=== PATIENT | female | born 1970 | race Caucasian/White ===

== ENCOUNTER 2024-06-03 12:46 | Inpatient (IN) | payer OTHER ==
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
[2024-06-03 13:16] LABS: Basophils % (A) 0 %; Eosinophils # (A) 0.2 k/uL (0-0.7); Eosinophils % (A) 3 %; HCT 44.4 % (34.0-46.0); HGB 14.2 gm/dL (11.4-16.0); Lymphocytes # (A) 0.9 k/uL (1.0-4.8); Lymphocytes % (A) 10 %; MCH 28.4 pg (25.0-35.0); MCHC 31.9 g/dL (31.0-37.0); Mean Platelet Volume 8.9; Monocytes # (A) 0.3 k/uL (0-1.0); Monocytes % (A) 4 %; Neutrophils # (A) 7.4 k/uL (1.3-7.7); Neutrophils % (A) 83 %; Platelet Count 261 k/uL (150-450); RBC 4.99 m/uL (3.80-5.40)
[2024-06-03 13:26] LABS: Partial Thromboplastin Time 25.7 sec (22.0-30.0)
[2024-06-03 13:27] LABS: ALT 23 U/L (4-34); AST 33 U/L (14-36); African American GFR (CKD) >90 (>60 ml/min/1.73 sqM); Albumin 4.3 g/dL (3.5-5.0); Alkaline Phosphatase 80 U/L (38-126); Anion Gap 5 mmol/L; Blood Urea Nitrogen 12 mg/dL (7-17); Calcium 9.5 mg/dL (8.4-10.2); Carbon Dioxide 36 mmol/L (22-30); Chloride 97 mmol/L (98-107); Glucose 123 mg/dL (74-99); Magnesium 2.1 mg/dL (1.6-2.3); Non-African American GFR(CKD) 86 (>60 ml/min/1.73 sqM); Potassium 4.4 mmol/L (3.5-5.1); Sodium 138 mmol/L (137-145); Total Bilirubin 0.9 mg/dL (0.2-1.3); Total Protein 7.3 g/dL (6.3-8.2)
--- NOTE | 2024-06-03 14:15 | XR ---
EXAMINATION TYPE: XR chest 2V DATE OF EXAM: 06/03/2024 2:10 PM COMPARISON: None available. CLINICAL INDICATION: Female, 54 years old with history of Weakness; [facility] TECHNIQUE: XR chest 2V Frontal and lateral views of the chest. FINDINGS: Cardia megaly mild pulmonary vascular congestion. No sizable pleural effusion. No acute focal consolidation. No pneumothorax or No acute osseous abnormality. IMPRESSION: Cardiomegaly and mild pulmonary vascular congestion changes. [facility], , 06/03/2024 2:13 PM
--- NOTE | 2024-06-03 14:18 | CT ---
EXAMINATION TYPE: CT brain wo con DATE OF EXAM: 06/03/2024 2:05 PM COMPARISON: None available. CLINICAL INDICATION: Female, 54 years old with history of weakness, WEAKNESS AND SLURRED SPEECH TECHNIQUE: Brain: Axial CT images of the brain were obtained with coronal and sagittal reformats created and rev iewed. Contrast used: None. Oral contrast used: None. CT DLP: 1180.4 mGycm, Automated exposure control for dose reduction was used. FINDINGS: Brain: No acute intracranial hemorrhage, midline shift or significant mass effect. Cavum septum pellucidum. Ventricles and sulci otherwise mildly prominent compatible generalized cerebral volume loss. Basal ci sterns appear patent. No sizable extra-axial fluid collection. Visualized paranasal sinuses and masto id air cells appear patent. No depressed calvarial fracture. No large scalp hematoma. IMPRESSION: No acute intracranial abnormality. [facility], , 06/03/2024 2:16 PM
[2024-06-03 14:50] LABS: Appearance,Urine Clear (Clear); Bilirubin,Urine Negative (Negative); Blood,Urine Negative (Negative); Color,Urine Colorless; Glucose,Urine (UA) Negative (Negative); Ketones,Urine Negative (Negative); Leukocyte Esterase,Urine Negative (Negative); Nitrite,Urine Negative (Negative); Protein,Urine Negative (Negative); Urobilinogen,Urine <2.0 mg/dL (<2.0)
[2024-06-03] MEDS: SODIUM CHLORIDE 0.9% 1,000 ML IV SCH (15:03)
[2024-06-03] MEDS: ASPIRIN 325 MG TAB PO STA (15:03)
--- NOTE | 2024-06-03 21:09 | P.HPIM ---
History of Present Illness This is a visit 54 years old female with past medical history of hypertension She brought because of generalized weakness and she was found on the floor with slurred speech. Patient could not get up and noticed that she is old and peed on herself more than once. On presentation patient looks awake and understands but she mumbles only and she cannot talk. Patient is morbidly obese which limits her ability to move around. Patient is poor historian because of her aphasia however she can shake her head as yes or no Patient denies any pain When asking about shortness of breath she denies, no vomiting or diarrhea, she denies urinary complaint, she denies headache dizziness to me Patient also denies weakness or tingling Her labs looks normal like CBC, BMP and LFT and INR. Urinalysis negative proBNP is 250 Chest x-ray cardiomegaly with mild pulmonary vascular congestion CT of the brain showing no acute intracranial process EKG showing sinus rhythm at [address]-T changes Review of Systems Patient could not talk clearly but she can move her head as yes or no to the following questions Review of systems CONSTITUTIONAL: No fever, no malaise, no fatigue. HEENT: No recent visual problems or hearing problems. Denied any sore throat. CARDIOVASCULAR: No orthopnea, PND, no palpitations, no syncope. PULMONARY: No shortness of breath, no cough, no hemoptysis. GASTROINTESTINAL: No diarrhea, no nausea, no vomiting, no abdominal pain. Normoactive bowel sounds. NEUROLOGICAL: No headaches, no weakness, no numbness. HEMATOLOGICAL: Denies any bleeding or petechiae. GENITOURINARY: Denies any burning micturition, frequency, or urgency. MUSCULOSKELETAL/RHEUMATOLOGICAL: Denies any joint pain, swelling, or any muscle pain. ENDOCRINE: Denies any polyuria or polydipsia. Past Medical History Past Medical History: Heart Failure, Hypertension Past Surgical History: No Surgical Hx Reported Past Psychological History: No Psychological Hx Reported Smoking Status: Never smoker Past Alcohol Use History: None Reported Past Drug Use History: None Reported Medications and Allergies Home Medications Medication Instructions Recorded Confirmed Type Atorvastatin [Lipitor] 20 mg PO HS 06/03/24 06/03/24 History Dapagliflozin Propanediol [Farxiga] 5 mg PO DAILY 06/03/24 06/03/24 History Ergocalciferol (Vitamin D2) 1,250 mcg PO Q7D 06/03/24 06/03/24 History [Drisdol (50,000 Iu)] Etodolac [Lodine] 400 mg PO BID 06/03/24 06/03/24 History Furosemide [Lasix] 40 mg PO DAILY 06/03/24 06/03/24 History Losartan Potassium [Cozaar] 100 mg PO DAILY 06/03/24 06/03/24 History Metoprolol Succinate (ER) [Toprol 100 mg PO DAILY 06/03/24 06/03/24 History Xl] Spironolactone [Aldactone] 25 mg PO DAILY 06/03/24 06/03/24 History carvediloL [Coreg] 25 mg PO BID 06/03/24 06/03/24 History Allergies Allergy/AdvReac Type Severity Reaction Status Date / Time Sulfa (Sulfonamide Allergy Rash/Hives Verified 06/03/24 15:22 Antibiotics) Physical Exam Vitals: Vital Signs Temp Pulse Resp BP Pulse Ox 06/03/24 19:51 92 18 153/77 96 06/03/24 18:54 98.5 F 06/03/24 18:21 95 20 160/78 96 06/03/24 16:00 98 26 H 124/90 96 06/03/24 15:02 103 H 26 H 152/77 99 06/03/24 13:37 97 06/03/24 12:55 98.5 F 93 34 H 156/96 93 L Intake and Output 06/03/24 06/03/24 06/03/24 06:59 14:59 22:59 Other: Weight 164 kg -GENERAL: The patient is alert and oriented x3, not in any acute distress. Well developed, well nourished. Morbidly obese HEENT: Pupils are round and equally reacting to light. EOMI. No scleral icterus. No conjunctival pallor. Normocephalic, atraumatic. No pharyngeal erythema. No thyromegaly. CARDIOVASCULAR: S1 and S2 present. No murmurs, rubs, or gallops. PULMONARY: Chest is clear to auscultation, no wheezing , no crackles. ABDOMEN: Soft, nontender, nondistended, normoactive bowel sounds. No palpable organomegaly. MUSCULOSKELETAL: No joint swelling or deformity. EXTREMITIES: No cyanosis, clubbing, or pedal edema. NEUROLOGICAL: G patient could not talk she mumbles. No facial deviation. No weakness of upper or lower extremity which looks symmetrical. Examination is limited by her body habitus -SKIN: N she has erythematous rash all over her body including the face, trunk and extremities with psoriasis like discoloration of the knees. no petechiae. Results CBC & Chem 7: 06/03/24 13:08 06/03/24 13:08 Labs: Abnormal Lab Results - Last 24 Hours (Table) 06/03/24 06/03/24 Range/Units 13:08 13:08 Lymphocytes # 0.9 L (1.0-4.8) k/uL Chloride 97 L (98-107) mmol/L Carbon Dioxide 36 H (22-30) mmol/L Glucose 123 H (74-99) mg/dL Assessment and Plan Assessment: Aphasia with slurred speech, rule out acute stroke Psoriasis with widespread rash Permissive hypertension Morbid obesity Plan: Continue with aspirin 325 mg Hold blood pressure medication till patient able to take orally Keep n.p.o. check swallow evaluation Neurology consult Check echocardiogram and carotid duplex Labs and medication were reviewed.. Continue same treatment. Continue with symptomatic treatment. Resume home medication. Monitor labs and vitals. DVT and GI prophylaxis. Further recommendations as per clinical course of the patient DVT prophylaxis: Subcutaneous heparin GI Prophylaxis: Pepcid PT/OT: Pending Prognosis is guarded
[2024-06-03] MEDS: ENOXAPARIN 40 MG/0.4 ML SYRINGE SQ SCH (21:56)
[2024-06-03] MEDS: FAMOTIDINE 20 MG/2 ML VIAL IV SCH (21:56)
[2024-06-04] MEDS: cloNIDine 0.2 MG/24HR PATCH TRANSDERM SCH (03:22)
[2024-06-04 07:14] LABS: African American GFR (CKD) >90 (>60 ml/min/1.73 sqM); Anion Gap 3 mmol/L; Blood Urea Nitrogen 11 mg/dL (7-17); Calcium 8.9 mg/dL (8.4-10.2); Carbon Dioxide 36 mmol/L (22-30); Chloride 98 mmol/L (98-107); Glucose 108 mg/dL (74-99); Non-African American GFR(CKD) 90 (>60 ml/min/1.73 sqM); Sodium 137 mmol/L (137-145)
[2024-06-04 07:24] LABS: Basophils % (A) 0 %; Eosinophils # (A) 0.3 k/uL (0-0.7); Eosinophils % (A) 4 %; HCT 41.1 % (34.0-46.0); HGB 12.9 gm/dL (11.4-16.0); Hypochromasia Slight; Lymphocytes # (A) 1.3 k/uL (1.0-4.8); Lymphocytes % (A) 15 %; MCH 28.3 pg (25.0-35.0); MCHC 31.3 g/dL (31.0-37.0); MCV 90.6 fL (80.0-100.0); Mean Platelet Volume 8.9; Monocytes # (A) 0.3 k/uL (0-1.0); Monocytes % (A) 4 %; Neutrophils # (A) 6.1 k/uL (1.3-7.7); Neutrophils % (A) 74 %; Platelet Count 219 k/uL (150-450); RBC 4.54 m/uL (3.80-5.40); WBC 8.2 k/uL (3.8-10.6)
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
[2024-06-04] MEDS: FUROSEMIDE 10 MG/ML 4 ML VIAL IV SCH (08:39)
[2024-06-04] MEDS: ASPIRIN 325 MG TAB PO SCH (08:40)
[2024-06-04] MEDS: BETAMETHASONE DIPROPIONATE 0.05% CREAM 15 GM TUBE TOPICAL SCH (08:42)
--- NOTE | 2024-06-04 08:58 | P.PN ---
Subjective This is a visit 54 years old female with past medical history of hypertension She brought because of generalized weakness and she was found on the floor with slurred speech. Patient could not get up and noticed that she is old and peed on herself more than once. On presentation patient looks awake and understands but she mumbles only and she cannot talk. Patient is morbidly obese which limits her ability to move around. Patient is poor historian because of her aphasia however she can shake her head as yes or no Patient denies any pain When asking about shortness of breath she denies, no vomiting or diarrhea, she denies urinary complaint, she denies headache dizziness to me Patient also denies weakness or tingling Her labs looks normal like CBC, BMP and LFT and INR. Urinalysis negative proBNP is 250 Chest x-ray cardiomegaly with mild pulmonary vascular congestion CT of the brain showing no acute intracranial process EKG showing sinus rhythm at [address]-T changes 06/04 Patient still difficulty articulating her words, I discussed the case with the neurologist, there is low suspicion for stroke, however we are going to repeat CAT scan of the brain. MRI cannot for the patient as she is morbidly obese. Patient morbidly obese and have difficulty moving. Currently she is on 3 L oxygen via nasal cannula. Her legs like 1+ leg edema. Breath sounds are distant given her body habitus She has extensive rash noted to extremities and trunk related to her psoriasis. Swallow evaluation is ordered. Active Medications Generic Name Dose Route Start Last Admin Trade Name Freq PRN Reason Stop Dose Admin Albuterol/Ipratropium 3 ml 06/04/24 08:51 Ipratropium-Albuterol 3 Ml Neb INHALATION RT-QID PRN Shortness Of Breath Or Wheezing Aspirin 325 mg 06/04/24 09:00 06/04/24 08:40 Aspirin 325 Mg Tab PO 325 mg DAILY ABHAY Administration Betamethasone Dipropionate 1 applic 06/04/24 09:00 06/04/24 08:42 Betamethasone Dipropionate 0.05% Cream 15 Gm Tube TOPICAL 1 applic BID ABHAY Administration Protocol Enoxaparin Sodium 40 mg 06/03/24 21:00 06/04/24 08:39 Enoxaparin 40 Mg/0.4 Ml Syringe SQ 40 mg DAILY ABHAY Administration Famotidine 20 mg 06/03/24 21:00 06/04/24 08:39 Famotidine 20 Mg/2 Ml Vial IV 20 mg Q12HR ABHAY Administration Furosemide 40 mg 06/04/24 09:00 06/04/24 08:39 Furosemide 10 Mg/Ml 4 Ml Vial IV 40 mg Q12HR ABHAY Administration Hydralazine HCl 10 mg 06/03/24 21:03 Hydralazine Hcl 20 Mg/Ml 1 Ml Vial IVP Q4HR PRN Blood Pressure - High Sodium Chloride 1,000 mls @ 20 mls/hr 06/03/24 15:00 06/03/24 15:03 Saline 0.9% IV 20 mls/hr .Q24H ABHAY Administration Objective - Vital Signs Vital signs: Vital Signs Temp 98.5 F 06/03/24 18:54 Pulse 85 06/04/24 06:00 Resp 20 06/04/24 06:00 BP 168/83 06/04/24 06:00 Pulse Ox 98 06/04/24 06:00 FiO2 Intake & Output 06/03/24 06/04/24 06/04/24 18:59 06:59 18:59 Output Total 900 Balance -900 Weight 164 kg Output: Urine 900 Uretheral ([place]) 900 - Exam -GENERAL: The patient is alert and oriented x3, not in any acute distress. Well developed, well nourished. Morbidly obese HEENT: Pupils are round and equally reacting to light. EOMI. No scleral icterus. No conjunctival pallor. Normocephalic, atraumatic. No pharyngeal erythema. No thyromegaly. CARDIOVASCULAR: S1 and S2 present. No murmurs, rubs, or gallops. PULMONARY: Chest is clear to auscultation, no wheezing , no crackles. ABDOMEN: Soft, nontender, nondistended, normoactive bowel sounds. No palpable organomegaly. MUSCULOSKELETAL: No joint swelling or deformity. EXTREMITIES: No cyanosis, clubbing, or pedal edema. NEUROLOGICAL: G patient could not talk she mumbles. No facial deviation. No weakness of upper or lower extremity which looks symmetrical. Examination is limited by her body habitus -SKIN: N she has erythematous rash all over her body including the face, trunk and extremities with psoriasis like discoloration of the knees. no petechiae. - Labs CBC & Chem 7: 06/04/24 06:32 06/04/24 06:32 Labs: Abnormal Lab Results - Last 24 Hours (Table) 06/03/24 06/03/24 06/04/24 Range/Units 13:08 13:08 06:32 Lymphocytes # 0.9 L (1.0-4.8) k/uL Chloride 97 L (98-107) mmol/L Carbon Dioxide 36 H 36 H (22-30) mmol/L Glucose 123 H 108 H (74-99) mg/dL Assessment and Plan Assessment: Aphasia with slurred speech, rule out acute stroke Psoriasis with widespread rash Permissive hypertension Morbid obesity Acute hypoxic failure could be related to her obesity hypoventilation Mild CHF with pulmonary vascular congestion and mild leg edema, she is on oral Lasix at home Plan: Continue with aspirin 325 mg Hold blood pressure medication till patient able to take orally Keep n.p.o. check swallow evaluation Neurology consult Check echocardiogram and carotid duplex Will order betamethasone cream Pulmonary team consult Labs and medication were reviewed.. Continue same treatment. Continue with symptomatic treatment. Resume home medication. Monitor labs and vitals. DVT and GI prophylaxis. Further recommendations as per clinical course of the patient DVT prophylaxis: Subcutaneous heparin GI Prophylaxis: Pepcid PT/OT: Pending Prognosis is guarded
[2024-06-04 10:46] LABS: Chol/HDL Ratio 2.84 Ratio; LDL Cholesterol,Calculated 66.4 mg/dL (0.0-131.0)
[2024-06-04 11:41] LABS: ABG Base Excess 10.7 mmol/L; ABG HCO3 37 mmol/L (21-25); ABG Oxygen Saturation 93.7 % (94-97); ABG PCO2 57 mmHg (35-45); ABG PH 7.42 (7.35-7.45); ABG PO2 68 mmHg (83-108); ABG TCO2 39 mmol/L (19-24); Allen Test Performed? Yes
[2024-06-04] MEDS: IPRATROPIUM-ALBUTEROL 3 ML NEB INHALATION STA (13:18)
[2024-06-04] MEDS: IPRATROPIUM-ALBUTEROL 3 ML NEB INHALATION PRN (13:22)
--- NOTE | 2024-06-04 15:30 | CA ---
Transthoracic Echo Report Name: Jessica Moon Age: 54 Gender: F : 1970 Exam Date: 06/04/2024 08:10 Exam Location: [facility] Ht (in): 61 Wt (lb): 361 Ordering Physician: Juan Carlos Arias DO Attending/Referring Phys: Supervisor Electronic [employer]ils Rebecca Greene RDCS Procedure CPT: Indications: Thrombus Cardiac Hx: Technical Quality: Very technically difficult study Contrast 1: Definity Total Dose (mL): 1 Contrast 2: Total Dose (mL): MEASUREMENTS (Male / Female) Normal Values 2D ECHO LV Diastolic Diameter PLAX 5.2 cm 4.2 - 5.9 / 3.9 - 5.3 cm LV Systolic Diameter PLAX 3.7 cm IVS Diastolic Thickness 0.9 cm 0.6 - 1.0 / 0.6 - 0.9 cm LVPW Diastolic Thickness 1.2 cm 0.6 - 1.0 / 0.6 - 0.9 cm LV Relative Wall Thickness 0.4 LVOT Diameter 2.3 cm Ascending Aorta Diameter 3.0 cm DOPPLER AV Peak Velocity 140.5 cm/s AV Peak Gradient 7.9 mmHg AV Mean Velocity 102.6 cm/s AV Mean Gradient 4.6 mmHg AV Velocity Time Integral 27.1 cm LVOT Peak Velocity 109.7 cm/s LVOT Peak Gradient 4.8 mmHg LVOT Velocity Time Integral 23.3 cm LVOT Stroke Volume 94.0 cm??? LVOT Stroke Volume Index 38.7 ml/m??? LVOT Cardiac Index 3045.0 cm???/min???m??? AV Area Cont Eq vti 3.5 cm??? AV Area Cont Eq pk 3.2 cm??? MV Area PHT 4.0 cm??? Mitral E Point Velocity 94.4 cm/s Mitral A Point Velocity 84.2 cm/s Mitral E to A Ratio 1.1 MV Deceleration Time 191.8 ms FINDINGS Left Ventricle Left ventricular ejection fraction is estimated at 55 to 60 %. Left ventricular cavity size normal. Normal left ventricular systolic function with no obvious regional wall motion abnormalities. Right Ventricle Right ventricle not well visualized. Right Atrium Right atrium not well visualized. Left Atrium Left atrium not well visualized. Mitral Valve Structurally normal mitral valve. No mitral stenosis, regurgitation or prolapse. Aortic Valve Aortic valve not well visualized. No aortic valve stenosis or regurgitation. Tricuspid Valve Tricuspid valve not well visualized. Pulmonic Valve Pulmonic valve not well visualized. Pericardium No pericardial effusion. Aorta Normal size aortic root and proximal ascending aorta. CONCLUSIONS Technically difficult study. Definity ECHO contrast used for improved visualization of the endocardial borders (inadequate visualization of two or more contiguous segments). Normal left ventricular size and systolic function Very limited Doppler study Previewed by: Dr. Keisha Obando MD (Electronically Signed) Final Date: 04 June 2024 15:29
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
--- NOTE | 2024-06-04 17:26 | CT ---
EXAMINATION TYPE: CT brain wo con DATE OF EXAM: 06/04/2024 4:49 PM COMPARISON: 05/26/2024. CLINICAL INDICATION: Female, 54 years old with history of f/u CVA, repeat, cva TECHNIQUE: Brain: Axial CT images of the brain were obtained with coronal and sagittal reformats created and rev iewed. Contrast used: None. Oral contrast used: None. CT DLP: 1183.4 mGycm, Automated exposure control for dose reduction was used. FINDINGS: Brain: Extra-axial spaces: No abnormal extra-axial fluid collections. Ventricular system: Dilatation in proportion to cerebral atrophy. Cavum septum pellucidum. Cerebral parenchyma: Cerebral atrophy. No acute intraparenchymal hemorrhage or mass effect. The french -white junction is well differentiated. Scattered hypoattenuating areas are seen within the white mat ter. Cerebellum: Unremarkable. Mass effect: No evidence of midline shift. Intracranial vasculature: Atherosclerotic calcifications of the intracranial vessels. Soft tissues: Normal. Calvarium/osseous structures: No depressed skull fracture. Paranasal sinuses and mastoid air cells: Mild scattered paranasal sinus disease. Visualized orbits: Orbital contents are intact. IMPRESSION: 1. No acute intracranial process. 2. Similar scattered Nonspecific white matter changes, likely secondary to chronic small vessel ische priti disease. [facility], , 06/04/2024 5:24 PM
[2024-06-04] MEDS ORDERED: MORPHINE SULFATE 2 MG/ML SYRINGE IVP PRN (17:34)
[2024-06-04] MEDS: NYSTATIN 100,000 UNIT/GM POWD 15 GM TOPICAL SCH (19:47)
[2024-06-04] MEDS: hydrALAZINE HCL 20 MG/ML 1 ML VIAL IVP PRN (19:47)
[2024-06-05 03:25] LABS: Glucose,Whole Blood 93 mg/dL (70-110)
[2024-06-05 04:25] LABS: ABG Base Excess 12.2 mmol/L; ABG Oxygen Saturation 96.8 % (94-97); ABG PH 7.35 (7.35-7.45); ABG PO2 92 mmHg (83-108); ABG TCO2 44 mmol/L (19-24); Allen Test Performed? Yes
[2024-06-05 04:33] LABS: ABG HCO3 41 mmol/L (21-25); ABG PCO2 74 mmHg (35-45)
--- NOTE | 2024-06-05 07:02 | XR ---
EXAMINATION TYPE: XR chest 1V DATE OF EXAM: 06/05/2024 COMPARISON: 06/05/2024 CLINICAL INDICATION: Female, 54 years old with history of sob; TECHNIQUE: Single frontal view of the chest is obtained. FINDINGS: There is persistent moderate cardiomegaly. There is interval worsening in the pulmonary vascular mani estion, interstitial edema and possibly alveolar edema. There is no pleural effusion or pneumothorax. The osseous structures are intact IMPRESSION: Findings most consistent with worsening CHF. Diffuse pneumonia not excluded [facility], , 06/05/2024 7:00 AM
--- NOTE | 2024-06-05 07:18 | XR ---
EXAMINATION TYPE: XR chest 1V portable DATE OF EXAM: 06/05/2024 COMPARISON: 06/05/2024 CLINICAL INDICATION: Female, 54 years old with history of shortness of breath; TECHNIQUE: Single frontal view of the chest is obtained. FINDINGS: There is persistent mild cardiomegaly. There is decreased pulmonary vascular congestion and interstit ial edema. There is no pneumothorax or pleural effusion. The osseous structures are intact. IMPRESSION: Decreasing acute cardiopulmonary disease as described above. The findings are consistent with decreas ing CHF. [facility], , 06/05/2024 7:16 AM
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
--- NOTE | 2024-06-05 11:01 | US ---
EXAMINATION TYPE: US carotid duplex BILAT DATE OF EXAM: 06/05/2024 Exam done portable COMPARISON: NONE CLINICAL INDICATION: Female, 54 years old with history of Stenosis; TECHNIQUE: Grayscale, color Doppler and spectral Doppler evaluation of the bilateral carotid systems and vertebral arteries. Indirect Doppler criteria was utilized. FINDINGS: EXAM MEASUREMENTS: RIGHT: Peak Systolic Velocity (PSV) cm/sec ----- Right CCA: 92.7 ----- Right ICA: 86.2 ----- Right ECA: 150.2 ICA/CCA ratio: 0.9 RIGHT: End Diastole cm/sec ----- Right CCA: 18.9 ----- Right ICA: 24.1 ----- Right ECA: 16.1 LEFT: Peak Systolic Velocity (PSV) cm/sec ----- Left CCA: 107.5 ----- Left ICA: 103.5 ----- Left ECA: 135.8 ICA/CCA ratio: 1.0 LEFT: End Diastole cm/sec ----- Left CCA: 18.9 ----- Left ICA: 16.9 ----- Left ECA: 16.6 VERTEBRALS (direction of flow): Right Vertebral: Antegrade Left Vertebral: Antegrade Rhythm: Normal Difficult and limited study due to patient body habitus and heavy breathing IMPRESSION: Right: No hemodynamically significant stenosis. Left: No hemodynamically significant stenosis. Criteria for Assigning % of Stenosis / Diameter reduction (Estimation based on the indirect measurements of the internal carotid artery velocities (ICA PSV). 1. Normal (no stenosis)=ICA PSV < 125 cm/s: ratio < 2.0: ICA EDV<40 cm/s. 2. Less than 50% stenosis=ICA PSV < 125 cm/s: ratio < 2.0: ICA EDV<40 cm/s. 3. 50 to 69% stenosis=ICA PSV of 125 to 230 cm/s: ration 2.0 ? 4.0: ICA EDV 40-100 cm/s. 4. Greater than 70% stenosis to near occlusion= ICA PSV > 230 cm/s: ratio > 4.0: ICA EDV > 100 cm/s. 5. Near occlusion= ICA PSV velocities may be low or undetectable: variable ratio and ICA EDV. 6. Total occlusion=unable to detect flow. [facility], , 06/05/2024 10:59 AM
--- NOTE | 2024-06-05 11:03 | CT ---
EXAMINATION TYPE: CT brain wo con DATE OF EXAM: 06/05/2024 COMPARISON: 06/04/2024 CLINICAL INDICATION: Female, 54 years old with history of speech deficit, generalized weakness.; PHH, speech deficit, generalized weakness. CT DLP: 1186.4 mGycm Automated exposure control for dose reduction was used. Findings: The ventricles, basal cisterns and sulci over convexities are mildly enlarged consistent with mild ge neralized atrophy, appropriate for the patient's age. There are mild scattered focal areas decreased density in the periventricular white matter consistent with chronic ischemic white matter demyelination. There is no mass effect or shift of midline structures. There is no acute intra or extra-axial hemorrhage. The posterior fossa including the brainstem, fourth ventricle and cerebellopontine angles appear ruben sly normal. The intraorbital contents appear normal symmetric Visualized paranasal sinuses and mastoid air cells are well aerated. Calvarium is intact. IMPRESSION: 1. Stable mild generalized atrophy. 2. Stable mild chronic ischemic white matter change. 3. No acute bleed or mass effect. [facility], , 06/05/2024 11:01 AM
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
[2024-06-05] MEDS: HYDROcodone/APAP 5-325MG 1 EACH TAB PO PRN (16:22)
--- NOTE | 2024-06-05 19:37 | P.PN ---
Subjective This is a visit 54 years old female with past medical history of hypertension She brought because of generalized weakness and she was found on the floor with slurred speech. Patient could not get up and noticed that she is old and peed on herself more than once. On presentation patient looks awake and understands but she mumbles only and she cannot talk. Patient is morbidly obese which limits her ability to move around. Patient is poor historian because of her aphasia however she can shake her head as yes or no Patient denies any pain When asking about shortness of breath she denies, no vomiting or diarrhea, she denies urinary complaint, she denies headache dizziness to me Patient also denies weakness or tingling Her labs looks normal like CBC, BMP and LFT and INR. Urinalysis negative proBNP is 250 Chest x-ray cardiomegaly with mild pulmonary vascular congestion CT of the brain showing no acute intracranial process EKG showing sinus rhythm at [address]-T changes 06/04 Patient still difficulty articulating her words, I discussed the case with the neurologist, there is low suspicion for stroke, however we are going to repeat CAT scan of the brain. MRI cannot for the patient as she is morbidly obese. Patient morbidly obese and have difficulty moving. Currently she is on 3 L oxygen via nasal cannula. Her legs like 1+ leg edema. Breath sounds are distant given her body habitus She has extensive rash noted to extremities and trunk related to her psoriasis. Swallow evaluation is ordered. 06/05 Patient was on BiPAP for respiratory difficulty. It was placed overnight, in the morning she continued to use the BiPAP. pH is normal, unlikely CO2 retention to close acidosis. Pulmonary team recommending BiPAP overnight Stroke is unlikely. Neurologist does not think this is a stroke. As patient does not have focal neurological deficit. Neurologist thinks her speech difficulty is due to show shortness of breath. ABG shows pCO2 but no acidosis which is unlikely to cause this degree of shortness of breath. However she has [address] of the brain after duplex negative. Neurologist will see the patient intermittently. Therefore we are going to lowered the dose from aspirin 325 mg down to 81 mg for prophylactic purposes. Will start trazodone. Tomorrow morning we will try to discontinue the BiPAP. Also will ask for PT/OT evaluation Active Medications Generic Name Dose Route Start Last Admin Trade Name Freq PRN Reason Stop Dose Admin Hydrocodone Bitart/Acetaminophen 1 each 06/05/24 15:47 06/05/24 16:22 Hydrocodone/Apap 5-325mg 1 Each Tab PO 1 each Q6HR PRN Administration Pain Albuterol/Ipratropium 3 ml 06/04/24 08:51 06/04/24 13:22 Ipratropium-Albuterol 3 Ml Neb INHALATION 3 ml RT-QID PRN Administration Shortness Of Breath Or Wheezing Aspirin 81 mg 06/06/24 09:00 Aspirin 81 Mg PO DAILY ABHAY Betamethasone Dipropionate 1 applic 06/04/24 09:00 06/05/24 08:12 Betamethasone Dipropionate 0.05% Cream 15 Gm Tube TOPICAL 1 applic BID ABHAY Administration Protocol Enoxaparin Sodium 40 mg 06/03/24 21:00 06/05/24 08:12 Enoxaparin 40 Mg/0.4 Ml Syringe SQ 40 mg DAILY ABHAY Administration Famotidine 20 mg 06/03/24 21:00 06/05/24 08:12 Famotidine 20 Mg/2 Ml Vial IV 20 mg Q12HR ABHAY Administration Furosemide 40 mg 06/04/24 09:00 06/05/24 08:12 Furosemide 10 Mg/Ml 4 Ml Vial IV 40 mg Q12HR ABHAY Administration Hydralazine HCl 10 mg 06/03/24 21:03 06/04/24 19:47 Hydralazine Hcl 20 Mg/Ml 1 Ml Vial IVP 10 mg Q4HR PRN Administration Blood Pressure - High Sodium Chloride 1,000 mls @ 20 mls/hr 06/03/24 15:00 06/05/24 18:17 Saline 0.9% IV Not Given .Q24H ABHAY Morphine Sulfate 2 mg 06/04/24 17:34 Morphine Sulfate 2 Mg/Ml Syringe IVP Q4HR PRN Pain/Discomfort Nystatin 1 applic 06/04/24 22:00 06/05/24 16:25 Nystatin 100,000 Unit/Gm Powd 15 Gm TOPICAL 1 applic TID ABHAY Administration Protocol Trazodone HCl 100 mg 06/05/24 21:00 Trazodone Hcl 100 Mg Tab PO HS ABHAY daron. Objective - Vital Signs Vital signs: Vital Signs Temp 99.6 F 06/05/24 12:00 Pulse 89 06/05/24 12:00 Resp 17 06/05/24 12:00 BP 152/88 06/05/24 12:00 Pulse Ox 92 L 06/05/24 12:00 FiO2 30 06/05/24 12:20 Intake & Output 06/04/24 06/05/24 06/05/24 18:59 06:59 18:59 Intake Total 10 Output Total 4800 2750 1500 Balance -4800 -2750 -1490 Weight 164 kg 157 kg Intake: IV 10 Invasive Line 1 10 Output: Urine 4800 2750 1500 Other: Voiding Method Indwelling Catheter Indwelling Catheter Indwelling Catheter # Bowel Movements 1 - Exam -GENERAL: The patient is alert and oriented x3, not in any acute distress. Well developed, well nourished. Morbidly obese HEENT: Pupils are round and equally reacting to light. EOMI. No scleral icterus. No conjunctival pallor. Normocephalic, atraumatic. No pharyngeal erythema. No thyromegaly. CARDIOVASCULAR: S1 and S2 present. No murmurs, rubs, or gallops. PULMONARY: Chest is clear to auscultation, no wheezing , no crackles. ABDOMEN: Soft, nontender, nondistended, normoactive bowel sounds. No palpable organomegaly. MUSCULOSKELETAL: No joint swelling or deformity. EXTREMITIES: No cyanosis, clubbing, or pedal edema. NEUROLOGICAL: G patient could not talk she mumbles. No facial deviation. No weakness of upper or lower extremity which looks symmetrical. Examination is limited by her body habitus -SKIN: N she has erythematous rash all over her body including the face, trunk and extremities with psoriasis like discoloration of the knees. no petechiae. - Labs CBC & Chem 7: 06/04/24 06:32 06/04/24 06:32 Labs: Abnormal Lab Results - Last 24 Hours (Table) 06/05/24 Range/Units 04:18 ABG pCO2 74 H* (35-45) mmHg ABG HCO3 41 H* (21-25) mmol/L ABG Total CO2 44 H (19-24) mmol/L Assessment and Plan Assessment: Aphasia with slurred speech, rule out acute stroke ruled out. Could be conversion disorder Psoriasis with widespread rash Obstructive sleep apnea with elevated CO2 but not retention or acidosis hypertension, currently better controlled Morbid obesity Acute hypoxic failure could be related to her obesity hypoventilation Mild CHF with pulmonary vascular congestion and mild leg edema, she is on oral Lasix at home Plan: Continue with aspirin, lower dose to 81 mg blood pressure is better controlled now no stroke per neurologist No need for BiPAP unless for night per gardening manager Neurology consult Reviewed the echocardiogram showed preserved ejection fraction and carotid duplex is negative Will order betamethasone cream Pulmonary team consult Patient may benefit from psychiatry evaluation which could be done as an outpatient Labs and medication were reviewed.. Continue same treatment. Continue with symptomatic treatment. Resume home medication. Monitor labs and vitals. DVT and GI prophylaxis. Further recommendations as per clinical course of the pat ient DVT prophylaxis: Subcutaneous heparin GI Prophylaxis: Pepcid PT/OT: Pending Prognosis is guarded
[2024-06-05] MEDS: traZODone HCL 100 MG TAB PO SCH (20:41)
[2024-06-06] MEDS: ASPIRIN 81 MG PO SCH (08:32)
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
--- NOTE | 2024-06-07 10:22 | FL ---
EXAMINATION TYPE: FL barium swallow w video DATE OF EXAM: 06/07/2024 CLINICAL HISTORY: 54-year-old female stroke, abnormal swallow at the bedside, Dysphagia. Assess for a spiration. TECHNIQUE: Deglutition study is performed utilizing thin liquid barium, honey and nectar thick liqui d barium, barium thick pureed consistency. Total dose area product (DAP) in uGy*m?, mGy*cm? (or cornel lar): 0.24. The C-arm was utilized at the patient's bedside. 11 images submitted. Total fluoroscopy time 1 minute 1 second. COMPARISON: None. FINDINGS: Exam limitations due to use of C-arm at the bedside. Somewhat limited visualization. There are episodes of premature spillage into the piriform sinuses. There symptoms of cough and negative re sponse after swallow of thin liquids which is suspicious though the area is difficult to clearly visu julio. Some mild vallecular residuals. IMPRESSION: Limited exam using the C-arm at the bedside. High shoulders. There are symptoms of cough and negative response after swallow of thin liquid suspicious for some aspiration though we are unab le to clearly visualize the aspiration due to the exam limitations. Please refer to speech therapist notes for further details if necessary. [facility], , 06/07/2024 10:20 AM
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
[2024-06-07 16:45] LABS: Glucose,Whole Blood 140 mg/dL (70-110)
[2024-06-07] MEDS: levETIRAcetam IV 500 MG/5 ML VIAL IVP SCH (17:14)
--- NOTE | 2024-06-07 19:39 | P.PN ---
Progress Note - Text Progress Note Date: 06/07/24 This is a visit 54 years old female with past medical history of hypertension She brought because of generalized weakness and she was found on the floor with slurred speech. Patient could not get up and noticed that she is old and peed on herself more than once. On presentation patient looks awake and understands but she mumbles only and she cannot talk. Patient is morbidly obese which limits her ability to move around. Patient is poor historian because of her aphasia however she can shake her head as yes or no Patient denies any pain When asking about shortness of breath she denies, no vomiting or diarrhea, she denies urinary complaint, she denies headache dizziness to me Patient also denies weakness or tingling Her labs looks normal like CBC, BMP and LFT and INR. Urinalysis negative proBNP is 250 Chest x-ray cardiomegaly with mild pulmonary vascular congestion CT of the brain showing no acute intracranial process EKG showing sinus rhythm at [address]-T changes 06/04 Patient still difficulty articulating her words, I discussed the case with the neurologist, there is low suspicion for stroke, however we are going to repeat CAT scan of the brain. MRI cannot for the patient as she is morbidly obese. Patient morbidly obese and have difficulty moving. Currently she is on 3 L oxygen via nasal cannula. Her legs like 1+ leg edema. Breath sounds are distant given her body habitus She has extensive rash noted to extremities and trunk related to her psoriasis. Swallow evaluation is ordered. 06/05 Patient was on BiPAP for respiratory difficulty. It was placed overnight, in the morning she continued to use the BiPAP. pH is normal, unlikely CO2 retent ion to close acidosis. Pulmonary team recommending BiPAP overnight Stroke is unlikely. Neurologist does not think this is a stroke. As patient does not have focal neurological deficit. Neurologist thinks her speech difficulty is due to show shortness of breath. ABG shows pCO2 but no acidosis which is unlikely to cause this degree of shortness of breath. However she has [address] of the brain after duplex negative. Neurologist will see the patient intermittently. Therefore we are going to lowered the dose from aspirin 325 mg down to 81 mg for prophylactic purposes. Will start trazodone. Tomorrow morning we will try to discontinue the BiPAP. Also will ask for PT/OT evaluation June 07, 2024: I resumed care of the patient today. Laying in bed. Awake. Only mumbles answers. Face is flushed. Scattered psoriatic rash. Patient did undergo videofluoroscopic swallow test.: Not a very good quality. Followed by speech therapist. Was NPO. I ordered the EEG. Neurology has ordered an MRI of the brain. Initial CT scan has been unremarkable. At this point as per pulmonary does not feel that is contributing to her presentation. Also consulted psychiatry for psychogenic/conversion disorder. Patient getting IV Lasix. Negative fluid balance. Dr. 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 Even jokes. Patient sister was recently in the hospital for about 20 days and actually the patient herself had been helping her sister. Even she would take her sister came t to her appointments, with driving. She was slowly get around the house. Because she has weakness in the legs she has to sit down quite often. Patient offered I will not take her Lasix in the systolic to keep reminding her. Specially in the last 2 months. Few months ago patient was admitted to [facility] was put on a Lasix drip for congestive heart failure. 2 days prior to getting admitted patient's became less active. Finding it difficult to get up. No fevers reported. Patient does snore quite a bit. Patient also got chronic low back pain and takes medications for the same. Patient is a full code and sister would like patient to be transferred to [facility] where they have a larger MRI and was seen there before. I did inform sister came that patient's have been ordered an MRI here and EEG was ordered today. Patient does have a cat at home. I spoke earlier to the nurse. Total time spent today about 1 hour with over 35 minutes of discussion Active Medications Hydrocodone Bitart/Acetaminophen (Hydrocodone/Apap 5-325mg 1 Each Tab) 1 each PO Q6HR PRN PRN Reason: Moderate Pain (Scale 4 to 6) Last Admin: 06/06/24 16:48 Dose: 1 each Albuterol/Ipratropium (Ipratropium-Albuterol 3 Ml Neb) 3 ml INHALATION RT-QID PRN PRN Reason: Shortness Of Breath Or Wheezing Last Admin: 06/04/24 13:22 Dose: 3 ml Aspirin (Aspirin 81 Mg) 81 mg PO DAILY [facility] Last Admin: 06/07/24 11:41 Dose: 81 mg Betamethasone Dipropionate (Betamethasone Dipropionate 0.05% Cream 15 Gm Tube) 1 applic TOPICAL BID [facility]; Protocol Last Admin: 06/07/24 09:07 Dose: 1 applic Enoxaparin Sodium (Enoxaparin 40 Mg/0.4 Ml Syringe) 40 mg SQ DAILY ABHAY Last Admin: 06/07/24 09:08 Dose: 40 mg Famotidine (Famotidine 20 Mg/2 Ml Vial) 20 mg IV Q12HR ABHAY Last Admin: 06/07/24 09:08 Dose: 20 mg Furosemide (Furosemide 10 Mg/Ml 4 Ml Vial) 40 mg IV Q12HR ABHAY Last Admin: 06/07/24 09:08 Dose: 40 mg Hydralazine HCl (Hydralazine Hcl 20 Mg/Ml 1 Ml Vial) 10 mg IVP Q4HR PRN PRN Reason: Blood Pressure - High Last Admin: 06/04/24 19:47 Dose: 10 mg Sodium Chloride (Saline 0.9%) 1,000 mls @ 20 mls/hr IV .Q24H [facility] Last Admin: 06/07/24 15:33 Dose: Not Given Levetiracetam (Levetiracetam Iv 500 Mg/5 Ml Vial) 500 mg IVP Q12H ABHAY Last Admin: 06/07/24 17:14 Dose: 500 mg Nystatin (Nystatin 100,000 Unit/Gm Powd 15 Gm) 1 applic TOPICAL TID ABHAY; Protocol Last Admin: 06/07/24 15:33 Dose: 1 applic Trazodone HCl (Trazodone Hcl 100 Mg Tab) 100 mg PO HS [facility] Last Admin: 06/06/24 20:41 Dose: 100 mg INVESTIGATIONS, reviewed in the clinical context: Modified barium swallow: Limited exam. Somewhat limited visualization. Symptoms of cough and negative response after swallow of thin liquids. Suspicion was some aspiration. Carotid Doppler: No significant stenosis CT brain without contrast: Unremarkable Chest x-ray film: Some venous prominence 2D echocardiogram: EF 55 to 60% Assessment and plan: -Patient 2 days prior to presentation became increasingly weak. Not able to get around the house. Speech became slow. Sister did report some weakness on the right side. Patient is only mumbling words. Presentation is not compatible with CO2 retention. Differential includes seizure activity, stroke EEG ordered today. MRI ordered. Being followed by neurology Will also consult ID for any atypical infection -Psoriasis with widespread rash -Obstructive sleep apnea with elevated CO2 but not retention or acidosis BiPAP was used here -Essential hypertension, uncontrolled Home medication will be resumed -Morbid obesity, with a BMI of 59.6 -Acute hypoxic respiratory failure could be related to her obesity hypoventilation and CHF Oxygen supplementation -Acute on chronic congestive heart failure exacerbation. Patient was admitted to [facility] sometime ago and had required IV Lasix drip. Currently on IV Lasix twice daily. Has been in negative fluid balance -Chronic lumbar arthritis for which patient takes Lodine at home Resume Lodine -Full code. -Patient's sister came Red as decision-maker EEG, MRI ordered today. Check labs in the morning. Consult ID and psychiatry.
[2024-06-07] MEDS: LACTATED RINGERS 1,000 ML IV SCH (20:23)
[2024-06-07] MEDS: ETODOLAC 400 MG TAB PO SCH (20:23)
[2024-06-07] MEDS: ATORVASTATIN 20 MG TAB PO SCH (20:24)
[2024-06-07] MEDS: METOPROLOL TARTRATE 50 MG TAB PO SCH (20:24)
[2024-06-07] MEDS: carvediloL 12.5 MG TAB PO SCH (20:24)
--- NOTE | 2024-06-07 21:19 | EEG ---
ELECTROENCEPHALOGRAM REPORT CLINICAL HISTORY: This is a 54-year-old woman with altered mental status. The video EEG is obtained to evaluate for seizure epileptiform activity. RELEVANT MEDICATION: Trazodone. EEG TYPE: A routine 21-channel EEG with video using the 10/20 electrode placement system. DESCRIPTION: Wakefulness is obtained. During awake state, the background consists of low-to- moderate voltage of 8.5 to 9.5 hertz activity and at times intermixed with delta activity. There was no physiological stage 2 sleep architecture. There is no focal slowing. Interictal and ictal is none. ACTIVATION PROCEDURE: Photic stimulation did not evoke a posterior driving response. There is no abnormality during the photic stimulation. Hyperventilation is not performed. CLINICAL INTERPRETATION: This is an abnormal routine EEG. The background slowing is suggestive of mild encephalopathy. There is no focal slowing, epileptiform discharge, or seizure on the EEG. Clinical correlation is recommended. SHEYLA / FERNANDON: [id number] /
[2024-06-08 07:57] LABS: Basophils # (A) 0.1 k/uL (0-0.2); Basophils % (A) 1 %; Eosinophils % (A) 0 %; HCT 51.7 % (34.0-46.0); Lymphocytes # (A) 0.8 k/uL (1.0-4.8); Lymphocytes % (A) 9 %; MCH 28.1 pg (25.0-35.0); MCHC 31.1 g/dL (31.0-37.0); MCV 90.3 fL (80.0-100.0); Mean Platelet Volume 9.8; Monocytes # (A) 0.6 k/uL (0-1.0); Monocytes % (A) 7 %; Neutrophils # (A) 7.7 k/uL (1.3-7.7); Neutrophils % (A) 82 %; Platelet Count 298 k/uL (150-450); RBC 5.73 m/uL (3.80-5.40); RDW 14.9 % (11.5-15.5); WBC 9.4 k/uL (3.8-10.6)
[2024-06-08 08:01] LABS: ALT 21 U/L (4-34); AST 36 U/L (14-36); African American GFR (CKD) 57 (>60 ml/min/1.73 sqM); Albumin 4.6 g/dL (3.5-5.0); Alkaline Phosphatase 80 U/L (38-126); Blood Urea Nitrogen 47 mg/dL (7-17); Calcium 9.8 mg/dL (8.4-10.2); Chloride 94 mmol/L (98-107); Glucose 145 mg/dL (74-99); Non-African American GFR(CKD) 49 (>60 ml/min/1.73 sqM); Potassium 4.1 mmol/L (3.5-5.1); Sodium 146 mmol/L (137-145); Total Bilirubin 0.8 mg/dL (0.2-1.3); Total Protein 8.2 g/dL (6.3-8.2)
[2024-06-08 08:02] LABS: HGB 16.1 gm/dL (11.4-16.0)
[2024-06-08 08:07] LABS: Anion Gap 17 mmol/L
[2024-06-08 08:15] LABS: Carbon Dioxide 35 mmol/L (22-30)
--- NOTE | 2024-06-08 10:51 | XR ---
EXAMINATION TYPE: XR chest 1V portable DATE OF EXAM: 06/08/2024 10:46 AM COMPARISON: Chest radiographs from 06/05/2024 TECHNIQUE: XR chest 1V portable Portable AP radiograph of the chest. CLINICAL INDICATION:Female, 54 years old with history of WORSENING SHORTNESS OF BREATH; FINDINGS: Lungs/Pleura: There is no evidence of pleural effusion, focal consolidation, or pneumothorax. Elevat ion the right hemidiaphragm. Pulmonary vascularity: Unremarkable. Heart/mediastinum: Cardiomediastinal silhouette is enlarged and stable. Musculoskeletal: No acute osseous pathology. IMPRESSION: 1. No acute cardiopulmonary disease/process. 2. Cardiomegaly. [facility], , 06/08/2024 10:48 AM
[2024-06-08] MEDS: PIPERACILLIN-TAZOBACTAM 3.375 GM in SODIUM CHLORIDE 0.9% 100 ML IVPB SCH (12:47)
--- NOTE | 2024-06-08 13:08 | P.CONS ---
History of Present Illness - Reason for Consult Consult date: 06/08/24 Atypical infection Requesting physician: Eduar Mallory - Chief Complaint Weakness and fever X few days - History of Present Illness Patient is a 54-year female with a past medical history significant for heart failure hypertension psoriasis dementia patient has been brought into the hospital 5 days ago for evaluation of speech problem as the patient was noted to be more anxious symptom has been going on for about 2 days before the patient has been brought in the hospital at the patient has been evaluated by admitting neurology and pulmonary services patient was afebrile on initial presentation the hospital however has been running a low-grade fever of 99.2 as of 06/04/2024 she did have a temperature of 100.2 on 06/06/2024 and the temperature last night of 99.8 F that has prompted this consultation as of this morning the patient did spike a fever of 101 F patient was noticed to be more lethargic and hypoxemia with O2 sats in the 90s and the patient has been put on a BiPAP currently on 30% FiO2 patient is hemodynamically stable for the blood pressure slightly on the high side with a systolic of 167 patient is lethargic and cannot provide any history nursing staff did not mention any vomiting or diarrhea but the respiratory tract patient was more alert yesterday than today so most information has been extracted from review of the chart and talking to nursing staff patient did have a normal white count during this admission did have a white count of 9.4 today BUN/creatinine slightly elevated with a creatinine 1.25 liver enzymes are normal and the patient did have a chest x-ray that was reported negative for acute cardiopulmonary disease process did have a urine admission that was negative Review of Systems Positive points has been mentioned in HPI complete review could not be obtained because of his underlying mental status Past Medical History Past Medical History: Heart Failure, Dementia, Hypertension Additional Past Medical History / Comment(s): psoriasis History of Any Multi-Drug Resistant Organisms: None Reported Past Surgical History: No Surgical Hx Reported Past Psychological History: No Psychological Hx Reported Smoking Status: Never smoker Past Alcohol Use History: None Reported Past Drug Use History: None Reported Medications and Allergies Home Medications Medication Instructions Recorded Confirmed Type Atorvastatin [Lipitor] 20 mg PO HS 06/03/24 06/03/24 History Dapagliflozin Propanediol [Farxiga] 5 mg PO DAILY 06/03/24 06/03/24 History Ergocalciferol (Vitamin D2) 1,250 mcg PO Q7D 06/03/24 06/03/24 History [Drisdol (50,000 Iu)] Etodolac [Lodine] 400 mg PO BID 06/03/24 06/03/24 History Furosemide [Lasix] 40 mg PO DAILY 06/03/24 06/03/24 History Losartan Potassium [Cozaar] 100 mg PO DAILY 06/03/24 06/03/24 History Metoprolol Succinate (ER) [Toprol 100 mg PO DAILY 06/03/24 06/03/24 History Xl] Spironolactone [Aldactone] 25 mg PO DAILY 06/03/24 06/03/24 History carvediloL [Coreg] 25 mg PO BID 06/03/24 06/03/24 History Allergies Allergy/AdvReac Type Severity Reaction Status Date / Time Sulfa (Sulfonamide Allergy Rash/Hives Verified 06/03/24 15:22 Antibiotics) Physical Exam Vitals: Vital Signs Temp Pulse Pulse Resp BP Pulse Ox FiO2 06/08/24 09:39 99 29 H 95 30 06/08/24 09:24 30 06/08/24 08:20 101.8 F H 101 H 28 H 143/75 93 L 06/08/24 03:16 30 06/08/24 03:05 100 F H 102 H 27 H 155/85 93 L 30 06/07/24 23:49 30 06/07/24 23:00 99.9 F H 95 25 H 148/84 95 30 06/07/24 20:52 30 06/07/24 19:25 99.8 F H 118 H 26 H 160/80 94 L 06/07/24 15:25 99.0 F 110 H 30 H 189/99 90 L 06/07/24 11:36 98.6 F 118 H 24 158/80 Intake and Output 06/07/24 06/08/24 06/08/24 22:59 06:59 14:59 Intake Total 30 10 10 Output Total 1600 400 Balance -1570 -390 10 Intake: IV 30 10 10 Invasive Line 1 10 Invasive Line 2 20 10 10 Oral 0 Output: Urine 1600 400 Other: Voiding Method Indwelling Catheter Indwelling Catheter Weight 145.5 kg GENERAL DESCRIPTION: Middle-aged Female lying in bed, mild distress. Mild t achypnea but no accessory muscle of respiration use. HEENT: Shows Pallor , no scleral icterus. Patient with the BiPAP Limited examination of the oral cavity NECK: Trachea central, no thyromegaly. LUNGS: Unlabored breathing. Decreased intensity breath sounds no wheeze HEART: S1, S2, regular rate and rhythm. No loud murmur ABDOMEN: Soft, no tenderness , EXTREMITIES: No edema of feet. SKIN: Multiple psoriatic patches noticed but no evidence of any erythema or drainage NEUROLOGICAL: The patient is lethargic orientation could not be determined Results CBC & Chem 7: 06/08/24 05:52 06/08/24 05:52 Labs: Abnormal Lab Results - Last 24 Hours (Table) 06/07/24 06/08/24 06/08/24 Range/Units 16:44 05:52 05:52 RBC 5.73 H (3.80-5.40) m/uL Hgb 16.1 H D (11.4-16.0) gm/dL Hct 51.7 H (34.0-46.0) % Lymphocytes # 0.8 L (1.0-4.8) k/uL Sodium 146 H (137-145) mmol/L Chloride 94 L (98-107) mmol/L Carbon Dioxide 35 H (22-30) mmol/L BUN 47 H (7-17) mg/dL Creatinine 1.25 H (0.52-1.04) mg/dL Glucose 145 H (74-99) mg/dL POC Glucose (mg/dL) 140 H (70-110) mg/dL Assessment and Plan (1) Fever Current Visit: Yes Status: Acute Code(s): R50.9 - FEVER, UNSPECIFIED SNOMED Code(s): 888273414 Plan: 1patient with a fever in this patient currently in the hospital for 5 days before admission this initial evaluation with initial presentation for follow-up with the speech and responsiveness and has been worked up for CVA with the last CT of the brain has been negative MRI could not be done because the patient could not stay still etiology of the fever could be multifactorial questionable central versus pulmonary question of aspiration 2-blood culture have been requested we also currently waiting for the UA culture chest x-ray did not show any acute infiltrate 3-we will check nasopharyngeal swab for influenza COVID and RSV 4-we will consult pain management for LP sending the fluid for glucose protein cell count differential and culture as well as HSV DNA by PCR 5-we will empirically add Zosyn while waiting for the workup to be completed Overall prognosis guarded We will follow on clinical condition and cultures to further adjust medication if needed Thank you for this consultation we will follow the patient along with you Dictation was produced using [employer] dictation software. please excuse any grammatical, word or spelling errors. Time with Patient: Greater than 30
--- NOTE | 2024-06-08 13:54 | P.PN ---
Progress Note - Text Progress Note Date: 06/08/24 Lumbar puncture was requested by infectious disease department, but patient received Lovenox today at 09:20 in the morning, procedure cannot be done today
--- NOTE | 2024-06-08 14:00 | P.CN ---
Psychiatric Consult - . Consult date: 06/08/24 Consult:: 06/08/24 13:42 This patient is a 54-year-old female, , morbidly obese. Workers' Compensation Hearings Officer was consulted to see patient today for "possible conversion disorder". Patient was brought into the hospital on 06/03 for apparently speech problems weakness generalized anxiety was a poor historian unable to get out of bed. Urinalysis was negative. Neurology has been consulted and following along. Workers' Compensation Hearings Officer reviewed patient's chart, spoke with nurse before attempting to see patient. Patient was fairly sedated, was on BiPAP, unable to respond to any questions instructional writer asked. He appears to be fairly ill. Unable to perform psychiatric evaluation. Please continue medical workup and treatment for underlying medical problems. If patient has persistent and/or worsening psychiatric issues after these medical problems are addressed then please reach out to psychiatry for further recommendations only if needed. If patient is improving after medical care/treatment that rules out conversion disorder and psychiatric intervention is not needed at this time Thank you 06/08/24 13:55
--- NOTE | 2024-06-08 14:41 | P.PN ---
Subjective Progress Note Date: 06/08/24 I am following the patient and it seems the patient is more drowsy. Patient has fevers no leukocytosis. Infection disease is consulted and they consulted pain specialist for lumbar puncture. Since 1127 on patient's presentation patient was afebrile and patient started developing low-grade fever on 06/06/2024. Objective - Vital Signs Vital signs: Vital Signs Temp 101.0 F H 06/08/24 11:06 Pulse 97 06/08/24 11:06 Resp 30 H 06/08/24 11:06 BP 167/77 06/08/24 11:06 Pulse Ox 95 06/08/24 11:06 FiO2 30 06/08/24 11:35 Intake & Output 06/07/24 06/08/24 06/08/24 18:59 06:59 18:59 Intake Total 120 20 20 Output Total 1600 400 100 Balance -1480 -380 -80 Weight 143 kg 145.5 kg Intake: IV 60 20 20 Invasive Line 1 30 Invasive Line 2 30 20 20 Oral 60 Output: Urine 1600 400 100 Other: Voiding Method Indwelling Catheter Indwelling Catheter Indwelling Catheter # Bowel Movements 1 - Exam General: Lying in bed and does not appear in acute distress. HENT: Supple neck. Neuro: Very limited. Is very Drowsy but intermittently opens eyes. Is not following commands or verbalizing. - Labs CBC & Chem 7: 06/08/24 05:52 06/08/24 05:52 Labs: Abnormal Lab Results - Last 24 Hours (Table) 06/07/24 06/08/24 06/08/24 Range/Units 16:44 05:52 05:52 RBC 5.73 H (3.80-5.40) m/uL Hgb 16.1 H D (11.4-16.0) gm/dL Hct 51.7 H (34.0-46.0) % Lymphocytes # 0.8 L (1.0-4.8) k/uL Sodium 146 H (137-145) mmol/L Chloride 94 L (98-107) mmol/L Carbon Dioxide 35 H (22-30) mmol/L BUN 47 H (7-17) mg/dL Creatinine 1.25 H (0.52-1.04) mg/dL Glucose 145 H (74-99) mg/dL POC Glucose (mg/dL) 140 H (70-110) mg/dL Assessment and Plan Assessment: Ms. Moon is a 54-year-old female who is morbidly obese. She has a history of congestive heart failure and may have been left in her bed for period of time. She was found to have urine and fecal incontinence. She has limited speech capability at this time; however, this may be due to her respiratory condition as she is straining to breathe and breathing very rapidly. She is able to mouth words and name as well as comprehend both simple and complex commands. Her acute speech condition unknown exact etiology. Had two CT head which are negative for stroke. Unsure more respiratory. Cannot rule out stroke that is small not seen on CT. Today the patient is more confused and has fever unknown exact source of the fever. PATIENT has component of metabolic encephalopathy. Patient presented on 06/03/2024 and had no fever until 06/06/2024. No leukocytosis. Chronic hypoxic respiratory failure on oxygen Chronic compensated hyper Respiratory failure Hypertension Psoriasis Chronic diastolic heart failure. Edema Diabetes mellitus Morbid obesity Plan: Infection disease team is consulted and they consulted pain specialist for lumbar puncture Patient yesterday had an EEG which showed mild encephalopathy but no focal slowing or seizure. I felt there is a questionable sharp activity is very rare and I started the patient on Keppra 500 mg twice daily empirically. Patient is on aspirin 81 mg daily Cannot obtain MRI since the patient is unstable. Repeating CT of the head once the patient is more stable. Psychiatry team is consulted Pulmonary team is consulted PT OT and FRONT OFFICE SUPERVISOR are consulted Will defer the rest of the medical med to primary and other specialist Plan discussed with the patient's nurse. Time with Patient: Less than 30
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
--- NOTE | 2024-06-08 15:26 | P.PN ---
Progress Note - Text Progress Note Date: 06/08/24 This is a visit 54 years old female with past medical history of hypertension She brought because of generalized weakness and she was found on the floor with slurred speech. Patient could not get up and noticed that she is old and peed on herself more than once. On presentation patient looks awake and understands but she mumbles only and she cannot talk. Patient is morbidly obese which limits her ability to move around. Patient is poor historian because of her aphasia however she can shake her head as yes or no Patient denies any pain When asking about shortness of breath she denies, no vomiting or diarrhea, she denies urinary complaint, she denies headache dizziness to me Patient also denies weakness or tingling Her labs looks normal like CBC, BMP and LFT and INR. Urinalysis negative proBNP is 250 Chest x-ray cardiomegaly with mild pulmonary vascular congestion CT of the brain showing no acute intracranial process EKG showing sinus rhythm at [address]-T changes 06/04 Patient still difficulty articulating her words, I discussed the case with the neurologist, there is low suspicion for stroke, however we are going to repeat CAT scan of the brain. MRI cannot for the patient as she is morbidly obese. Patient morbidly obese and have difficulty moving. Currently she is on 3 L oxygen via nasal cannula. Her legs like 1+ leg edema. Breath sounds are distant given her body habitus She has extensive rash noted to extremities and trunk related to her psoriasis. Swallow evaluation is ordered. 06/05 Patient was on BiPAP for respiratory difficulty. It was placed overnight, in the morning she continued to use the BiPAP. pH is normal, unlikely CO2 retent ion to close acidosis. Pulmonary team recommending BiPAP overnight Stroke is unlikely. Neurologist does not think this is a stroke. As patient does not have focal neurological deficit. Neurologist thinks her speech difficulty is due to show shortness of breath. ABG shows pCO2 but no acidosis which is unlikely to cause this degree of shortness of breath. However she has [address] of the brain after duplex negative. Neurologist will see the patient intermittently. Therefore we are going to lowered the dose from aspirin 325 mg down to 81 mg for prophylactic purposes. Will start trazodone. Tomorrow morning we will try to discontinue the BiPAP. Also will ask for PT/OT evaluation June 07, 2024: I resumed care of the patient today. Laying in bed. Awake. Only mumbles answers. Face is flushed. Scattered psoriatic rash. Patient did undergo videofluoroscopic swallow test.: Not a very good quality. Followed by speech therapist. Was NPO. I ordered the EEG. Neurology has ordered an MRI of the brain. Initial CT scan has been unremarkable. At this point as per pulmonary does not feel that is contributing to her presentation. Also consulted psychiatry for psychogenic/conversion disorder. Patient getting IV Lasix. Negative fluid balance. Dr. 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 Even jokes. Patient sister was recently in the hospital for about 20 days and actually the patient herself had been helping her sister. Even she would take her sister came t to her appointments, with driving. She was slowly get around the house. Because she has weakness in the legs she has to sit down quite often. Patient offered I will not take her Lasix in the systolic to keep reminding her. Specially in the last 2 months. Few months ago patient was admitted to [facility] was put on a Lasix drip for congestive heart failure. 2 days prior to getting admitted patient's became less active. Finding it difficult to get up. No fevers reported. Patient does snore quite a bit. Patient also got chronic low back pain and takes medications for the same. Patient is a full code and sister would like patient to be transferred to [facility] where they have a larger MRI and was seen there before. I did inform sister came that patient's have been ordered an MRI here and EEG was ordered today. Patient does have a cat at home. I spoke earlier to the nurse. Total time spent today about 1 hour with over 35 minutes of discussion June 08, 2024: Patient remains lethargic. Was started on IV fluid yesterday evening. I spoke to radiology department today. A weight limit for our MRI is 400 pounds. But because of patient's respiratory status on the BiPAP she cannot have an MRI currently. I did speak to ID. Lumbar puncture has been ordered. Empirically has been put on IV Zosyn. EEG did not show any seizure activity. I did speak to patient's sister this morning. Did inform her about the further workup. As patient is becoming a bit alkalotic. Will DC IV Lasix. Continue with LR 75 cc an hour. Active Medications Hydrocodone Bitart/Acetaminophen (Hydrocodone/Apap 5-325mg 1 Each Tab) 1 each PO Q6HR PRN PRN Reason: Moderate Pain (Scale 4 to 6) Last Admin: 06/06/24 16:48 Dose: 1 each Albuterol/Ipratropium (Ipratropium-Albuterol 3 Ml Neb) 3 ml INHALATION RT-QID PRN PRN Reason: Shortness Of Breath Or Wheezing Last Admin: 06/04/24 13:22 Dose: 3 ml Aspirin (Aspirin 81 Mg) 81 mg PO DAILY ABHAY Last Admin: 06/07/24 11:41 Dose: 81 mg Atorvastatin Calcium (Atorvastatin 20 Mg Tab) 20 mg PO HS [facility] Last Admin: 06/07/24 20:24 Dose: 20 mg Betamethasone Dipropionate (Betamethasone Dipropionate 0.05% Cream 15 Gm Tube) 1 applic TOPICAL BID ABHAY; Protocol Last Admin: 06/08/24 12:47 Dose: 1 applic Carvedilol (Carvedilol 12.5 Mg Tab) 25 mg PO AC-BID [facility] Last Admin: 06/08/24 06:42 Dose: 25 mg Dapagliflozin (Dapagliflozin Propanediol 5 Mg Tablet) 5 mg PO DAILY ABHAY Etodolac (Etodolac 400 Mg Tab) 400 mg PO BID [facility] Last Admin: 06/07/24 20:23 Dose: 400 mg Famotidine (Famotidine 20 Mg/2 Ml Vial) 20 mg IV DAILY ABHAY Furosemide (Furosemide 10 Mg/Ml 4 Ml Vial) 40 mg IV Q12HR ABHAY Last Admin: 06/08/24 09:20 Dose: 40 mg Hydralazine HCl (Hydralazine Hcl 20 Mg/Ml 1 Ml Vial) 10 mg IVP Q4HR PRN PRN Reason: Blood Pressure - High Last Admin: 06/04/24 19:47 Dose: 10 mg Lactated Ringer's (Lactated Ringers) 1,000 mls @ 75 mls/hr IV .[id number] ABHAY Last Admin: 06/08/24 09:20 Dose: 75 mls/hr Piperacillin Sod/Tazobactam (Sod 3.375 gm/ Sodium Chloride) 100 mls @ 25 mls/hr IVPB Q8H [facility]; Protocol Last Admin: 06/08/24 12:47 Dose: 25 mls/hr Levetiracetam (Levetiracetam Iv 500 Mg/5 Ml Vial) 500 mg IVP Q12H [facility] Last Admin: 06/08/24 06:41 Dose: 500 mg Losartan Potassium (Losartan 50 Mg Tab) 100 mg PO DAILY [facility] Metoprolol Tartrate (Metoprolol Tartrate 50 Mg Tab) 50 mg PO BID [facility] Last Admin: 06/07/24 20:24 Dose: 50 mg Nystatin (Nystatin 100,000 Unit/Gm Powd 15 Gm) 1 applic TOPICAL TID [facility]; Protocol Last Admin: 06/07/24 20:25 Dose: 1 applic Spironolactone (Spironolactone 25 Mg Tab) 25 mg PO DAILY [facility] Trazodone HCl (Trazodone Hcl 100 Mg Tab) 100 mg PO HS [facility] Last Admin: 06/07/24 20:24 Dose: 100 mg On examination: VITAL SIGNS: [101, 97, 30, 167 x 77, 95% on BiPAP] GENERAL APPEARANCE: Average build. Lying in bed, lethargic HEENT: Normal external appearance of nose and ear. Oral cavity normal EYES: Pupils equal. Conjunctiva normal. NECK: JVD not raised. Mass not palpable. RESPIRATORY: Respiratory effort increased l. Decreased breath sound CARDIOVASCULAR: First and second sounds normal. No edema. ABDOMEN: Soft. Liver and spleen not palpable. No tenderness. No mass palpable. PSYCHIATRY: Lethargic Dermatological: Scattered psoriatic rash. INVESTIGATIONS, reviewed in the clinical context: Procalcitonin 0.08. Lactic acid 1.8. EKG: Metabolic abnormality. No seizure activity June 08: White count 9.4 hemoglobin 16.1 platelets 298 sodium 146 potassium 4.1 BUN 47 creatinine 1.25 bicarb 35 Modified barium swallow: Limited exam. Somewhat limited visualization. Symptoms of cough and negative response after swallow of thin liquids. Suspicion was some aspiration. Carotid Doppler: No significant stenosis CT brain without contrast: Unremarkable Chest x-ray film: Some venous prominence 2D echocardiogram: EF 55 to 60% Assessment and plan: -Patient 2 days prior to presentation became increasingly weak. Not able to get around the house. Speech became slow. Sister did report some weakness on the right side. Patient is only mumbling words.: Not improving Presentation is not compatible with CO2 retention. Differential includes seizure activity, stroke, metabolic encephalopathy from infection. Rule out [employer] causes EEG-no seizure activity. MRI currently cannot be done because of patient being on BiPAP Being followed by neurology ID on the case: Empirically started on Zosyn. LP ordered. -Psoriasis with widespread rash -Obstructive sleep apnea with elevated CO2 but not retention or acidosis BiPAP was used here -Essential hypertension, uncontrolled Home medication will be resumed -Sepsis, source unclear: New diagnosis Placed on IV Zosyn. Lumbar puncture ordered -Morbid obesity, with a BMI of 59.6 -Acute hypoxic respiratory failure could be related to her obesity hypoventilation and CHF Oxygen supplementation -Acute on chronic congestive heart failure exacerbation. Patient was admitted to [facility] sometime ago and had required IV Lasix drip. Received IV Lasix. Now DC the same. -Chronic lumbar arthritis for which patient takes Lodine at home Resume Lodine -Full code. -Patient's sister Carolynn Moon as decision-maker MRI brain cannot be done because of pulmonary status. LP ordered. Started on IV Zosyn. DC IV Lasix.
[2024-06-08 16:02] LABS: Appearance,Urine Clear (Clear); Bacteria,Urine Rare /hpf; Bilirubin,Urine 2+ (Negative); Blood,Urine Moderate (Negative); Color,Urine Yellow; Glucose,Urine (UA) Negative (Negative); Hyaline Casts,Urine 5 /lpf (0-2); Ketones,Urine Trace (Negative); Leukocyte Esterase,Urine Negative (Negative); Mucus,Urine Occasional /hpf; Nitrite,Urine Negative (Negative); Protein,Urine 1+ (Negative); RBC,Urine 25 /hpf (0-5); Specific Gravity,Urine 1.027 (1.001-1.035); Squamous Epithelial Cell,Urine 1 /hpf (0-4); WBC,Urine 5 /hpf (0-5)
[2024-06-08] MEDS: DAPAGLIFLOZIN PROPANEDIOL 5 MG TABLET PO SCH (17:22)
[2024-06-08] MEDS: LOSARTAN 50 MG TAB PO SCH (17:22)
[2024-06-08] MEDS: SPIRONOLACTONE 25 MG TAB PO SCH (17:22)
[2024-06-08] MEDS: ACETAMINOPHEN IV (For NPO) 1,000 MG in EMPTY BAG 1 BAG IVPB PRN (18:22)
[2024-06-09] MEDS: cloNIDine 0.1 MG/24HR PATCH TRANSDERM SCH (00:09)
[2024-06-09 04:49] LABS: ABG Base Excess 15.4 mmol/L; ABG Oxygen Saturation 94.1 % (94-97); ABG PCO2 62 mmHg (35-45); ABG PH 7.45 (7.35-7.45); ABG PO2 67 mmHg (83-108); ABG TCO2 45 mmol/L (19-24); Allen Test Performed? Yes
[2024-06-09 04:55] LABS: ABG HCO3 43 mmol/L (21-25)
--- NOTE | 2024-06-09 05:12 | XR ---
EXAMINATION TYPE: XR chest 1V portable DATE OF EXAM: 06/09/2024 CLINICAL HISTORY: Difficulty breathing progress study. TECHNIQUE: Single AP portable semiupright view of the chest is obtained. COMPARISON: Chest x-ray from one day earlier and older studies. FINDINGS: Persistent patchy bibasilar opacities favoring atelectasis. Stable mild cardiomegaly. Yaneli ent more rotated to the right on current study. Upper lungs remain clear. Osseous structures are inta ct. IMPRESSION: Mild cardiomegaly with patchy bibasilar opacities favoring atelectasis. [facility], , 06/09/2024 5:10 AM
[2024-06-09] MEDS: FAMOTIDINE 20 MG/2 ML VIAL IV SCH (09:36)
[2024-06-09 11:22] LABS: Glucose,Whole Blood 139 mg/dL (70-110)
[2024-06-09] MEDS ORDERED: VANCOMYCIN IV PER PHARMACY 1 EACH MISC MISCELLANE PRN (11:57)
[2024-06-09 12:10] LABS: Basophils % (A) 0 %; Eosinophils # (A) 0.2 k/uL (0-0.7); Eosinophils % (A) 1 %; HCT 49.9 % (34.0-46.0); HGB 15.7 gm/dL (11.4-16.0); Hypochromasia Slight; Lymphocytes # (A) 0.8 k/uL (1.0-4.8); Lymphocytes % (A) 5 %; MCH 28.5 pg (25.0-35.0); MCHC 31.4 g/dL (31.0-37.0); MCV 90.9 fL (80.0-100.0); Mean Platelet Volume 9.7; Monocytes # (A) 0.9 k/uL (0-1.0); Monocytes % (A) 5 %; Neutrophils # (A) 14.8 k/uL (1.3-7.7); Neutrophils % (A) 88 %; Platelet Count 229 k/uL (150-450); RBC 5.49 m/uL (3.80-5.40); WBC 16.9 k/uL (3.8-10.6)
[2024-06-09 12:35] LABS: African American GFR (CKD) 41 (>60 ml/min/1.73 sqM); Blood Urea Nitrogen 60 mg/dL (7-17); Calcium 9.3 mg/dL (8.4-10.2); Chloride 102 mmol/L (98-107); Glucose 155 mg/dL (74-99); Non-African American GFR(CKD) 36 (>60 ml/min/1.73 sqM); Potassium 3.5 mmol/L (3.5-5.1); Sodium 151 mmol/L (137-145)
[2024-06-09 12:42] LABS: Anion Gap 11 mmol/L
[2024-06-09 12:43] LABS: Carbon Dioxide 38 mmol/L (22-30)
--- NOTE | 2024-06-09 13:35 | US ---
EXAMINATION TYPE: US venous doppler duplex LE BI DATE OF EXAM: 06/09/2024 12:48 PM COMPARISON: NONE CLINICAL INDICATION: Female, 54 years old with history of rule out DVT; ICU patient on breathing mach ine, extensive edema, 350lbs TECHNIQUE: The lower extremity deep venous system is examined utilizing real time linear array sonog franco with graded compression, color doppler sonography, and spectral doppler. SIDE PERFORMED: Bilateral FINDINGS: VESSELS IMAGED: Common Femoral Vein Deep Femoral Vein Greater Saphenous Vein * Femoral Vein Popliteal Vein Small Saphenous Vein * Proximal Calf Veins (* superficial vessels) *Severely limited exam* Bilateral femoral veins distally appear patent, as well as bilateral popliteal veins, unable to visua lize vessels with color off, so no compression images done. Lack of compression limits exam. More subtle findings may not be visualized on this exam. IMPRESSION: Limited examination. No obvious deep venous thrombosis present. [facility], Workstation: [id number], 06/09/2024 1:32 PM
[2024-06-09] MEDS: VANCOMYCIN 2,000 MG in SODIUM CHLORIDE 0.9% 500 ML 500 ML IVPB ONE (14:17)
[2024-06-09] MEDS ORDERED: CEFEPIME 2 GM in SODIUM CHLORIDE 0.9% 100 ML IVPB SCH (16:00)
--- NOTE | 2024-06-09 16:46 | P.PN ---
Subjective Progress Note Date: 06/09/24 I am following-up with patient and it seems her respiratory status and is on BiPAP. She was transferred to ICU. It seems she did not have Lumbar Puncture yesterday she was on Lovenox and it is held now. Objective - Vital Signs Vital signs: Vital Signs Temp 101.5 F H 06/09/24 12:00 Pulse 88 06/09/24 15:45 Resp 30 H 06/09/24 15:45 BP 124/68 06/09/24 15:45 Pulse Ox 94 L 06/09/24 15:45 FiO2 60 06/09/24 16:17 Intake & Output 06/08/24 06/09/24 06/09/24 18:59 06:59 18:59 Intake Total 20 425 Output Total 1700 800 Balance -1680 -375 Intake: IV 20 425 ACETAMINOPHEN IV (For NPO 100 ) 1,000 mg In Empty Bag 1 bag @ 400 mls/hr IVPB Q6HR PRN Rx#:[id number] Invasive Line 2 20 Lactated Ringers 1,000 ml 225 @ 75 mls/hr IV .[id number] [facility] Rx#:[id number] Piperacillin-Tazobactam 3 100 .375 gm In Sodium Chloride 0.9% 100 ml @ 25 mls/hr IVPB Q8H [facility] Rx#: [id number] Output: Urine 1700 800 Other: Voiding Method Indwelling Catheter Indwelling Catheter Indwelling Catheter # Bowel Movements 0 - Exam General: Lying in bed and does not appear in acute distress. HENT: Supple neck. Lung: Is on BiPAP Neuro: Very limited. Is very Drowsy but intermittently opens eyes. Is oriented to self (by reading her lips). She followed few simple commands (showing thumbs up on both hands), wiggling toes. She correctly named her sister's name with option and noded with her head appropriately. - Labs CBC & Chem 7: 06/09/24 11:55 06/09/24 11:55 Labs: Abnormal Lab Results - Last 24 Hours (Table) 06/09/24 06/09/24 06/09/24 Range/Units 04:46 11:20 11:55 WBC 16.9 H (3.8-10.6) k/uL RBC 5.49 H (3.80-5.40) m/uL Hct 49.9 H (34.0-46.0) % Neutrophils # 14.8 H (1.3-7.7) k/uL Lymphocytes # 0.8 L (1.0-4.8) k/uL ABG pCO2 62 H (35-45) mmHg ABG pO2 67 L (83-108) mmHg ABG HCO3 43 H* (21-25) mmol/L ABG Total CO2 45 H (19-24) mmol/L Hemoglobin 16.4 H (11.4-16.0) gm/dL Sodium (137-145) mmol/L Carbon Dioxide (22-30) mmol/L BUN (7-17) mg/dL Creatinine (0.52-1.04) mg/dL Glucose (74-99) mg/dL POC Glucose (mg/dL) 139 H (70-110) mg/dL 06/09/24 Range/Units 11:55 WBC (3.8-10.6) k/uL RBC (3.80-5.40) m/uL Hct (34.0-46.0) % Neutrophils # (1.3-7.7) k/uL Lymphocytes # (1.0-4.8) k/uL ABG pCO2 (35-45) mmHg ABG pO2 (83-108) mmHg ABG HCO3 (21-25) mmol/L ABG Total CO2 (19-24) mmol/L Hemoglobin (11.4-16.0) gm/dL Sodium 151 H (137-145) mmol/L Carbon Dioxide 38 H (22-30) mmol/L BUN 60 H (7-17) mg/dL Creatinine 1.61 H (0.52-1.04) mg/dL Glucose 155 H (74-99) mg/dL POC Glucose (mg/dL) (70-110) mg/dL Microbiology - Last 24 Hours (Table) 06/07/24 21:10 Blood Culture - Preliminary Blood Assessment and Plan Assessment: Ms. Moon is a 54-year-old female who is morbidly obese. She has a history of congestive heart failure and may have been left in her bed for period of time. She was found to have urine and fecal incontinence. She has limited speech capability at this time; however, this may be due to her respiratory condition as she is straining to breathe and breathing very rapidly. She is able to mouth words and name as well as comprehend both simple and complex commands. Her acute speech condition unknown exact etiology. Had two CT head which are negative for stroke. Unsure more respiratory. Cannot rule out stroke that is small not seen on CT. Today the patient is more confused and has fever unknown exact source of the fever. PATIENT has component of metabolic encephalopathy. Patient presented on 06/03/2024 and had no fever until 06/06/2024. No leukocytosis until today. Chronic hypoxic respiratory failure on oxygen Chronic compensated hyper Respiratory failure Hypertension Psoriasis Chronic diastolic heart failure. Edema Diabetes mellitus Morbid obesity Plan: Infection disease team is consulted and they consulted pain specialist for lum bar puncture but was not performed since was on Lovenox yesterday which is held. I consulted anesthesiologist for Lumbar Puncture today. Patient is on Cefepime 2gm every 12 hours and Vancomycin. Will defer modification of medication to I.D. team. I stopped Keppra since patient does not have seizure or clear discharges and she is having sepsis causing her confusion. Patient is on aspirin 81 mg daily Cannot obtain MRI since the patient is unstable. Recommend repeat CT head once patient is more stable. This was notified to ICU nurse. Psychiatry team is consulted Pulmonary team is consulted PT OT and MEDICAL GENETICS DIRECTOR are consulted Will defer the rest of the medical med to primary and other specialist Plan discussed with the patient's family members (sister and cousin) and ICU nurse. Time with Patient: Less than 30
[2024-06-09 17:52] LABS: Glucose,Whole Blood 131 mg/dL (70-110)
[2024-06-09] MEDS: CEFEPIME 2 GM in SODIUM CHLORIDE 0.9% 100 ML IVPB SCH (18:07)
--- NOTE | 2024-06-09 19:12 | P.PN ---
Progress Note - Text Progress Note Date: 06/09/24 This is a visit 54 years old female with past medical history of hypertension She brought because of generalized weakness and she was found on the floor with slurred speech. Patient could not get up and noticed that she is old and peed on herself more than once. On presentation patient looks awake and understands but she mumbles only and she cannot talk. Patient is morbidly obese which limits her ability to move around. Patient is poor historian because of her aphasia however she can shake her head as yes or no Patient denies any pain When asking about shortness of breath she denies, no vomiting or diarrhea, she denies urinary complaint, she denies headache dizziness to me Patient also denies weakness or tingling Her labs looks normal like CBC, BMP and LFT and INR. Urinalysis negative proBNP is 250 Chest x-ray cardiomegaly with mild pulmonary vascular congestion CT of the brain showing no acute intracranial process EKG showing sinus rhythm at [address]-T changes 06/04 Patient still difficulty articulating her words, I discussed the case with the neurologist, there is low suspicion for stroke, however we are going to repeat CAT scan of the brain. MRI cannot for the patient as she is morbidly obese. Patient morbidly obese and have difficulty moving. Currently she is on 3 L oxygen via nasal cannula. Her legs like 1+ leg edema. Breath sounds are distant given her body habitus She has extensive rash noted to extremities and trunk related to her psoriasis. Swallow evaluation is ordered. 06/05 Patient was on BiPAP for respiratory difficulty. It was placed overnight, in the morning she continued to use the BiPAP. pH is normal, unlikely CO2 retent ion to close acidosis. Pulmonary team recommending BiPAP overnight Stroke is unlikely. Neurologist does not think this is a stroke. As patient does not have focal neurological deficit. Neurologist thinks her speech difficulty is due to show shortness of breath. ABG shows pCO2 but no acidosis which is unlikely to cause this degree of shortness of breath. However she has [address] of the brain after duplex negative. Neurologist will see the patient intermittently. Therefore we are going to lowered the dose from aspirin 325 mg down to 81 mg for prophylactic purposes. Will start trazodone. Tomorrow morning we will try to discontinue the BiPAP. Also will ask for PT/OT evaluation June 07, 2024: I resumed care of the patient today. Laying in bed. Awake. Only mumbles answers. Face is flushed. Scattered psoriatic rash. Patient did undergo videofluoroscopic swallow test.: Not a very good quality. Followed by speech therapist. Was NPO. I ordered the EEG. Neurology has ordered an MRI of the brain. Initial CT scan has been unremarkable. At this point as per pulmonary does not feel that is contributing to her presentation. Also consulted psychiatry for psychogenic/conversion disorder. Patient getting IV Lasix. Negative fluid balance. Dr. 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 Even jokes. Patient sister was recently in the hospital for about 20 days and actually the patient herself had been helping her sister. Even she would take her sister came t to her appointments, with driving. She was slowly get around the house. Because she has weakness in the legs she has to sit down quite often. Patient offered I will not take her Lasix in the systolic to keep reminding her. Specially in the last 2 months. Few months ago patient was admitted to [facility] was put on a Lasix drip for congestive heart failure. 2 days prior to getting admitted patient's became less active. Finding it difficult to get up. No fevers reported. Patient does snore quite a bit. Patient also got chronic low back pain and takes medications for the same. Patient is a full code and sister would like patient to be transferred to [facility] where they have a larger MRI and was seen there before. I did inform sister came that patient's have been ordered an MRI here and EEG was ordered today. Patient does have a cat at home. I spoke earlier to the nurse. Total time spent today about 1 hour with over 35 minutes of discussion June 08, 2024: Patient remains lethargic. Was started on IV fluid yesterday evening. I spoke to radiology department today. A weight limit for our MRI is 400 pounds. But because of patient's respiratory status on the BiPAP she cannot have an MRI currently. I did speak to ID. Lumbar puncture has been ordered. Empirically has been put on IV Zosyn. EEG did not show any seizure activity. I did speak to patient's sister this morning. Did inform her about the further workup. As patient is becoming a bit alkalotic. Will DC IV Lasix. Continue with LR 75 cc an hour. June 09, 2024: Because of altered mentation patient was moved to the ICU. Worsening of renal function creatinine to 1.6. Will DC Lodine. DC Cozaar. Catapres patch was added for blood pressure. Antibiotics switched to IV cefepime. Patient remains lethargic. Discussed with neurology Dr. SENIOR. Given no seizure activity on the EEG will DC Keppra. Increase IV fluids to 125 cc an hour given hypernatremia. Lasix was discontinued yesterday. On BiPAP. Later this afternoon patient was intubated Active Medications Hydrocodone Bitart/Acetaminophen (Hydrocodone/Apap 5-325mg 1 Each Tab) 1 each PO Q6HR PRN PRN Reason: Moderate Pain (Scale 4 to 6) Last Admin: 06/06/24 16:48 Dose: 1 each Albuterol/Ipratropium (Ipratropium-Albuterol 3 Ml Neb) 3 ml INHALATION RT-QID PRN PRN Reason: Shortness Of Breath Or Wheezing Last Admin: 06/04/24 13:22 Dose: 3 ml Aspirin (Aspirin 81 Mg) 81 mg PO DAILY [facility] Last Admin: 06/09/24 11:44 Dose: Not Given Atorvastatin Calcium (Atorvastatin 20 Mg Tab) 20 mg PO HS [facility] Last Admin: 06/08/24 20:15 Dose: Not Given Betamethasone Dipropionate (Betamethasone Dipropionate 0.05% Cream 15 Gm Tube) 1 applic TOPICAL BID [facility]; Protocol Last Admin: 06/09/24 11:44 Dose: Not Given Carvedilol (Carvedilol 12.5 Mg Tab) 25 mg PO AC-BID [facility] Last Admin: 06/09/24 17:18 Dose: Not Given Clonidine HCl (Clonidine 0.1 Mg/24hr Patch) 1 patch TRANSDERM Q7D [facility] Last Admin: 06/09/24 00:09 Dose: 1 patch Dapagliflozin (Dapagliflozin Propanediol 5 Mg Tablet) 5 mg PO DAILY [facility] Last Admin: 06/09/24 11:44 Dose: Not Given Famotidine (Famotidine 20 Mg/2 Ml Vial) 20 mg IV DAILY [facility] Last Admin: 06/09/24 09:36 Dose: 20 mg Hydralazine HCl (Hydralazine Hcl 20 Mg/Ml 1 Ml Vial) 10 mg IVP Q4HR PRN PRN Reason: Blood Pressure - High Last Admin: 06/04/24 19:47 Dose: 10 mg Cefepime HCl 2 gm/ Sodium (Chloride) 100 mls @ 25 mls/hr IVPB Q12H [facility]; Protocol Last Admin: 06/09/24 18:07 Dose: 25 mls/hr Lactated Ringer's (Lactated Ringers) 1,000 mls @ 125 mls/hr IV .Q8H [facility] Losartan Potassium (Losartan 50 Mg Tab) 100 mg PO DAILY [facility] Last Admin: 06/09/24 11:44 Dose: Not Given Metoprolol Tartrate (Metoprolol Tartrate 50 Mg Tab) 50 mg PO BID [facility] Last Admin: 06/09/24 11:44 Dose: Not Given Nystatin (Nystatin 100,000 Unit/Gm Powd 15 Gm) 1 applic TOPICAL TID [facility]; Protocol Last Admin: 06/09/24 18:10 Dose: Not Given Trazodone HCl (Trazodone Hcl 100 Mg Tab) 100 mg PO HS [facility] Last Admin: 06/08/24 20:15 Dose: Not Given On examination: VITAL SIGNS: 101.5, 93, 31, 128 x 72, 94% intubated GENERAL APPEARANCE: BMI 60.6, lethargic. Rosacea HEENT: Normal external appearance of nose and ear. Oral cavity normal EYES: Pupils equal. Conjunctiva normal. NECK: JVD not raised. Mass not palpable. RESPIRATORY: Respiratory effort increased l. Decreased breath sound CARDIOVASCULAR: First and second sounds normal. No edema. ABDOMEN: Soft. Liver and spleen not palpable. No tenderness. No mass palpable. PSYCHIATRY: Lethargic Dermatological: Scattered psoriatic rash. INVESTIGATIONS, reviewed in the clinical context: Doppler ultrasound lower extremity: Limited exam. Appears to be negative June 09: White count 16.9 hemoglobin 15.7 platelets 229 sodium 151 potassium 3.5 BUN 60 creatinine 1.61 Procalcitonin 0.08. Lactic acid 1.8. EKG: Metabolic abnormality. No seizure activity June 08: White count 9.4 hemoglobin 16.1 platelets 298 sodium 146 potassium 4.1 BUN 47 creatinine 1.25 bicarb 35 Modified barium swallow: Limited exam. Somewhat limited visualization. Symptoms of cough and negative response after swallow of thin liquids. Suspicion was some aspiration. Carotid Doppler: No significant stenosis CT brain without contrast: Unremarkable Chest x-ray film: Some venous prominence 2D echocardiogram: EF 55 to 60% Assessment and plan: -Patient 2 days prior to presentation became increasingly weak. Not able to get around the house. Speech became slow. Sister did report some weakness on the right side. Patient is only mumbling words.: Not improving Presentation is not compatible with CO2 retention. Differential includes stroke, metabolic encephalopathy from infection. Rule out [employer] causes EEG-no seizure activity. MRI currently cannot be done because of respiratory status Keppra was discontinued because of no seizure activity. ID following. IV cefepime. -Hypernatremia from diuresis Lasix was held yesterday. Increase IV fluids to 125 cc an hour -Acute kidney injury likely ATN from sepsis and some fluid deficit IV fluids. Follow renal function Stop clonidine. Stop Cozaar. I's and O's -Psoriasis with widespread rash -Obstructive sleep apnea with elevated CO2 but not retention or acidosis BiPAP was used here -Essential hypertension, uncontrolled Catapres patch -Sepsis, source unclear: Not improving IV cefepime lumbar puncture ordered -Morbid obesity, with a BMI of 59.6 -Acute hypoxic respiratory failure could be related to her obesity hypoventilation and CHF: Worsening Intubated June 09 -Acute on chronic congestive heart failure exacerbation. Patient was admitted to [facility] sometime ago and had required IV Lasix drip. Received IV Lasix. Now DC the same. -Chronic lumbar arthritis for which patient takes Lodine at home Lodine held because of renal function -Full code. -Patient's sister Carolynn Moon as decision-maker Stop Lodine. Stop Cozaar. Patient was intubated later this afternoon. Keppra discontinued. Increase IV fluids to 125 cc an hour. TPN lipids start tomorrow follow labs closely. I did try to reach the sister again today on the phone went into voicemail.
[2024-06-09] MEDS: LACTATED RINGERS 1,000 ML IV SCH (19:55)
--- NOTE | 2024-06-09 20:22 | P.PCN ---
Description of Procedure: Preprocedure diagnosis. Mental status change. Postprocedure diagnosis. As above. Procedure done. Lumbar puncture and collection of cerebrospinal fluid. Anesthesia. Local infiltration with anesthetics. Continuous pulse ox, EKG, blood pressure and verbal communication was maintained with the patient. Blood loss. None. Indication. Discussed the procedure, alternatives, complications which may include infection, nerve damage, paralysis, aggravation of the symptoms especially bleeding in the spine and posterior dural puncture headache with the patient. The patient understands and questions were answered. Procedure note. After getting concentration in the patient's room in sitting position. Back prepped with chlorhexidine and draped in sterile fashion. After injecting 3 mL of 1% lidocaine subcutaneously, a 22-gauge spinal needle was introduced at L3-4 interspace. Attempt x 1. Positive CSF, negative blood, n egative paresthesia. CSF color was clear. CSF pressure was not measured. CSF was collected in 4 supplied sterile containers in sequence. Spinal needle was taken out and bandage was applied. Disposition. Patient tolerated the procedure well. No complication. Advised patient to lay flat one-hour postprocedure. The rest of the day today try to lay flat as much as possible. Next 3 days drink lots of fluid especially caffeinated beverages, and avoid constipation cough and doing strenuous physical work. Discharged home in stable condition.
[2024-06-09 21:08] LABS: Glucose,CSF 103 mg/dL (40-70); Total Protein,CSF 55 mg/dL (12-60)
[2024-06-09 22:32] LABS: Appearance,CSF Clear; CSF Tube Number 4; CSF Tube Volume 5.5
[2024-06-09 22:33] LABS: Nucleated Cells, CSF 1 u/L (0-5); Red Blood Cell,CSF 13 u/L (0-10)
[2024-06-09 22:38] LABS: Red Blood Cell, CSF Crenated 0 %; Red Blood Cell, CSF Fresh 100 %
[2024-06-09] MEDS: FUROSEMIDE 10 MG/ML 4 ML VIAL IV STA (23:54)
[2024-06-10 00:03] LABS: Glucose,Whole Blood 141 mg/dL (70-110)
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
[2024-06-10 03:17] LABS: Basophils % (A) 0 %; Eosinophils # (A) 0.1 k/uL (0-0.7); Eosinophils % (A) 1 %; HCT 51.1 % (34.0-46.0); HGB 15.9 gm/dL (11.4-16.0); Hypochromasia Marked; Lymphocytes # (A) 0.7 k/uL (1.0-4.8); Lymphocytes % (A) 4 %; MCH 29.1 pg (25.0-35.0); MCHC 31.1 g/dL (31.0-37.0); MCV 93.6 fL (80.0-100.0); Monocytes # (A) 0.8 k/uL (0-1.0); Monocytes % (A) 5 %; Neutrophils % (A) 89 %; Platelet Count 191 k/uL (150-450); RBC 5.47 m/uL (3.80-5.40); RDW 14.9 % (11.5-15.5); WBC 15.7 k/uL (3.8-10.6)
[2024-06-10] MEDS: DEXTROSE 5% IN WATER 1,000 ML IV SCH (03:22)
[2024-06-10 03:27] LABS: ALT 23 U/L (4-34); AST 58 U/L (14-36); African American GFR (CKD) 42 (>60 ml/min/1.73 sqM); Alkaline Phosphatase 82 U/L (38-126); Blood Urea Nitrogen 63 mg/dL (7-17); Calcium 9.3 mg/dL (8.4-10.2); Chloride 106 mmol/L (98-107); Glucose 156 mg/dL (74-99); Non-African American GFR(CKD) 36 (>60 ml/min/1.73 sqM); Potassium 3.3 mmol/L (3.5-5.1); Sodium 153 mmol/L (137-145); Total Bilirubin 0.8 mg/dL (0.2-1.3); Total Protein 7.3 g/dL (6.3-8.2)
[2024-06-10 03:34] LABS: Anion Gap 11 mmol/L; Carbon Dioxide 36 mmol/L (22-30)
[2024-06-10] MEDS ORDERED: Potassium Replacement Protocol 1 EACH MISC MISCELLANE PRN (04:08)
[2024-06-10] MEDS: POTASSIUM CHLORIDE 10 MEQ in WATER FOR INJECTION 1 100ML.BAG IVPB SCH (04:46)
[2024-06-10 06:20] LABS: Glucose,Whole Blood 139 mg/dL (70-110)
--- NOTE | 2024-06-10 08:50 | XR ---
EXAMINATION TYPE: XR chest 1V portable DATE OF EXAM: 06/10/2024 5:59 AM COMPARISON: 06/09/2024 CLINICAL INDICATION: Female, 54 years old with history of bipap dependent respiratory failure, , FINDINGS: Patient is rotated towards the right. Heart moderately enlarged. Diffuse interstitial density persist s. Right greater than left bibasilar opacities persist. IMPRESSION: Similar rotated exam with cardiomegaly, interstitial densities, and prominent right greater than left bibasilar opacities. Consider sequela of CHF. Underlying pneumonia should be excluded on a clinical basis. [facility], , 06/10/2024 8:47 AM
[2024-06-10] MEDS ORDERED: VANCOMYCIN 2,000 MG in SODIUM CHLORIDE 0.9% 500 ML 500 ML IVPB SCH (09:00)
--- NOTE | 2024-06-10 09:22 | P.PN ---
Subjective Progress Note Date: 06/09/24 Principal diagnosis: Reason for follow-up is fever Patient is a 54-year female with a past medical history significant for heart failure hypertension psoriasis dementia patient has been brought into the hospital for evaluation of speech problem and initially investigated for a stroke subsequently has developed a fever worsening respiratory status prompted this consultation. On today's evaluation that is 06/09/2024 patient has been transferred to the ICU because of her worsening respiratory status and has been requiring BiPAP the patient also persistently running a fever with a temperature of 101.5 F at noon, patient is slightly more awake and it is wanted to her name she is hemodynamically stable no vomiting or diarrhea has been reported. Patient white count is up to 16.9 creatinine is 1.61 blood cultures currently pending Objective - Vital Signs Vital signs: Vital Signs Temp 101.5 F H 06/09/24 12:00 Pulse 86 06/09/24 13:00 Resp 31 H 06/09/24 13:00 BP 137/71 06/09/24 13:00 Pulse Ox 94 L 06/09/24 13:00 FiO2 60 06/09/24 12:00 Intake & Output 06/08/24 06/09/24 06/09/24 18:59 06:59 18:59 Intake Total 20 275 Output Total 1700 600 Balance -1680 -325 Intake: IV 20 275 ACETAMINOPHEN IV (For NPO 100 ) 1,000 mg In Empty Bag 1 bag @ 400 mls/hr IVPB Q6HR PRN Rx#:[id number] Invasive Line 2 20 Lactated Ringers 1,000 ml 75 @ 75 mls/hr IV .[id number] [facility] Rx#:[id number] Piperacillin-Tazobactam 3 100 .375 gm In Sodium Chloride 0.9% 100 ml @ 25 mls/hr IVPB Q8H [facility] Rx#: [id number] Output: Urine 1700 600 Other: Voiding Method Indwelling Catheter Indwelling Catheter Indwelling Catheter # Bowel Movements 0 - Exam GENERAL DESCRIPTION: Middle-age female lying in bed in no distress RESPIRATORY SYSTEM: Unlabored breathing , decreased intensity breath sounds at bases HEART: S1 S2 regular rate and rhythm , ABDOMEN: Soft , no tenderness EXTREMITIES: Swelling to the leg no significant redness - Labs CBC & Chem 7: 06/10/24 02:45 06/10/24 02:45 Labs: Abnormal Lab Results - Last 24 Hours (Table) 06/08/24 06/09/24 06/09/24 Range/Units 15:35 04:46 11:20 WBC (3.8-10.6) k/uL RBC (3.80-5.40) m/uL Hct (34.0-46.0) % Neutrophils # (1.3-7.7) k/uL Lymphocytes # (1.0-4.8) k/uL ABG pCO2 62 H (35-45) mmHg ABG pO2 67 L (83-108) mmHg ABG HCO3 43 H* (21-25) mmol/L ABG Total CO2 45 H (19-24) mmol/L Hemoglobin 16.4 H (11.4-16.0) gm/dL Sodium (137-145) mmol/L Carbon Dioxide (22-30) mmol/L BUN (7-17) mg/dL Creatinine (0.52-1.04) mg/dL Glucose (74-99) mg/dL POC Glucose (mg/dL) 139 H (70-110) mg/dL Urine Protein 1+ H (Negative) Urine Ketones Trace H (Negative) Urine Blood Moderate H (Negative) Urine Bilirubin 2+ H (Negative) Urine RBC 25 H (0-5) /hpf Urine Bacteria Rare H (None) /hpf Hyaline Casts 5 H (0-2) /lpf Urine Mucus Occasional H (None) /hpf 06/09/24 06/09/24 Range/Units 11:55 11:55 WBC 16.9 H (3.8-10.6) k/uL RBC 5.49 H (3.80-5.40) m/uL Hct 49.9 H (34.0-46.0) % Neutrophils # 14.8 H (1.3-7.7) k/uL Lymphocytes # 0.8 L (1.0-4.8) k/uL ABG pCO2 (35-45) mmHg ABG pO2 (83-108) mmHg ABG HCO3 (21-25) mmol/L ABG Total CO2 (19-24) mmol/L Hemoglobin (11.4-16.0) gm/dL Sodium 151 H (137-145) mmol/L Carbon Dioxide 38 H (22-30) mmol/L BUN 60 H (7-17) mg/dL Creatinine 1.61 H (0.52-1.04) mg/dL Glucose 155 H (74-99) mg/dL POC Glucose (mg/dL) (70-110) mg/dL Urine Protein (Negative) Urine Ketones (Negative) Urine Blood (Negative) Urine Bilirubin (Negative) Urine RBC (0-5) /hpf Urine Bacteria (None) /hpf Hyaline Casts (0-2) /lpf Urine Mucus (None) /hpf Microbiology - Last 24 Hours (Table) 06/07/24 21:10 Blood Culture - Preliminary Blood Assessment and Plan (1) Fever Current Visit: Yes Status: Acute Code(s): R50.9 - FEVER, UNSPECIFIED SNOMED Code(s): 988943160 Plan: 1patient with a fever in this patient currently in the hospital for 5 days before admission this initial evaluation with initial presentation for follow-up with the speech and responsiveness and has been worked up for CVA with the last CT of the brain has been negative MRI could not be done because the patient c ould not stay still etiology of the fever could be multifactorial questionable central versus pulmonary question of aspiration initial workup has been negative with negative nasopharyngeal swab for COVID RSV and influenza UA is not significantly positive currently waiting for LP to be completed 2-vancomycin has been added by admitting team with high risk of nephrotoxicity with Zosyn which will be discontinued cefepime will be added while waiting for the workup to be completed culture to finalize Multiple family member at the bedside questions answered Dictation was produced using [employer] dictation software. please excuse any grammatical, word or spelling errors. Time with Patient: Less than 30
[2024-06-10] MEDS: ACETAMINOPHEN IV (For NPO) 1,000 MG in EMPTY BAG 1 BAG IVPB PRN (11:41)
[2024-06-10 11:54] LABS: Glucose,Whole Blood 144 mg/dL (70-110)
[2024-06-10] MEDS: ENOXAPARIN 40 MG/0.4 ML SYRINGE SQ SCH (12:23)
--- NOTE | 2024-06-10 13:02 | XR ---
EXAMINATION TYPE: XR chest 1V portable DATE OF EXAM: 06/10/2024 12:52 PM COMPARISON: Chest radiographs from 06/10/2024 TECHNIQUE: XR chest 1V portable Portable AP radiograph of the chest. CLINICAL INDICATION:Female, 54 years old with history of ng tube placement; FINDINGS: Patient is rotated which limits evaluation. Lungs/Pleura: No pleural effusion or pneumothorax. Bibasilar patchy opacities in the right greater th an the left redemonstrated. Pulmonary vascularity: Unremarkable. Heart/mediastinum: Cardiomediastinal silhouette is enlarged and stable. Musculoskeletal: No acute osseous pathology. Other findings: None Lines/Tubes: Nasogastric tube with its distal tip and side-port projecting under the diaphragm. IMPRESSION: 1. Nasogastric tube with its distal tip and side-port projecting under the diaphragm. 2. Cardiomegaly with bibasilar opacities right greater than the left redemonstrated. Correlate for C HF with underlying pneumonia not excluded. [facility], , 06/10/2024 1:00 PM
--- NOTE | 2024-06-10 14:12 | P.PN ---
Subjective Progress Note Date: 06/10/24 Principal diagnosis: Reason for follow-up is fever Patient is a 54-year female with a past medical history significant for heart failure hypertension psoriasis dementia patient has been brought into the hospital for evaluation of speech problem and initially investigated for a stroke subsequently has developed a fever worsening respiratory status prompted this consultation. On today's evaluation that is 06/10/2024,the patient did have a low-grade fever of 99.8 F at noon patient overall fever pattern has improved though patient is hemodynamic stable not requiring any pressor support the patient remains to be BiPAP dependent currently on 50% FiO2. Patient respond to her name but does not provide reliable history. The patient white count is slightly down to 15.7, creatinine 1.60 stool for C. difficile negative blood cultures currently pending she did have a LP which was essentially normal with normal WBC glucose of 103 protein of 55 Objective - Vital Signs Vital signs: Vital Signs Temp 99.8 F H 06/10/24 12:00 Pulse 98 06/10/24 13:00 Resp 28 H 06/10/24 13:00 BP 132/76 06/10/24 13:00 Pulse Ox 96 06/10/24 13:00 FiO2 50 06/10/24 13:00 Intake & Output 06/09/24 06/10/24 06/10/24 18:59 06:59 18:59 Intake Total 1325 925 600 Output Total 1200 787 440 Balance 125 138 160 Weight 144.8 kg 144.8 kg Intake: IV 1325 675 ACETAMINOPHEN IV (For NPO 100 ) 1,000 mg In Empty Bag 1 bag @ 400 mls/hr IVPB Q6HR [facility]N Rx#:[id number] Cefepime 2 gm In Sodium 100 Chloride 0.9% 100 ml @ 25 mls/hr IVPB Q12H [facility] Rx# :[id number] Lactated Ringers 1,000 ml 525 675 @ 75 mls/hr IV .[id number] [facility] Rx#:[id number] Piperacillin-Tazobactam 3 100 .375 gm In Sodium Chloride 0.9% 100 ml @ 25 mls/hr IVPB Q8H [facility] Rx#: [id number] Vancomycin 2,000 mg In 500 Sodium Chloride 0.9% 500 ml 500 ml @ 167 mls/hr IVPB ONCE ONE Rx#: [id number] Intake, IV Titration 250 600 Amount ACETAMINOPHEN IV (For NPO 100 ) 1,000 mg In Empty Bag 1 bag @ 400 mls/hr IVPB Q6HR [facility] Rx#:[id number] Dextrose 5% in Water 1, 150 300 000 ml @ 50 mls/hr IV . Q20H [facility] Rx#:[id number] Potassium Chloride 10 meq 100 200 In Water For Injection 1 100ml.bag @ 100 mls/hr IVPB Q1HR [facility] Rx#: [id number] Output: Urine 1200 787 440 Other: Voiding Method Indwelling Catheter Indwelling Catheter Indwelling Catheter # Bowel Movements 2 0 - Exam GENERAL DESCRIPTION: Middle-age female lying in bed in no distress RESPIRATORY SYSTEM: Unlabored breathing , decreased intensity breath sounds at bases HEART: S1 S2 regular rate and rhythm , ABDOMEN: Soft , no tenderness EXTREMITIES: Swelling to the leg no significant redness - Labs CBC & Chem 7: 06/10/24 02:45 06/10/24 02:45 Labs: Abnormal Lab Results - Last 24 Hours (Table) 06/09/24 06/09/24 06/10/24 Range/Units 17:51 20:11 00:02 WBC (3.8-10.6) k/uL RBC (3.80-5.40) m/uL Hct (34.0-46.0) % Neutrophils # (1.3-7.7) k/uL Lymphocytes # (1.0-4.8) k/uL Sodium (137-145) mmol/L Potassium (3.5-5.1) mmol/L Carbon Dioxide (22-30) mmol/L BUN (7-17) mg/dL Creatinine (0.52-1.04) mg/dL Glucose (74-99) mg/dL POC Glucose (mg/dL) 131 H 141 H (70-110) mg/dL AST (14-36) U/L CSF RBC 13 H (0-10) u/L CSF Glucose 103 H (40-70) mg/dL 06/10/24 06/10/24 06/10/24 Range/Units 02:45 02:45 06:18 WBC 15.7 H (3.8-10.6) k/uL RBC 5.47 H (3.80-5.40) m/uL Hct 51.1 H (34.0-46.0) % Neutrophils # 14.0 H (1.3-7.7) k/uL Lymphocytes # 0.7 L (1.0-4.8) k/uL Sodium 153 H (137-145) mmol/L Potassium 3.3 L (3.5-5.1) mmol/L Carbon Dioxide 36 H (22-30) mmol/L BUN 63 H (7-17) mg/dL Creatinine 1.60 H (0.52-1.04) mg/dL Glucose 156 H (74-99) mg/dL POC Glucose (mg/dL) 139 H (70-110) mg/dL AST 58 H (14-36) U/L CSF RBC (0-10) u/L CSF Glucose (40-70) mg/dL 06/10/24 Range/Units 11:52 WBC (3.8-10.6) k/uL RBC (3.80-5.40) m/uL Hct (34.0-46.0) % Neutrophils # (1.3-7.7) k/uL Lymphocytes # (1.0-4.8) k/uL Sodium (137-145) mmol/L Potassium (3.5-5.1) mmol/L Carbon Dioxide (22-30) mmol/L BUN (7-17) mg/dL Creatinine (0.52-1.04) mg/dL Glucose (74-99) mg/dL POC Glucose (mg/dL) 144 H (70-110) mg/dL AST (14-36) U/L CSF RBC (0-10) u/L CSF Glucose (40-70) mg/dL Microbiology - Last 24 Hours (Table) 06/09/24 20:11 CSF Gram Stain - Preliminary Cerebral Spinal Fluid 06/07/24 21:10 Blood Culture - Preliminary Blood Assessment and Plan (1) Fever Current Visit: Yes Status: Acute Code(s): R50.9 - FEVER, UNSPECIFIED SNOMED Code(s): 708718801 Plan: 1patient with a fever in this patient currently in the hospital for 5 days before admission this initial evaluation with initial presentation for follow-up with the speech and responsiveness and has been worked up for CVA with the last CT of the brain has been negative MRI could not be done because the patient could not stay still etiology of the fever could be multifactorial questionable central versus pulmonary question of aspiration initial workup has been negative with negative nasopharyngeal swab for COVID RSV and influenza UA is not signif icantly positive patient did have LP that was normal 2-patient did have some improvement in the fever pattern with cultures pending continue with the cefepime and vancomycin and monitor clinical course closely Dictation was produced using [employer] dictation software. please excuse any grammatical, word or spelling errors. Time with Patient: Less than 30
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
--- NOTE | 2024-06-10 16:33 | P.PN ---
Progress Note - Text Progress Note Date: 06/10/24 This is a visit 54 years old female with past medical history of hypertension She brought because of generalized weakness and she was found on the floor with slurred speech. Patient could not get up and noticed that she is old and peed on herself more than once. On presentation patient looks awake and understands but she mumbles only and she cannot talk. Patient is morbidly obese which limits her ability to move around. Patient is poor historian because of her aphasia however she can shake her head as yes or no Patient denies any pain When asking about shortness of breath she denies, no vomiting or diarrhea, she denies urinary complaint, she denies headache dizziness to me Patient also denies weakness or tingling Her labs looks normal like CBC, BMP and LFT and INR. Urinalysis negative proBNP is 250 Chest x-ray cardiomegaly with mild pulmonary vascular congestion CT of the brain showing no acute intracranial process EKG showing sinus rhythm at [address]-T changes 06/04 Patient still difficulty articulating her words, I discussed the case with the neurologist, there is low suspicion for stroke, however we are going to repeat CAT scan of the brain. MRI cannot for the patient as she is morbidly obese. Patient morbidly obese and have difficulty moving. Currently she is on 3 L oxygen via nasal cannula. Her legs like 1+ leg edema. Breath sounds are distant given her body habitus She has extensive rash noted to extremities and trunk related to her psoriasis. Swallow evaluation is ordered. 06/05 Patient was on BiPAP for respiratory difficulty. It was placed overnight, in the morning she continued to use the BiPAP. pH is normal, unlikely CO2 retent ion to close acidosis. Pulmonary team recommending BiPAP overnight Stroke is unlikely. Neurologist does not think this is a stroke. As patient does not have focal neurological deficit. Neurologist thinks her speech difficulty is due to show shortness of breath. ABG shows pCO2 but no acidosis which is unlikely to cause this degree of shortness of breath. However she has [address] of the brain after duplex negative. Neurologist will see the patient intermittently. Therefore we are going to lowered the dose from aspirin 325 mg down to 81 mg for prophylactic purposes. Will start trazodone. Tomorrow morning we will try to discontinue the BiPAP. Also will ask for PT/OT evaluation June 07, 2024: I resumed care of the patient today. Laying in bed. Awake. Only mumbles answers. Face is flushed. Scattered psoriatic rash. Patient did undergo videofluoroscopic swallow test.: Not a very good quality. Followed by speech therapist. Was NPO. I ordered the EEG. Neurology has ordered an MRI of the brain. Initial CT scan has been unremarkable. At this point as per pulmonary does not feel that is contributing to her presentation. Also consulted psychiatry for psychogenic/conversion disorder. Patient getting IV Lasix. Negative fluid balance. Dr. 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 Even jokes. Patient sister was recently in the hospital for about 20 days and actually the patient herself had been helping her sister. Even she would take her sister came t to her appointments, with driving. She was slowly get around the house. Because she has weakness in the legs she has to sit down quite often. Patient offered I will not take her Lasix in the systolic to keep reminding her. Specially in the last 2 months. Few months ago patient was admitted to [facility] was put on a Lasix drip for congestive heart failure. 2 days prior to getting admitted patient's became less active. Finding it difficult to get up. No fevers reported. Patient does snore quite a bit. Patient also got chronic low back pain and takes medications for the same. Patient is a full code and sister would like patient to be transferred to [facility] where they have a larger MRI and was seen there before. I did inform sister came that patient's have been ordered an MRI here and EEG was ordered today. Patient does have a cat at home. I spoke earlier to the nurse. Total time spent today about 1 hour with over 35 minutes of discussion June 08, 2024: Patient remains lethargic. Was started on IV fluid yesterday evening. I spoke to radiology department today. A weight limit for our MRI is 400 pounds. But because of patient's respiratory status on the BiPAP she cannot have an MRI currently. I did speak to ID. Lumbar puncture has been ordered. Empirically has been put on IV Zosyn. EEG did not show any seizure activity. I did speak to patient's sister this morning. Did inform her about the further workup. As patient is becoming a bit alkalotic. Will DC IV Lasix. Continue with LR 75 cc an hour. June 09, 2024: Because of altered mentation patient was moved to the ICU. Worsening of renal function creatinine to 1.6. Will DC Lodine. DC Cozaar. Catapres patch was added for blood pressure. Antibiotics switched to IV cefepime. Patient remains lethargic. Discussed with neurology Dr. SENIOR. Given no seizure activity on the EEG will DC Keppra. Increase IV fluids to 125 cc an hour given hypernatremia. Lasix was discontinued yesterday. On BiPAP. Later this afternoon patient was intubated June 10: ICU. Patient remains on BiPAP. Creatinine remains at 1.6. D5W at 125 cc an hour. Remains empirically on cefepime. CSF has been negative. Question has been about viral encephalitis. Which will take his own course. Discussed with ID. I spoke to patient's family Dr. Manuel Cardona given update. I also called patient's Sister Carolynn on the phone given update. Patient also has delirium/encephalopathy from a clinical presentation of sepsis. CORRECTION: Patient was not intubated. On BiPAP yesterday. Active Medications Hydrocodone Bitart/Acetaminophen (Hydrocodone/Apap 5-325mg 1 Each Tab) 1 each PO Q6HR PRN PRN Reason: Moderate Pain (Scale 4 to 6) Last Admin: 06/06/24 16:48 Dose: 1 each Albuterol/Ipratropium (Ipratropium-Albuterol 3 Ml Neb) 3 ml INHALATION RT-QID PRN PRN Reason: Shortness Of Breath Or Wheezing Last Admin: 06/04/24 13:22 Dose: 3 ml Aspirin (Aspirin 81 Mg) 81 mg PO DAILY [facility] Last Admin: 06/10/24 15:38 Dose: 81 mg Atorvastatin Calcium (Atorvastatin 20 Mg Tab) 20 mg PO HS [facility] Last Admin: 06/09/24 23:50 Dose: Not Given Betamethasone Dipropionate (Betamethasone Dipropionate 0.05% Cream 15 Gm Tube) 1 applic TOPICAL BID [facility]; Protocol Last Admin: 06/10/24 14:00 Dose: 1 applic Carvedilol (Carvedilol 12.5 Mg Tab) 25 mg PO AC-BID [facility] Last Admin: 06/10/24 13:20 Dose: Not Given Clonidine HCl (Clonidine 0.1 Mg/24hr Patch) 1 patch TRANSDERM Q7D [facility] Last Admin: 06/09/24 00:09 Dose: 1 patch Dapagliflozin (Dapagliflozin Propanediol 5 Mg Tablet) 5 mg PO DAILY [facility] Last Admin: 06/10/24 15:38 Dose: 5 mg Enoxaparin Sodium (Enoxaparin 40 Mg/0.4 Ml Syringe) 40 mg SQ DAILY [facility] Last Admin: 06/10/24 12:23 Dose: 40 mg Famotidine (Famotidine 20 Mg/2 Ml Vial) 20 mg IV DAILY [facility] Last Admin: 06/10/24 08:48 Dose: 20 mg Hydralazine HCl (Hydralazine Hcl 20 Mg/Ml 1 Ml Vial) 10 mg IVP Q4HR PRN PRN Reason: Blood Pressure - High Last Admin: 06/04/24 19:47 Dose: 10 mg Cefepime HCl 2 gm/ Sodium (Chloride) 100 mls @ 25 mls/hr IVPB Q12H [facility]; Protocol Last Admin: 06/10/24 07:00 Dose: 25 mls/hr Dextrose/Water (Dextrose 5%-Water Iv Soln) 1,000 mls @ 125 mls/hr IV .Q8H [facility] Last Admin: 06/10/24 03:22 Dose: 50 mls/hr Acetaminophen 1,000 mg/ IV (Solution) 100 mls @ 400 mls/hr IVPB Q6HR PRN PRN Reason: Fever>101 Stop: 06/11/24 06:01 Last Admin: 06/10/24 11:41 Dose: 400 mls/hr Metoprolol Tartrate (Metoprolol Tartrate 50 Mg Tab) 50 mg PO BID [facility] Last Admin: 06/10/24 13:20 Dose: Not Given Miscellaneous Information (Potassium Replacement Protocol 1 Each Misc) 1 each MISCELLANE DAILY PRN; Protocol PRN Reason: Per Protocol Nystatin (Nystatin 100,000 Unit/Gm Powd 15 Gm) 1 applic TOPICAL TID [facility]; Protocol Last Admin: 06/10/24 15:43 Dose: 1 applic Trazodone HCl (Trazodone Hcl 100 Mg Tab) 100 mg PO HS [facility] Last Admin: 06/09/24 23:50 Dose: Not Given On examination: VITAL SIGNS: 100.9, 101, 30, 134 x 70, 96% on BiPAP at 50% GENERAL APPEARANCE: BMI 60.6, lethargic-a bit more awake today. Rosacea HEENT: Normal external appearance of nose and ear. Oral cavity normal EYES: Pupils equal. Conjunctiva normal. NECK: JVD not raised. Mass not palpable. RESPIRATORY: Respiratory effort increased l. Decreased breath sound CARDIOVASCULAR: First and second sounds normal. No edema. ABDOMEN: Soft. Liver and spleen not palpable. No tenderness. No mass palpable. PSYCHIATRY: Does slowly mumble answers. Dermatological: Scattered psoriatic rash. INVESTIGATIONS, reviewed in the clinical context: June 10: White count 15.7 hemoglobin 15.9 platelets 191 increased neutrophils. Decreased lymphocytes. Sodium 153 potassium 3.3 BUN 63 creatinine 1.6 CSF: RBC 13 nucleated cells 1 glucose 103 total protein 55 Doppler ultrasound lower extremity: Limited exam. Appears to be negative June 09: White count 16.9 hemoglobin 15.7 platelets 229 sodium 151 potassium 3.5 BUN 60 creatinine 1.61 Procalcitonin 0.08. Lactic acid 1.8. EKG: Metabolic abnormality. No seizure activity June 08: White count 9.4 hemoglobin 16.1 platelets 298 sodium 146 potassium 4.1 BUN 47 creatinine 1.25 bicarb 35 Modified barium swallow: Limited exam. Somewhat limited visualization. Symptoms of cough and negative response after swallow of thin liquids. Suspici on was some aspiration. Carotid Doppler: No significant stenosis CT brain without contrast: Unremarkable Chest x-ray film: Some venous prominence 2D echocardiogram: EF 55 to 60% Assessment and plan: -Patient 2 days prior to presentation became increasingly weak. Not able to get around the house. Speech became slow. Sister did report some weakness on the right side. Patient is only mumbling words.: Not improving Presentation is not compatible with CO2 retention. Differential: , metabolic encephalopathy/delirium from infection. Possibility of viral encephalitis. Stroke unlikely given that patient been having fevers. Though brainstem stroke to be a consideration. EEG-no seizure activity. MRI currently cannot be done because of respiratory status ID following. IV cefepime. -Acute metabolic encephalopathy/delirium from sepsis -Hypernatremia from diuresis: Slow to respond Lasix discontinued D5W IV fluids to 125 cc an hour -Acute kidney injury likely ATN from sepsis and some fluid deficit: Slow to respond IV fluids. Follow renal function Stop lodine.. Stop Cozaar. I's and O's -Psoriasis with widespread rash -Obstructive sleep apnea with elevated CO2 but not retention or acidosis BiPAP was used here -Essential hypertension, uncontrolled Catapres patch -Sepsis, source unclear: Not improving IV cefepime. CSF unremarkable -Morbid obesity, with a BMI of 59.6 -Acute hypoxic respiratory failure could be related to her obesity hypoventilation and CHF: Worsening Intubated June 09 -Acute on chronic congestive heart failure exacerbation. Patient was admitted to [facility] sometime ago and had required IV Lasix drip. Received IV Lasix. Now DC the same. -Chronic lumbar arthritis for which patient takes Lodine at home Lodine held because of renal function -Full code. -Patient's sister Carolynn Moon POA Discussed with ID. Also discussed with neurology. Viral encephalitis differential still present. IV fluids. ICU. Will probably need MRI brain down the road when pulmonary status more stable. Spoke to patient's sister On the phone. Was also the POA. Also spoke to patient's family Dr. Manuel Cardona u pdated
--- NOTE | 2024-06-10 17:21 | P.PN ---
Subjective Progress Note Date: 06/10/24 I am following up with the patient and according to the nursing staff she is about the same. I spoke with the primary attending and he feels she is better. Patient continues to be on BiPAP. Objective - Vital Signs Vital signs: Vital Signs Temp 99.8 F H 06/10/24 12:00 Pulse 93 06/10/24 16:00 Resp 24 06/10/24 16:00 BP 148/84 06/10/24 16:00 Pulse Ox 98 06/10/24 16:00 FiO2 50 06/10/24 16:00 Intake & Output 06/09/24 06/10/24 06/10/24 18:59 06:59 18:59 Intake Total 1325 925 720 Output Total 1200 787 530 Balance 125 138 190 Weight 144.8 kg 144.8 kg Intake: IV 1325 675 ACETAMINOPHEN IV (For NPO 100 ) 1,000 mg In Empty Bag 1 bag @ 400 mls/hr IVPB Q6HR PRN Rx#:[id number] Cefepime 2 gm In Sodium 100 Chloride 0.9% 100 ml @ 25 mls/hr IVPB Q12H [facility] Rx# :[id number] Lactated Ringers 1,000 ml 525 675 @ 75 mls/hr IV .[id number] [facility] Rx#:[id number] Piperacillin-Tazobactam 3 100 .375 gm In Sodium Chloride 0.9% 100 ml @ 25 mls/hr IVPB Q8H [facility] Rx#: [id number] Vancomycin 2,000 mg In 500 Sodium Chloride 0.9% 500 ml 500 ml @ 167 mls/hr IVPB ONCE ONE Rx#: [id number] Intake, IV Titration 250 700 Amount ACETAMINOPHEN IV (For NPO 100 ) 1,000 mg In Empty Bag 1 bag @ 400 mls/hr IVPB Q6HR PRN Rx#:[id number] Dextrose 5% in Water 1, 150 400 000 ml @ 125 mls/hr IV . Q8H [facility] Rx#:[id number] Potassium Chloride 10 meq 100 200 In Water For Injection 1 100ml.bag @ 100 mls/hr IVPB Q1HR [facility] Rx#: [id number] Tube Feeding 20 Output: Urine 1200 787 530 Other: Voiding Method Indwelling Catheter Indwelling Catheter Indwelling Catheter # Bowel Movements 2 0 - Exam General: Lying in bed and does not appear in acute distress. HENT: Supple neck. Lung: Is on BiPAP Neuro: Limited. Patient is drowsy but is awake able to voice. She is nodding appropriately to questions and she is oriented x 3. She is following simple commands appropriately. She is somewhat slow but is doing better today compared to the last 2 days. Pupils are round equal reactive to light. The pupils are round 3 to 4 mm bilaterally. She is tracking. She is lifting bilateral upper extremity above gravity. She is wiggling her toes. - Labs CBC & Chem 7: 06/10/24 02:45 06/10/24 02:45 Labs: Abnormal Lab Results - Last 24 Hours (Table) 06/09/24 06/09/24 06/10/24 Range/Units 17:51 20:11 00:02 WBC (3.8-10.6) k/uL RBC (3.80-5.40) m/uL Hct (34.0-46.0) % Neutrophils # (1.3-7.7) k/uL Lymphocytes # (1.0-4.8) k/uL Sodium (137-145) mmol/L Potassium (3.5-5.1) mmol/L Carbon Dioxide (22-30) mmol/L BUN (7-17) mg/dL Creatinine (0.52-1.04) mg/dL Glucose (74-99) mg/dL POC Glucose (mg/dL) 131 H 141 H (70-110) mg/dL AST (14-36) U/L CSF RBC 13 H (0-10) u/L CSF Glucose 103 H (40-70) mg/dL 06/10/24 06/10/24 06/10/24 Range/Units 02:45 02:45 06:18 WBC 15.7 H (3.8-10.6) k/uL RBC 5.47 H (3.80-5.40) m/uL Hct 51.1 H (34.0-46.0) % Neutrophils # 14.0 H (1.3-7.7) k/uL Lymphocytes # 0.7 L (1.0-4.8) k/uL Sodium 153 H (137-145) mmol/L Potassium 3.3 L (3.5-5.1) mmol/L Carbon Dioxide 36 H (22-30) mmol/L BUN 63 H (7-17) mg/dL Creatinine 1.60 H (0.52-1.04) mg/dL Glucose 156 H (74-99) mg/dL POC Glucose (mg/dL) 139 H (70-110) mg/dL AST 58 H (14-36) U/L CSF RBC (0-10) u/L CSF Glucose (40-70) mg/dL 06/10/24 Range/Units 11:52 WBC (3.8-10.6) k/uL RBC (3.80-5.40) m/uL Hct (34.0-46.0) % Neutrophils # (1.3-7.7) k/uL Lymphocytes # (1.0-4.8) k/uL Sodium (137-145) mmol/L Potassium (3.5-5.1) mmol/L Carbon Dioxide (22-30) mmol/L BUN (7-17) mg/dL Creatinine (0.52-1.04) mg/dL Glucose (74-99) mg/dL POC Glucose (mg/dL) 144 H (70-110) mg/dL AST (14-36) U/L CSF RBC (0-10) u/L CSF Glucose (40-70) mg/dL Microbiology - Last 24 Hours (Table) 06/09/24 20:11 CSF Gram Stain - Preliminary Cerebral Spinal Fluid 06/07/24 21:10 Blood Culture - Preliminary Blood Assessment and Plan Assessment: Ms. Moon is a 54-year-old female who is morbidly obese. She has a history of congestive heart failure and may have been left in her bed for period of time. She was found to have urine and fecal incontinence. She has limited speech capability at this time; however, this may be due to her respiratory condition as she is straining to breathe and breathing very rapidly. She is able to mouth words and name as well as comprehend both simple and complex commands. Her acute speech condition unknown exact etiology. Had two CT head which are negative for stroke. Unsure if more respiratory. Cannot rule out stroke that is small not seen on CT. Altered mental status with fever and leukocytosis: Unknown source of infection. Has component of metabolic encephalopathy. Patient presented on 06/03/2024 and had no fever until 06/06/2024. No leukocytosis until yesterday. CSF study is negative for meningoencephalitis. CSF nucleated cells are 1. Chronic hypoxic respiratory failure on oxygen Chronic compensated hyper Respiratory failure Hypertension Psoriasis Chronic diastolic heart failure. Edema Diabetes mellitus Morbid obesity Plan: Pending CSF viral panel. Patient is on Cefepime 2gm every 12 hours and Vancomycin. Will defer modification of medication to I.D. team. I stopped Keppra on 06/09/2024 since patient does not have seizure or clear discharges and she is having sepsis causing her confusion. Today her mentation is better. Patient is on aspirin 81 mg daily Cannot obtain MRI since the patient is unstable. Recommend to pursue MRI once is stable. Psychiatry team is consulted Pulmonary team is consulted PT OT and CONTACT LENS BLOCKER are consulted Will defer the rest of the medical med to primary and other specialist Plan discussed with the patient's ICU nurse. Time with Patient: Less than 30
[2024-06-10 17:43] LABS: Glucose,Whole Blood 155 mg/dL (70-110)
[2024-06-10] MEDS: POTASSIUM BICARBONATE/CIT AC 20 MEQ TABLET.EFF NG-TUBE SCH (18:31)
[2024-06-10] MEDS ORDERED: ACETAMINOPHEN IV (For NPO) 1,000 MG in EMPTY BAG 1 BAG IVPB PRN (19:38)
[2024-06-11 00:11] LABS: Glucose,Whole Blood 156 mg/dL (70-110)
[2024-06-11 03:26] LABS: Basophils % (A) 0 %; Eosinophils # (A) 0.4 k/uL (0-0.7); Eosinophils % (A) 2 %; HCT 47.7 % (34.0-46.0); HGB 14.5 gm/dL (11.4-16.0); Hypochromasia Marked; Lymphocytes # (A) 0.8 k/uL (1.0-4.8); Lymphocytes % (A) 5 %; MCH 28.6 pg (25.0-35.0); MCHC 30.4 g/dL (31.0-37.0); MCV 94.4 fL (80.0-100.0); Mean Platelet Volume 10.7; Monocytes # (A) 0.7 k/uL (0-1.0); Monocytes % (A) 4 %; Neutrophils # (A) 13.5 k/uL (1.3-7.7); Neutrophils % (A) 87 %; Platelet Count 214 k/uL (150-450); RBC 5.05 m/uL (3.80-5.40); RDW 14.9 % (11.5-15.5); WBC 15.6 k/uL (3.8-10.6)
[2024-06-11 03:35] LABS: ALT 21 U/L (4-34); AST 38 U/L (14-36); African American GFR (CKD) 64 (>60 ml/min/1.73 sqM); Albumin 3.5 g/dL (3.5-5.0); Alkaline Phosphatase 91 U/L (38-126); Blood Urea Nitrogen 54 mg/dL (7-17); Calcium 9.2 mg/dL (8.4-10.2); Chloride 105 mmol/L (98-107); Glucose 180 mg/dL (74-99); Non-African American GFR(CKD) 56 (>60 ml/min/1.73 sqM); Potassium 3.5 mmol/L (3.5-5.1); Sodium 150 mmol/L (137-145); Total Bilirubin 0.6 mg/dL (0.2-1.3); Total Protein 6.4 g/dL (6.3-8.2)
[2024-06-11 03:42] LABS: Anion Gap 3 mmol/L
[2024-06-11 04:14] LABS: Carbon Dioxide 42 mmol/L (22-30)
[2024-06-11] MEDS: POTASSIUM BICARBONATE/CIT AC 20 MEQ TABLET.EFF NG-TUBE SCH (06:22)
--- NOTE | 2024-06-11 08:13 | XR ---
EXAMINATION TYPE: XR chest 1V portable DATE OF EXAM: 06/11/2024 5:43 AM COMPARISON: 06/10/2024 CLINICAL INDICATION: Female, 54 years old with shortness of breath, history of NG tube placement veri fication, , FINDINGS: NG tube courses below the diaphragm. The distal aspect is beyond the field of view and not assessed. There is moderate cardiomegaly and diffuse interstitial changes. Prominent right basilar opacity has slightly worsened. IMPRESSION: 1. NG tube courses below the diaphragm but the tip is outside the field of view. 2. Moderate cardiomegaly with ongoing pulmonary vascular congestion. 3. Right lower lung airspace disease has slightly worsened. [facility], , 06/11/2024 8:11 AM
[2024-06-11] MEDS: PIPERACILLIN-TAZOBACTAM 3.375 GM in SODIUM CHLORIDE 0.9% 100 ML IVPB SCH (11:39)
--- NOTE | 2024-06-11 12:58 | P.PN ---
Subjective Progress Note Date: 06/11/24 I am following-up with patient and per nurse she continues to be on BiPAP. She is responding to ICU team appropriately. Objective - Vital Signs Vital signs: Vital Signs Temp 98.3 F 06/11/24 12:30 Pulse 83 06/11/24 12:30 Resp 27 H 06/11/24 12:30 BP 120/78 06/11/24 12:30 Pulse Ox 99 06/11/24 12:30 FiO2 40 06/11/24 11:00 Intake & Output 06/10/24 06/11/24 06/11/24 18:59 06:59 18:59 Intake Total 1255 1900 825 Output Total 720 710 275 Balance 535 1190 550 Weight 144.8 kg 150.1 kg 150.1 kg Intake: IV 100 100 Cefepime 2 gm In Sodium 100 100 Chloride 0.9% 100 ml @ 25 mls/hr IVPB Q12H [facility] Rx# :[id number] Intake, IV Titration 1075 1500 625 Amount ACETAMINOPHEN IV (For NPO 100 ) 1,000 mg In Empty Bag 1 bag @ 400 mls/hr IVPB Q6HR PRN Rx#:[id number] Dextrose 5% in Water 1, 775 1500 625 000 ml @ 125 mls/hr IV . Q8H [facility] Rx#:[id number] Potassium Chloride 10 meq 200 In Water For Injection 1 100ml.bag @ 100 mls/hr IVPB Q1HR [facility] Rx#: [id number] Tube Feeding 50 210 100 Other 30 90 100 Output: Urine 720 710 275 Other: Voiding Method Indwelling Catheter Indwelling Catheter # Bowel Movements 0 1 - Exam General: Lying in bed and does not appear in acute distress. HENT: Supple neck. Lung: Is on BiPAP Neuro: Limited. Patient is drowsy but is awake able to voice. She is following simple commands appropriately. Pupils are round equal reactive to light. The pupils are round 3 to 4 mm bilaterally. She is tracking. She is lifting bilateral upper extremity above gravity. She is wiggling her toes. - Labs CBC & Chem 7: 06/11/24 02:53 06/11/24 02:53 Labs: Abnormal Lab Results - Last 24 Hours (Table) 06/10/24 06/11/24 06/11/24 Range/Units 17:41 00:09 02:53 WBC 15.6 H (3.8-10.6) k/uL Hct 47.7 H (34.0-46.0) % MCHC 30.4 L (31.0-37.0) g/dL Neutrophils # 13.5 H (1.3-7.7) k/uL Lymphocytes # 0.8 L (1.0-4.8) k/uL Sodium (137-145) mmol/L Carbon Dioxide (22-30) mmol/L BUN (7-17) mg/dL Creatinine (0.52-1.04) mg/dL Glucose (74-99) mg/dL POC Glucose (mg/dL) 155 H 156 H (70-110) mg/dL AST (14-36) U/L 06/11/24 Range/Units 02:53 WBC (3.8-10.6) k/uL Hct (34.0-46.0) % MCHC (31.0-37.0) g/dL Neutrophils # (1.3-7.7) k/uL Lymphocytes # (1.0-4.8) k/uL Sodium 150 H (137-145) mmol/L Carbon Dioxide 42 H* (22-30) mmol/L BUN 54 H (7-17) mg/dL Creatinine 1.12 H (0.52-1.04) mg/dL Glucose 180 H (74-99) mg/dL POC Glucose (mg/dL) (70-110) mg/dL AST 38 H (14-36) U/L Microbiology - Last 24 Hours (Table) 06/09/24 20:11 CSF Gram Stain - Preliminary Cerebral Spinal Fluid CSF Culture - Preliminary 06/07/24 21:10 Blood Culture - Preliminary Blood Assessment and Plan Assessment: Ms. Moon is a 54-year-old female who is morbidly obese. She has a history of congestive heart failure and may have been left in her bed for period of time. She was found to have urine and fecal incontinence. She has limited speech capability at this time; however, this may be due to her respiratory condition as she is straining to breathe and breathing very rapidly. She is able to mouth words and name as well as comprehend both simple and complex commands. Acute speech condition unknown exact etiology. Had two CT head which are negative for stroke. Unsure if more respiratory. Cannot rule out stroke that is small not seen on CT. CSF study is negative for bacterial meningoencephalitis . Altered mental status with fever and leukocytosis: Unknown source of infection. Has component of metabolic encephalopathy. Patient presented on 06/03/2024 and had no fever until 06/06/2024. No leukocytosis until yesterday. CSF study is negative for meningoencephalitis. CSF nucleated cells are 1. Also component of pneumonia Chronic hypoxic respiratory failure on oxygen Chronic compensated hyper Respiratory failure Hypertension Psoriasis Chronic diastolic heart failure. Edema Diabetes mellitus Morbid obesity Plan: Pending CSF viral panel. Will pursue with MRI Brain since per ICU attending he felt she can cooperate for it and respiratory condition is better today. If cannot pursue with MRI Brain then will pursue with CT head. Patient is on Cefepime 2gm every 12 hours and Vancomycin. Will defer modification of medication to I.D. team. I stopped Keppra on 06/09/2024 since patient does not have seizure or clear discharges and she is having sepsis causing her confusion. Today her mentation is better. Patient is on aspirin 81 mg daily Psychiatry team is consulted Pulmonary team is consulted PT OT and [employer] GLAZIER are consulted Will defer the rest of the medical med to primary and other specialist Plan discussed with the patient's ICU attending. Time with Patient: Less than 30
--- NOTE | 2024-06-11 14:47 | P.PN ---
Subjective Progress Note Date: 06/11/24 Principal diagnosis: Reason for follow-up is fever Patient is a 54-year female with a past medical history significant for heart failure hypertension psoriasis dementia patient has been brought into the hospital for evaluation of speech problem and initially investigated for a stroke subsequently has developed a fever worsening respiratory status prompted this consultation. On today's evaluation that is 06/11/2024, the patient continues to be afebrile, the patient is on 10 L high flow nasal cannula oxygen slightly more awake no vomiting diarrhea any change reported by nursing staff. Patient white count is 15.6, creatinine is 1.12 chest x-ray this morning with s light worsening of the right lower lung airspace disease Objective - Vital Signs Vital signs: Vital Signs Temp 98.3 F 06/11/24 12:30 Pulse 80 06/11/24 13:30 Resp 27 H 06/11/24 13:30 BP 134/76 06/11/24 13:30 Pulse Ox 98 06/11/24 13:30 FiO2 40 06/11/24 11:00 Intake & Output 06/10/24 06/11/24 06/11/24 18:59 06:59 18:59 Intake Total 1255 1900 1315 Output Total 720 710 410 Balance 535 1190 905 Weight 144.8 kg 150.1 kg 150.1 kg Intake: IV 100 100 Cefepime 2 gm In Sodium 100 100 Chloride 0.9% 100 ml @ 25 mls/hr IVPB Q12H [facility] Rx# :[id number] Intake, IV Titration 1075 1500 875 Amount ACETAMINOPHEN IV (For NPO 100 ) 1,000 mg In Empty Bag 1 bag @ 400 mls/hr IVPB Q6HR PRN Rx#:[id number] Dextrose 5% in Water 1, 775 1500 875 000 ml @ 125 mls/hr IV . Q8H [facility] Rx#:[id number] Potassium Chloride 10 meq 200 In Water For Injection 1 100ml.bag @ 100 mls/hr IVPB Q1HR [facility] Rx#: [id number] Tube Feeding 50 210 140 Other 30 90 300 Output: Urine 720 710 410 Other: Voiding Method Indwelling Catheter Indwelling Catheter # Bowel Movements 0 1 - Exam GENERAL DESCRIPTION: Middle-age female lying in bed in no distress RESPIRATORY SYSTEM: Unlabored breathing , decreased intensity breath sounds at b ases HEART: S1 S2 regular rate and rhythm , ABDOMEN: Soft , no tenderness EXTREMITIES: Swelling to the leg no significant redness - Labs CBC & Chem 7: 06/11/24 02:53 06/11/24 02:53 Labs: Abnormal Lab Results - Last 24 Hours (Table) 06/10/24 06/11/24 06/11/24 Range/Units 17:41 00:09 02:53 WBC 15.6 H (3.8-10.6) k/uL Hct 47.7 H (34.0-46.0) % MCHC 30.4 L (31.0-37.0) g/dL Neutrophils # 13.5 H (1.3-7.7) k/uL Lymphocytes # 0.8 L (1.0-4.8) k/uL Sodium (137-145) mmol/L Carbon Dioxide (22-30) mmol/L BUN (7-17) mg/dL Creatinine (0.52-1.04) mg/dL Glucose (74-99) mg/dL POC Glucose (mg/dL) 155 H 156 H (70-110) mg/dL AST (14-36) U/L 06/11/24 Range/Units 02:53 WBC (3.8-10.6) k/uL Hct (34.0-46.0) % MCHC (31.0-37.0) g/dL Neutrophils # (1.3-7.7) k/uL Lymphocytes # (1.0-4.8) k/uL Sodium 150 H (137-145) mmol/L Carbon Dioxide 42 H* (22-30) mmol/L BUN 54 H (7-17) mg/dL Creatinine 1.12 H (0.52-1.04) mg/dL Glucose 180 H (74-99) mg/dL POC Glucose (mg/dL) (70-110) mg/dL AST 38 H (14-36) U/L Microbiology - Last 24 Hours (Table) 06/09/24 20:11 CSF Gram Stain - Preliminary Cerebral Spinal Fluid CSF Culture - Preliminary 06/07/24 21:10 Blood Culture - Preliminary Blood Assessment and Plan (1) Fever Current Visit: Yes Status: Acute Code(s): R50.9 - FEVER, UNSPECIFIED SNOMED Code(s): 783865658 Plan: 1patient with a fever in this patient currently in the hospital for 5 days before admission this initial evaluation with initial presentation for follow-up with the speech and responsiveness and has been worked up for CVA with the last CT of the brain has been negative MRI could not be done because the patient could not stay still etiology of the fever could be multifactorial questionable central versus pulmonary question of aspiration initial workup has been negative with negative nasopharyngeal swab for COVID RSV and influenza UA is not significantly positive patient did have LP that was normal 2-patient did have some improvement in the fever pattern however noted to have worsening right lower lobe pneumonia likely aspiration etiology antibiotic will be switched to Zosyn try to be in a sputum and monitor clinical course closely Dictation was produced using [employer] dictation software. please excuse any grammatical, word or spelling errors. Time with Patient: Less than 30
[2024-06-11] MEDS: HYDROmorphone 0.5 MG/0.5 ML SYRINGE IVP ONE (15:44)
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
--- NOTE | 2024-06-11 17:15 | P.PN ---
Progress Note - Text Progress Note Date: 06/11/24 This is a visit 54 years old female with past medical history of hypertension She brought because of generalized weakness and she was found on the floor with slurred speech. Patient could not get up and noticed that she is old and peed on herself more than once. On presentation patient looks awake and understands but she mumbles only and she cannot talk. Patient is morbidly obese which limits her ability to move around. Patient is poor historian because of her aphasia however she can shake her head as yes or no Patient denies any pain When asking about shortness of breath she denies, no vomiting or diarrhea, she denies urinary complaint, she denies headache dizziness to me Patient also denies weakness or tingling Her labs looks normal like CBC, BMP and LFT and INR. Urinalysis negative proBNP is 250 Chest x-ray cardiomegaly with mild pulmonary vascular congestion CT of the brain showing no acute intracranial process EKG showing sinus rhythm at [address]-T changes 06/04 Patient still difficulty articulating her words, I discussed the case with the neurologist, there is low suspicion for stroke, however we are going to repeat CAT scan of the brain. MRI cannot for the patient as she is morbidly obese. Patient morbidly obese and have difficulty moving. Currently she is on 3 L oxygen via nasal cannula. Her legs like 1+ leg edema. Breath sounds are distant given her body habitus She has extensive rash noted to extremities and trunk related to her psoriasis. Swallow evaluation is ordered. 06/05 Patient was on BiPAP for respiratory difficulty. It was placed overnight, in the morning she continued to use the BiPAP. pH is normal, unlikely CO2 retent ion to close acidosis. Pulmonary team recommending BiPAP overnight Stroke is unlikely. Neurologist does not think this is a stroke. As patient does not have focal neurological deficit. Neurologist thinks her speech difficulty is due to show shortness of breath. ABG shows pCO2 but no acidosis which is unlikely to cause this degree of shortness of breath. However she has [address] of the brain after duplex negative. Neurologist will see the patient intermittently. Therefore we are going to lowered the dose from aspirin 325 mg down to 81 mg for prophylactic purposes. Will start trazodone. Tomorrow morning we will try to discontinue the BiPAP. Also will ask for PT/OT evaluation June 07, 2024: I resumed care of the patient today. Laying in bed. Awake. Only mumbles answers. Face is flushed. Scattered psoriatic rash. Patient did undergo videofluoroscopic swallow test.: Not a very good quality. Followed by speech therapist. Was NPO. I ordered the EEG. Neurology has ordered an MRI of the brain. Initial CT scan has been unremarkable. At this point as per pulmonary does not feel that is contributing to her presentation. Also consulted psychiatry for psychogenic/conversion disorder. Patient getting IV Lasix. Negative fluid balance. Dr. 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 Even jokes. Patient sister was recently in the hospital for about 20 days and actually the patient herself had been helping her sister. Even she would take her sister came t to her appointments, with driving. She was slowly get around the house. Because she has weakness in the legs she has to sit down quite often. Patient offered I will not take her Lasix in the systolic to keep reminding her. Specially in the last 2 months. Few months ago patient was admitted to [facility] was put on a Lasix drip for congestive heart failure. 2 days prior to getting admitted patient's became less active. Finding it difficult to get up. No fevers reported. Patient does snore quite a bit. Patient also got chronic low back pain and takes medications for the same. Patient is a full code and sister would like patient to be transferred to [facility] where they have a larger MRI and was seen there before. I did inform sister came that patient's have been ordered an MRI here and EEG was ordered today. Patient does have a cat at home. I spoke earlier to the nurse. Total time spent today about 1 hour with over 35 minutes of discussion June 08, 2024: Patient remains lethargic. Was started on IV fluid yesterday evening. I spoke to radiology department today. A weight limit for our MRI is 400 pounds. But because of patient's respiratory status on the BiPAP she cannot have an MRI currently. I did speak to ID. Lumbar puncture has been ordered. Empirically has been put on IV Zosyn. EEG did not show any seizure activity. I did speak to patient's sister this morning. Did inform her about the further workup. As patient is becoming a bit alkalotic. Will DC IV Lasix. Continue with LR 75 cc an hour. June 09, 2024: Because of altered mentation patient was moved to the ICU. Worsening of renal function creatinine to 1.6. Will DC Lodine. DC Cozaar. Catapres patch was added for blood pressure. Antibiotics switched to IV cefepime. Patient remains lethargic. Discussed with neurology Dr. SENIOR. Given no seizure activity on the EEG will DC Keppra. Increase IV fluids to 125 cc an hour given hypernatremia. Lasix was discontinued yesterday. On BiPAP. Later this afternoon patient was intubated June 10: ICU. Patient remains on BiPAP. Creatinine remains at 1.6. D5W at 125 cc an hour. Remains empirically on cefepime. CSF has been negative. Question has been about viral encephalitis. Which will take his own course. Discussed with ID. I spoke to patient's family Dr. Manuel Cardona given update. I also called patient's Sister Carolynn on the phone given update. Patient also has delirium/encephalopathy from a clinical presentation of sepsis. CORRECTION: Patient was not intubated. On BiPAP yesterday. June 11: ICU. Patient seen this morning the ICU. Was on BiPAP. Interval send service will try high flow oxygen. Depending on oxygen status may consider MRI this afternoon. Slightly more responsive. No gross lethargic. Getting vital HP tube feeding through the NG tube. Ordered by forest management teacher and dietitian. Also getting water through the NG tube. Also getting D5W. Chest x- ray showing right basilar infiltrate. Possible aspiration. Per ID antibiotic changed to IV Zosyn. Patient CSF was negative. Active Medications Hydrocodone Bitart/Acetaminophen (Hydrocodone/Apap 5-325mg 1 Each Tab) 1 each PO Q6HR PRN PRN Reason: Moderate Pain (Scale 4 to 6) Last Admin: 06/06/24 16:48 Dose: 1 each Albuterol/Ipratropium (Ipratropium-Albuterol 3 Ml Neb) 3 ml INHALATION RT-QID PRN PRN Reason: Shortness Of Breath Or Wheezing Last Admin: 06/04/24 13:22 Dose: 3 ml Aspirin (Aspirin 81 Mg) 81 mg PO DAILY [facility] Last Admin: 06/11/24 08:50 Dose: 81 mg Atorvastatin Calcium (Atorvastatin 20 Mg Tab) 20 mg PO HS [facility] Last Admin: 06/10/24 20:01 Dose: 20 mg Betamethasone Dipropionate (Betamethasone Dipropionate 0.05% Cream 15 Gm Tube) 1 applic TOPICAL BID [facility]; Protocol Last Admin: 06/11/24 09:23 Dose: 1 applic Carvedilol (Carvedilol 12.5 Mg Tab) 25 mg PO AC-BID [facility] Last Admin: 06/11/24 06:30 Dose: 25 mg Clonidine HCl (Clonidine 0.1 Mg/24hr Patch) 1 patch TRANSDERM Q7D [facility] Last Admin: 06/09/24 00:09 Dose: 1 patch Dapagliflozin (Dapagliflozin Propanediol 5 Mg Tablet) 5 mg PO DAILY [facility] Last Admin: 06/11/24 08:50 Dose: 5 mg Enoxaparin Sodium (Enoxaparin 40 Mg/0.4 Ml Syringe) 40 mg SQ DAILY [facility] Last Admin: 06/11/24 08:51 Dose: 40 mg Famotidine (Famotidine 20 Mg/2 Ml Vial) 20 mg IV DAILY [facility] Last Admin: 06/11/24 08:50 Dose: 20 mg Hydralazine HCl (Hydralazine Hcl 20 Mg/Ml 1 Ml Vial) 10 mg IVP Q4HR PRN PRN Reason: Blood Pressure - High Last Admin: 06/04/24 19:47 Dose: 10 mg Dextrose/Water (Dextrose 5%-Water Iv Soln) 1,000 mls @ 125 mls/hr IV .Q8H [facility] Last Admin: 06/11/24 09:23 Dose: 125 mls/hr Acetaminophen 1,000 mg/ IV (Solution) 100 mls @ 400 mls/hr IVPB Q6HR PRN PRN Reason: Fever>101 Stop: 06/11/24 18:01 Piperacillin Sod/Tazobactam (Sod 3.375 gm/ Sodium Chloride) 100 mls @ 25 mls/hr IVPB Q8H [facility]; Protocol Last Admin: 06/11/24 11:39 Dose: 25 mls/hr Metoprolol Tartrate (Metoprolol Tartrate 50 Mg Tab) 50 mg PO BID [facility] Last Admin: 06/11/24 08:50 Dose: 50 mg Miscellaneous Information (Potassium Replacement Protocol 1 Each Misc) 1 each MISCELLANE DAILY PRN; Protocol PRN Reason: Per Protocol Nystatin (Nystatin 100,000 Unit/Gm Powd 15 Gm) 1 applic TOPICAL TID [facility]; Protocol Last Admin: 06/11/24 16:47 Dose: 1 applic Trazodone HCl (Trazodone Hcl 100 Mg Tab) 100 mg PO HS [facility] Last Admin: 06/10/24 20:01 Dose: 100 mg On examination: VITAL SIGNS: 100.9, 101, 30, 134 x 70, 96% on BiPAP at 50% GENERAL APPEARANCE: BMI 60.6, lethargic-a bit more awake today. Rosacea HEENT: Normal external appearance of nose and ear. Oral cavity normal EYES: Pupils equal. Conjunctiva normal. NECK: JVD not raised. Mass not palpable. RESPIRATORY: Respiratory effort increased l. Decreased breath sound CARDIOVASCULAR: First and second sounds normal. No edema. ABDOMEN: Soft. Liver and spleen not palpable. No tenderness. No mass palpable. PSYCHIATRY: Does slowly mumble answers. Dermatological: Scattered psoriatic rash. INVESTIGATIONS, reviewed in the clinical context: June 11: White count 15.6 hemoglobin 14.5 platelets 214 sodium 150 potassium 3.5 bicarb 42 BUN 54 creatinine 1.12 June 10: White count 15.7 hemoglobin 15.9 platelets 191 increased neutrophils. Decreased lymphocytes. Sodium 153 potassium 3.3 BUN 63 creatinine 1.6 CSF: RBC 13 nucleated cells 1 glucose 103 total protein 55 Doppler ultrasound lower extremity: Limited exam. Appears to be negative June 09: White count 16.9 hemoglobin 15.7 platelets 229 sodium 151 potassium 3.5 BUN 60 creatinine 1.61 Procalcitonin 0.08. Lactic acid 1.8. EKG: Metabolic abnormality. No seizure activity June 08: White count 9.4 hemoglobin 16.1 platelets 298 sodium 146 potassium 4.1 BUN 47 creatinine 1.25 bicarb 35 Modified barium swallow: Limited exam. Somewhat limited visualization. Symptoms of cough and negative response after swallow of thin liquids. Suspicion was some aspiration. Carotid Doppler: No significant stenosis CT brain without contrast: Unremarkable Chest x-ray film: Some venous prominence 2D echocardiogram: EF 55 to 60% Assessment and plan: -Patient 2 days prior to presentation became increasingly weak. Not able to get around the house. Speech became slow. Sister did report some weakness on the r ight side. Patient is only mumbling words.: Not improving Presentation is not compatible with CO2 retention. Differential: , metabolic encephalopathy/delirium from infection. Possibility of viral encephalitis. Stroke unlikely given that patient been having fevers. Though brainstem stroke to be a consideration. EEG-no seizure activity. MRI currently cannot be done because of respiratory status ID following. IV Zosyn -Right basal aspiration pneumonia Antibiotic changed to IV Zosyn from cefepime -Acute metabolic encephalopathy/delirium from sepsis: Not improving -NG tube feeding Vital HP. Free water. Dietitian following -Hypernatremia from diuresis: Slow to respond Lasix discontinued D5W IV fluids to 125 cc an hour -Acute kidney injury likely ATN from sepsis and some fluid deficit: Some improvement IV fluids. Follow renal function Lodine and Cozaar discontinued I's and O's -Psoriasis with widespread rash -Obstructive sleep apnea with elevated CO2 but not retention or acidosis BiPAP was used here -Essential hypertension, uncontrolled Catapres patch -Sepsis, source unclear: Not improving IV cefepime. CSF unremarkable -Morbid obesity, with a BMI of 59.6 -Acute hypoxic respiratory failure could be related to her obesity hypoventilation and CHF: Worsening Intubated June 09 -Acute on chronic congestive heart failure exacerbation. Patient was admitted to [facility] sometime ago and had required IV Lasix drip. Received IV Lasix. Now DC the same. -Chronic lumbar arthritis for which patient takes Lodine at home Lodine held because of renal function -Full code. -Patient's sister Carolynn FORD Vital HP feeding started to the NG tube. Free water. Antibiotic changed to IV Zosyn. Continue IV fluids. Culture workup has been negative except for right basal infiltrates from aspiration pneumonia.
--- NOTE | 2024-06-11 18:01 | CT ---
EXAMINATION TYPE: CT brain wo con DATE OF EXAM: 06/11/2024 5:49 PM COMPARISON: 06/05/2024 CLINICAL INDICATION: Female, 54 years old with history of neuro deficit, ams TECHNIQUE: Brain: Axial CT images of the brain were obtained with coronal and sagittal reformats created and rev iewed. Contrast used: None. Oral contrast used: None. CT DLP: 1197.8 mGycm, Automated exposure control for dose reduction was used. FINDINGS: Brain: Extra-axial spaces: No abnormal extra-axial fluid collections. Ventricular system: Within normal limits, cavum septum callosum. Cerebral parenchyma: No acute intraparenchymal hemorrhage or mass effect. The french-white junction is well differentiated. Scattered hypoattenuating areas are seen within the white matter. Cerebellum: Unremarkable. Mass effect: No evidence of midline shift. Intracranial vasculature: Atherosclerotic calcifications of the intracranial vessels. Soft tissues: Normal. Calvarium/osseous structures: No depressed skull fracture. Paranasal sinuses and mastoid air cells: Mild scattered paranasal sinus disease. Visualized orbits: Orbital contents are intact. Nasogastric tube partially visualized. IMPRESSION: No acute intracranial process. [facility], , 06/11/2024 5:58 PM
[2024-06-11 18:21] LABS: Glucose,Whole Blood 150 mg/dL (70-110)
[2024-06-12 00:45] LABS: Glucose,Whole Blood 152 mg/dL (70-110)
[2024-06-12 03:35] LABS: Basophils % (A) 0 %; Eosinophils # (A) 0.6 k/uL (0-0.7); Eosinophils % (A) 5 %; HCT 44.2 % (34.0-46.0); HGB 13.6 gm/dL (11.4-16.0); Hypochromasia Moderate; Lymphocytes # (A) 0.9 k/uL (1.0-4.8); Lymphocytes % (A) 8 %; MCH 28.5 pg (25.0-35.0); MCHC 30.9 g/dL (31.0-37.0); MCV 92.2 fL (80.0-100.0); Monocytes # (A) 0.6 k/uL (0-1.0); Monocytes % (A) 5 %; Neutrophils # (A) 9.8 k/uL (1.3-7.7); Neutrophils % (A) 82 %; Platelet Count 201 k/uL (150-450); RBC 4.79 m/uL (3.80-5.40); RDW 14.9 % (11.5-15.5); WBC 12.1 k/uL (3.8-10.6)
[2024-06-12 03:46] LABS: African American GFR (CKD) 83 (>60 ml/min/1.73 sqM); Blood Urea Nitrogen 40 mg/dL (7-17); Calcium 8.9 mg/dL (8.4-10.2); Chloride 101 mmol/L (98-107); Glucose 175 mg/dL (74-99); Non-African American GFR(CKD) 72 (>60 ml/min/1.73 sqM); Potassium 3.7 mmol/L (3.5-5.1); Sodium 144 mmol/L (137-145)
[2024-06-12 03:53] LABS: Anion Gap 9 mmol/L
[2024-06-12 05:29] LABS: Carbon Dioxide 34 mmol/L (22-30)
[2024-06-12] MEDS: POTASSIUM BICARBONATE/CIT AC 20 MEQ TABLET.EFF NG-TUBE SCH (06:39)
--- NOTE | 2024-06-12 07:01 | XR ---
EXAMINATION TYPE: XR chest 1V DATE OF EXAM: 06/12/2024 COMPARISON: 06/11/2024 CLINICAL INDICATION: Female, 54 years old with history of pneumonia; TECHNIQUE: Single frontal view of the chest is obtained. FINDINGS: There is an NG tube within the stomach. There is moderate cardiomegaly and mild pulmonary vascular congestion which appears to have decreased in the interval. There is no left lung airspace disease. Partially consolidated infiltrate in the ri ght lung base is decreased in the interval and there is better aeration in the right lung base. There is no pneumothorax or large pleural effusion. IMPRESSION: Mild acute cardiopulmonary disease and mild interval improvement as described above. There is stable cardiomegaly and improving mild pulmonary vessel congestion.. [facility], , 06/12/2024 6:59 AM
[2024-06-12 07:40] LABS: Glucose,Whole Blood 196 mg/dL (70-110)
[2024-06-12] MEDS ORDERED: POTASSIUM BICARBONATE/CIT AC 20 MEQ TABLET.EFF NG-TUBE SCH (08:00)
[2024-06-12] MEDS ORDERED: DEXTROSE 50% SYRINGE 50 ML IVP PRN ×2 (13:22)
--- NOTE | 2024-06-12 14:03 | P.PN ---
Subjective Progress Note Date: 06/12/24 I am following-up with patient and per the nurse, she was notified by MRI team that patient cannot fit into MRI today. She is on high flow oxygen and is following commands but continues to be drowsy. Objective - Vital Signs Vital signs: Vital Signs Temp 99.6 F 06/12/24 08:00 Pulse 77 06/12/24 12:00 Resp 26 H 06/12/24 12:00 BP 134/75 06/12/24 12:00 Pulse Ox 98 06/12/24 12:00 FiO2 30 06/12/24 08:00 Intake & Output 06/11/24 06/12/24 06/12/24 18:59 06:59 18:59 Intake Total 2240 1740 925 Output Total 735 735 220 Balance 1505 1005 705 Weight 150.1 kg 148.053 kg Intake: Intake, IV Titration 1500 1500 625 Amount Dextrose 5% in Water 1, 1500 1500 625 000 ml @ 125 mls/hr IV . Q8H [facility] Rx#:[id number] Tube Feeding 240 240 100 Other 500 200 Output: Urine 735 735 220 Other: Voiding Method Indwelling Catheter Indwelling Catheter Indwelling Catheter # Bowel Movements 1 1 - Exam General: Lying in bed and does not appear in acute distress. HENT: Supple neck. Lung: Is on high flow oxygen. Neuro: Limited. Patient is moderately drowsy and is awake able to voice minimally. She is following simple commands showing a thumbs up sticking her tongue out wiggling her toes appropriately. - Labs CBC & Chem 7: 06/12/24 03:02 06/12/24 03:02 Labs: Abnormal Lab Results - Last 24 Hours (Table) 06/11/24 06/12/24 06/12/24 Range/Units 18:19 00:43 03:02 WBC (3.8-10.6) k/uL MCHC (31.0-37.0) g/dL Neutrophils # (1.3-7.7) k/uL Lymphocytes # (1.0-4.8) k/uL Carbon Dioxide 34 H (22-30) mmol/L BUN 40 H (7-17) mg/dL Glucose 175 H (74-99) mg/dL POC Glucose (mg/dL) 150 H 152 H (70-110) mg/dL 06/12/24 06/12/24 Range/Units 03:02 07:39 WBC 12.1 H (3.8-10.6) k/uL MCHC 30.9 L (31.0-37.0) g/dL Neutrophils # 9.8 H (1.3-7.7) k/uL Lymphocytes # 0.9 L (1.0-4.8) k/uL Carbon Dioxide (22-30) mmol/L BUN (7-17) mg/dL Glucose (74-99) mg/dL POC Glucose (mg/dL) 196 H (70-110) mg/dL Microbiology - Last 24 Hours (Table) 06/09/24 20:11 CSF Gram Stain - Preliminary Cerebral Spinal Fluid CSF Culture - Preliminary Assessment and Plan Assessment: Ms. Moon is a 54-year-old female who is morbidly obese. She has a history of congestive heart failure and may have been left in her bed for period of time. She was found to have urine and fecal incontinence. She has limited speech capability at this time; however, this may be due to her respira tory condition as she is straining to breathe and breathing very rapidly. She is able to mouth words and name as well as comprehend both simple and complex commands. Acute speech condition unknown exact etiology. Had three CT head which are negative for stroke. Unsure if more respiratory. Cannot rule out stroke that is small not seen on CT. CSF study is negative for bacterial meningoencephal itis. Altered mental status with fever and leukocytosis: Unknown source of infection. Has component of metabolic encephalopathy. Patient presented on 06/03/2024 and had no fever until 06/06/2024. No leukocytosis until yesterday. CSF study is negative for meningoencephalitis. CSF nucleated cells are 1. Also component of pneumonia Chronic hypoxic respiratory failure on oxygen Chronic compensated hyper Respiratory failure Hypertension Psoriasis Chronic diastolic heart failure. Edema Diabetes mellitus Morbid obesity Plan: CSF viral panel: so far negative. Cannot have MRI since per tech cannot fit. Repeat CT head yesterday is negative for acute process Patient is on Cefepime 2gm every 12 hours and Vancomycin. Will defer modification of medication to I.D. team. Patient is on aspirin 81 mg daily Psychiatry team is consulted Pulmonary team is consulted PT OT and UTILIZATION COORDINATOR are consulted Will defer the rest of the medical med to primary and other specialist The sister wants her transferred to a tertiary center for an MRI Brain. Plan discussed with the patient's ICU nurse. Time with Patient: Less than 30
--- NOTE | 2024-06-12 14:40 | P.PN ---
Subjective Progress Note Date: 06/12/24 Principal diagnosis: Reason for follow-up is fever Patient is a 54-year female with a past medical history significant for heart failure hypertension psoriasis dementia patient has been brought into the hospital for evaluation of speech problem and initially investigated for a stroke subsequently has developed a fever worsening respiratory status prompted this consultation. On today's evaluation that is 06/12/2024, patient did have improvement in her fever pattern currently running a low-grade fever of 99.6 F the patient breathing comfortably and is down to 8 L high flow nasal cannula oxygen patient is slightly more awake and responding to questioning no vomiting or diarrhea has been reported. Patient white count is down to 12.1, creatinine 0.91 blood cultures so far negative Objective - Vital Signs Vital signs: Vital Signs Temp 99.6 F 06/12/24 08:00 Pulse 75 06/12/24 10:00 Resp 27 H 06/12/24 10:00 BP 123/71 06/12/24 10:00 Pulse Ox 99 06/12/24 10:00 FiO2 30 06/12/24 08:00 Intake & Output 06/11/24 06/12/24 06/12/24 18:59 06:59 18:59 Intake Total 2240 1740 925 Output Total 735 735 220 Balance 1505 1005 705 Weight 150.1 kg 148.053 kg Intake: Intake, IV Titration 1500 1500 625 Amount Dextrose 5% in Water 1, 1500 1500 625 000 ml @ 125 mls/hr IV . Q8H [facility] Rx#:[id number] Tube Feeding 240 240 100 Other 500 200 Output: Urine 735 735 220 Other: Voiding Method Indwelling Catheter Indwelling Catheter # Bowel Movements 1 1 - Exam GENERAL DESCRIPTION: Middle-age female lying in bed in no distress RESPIRATORY SYSTEM: Unlabored breathing , decreased intensity breath sounds at bases HEART: S1 S2 regular rate and rhythm , ABDOMEN: Soft , no tenderness EXTREMITIES: Swelling to the leg no significant redness - Labs CBC & Chem 7: 06/12/24 03:02 06/12/24 03:02 Labs: Abnormal Lab Results - Last 24 Hours (Table) 06/11/24 06/12/24 06/12/24 Range/Units 18:19 00:43 03:02 WBC (3.8-10.6) k/uL MCHC (31.0-37.0) g/dL Neutrophils # (1.3-7.7) k/uL Lymphocytes # (1.0-4.8) k/uL Carbon Dioxide 34 H (22-30) mmol/L BUN 40 H (7-17) mg/dL Glucose 175 H (74-99) mg/dL POC Glucose (mg/dL) 150 H 152 H (70-110) mg/dL 06/12/24 06/12/24 Range/Units 03:02 07:39 WBC 12.1 H (3.8-10.6) k/uL MCHC 30.9 L (31.0-37.0) g/dL Neutrophils # 9.8 H (1.3-7.7) k/uL Lymphocytes # 0.9 L (1.0-4.8) k/uL Carbon Dioxide (22-30) mmol/L BUN (7-17) mg/dL Glucose (74-99) mg/dL POC Glucose (mg/dL) 196 H (70-110) mg/dL Microbiology - Last 24 Hours (Table) 06/09/24 20:11 CSF Gram Stain - Preliminary Cerebral Spinal Fluid CSF Culture - Preliminary Assessment and Plan (1) Fever Current Visit: Yes Status: Acute Code(s): R50.9 - FEVER, UNSPECIFIED SNOMED Code(s): 349895109 (2) Aspiration pneumonia Current Visit: Yes Status: Acute Code(s): J69.0 - PNEUMONITIS DUE TO INHALATION OF FOOD AND VOMIT SNOMED Code(s): 071499174 (3) Allergy to sulfa drugs Current Visit: Yes Status: Acute Code(s): Z88.2 - ALLERGY STATUS TO SULFONAMIDES SNOMED Code(s): 93642460 (4) Leukocytosis Current Visit: Yes Status: Acute Code(s): D72.829 - ELEVATED WHITE BLOOD CELL COUNT, UNSPECIFIED SNOMED Code(s): 744679876 Plan: 1patient with a fever in this patient currently in the hospital for 5 days before admission this initial evaluation with initial presentation for follow-up with the speech and responsiveness and has been worked up for CVA with the last CT of the brain has been negative MRI could not be done because the patient could not stay still etiology of the fever could be multifactorial questionable central versus pulmonary question of aspiration initial workup has been negative with negative nasopharyngeal swab for COVID RSV and influenza UA is not significantly positive patient did have LP that was normal 2-patient noted to have worsening right lower lobe pneumonia likely aspiration etiology 3-patient feels better and is improved white count is trending down I will treat the patient with Zosyn nursing staff has been advised to try to obtain sputum for cultures Dictation was produced using [employer] dictation software. please excuse any grammatical, word or spelling errors. Time with Patient: Less than 30
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
--- NOTE | 2024-06-12 16:13 | P.PN ---
Progress Note - Text Progress Note Date: 06/12/24 This is a visit 54 years old female with past medical history of hypertension She brought because of generalized weakness and she was found on the floor with slurred speech. Patient could not get up and noticed that she is old and peed on herself more than once. On presentation patient looks awake and understands but she mumbles only and she cannot talk. Patient is morbidly obese which limits her ability to move around. Patient is poor historian because of her aphasia however she can shake her head as yes or no Patient denies any pain When asking about shortness of breath she denies, no vomiting or diarrhea, she denies urinary complaint, she denies headache dizziness to me Patient also denies weakness or tingling Her labs looks normal like CBC, BMP and LFT and INR. Urinalysis negative proBNP is 250 Chest x-ray cardiomegaly with mild pulmonary vascular congestion CT of the brain showing no acute intracranial process EKG showing sinus rhythm at [address]-T changes 06/04 Patient still difficulty articulating her words, I discussed the case with the neurologist, there is low suspicion for stroke, however we are going to repeat CAT scan of the brain. MRI cannot for the patient as she is morbidly obese. Patient morbidly obese and have difficulty moving. Currently she is on 3 L oxygen via nasal cannula. Her legs like 1+ leg edema. Breath sounds are distant given her body habitus She has extensive rash noted to extremities and trunk related to her psoriasis. Swallow evaluation is ordered. 06/05 Patient was on BiPAP for respiratory difficulty. It was placed overnight, in the morning she continued to use the BiPAP. pH is normal, unlikely CO2 retent ion to close acidosis. Pulmonary team recommending BiPAP overnight Stroke is unlikely. Neurologist does not think this is a stroke. As patient does not have focal neurological deficit. Neurologist thinks her speech difficulty is due to show shortness of breath. ABG shows pCO2 but no acidosis which is unlikely to cause this degree of shortness of breath. However she has [address] of the brain after duplex negative. Neurologist will see the patient intermittently. Therefore we are going to lowered the dose from aspirin 325 mg down to 81 mg for prophylactic purposes. Will start trazodone. Tomorrow morning we will try to discontinue the BiPAP. Also will ask for PT/OT evaluation June 07, 2024: I resumed care of the patient today. Laying in bed. Awake. Only mumbles answers. Face is flushed. Scattered psoriatic rash. Patient did undergo videofluoroscopic swallow test.: Not a very good quality. Followed by speech therapist. Was NPO. I ordered the EEG. Neurology has ordered an MRI of the brain. Initial CT scan has been unremarkable. At this point as per pulmonary does not feel that is contributing to her presentation. Also consulted psychiatry for psychogenic/conversion disorder. Patient getting IV Lasix. Negative fluid balance. Dr. 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 Even jokes. Patient sister was recently in the hospital for about 20 days and actually the patient herself had been helping her sister. Even she would take her sister came t to her appointments, with driving. She was slowly get around the house. Because she has weakness in the legs she has to sit down quite often. Patient offered I will not take her Lasix in the systolic to keep reminding her. Specially in the last 2 months. Few months ago patient was admitted to [facility] was put on a Lasix drip for congestive heart failure. 2 days prior to getting admitted patient's became less active. Finding it difficult to get up. No fevers reported. Patient does snore quite a bit. Patient also got chronic low back pain and takes medications for the same. Patient is a full code and sister would like patient to be transferred to [facility] where they have a larger MRI and was seen there before. I did inform sister came that patient's have been ordered an MRI here and EEG was ordered today. Patient does have a cat at home. I spoke earlier to the nurse. Total time spent today about 1 hour with over 35 minutes of discussion June 08, 2024: Patient remains lethargic. Was started on IV fluid yesterday evening. I spoke to radiology department today. A weight limit for our MRI is 400 pounds. But because of patient's respiratory status on the BiPAP she cannot have an MRI currently. I did speak to ID. Lumbar puncture has been ordered. Empirically has been put on IV Zosyn. EEG did not show any seizure activity. I did speak to patient's sister this morning. Did inform her about the further workup. As patient is becoming a bit alkalotic. Will DC IV Lasix. Continue with LR 75 cc an hour. June 09, 2024: Because of altered mentation patient was moved to the ICU. Worsening of renal function creatinine to 1.6. Will DC Lodine. DC Cozaar. Catapres patch was added for blood pressure. Antibiotics switched to IV cefepime. Patient remains lethargic. Discussed with neurology Dr. SENIOR. Given no seizure activity on the EEG will DC Keppra. Increase IV fluids to 125 cc an hour given hypernatremia. Lasix was discontinued yesterday. On BiPAP. Later this afternoon patient was intubated June 10: ICU. Patient remains on BiPAP. Creatinine remains at 1.6. D5W at 125 cc an hour. Remains empirically on cefepime. CSF has been negative. Question has been about viral encephalitis. Which will take his own course. Discussed with ID. I spoke to patient's family Dr. Manuel Cardona given update. I also called patient's Sister Carolynn on the phone given update. Patient also has delirium/encephalopathy from a clinical presentation of sepsis. CORRECTION: Patient was not intubated. On BiPAP yesterday. June 11: ICU. Patient seen this morning the ICU. Was on BiPAP. Interval send service will try high flow oxygen. Depending on oxygen status may consider MRI this afternoon. Slightly more responsive. No gross lethargic. Getting vital HP tube feeding through the NG tube. Ordered by products mechanical design engineer and dietitian. Also getting water through the NG tube. Also getting D5W. Chest x- ray showing right basilar infiltrate. Possible aspiration. Per ID antibiotic changed to IV Zosyn. Patient CSF was negative. June 12: ICU. Was on nasal cannula for about 4 hours yesterday. 1 of patient's sisters at bedside. NG tube remains in place. Following commands. Hypophonic. Patient unable to fit into our MRI. Per neurology patient to be transferred to [facility] where the family wants her to go where she has had previous treatment. psychotherapist social worker informed Active Medications Hydrocodone Bitart/Acetaminophen (Hydrocodone/Apap 5-325mg 1 Each Tab) 1 each PO Q6HR PRN PRN Reason: Moderate Pain (Scale 4 to 6) Last Admin: 12/01/24 16:48 Dose: 1 each Albuterol/Ipratropium (Ipratropium-Albuterol 3 Ml Neb) 3 ml INHALATION RT-QID PRN PRN Reason: Shortness Of Breath Or Wheezing Last Admin: 06/04/24 13:22 Dose: 3 ml Aspirin (Aspirin 81 Mg) 81 mg PO DAILY [facility] Last Admin: 06/12/24 08:02 Dose: 81 mg Atorvastatin Calcium (Atorvastatin 20 Mg Tab) 20 mg PO HS [facility] Last Admin: 06/11/24 20:17 Dose: 20 mg Betamethasone Dipropionate (Betamethasone Dipropionate 0.05% Cream 15 Gm Tube) 1 applic TOPICAL BID [facility]; Protocol Last Admin: 06/12/24 08:04 Dose: 1 applic Carvedilol (Carvedilol 12.5 Mg Tab) 25 mg PO AC-BID [facility] Last Admin: 06/12/24 06:39 Dose: 25 mg Clonidine HCl (Clonidine 0.1 Mg/24hr Patch) 1 patch TRANSDERM Q7D [facility] Last Admin: 06/09/24 00:09 Dose: 1 patch Dapagliflozin (Dapagliflozin Propanediol 5 Mg Tablet) 5 mg PO DAILY [facility] Last Admin: 06/12/24 08:03 Dose: 5 mg Dextrose/Water (Dextrose 50% Syringe 50 Ml) 25 ml IVP PER PROTOCOL PRN; Protocol PRN Reason: Hypoglycemia Dextrose/Water (Dextrose 50% Syringe 50 Ml) 50 ml IVP PER PROTOCOL PRN; Protocol PRN Reason: Hypoglycemia Enoxaparin Sodium (Enoxaparin 40 Mg/0.4 Ml Syringe) 40 mg SQ DAILY [facility] Last Admin: 06/12/24 08:04 Dose: 40 mg Famotidine (Famotidine 20 Mg/2 Ml Vial) 20 mg IV DAILY [facility] Last Admin: 06/12/24 08:02 Dose: 20 mg Hydralazine HCl (Hydralazine Hcl 20 Mg/Ml 1 Ml Vial) 10 mg IVP Q4HR PRN PRN Reason: Blood Pressure - High Last Admin: 06/04/24 19:47 Dose: 10 mg Dextrose/Water (Dextrose 5%-Water Iv Soln) 1,000 mls @ 125 mls/hr IV .Q8H [facility] Last Admin: 06/12/24 11:06 Dose: 125 mls/hr Piperacillin Sod/Tazobactam (Sod 3.375 gm/ Sodium Chloride) 100 mls @ 25 mls/hr IVPB Q8H [facility]; Protocol Last Admin: 06/12/24 11:03 Dose: 25 mls/hr Insulin Aspart (Insulin Aspart (Novolog) 100 Unit/Ml Vial) 0 unit SQ Q6HR [facility]; Protocol Metoprolol Tartrate (Metoprolol Tartrate 50 Mg Tab) 50 mg PO BID [facility] Last Admin: 06/12/24 08:02 Dose: 50 mg Miscellaneous Information (Potassium Replacement Protocol 1 Each Misc) 1 each MISCELLANE DAILY PRN; Protocol PRN Reason: Per Protocol Nystatin (Nystatin 100,000 Unit/Gm Powd 15 Gm) 1 applic TOPICAL TID [facility]; Protocol Last Admin: 06/12/24 08:04 Dose: 1 applic Trazodone HCl (Trazodone Hcl 100 Mg Tab) 100 mg PO HS [facility] Last Admin: 06/11/24 20:17 Dose: 100 mg On examination: VITAL SIGNS: 99.6, 75, 26, 123 x 68, 99% on 8 L GENERAL APPEARANCE: BMI 60.6, lethargic-a bit more awake today. Rosacea HEENT: Normal external appearance of nose and ear. Oral cavity normal. EYES: Pupils equal. Conjunctiva normal. NECK: JVD not raised. Mass not palpable. RESPIRATORY: Respiratory effort increased l. Decreased breath sound CARDIOVASCULAR: First and second sounds normal. No edema. ABDOMEN: Soft. Liver and spleen not palpable. No tenderness. No mass palpable. PSYCHIATRY: Hypophonic speaks very slowly. Some movement in the limbs Dermatological: Scattered psoriatic rash. INVESTIGATIONS, reviewed in the clinical context: June 12: White count 12.1 hemoglobin 13.6 platelets 201 sodium 144 potassium 3.7 creatinine 0.91 June 11: White count 15.6 hemoglobin 14.5 platelets 214 sodium 150 potassium 3.5 bicarb 42 BUN 54 creatinine 1.12 June 10: White count 15.7 hemoglobin 15.9 platelets 191 increased neutrophils. Decreased lymphocytes. Sodium 153 potassium 3.3 BUN 63 creatinine 1.6 CSF: RBC 13 nucleated cells 1 glucose 103 total protein 55 Doppler ultrasound lower extremity: Limited exam. Appears to be negative June 09: White count 16.9 hemoglobin 15.7 platelets 229 sodium 151 potassium 3.5 BUN 60 creatinine 1.61 Procalcitonin 0.08. Lactic acid 1.8. EKG: Metabolic abnormality. No seizure activity June 08: White count 9.4 hemoglobin 16.1 platelets 298 sodium 146 potassium 4.1 BUN 47 creatinine 1.25 bicarb 35 Modified barium swallow: Limited exam. Somewhat limited visualization. Symptoms of cough and negative response after swallow of thin liquids. Suspicion was some aspiration. Carotid Doppler: No significant stenosis CT brain without contrast: Unremarkable Chest x-ray film: Some venous prominence 2D echocardiogram: EF 55 to 60% Assessment and plan: -Patient 2 days prior to presentation became increasingly weak. Not able to get around the house. Speech became slow. Sister did report some weakness on the right side. Patient is only mumbling words.: Not improving Presentation is not compatible with CO2 retention. Differential: , metabolic encephalopathy/delirium from infection. Possibility of viral encephalitis. Stroke unlikely given that patient been having fevers. Though brainstem stroke to be a consideration. EEG-no seizure activity. MRI currently cannot be done because of respiratory status ID following. IV Zosyn -Right basal aspiration pneumonia Antibiotic changed to IV Zosyn from cefepime -Acute metabolic encephalopathy/delirium from sepsis: Not improving -NG tube feeding Vital HP. Free water. Dietitian following -Hypernatremia from diuresis: Slow to respond Lasix discontinued D5W IV fluids to 125 cc an hour -Acute kidney injury likely ATN from sepsis and some fluid deficit: Some improvement IV fluids. Follow renal function Lodine and Cozaar discontinued I's and O's -Psoriasis with widespread rash -Obstructive sleep apnea with elevated CO2 but not retention or acidosis BiPAP was used here -Essential hypertension, uncontrolled Catapres patch -Sepsis, source unclear: Not improving IV cefepime. CSF unremarkable -Morbid obesity, with a BMI of 59.6 -Acute hypoxic respiratory failure could be related to her obesity hypoventilation and CHF: Worsening Intubated June 09 -Acute on chronic congestive heart failure exacerbation. Patient was admitted to [facility] sometime ago and had required IV Lasix drip. Received IV Lasix. Now DC the same. -Chronic lumbar arthritis for which patient takes Lodine at home Lodine held because of renal function -Full code. -Patient's sister Carolynn FORD Continue current treatment plan. Currently on nasal cannula high flow 8 L. Social work is involved and try to get the patient transferred to [facility] as we do not have an MRI. Also the high level of care has been unable to get a diagnosis of the patient. Care was discussed with patient's one of the sisters at the bedside.
[2024-06-12 18:08] LABS: Glucose,Whole Blood 157 mg/dL (70-110)
[2024-06-12] MEDS: INSULIN ASPART (NovoLOG) 100 UNIT/ML VIAL SQ SCH (18:40)
[2024-06-12] MEDS: THIAMINE 100 MG TAB PO SCH (21:17)
[2024-06-12 23:38] LABS: Glucose,Whole Blood 152 mg/dL (70-110)
[2024-06-13 00:36] LABS: Glucose,Whole Blood 152 mg/dL (70-110)
[2024-06-13 05:24] LABS: Glucose,Whole Blood 184 mg/dL (70-110)
[2024-06-13 05:41] LABS: Basophils % (A) 0 %; Eosinophils # (A) 0.5 k/uL (0-0.7); Eosinophils % (A) 5 %; HCT 42.4 % (34.0-46.0); HGB 13.2 gm/dL (11.4-16.0); Hypochromasia Marked; Lymphocytes # (A) 0.9 k/uL (1.0-4.8); Lymphocytes % (A) 9 %; MCH 28.6 pg (25.0-35.0); MCHC 31.2 g/dL (31.0-37.0); MCV 91.9 fL (80.0-100.0); Monocytes # (A) 0.5 k/uL (0-1.0); Monocytes % (A) 5 %; Neutrophils # (A) 7.7 k/uL (1.3-7.7); Neutrophils % (A) 79 %; Platelet Count 195 k/uL (150-450); RBC 4.62 m/uL (3.80-5.40); RDW 14.6 % (11.5-15.5); WBC 9.7 k/uL (3.8-10.6)
[2024-06-13 05:50] LABS: African American GFR (CKD) >90 (>60 ml/min/1.73 sqM); Anion Gap 0 mmol/L; Blood Urea Nitrogen 25 mg/dL (7-17); Calcium 8.9 mg/dL (8.4-10.2); Carbon Dioxide 40 mmol/L (22-30); Chloride 99 mmol/L (98-107); Glucose 191 mg/dL (74-99); Non-African American GFR(CKD) 86 (>60 ml/min/1.73 sqM); Potassium 3.6 mmol/L (3.5-5.1); Sodium 139 mmol/L (137-145)
[2024-06-13] MEDS: POTASSIUM BICARBONATE/CIT AC 20 MEQ TABLET.EFF NG-TUBE SCH (06:57)
--- NOTE | 2024-06-13 07:10 | XR ---
EXAMINATION TYPE: XR chest 1V DATE OF EXAM: 06/13/2024 COMPARISON: 06/12/2024 CLINICAL INDICATION: Female, 54 years old with history of repeat; TECHNIQUE: Single frontal view of the chest is obtained. FINDINGS: There is an NG tube within the stomach. There is no change in the pulmonary vascular congestion and moderate cardiomegaly. There is no pleural effusion or pneumothorax. The osseous structures are intact. IMPRESSION: 1. NG tube within the stomach. 2. No change in the acute cardiopulmonary process which most likely represents CHF. [facility], , 06/13/2024 7:08 AM
[2024-06-13 12:51] LABS: Glucose,Whole Blood 171 mg/dL (70-110)
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
[2024-06-13 17:36] LABS: Glucose,Whole Blood 133 mg/dL (70-110)
--- NOTE | 2024-06-13 17:58 | P.PN ---
Progress Note - Text Progress Note Date: 06/13/24 This is a visit 54 years old female with past medical history of hypertension She brought because of generalized weakness and she was found on the floor with slurred speech. Patient could not get up and noticed that she is old and peed on herself more than once. On presentation patient looks awake and understands but she mumbles only and she cannot talk. Patient is morbidly obese which limits her ability to move around. Patient is poor historian because of her aphasia however she can shake her head as yes or no Patient denies any pain When asking about shortness of breath she denies, no vomiting or diarrhea, she denies urinary complaint, she denies headache dizziness to me Patient also denies weakness or tingling Her labs looks normal like CBC, BMP and LFT and INR. Urinalysis negative proBNP is 250 Chest x-ray cardiomegaly with mild pulmonary vascular congestion CT of the brain showing no acute intracranial process EKG showing sinus rhythm at [address]-T changes 06/04 Patient still difficulty articulating her words, I discussed the case with the neurologist, there is low suspicion for stroke, however we are going to repeat CAT scan of the brain. MRI cannot for the patient as she is morbidly obese. Patient morbidly obese and have difficulty moving. Currently she is on 3 L oxygen via nasal cannula. Her legs like 1+ leg edema. Breath sounds are distant given her body habitus She has extensive rash noted to extremities and trunk related to her psoriasis. Swallow evaluation is ordered. 06/05 Patient was on BiPAP for respiratory difficulty. It was placed overnight, in the morning she continued to use the BiPAP. pH is normal, unlikely CO2 retent ion to close acidosis. Pulmonary team recommending BiPAP overnight Stroke is unlikely. Neurologist does not think this is a stroke. As patient does not have focal neurological deficit. Neurologist thinks her speech difficulty is due to show shortness of breath. ABG shows pCO2 but no acidosis which is unlikely to cause this degree of shortness of breath. However she has [address] of the brain after duplex negative. Neurologist will see the patient intermittently. Therefore we are going to lowered the dose from aspirin 325 mg down to 81 mg for prophylactic purposes. Will start trazodone. Tomorrow morning we will try to discontinue the BiPAP. Also will ask for PT/OT evaluation June 07, 2024: I resumed care of the patient today. Laying in bed. Awake. Only mumbles answers. Face is flushed. Scattered psoriatic rash. Patient did undergo videofluoroscopic swallow test.: Not a very good quality. Followed by speech therapist. Was NPO. I ordered the EEG. Neurology has ordered an MRI of the brain. Initial CT scan has been unremarkable. At this point as per pulmonary does not feel that is contributing to her presentation. Also consulted psychiatry for psychogenic/conversion disorder. Patient getting IV Lasix. Negative fluid balance. Dr. 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 Even jokes. Patient sister was recently in the hospital for about 20 days and actually the patient herself had been helping her sister. Even she would take her sister came t to her appointments, with driving. She was slowly get around the house. Because she has weakness in the legs she has to sit down quite often. Patient offered I will not take her Lasix in the systolic to keep reminding her. Specially in the last 2 months. Few months ago patient was admitted to [facility] was put on a Lasix drip for congestive heart failure. 2 days prior to getting admitted patient's became less active. Finding it difficult to get up. No fevers reported. Patient does snore quite a bit. Patient also got chronic low back pain and takes medications for the same. Patient is a full code and sister would like patient to be transferred to [facility] where they have a larger MRI and was seen there before. I did inform sister came that patient's have been ordered an MRI here and EEG was ordered today. Patient does have a cat at home. I spoke earlier to the nurse. Total time spent today about 1 hour with over 35 minutes of discussion June 08, 2024: Patient remains lethargic. Was started on IV fluid yesterday evening. I spoke to radiology department today. A weight limit for our MRI is 400 pounds. But because of patient's respiratory status on the BiPAP she cannot have an MRI currently. I did speak to ID. Lumbar puncture has been ordered. Empirically has been put on IV Zosyn. EEG did not show any seizure activity. I did speak to patient's sister this morning. Did inform her about the further workup. As patient is becoming a bit alkalotic. Will DC IV Lasix. Continue with LR 75 cc an hour. June 09, 2024: Because of altered mentation patient was moved to the ICU. Worsening of renal function creatinine to 1.6. Will DC Lodine. DC Cozaar. Catapres patch was added for blood pressure. Antibiotics switched to IV cefepime. Patient remains lethargic. Discussed with neurology Dr. SENIOR. Given no seizure activity on the EEG will DC Keppra. Increase IV fluids to 125 cc an hour given hypernatremia. Lasix was discontinued yesterday. On BiPAP. Later this afternoon patient was intubated June 10: ICU. Patient remains on BiPAP. Creatinine remains at 1.6. D5W at 125 cc an hour. Remains empirically on cefepime. CSF has been negative. Question has been about viral encephalitis. Which will take his own course. Discussed with ID. I spoke to patient's family Dr. Manuel Cardona given update. I also called patient's Sister Carolynn on the phone given update. Patient also has delirium/encephalopathy from a clinical presentation of sepsis. CORRECTION: Patient was not intubated. On BiPAP yesterday. June 11: ICU. Patient seen this morning the ICU. Was on BiPAP. Interval send service will try high flow oxygen. Depending on oxygen status may consider MRI this afternoon. Slightly more responsive. No gross lethargic. Getting vital HP tube feeding through the NG tube. Ordered by bundle shaker and dietitian. Also getting water through the NG tube. Also getting D5W. Chest x- ray showing right basilar infiltrate. Possible aspiration. Per ID antibiotic changed to IV Zosyn. Patient CSF was negative. June 12: ICU. Was on nasal cannula for about 4 hours yesterday. 1 of patient's sisters at bedside. NG tube remains in place. Following commands. Hypophonic. Patient unable to fit into our MRI. Per neurology patient to be transferred to [facility] where the family wants her to go where she has had previous treatment. ship worker informed June 13: ICU. Poor oral hygiene. Spoke to nurse Andrea. Use ICU kit to clean out the mouth. Communicating slowly. Nurse Andrea informed that couple of hospitals could not confirm with patient if it is no the MRI. Awaiting to hear the same. Need for patient's transfer to be both MRI can fit the patient for higher level of care as we do not have a clear-cut diagnosis. No fever. IV Zosyn to continue. Patient on 6 L nasal cannula. Try to taper down oxygen. Decrease D5W to 50 cc an hour. Increase vital high-protein to 30 cc an hour. Via G-tube Active Medications Hydrocodone Bitart/Acetaminophen (Hydrocodone/Apap 5-325mg 1 Each Tab) 1 each PO Q6HR PRN PRN Reason: Moderate Pain (Scale 4 to 6) Last Admin: 06/06/24 16:48 Dose: 1 each Albuterol/Ipratropium (Ipratropium-Albuterol 3 Ml Neb) 3 ml INHALATION RT-QID PRN PRN Reason: Shortness Of Breath Or Wheezing Last Admin: 06/04/24 13:22 Dose: 3 ml Aspirin (Aspirin 81 Mg) 81 mg PO DAILY [facility] Last Admin: 06/13/24 08:05 Dose: 81 mg Atorvastatin Calcium (Atorvastatin 20 Mg Tab) 20 mg PO HS [facility] Last Admin: 06/12/24 21:17 Dose: 20 mg Betamethasone Dipropionate (Betamethasone Dipropionate 0.05% Cream 15 Gm Tube) 1 applic TOPICAL BID [facility]; Protocol Last Admin: 06/13/24 09:39 Dose: 1 applic Carvedilol (Carvedilol 12.5 Mg Tab) 25 mg PO AC-BID [facility] Last Admin: 06/13/24 16:35 Dose: 25 mg Clonidine HCl (Clonidine 0.1 Mg/24hr Patch) 1 patch TRANSDERM Q7D [facility] Last Admin: 06/09/24 00:09 Dose: 1 patch Dapagliflozin (Dapagliflozin Propanediol 5 Mg Tablet) 5 mg PO DAILY [facility] Last Admin: 06/13/24 08:03 Dose: 5 mg Dextrose/Water (Dextrose 50% Syringe 50 Ml) 25 ml IVP PER PROTOCOL PRN; Protocol PRN Reason: Hypoglycemia Dextrose/Water (Dextrose 50% Syringe 50 Ml) 50 ml IVP PER PROTOCOL PRN; Protocol PRN Reason: Hypoglycemia Enoxaparin Sodium (Enoxaparin 40 Mg/0.4 Ml Syringe) 40 mg SQ DAILY [facility] Last Admin: 06/13/24 08:04 Dose: 40 mg Famotidine (Famotidine 20 Mg/2 Ml Vial) 20 mg IV DAILY [facility] Last Admin: 06/13/24 08:05 Dose: 20 mg Hydralazine HCl (Hydralazine Hcl 20 Mg/Ml 1 Ml Vial) 10 mg IVP Q4HR PRN PRN Reason: Blood Pressure - High Last Admin: 06/04/24 19:47 Dose: 10 mg Dextrose/Water (Dextrose 5%-Water Iv Soln) 1,000 mls @ 50 mls/hr IV .Q20H [facility] Last Admin: 06/13/24 10:46 Dose: 125 mls/hr Piperacillin Sod/Tazobactam (Sod 3.375 gm/ Sodium Chloride) 100 mls @ 25 mls/hr IVPB Q8H [facility]; Protocol Last Admin: 06/13/24 10:47 Dose: 25 mls/hr Insulin Aspart (Insulin Aspart (Novolog) 100 Unit/Ml Vial) 0 unit SQ Q6HR [facility]; Protocol Last Admin: 06/13/24 12:41 Dose: 2 unit Metoprolol Tartrate (Metoprolol Tartrate 50 Mg Tab) 50 mg PO BID [facility] Last Admin: 06/13/24 08:04 Dose: 50 mg Miscellaneous Information (Potassium Replacement Protocol 1 Each Misc) 1 each MISCELLANE DAILY PRN; Protocol PRN Reason: Per Protocol Nystatin (Nystatin 100,000 Unit/Gm Powd 15 Gm) 1 applic TOPICAL TID [facility]; Protocol Last Admin: 06/13/24 16:35 Dose: 1 applic Thiamine HCl (Thiamine 100 Mg/Ml 2 Ml Vial) 100 mg IVP BID [facility] Trazodone HCl (Trazodone Hcl 100 Mg Tab) 100 mg PO HS [facility] Last Admin: 06/12/24 21:17 Dose: 100 mg On examination: VITAL SIGNS: 98.2, 80, 26, 148 x 82, 96% on 5 L GENERAL APPEARANCE: BMI 60.6, more awake, tended answer questions. Rosacea HEENT: Normal external appearance of nose and ear. Oral cavity dried with very thick secretions EYES: Pupils equal. Conjunctiva normal. NECK: JVD not raised. Mass not palpable. RESPIRATORY: Respiratory effort increased l. Decreased breath sound CARDIOVASCULAR: First and second sounds normal. No edema. ABDOMEN: Soft. Liver and spleen not palpable. No tenderness. No mass palpable. PSYCHIATRY: Hypophonic speaks very slowly. Some movement in the limbs Dermatological: Scattered psoriatic rash. INVESTIGATIONS, reviewed in the clinical context: June 13: White count 9.7 hemoglobin 13.2 potassium 3.6 creatinine 0.79. Sodium 139 June 12: White count 12.1 hemoglobin 13.6 platelets 201 sodium 144 potassium 3.7 creatinine 0.91 June 11: White count 15.6 hemoglobin 14.5 platelets 214 sodium 150 potassium 3.5 bicarb 42 BUN 54 creatinine 1.12 June 10: White count 15.7 hemoglobin 15.9 platelets 191 increased neutrophils. Decreased lymphocytes. Sodium 153 potassium 3.3 BUN 63 creatinine 1.6 CSF: RBC 13 nucleated cells 1 glucose 103 total protein 55 Doppler ultrasound lower extremity: Limited exam. Appears to be negative June 09: White count 16.9 hemoglobin 15.7 platelets 229 sodium 151 potassium 3.5 BUN 60 creatinine 1.61 Procalcitonin 0.08. Lactic acid 1.8. EKG: Metabolic abnormality. No seizure activity June 08: White count 9.4 hemoglobin 16.1 platelets 298 sodium 146 potassium 4.1 BUN 47 creatinine 1.25 bicarb 35 Modified barium swallow: Limited exam. Somewhat limited visualization. Symptoms of cough and negative response after swallow of thin liquids. Suspicion was some aspiration. Carotid Doppler: No significant stenosis CT brain without contrast: Unremarkable Chest x-ray film: Some venous prominence 2D echocardiogram: EF 55 to 60% Assessment and plan: -Patient 2 days prior to presentation became increasingly weak. Not able to get around the house. Speech became slow. Sister did report some weakness on the right side. Patient is only mumbling words.: Slow improvement Presentation is not compatible with CO2 retention. Differential: , metabolic encephalopathy/delirium from infection. Possibility of viral encephalitis. Stroke unlikely given that patient been having fevers. Though brainstem stroke to be a consideration. EEG-no seizure activity. MRI currently cannot be done because of respiratory status and patient's body habitus ID following. IV Zosyn -Right basal aspiration pneumonia Antibiotic changed to IV Zosyn from cefepime -Acute metabolic encephalopathy/delirium from sepsis: Not improving -NG tube feeding Vital HP. Free water. Dietitian following -Hypernatremia from diuresis: Resolved Lasix discontinued D5W IV fluids cut back to 50 cc an hour -Acute kidney injury likely ATN from sepsis and some fluid deficit: Resolved IV fluids. Follow renal function Lodine and Cozaar discontinued I's and O's -Feeding: High vital tube feed increased to 30 cc an hour -Psoriasis with widespread rash -Obstructive sleep apnea with elevated CO2 but not retention or acidosis BiPAP was used here -Essential hypertension, uncontrolled Catapres patch -Sepsis, source unclear: IV cefepime. CSF unremarkable -Morbid obesity, with a BMI of 59.6 -Acute hypoxic respiratory failure could be related to her obesity hypoventilation and CHF: Improvement Has been on BiPAP not intubated -Acute on chronic congestive heart failure exacerbation. Patient was admitted to [facility] sometime ago and had required IV Lasix drip. Received IV Lasix. Now DC the same. -Chronic lumbar arthritis for which patient takes Lodine at home Lodine held because of renal function -Full code. -Patient's sister Carolynn FORD Have not found a facility that has confirmed the size of MRI that can accommodate the patient. ship worker to try for the same tomorrow. Patient oxygen requirement is coming down. Oral hygiene to be carried out. Consult PT OT.
[2024-06-13] MEDS: THIAMINE 100 MG/ML 2 ML VIAL IVP SCH (21:15)
[2024-06-13 23:53] LABS: Glucose,Whole Blood 144 mg/dL (70-110)
[2024-06-14] MEDS: ACETAMINOPHEN TAB 325 MG TAB PO PRN (00:15)
[2024-06-14] MEDS: PIPERACILLIN-TAZOBACTAM 3.375 GM in SODIUM CHLORIDE 0.9% 100 ML IVPB SCH (05:15)
[2024-06-14 05:38] LABS: Glucose,Whole Blood 168 mg/dL (70-110)
[2024-06-14 06:23] LABS: HCT 41.5 % (34.0-46.0); HGB 12.9 gm/dL (11.4-16.0); Hypochromasia Moderate; MCH 28.5 pg (25.0-35.0); MCHC 31.2 g/dL (31.0-37.0); MCV 91.5 fL (80.0-100.0); Mean Platelet Volume 11.7; Platelet Count 196 k/uL (150-450); RBC 4.53 m/uL (3.80-5.40); RDW 14.6 % (11.5-15.5); WBC 9.8 k/uL (3.8-10.6)
[2024-06-14 06:41] LABS: African American GFR (CKD) >90 (>60 ml/min/1.73 sqM); Blood Urea Nitrogen 19 mg/dL (7-17); Calcium 8.9 mg/dL (8.4-10.2); Chloride 99 mmol/L (98-107); Glucose 168 mg/dL (74-99); Non-African American GFR(CKD) 81 (>60 ml/min/1.73 sqM); Potassium 3.8 mmol/L (3.5-5.1); Sodium 140 mmol/L (137-145)
[2024-06-14 06:48] LABS: Anion Gap 6 mmol/L
[2024-06-14 06:51] LABS: Carbon Dioxide 35 mmol/L (22-30)
--- NOTE | 2024-06-14 08:22 | XR ---
EXAMINATION TYPE: XR chest 1V portable DATE OF EXAM: 06/14/2024 8:10 AM COMPARISON: 06/13/2024 CLINICAL INDICATION: Female, 54 years old with history of increased o2 demands, TECHNIQUE: XR chest 1V portable view(s) obtained. FINDINGS: The heart size is upper limits of normal. The pulmonary vasculature is normal. The lungs are clear. Nasogastric tube transverses the thorax with the tip in the abdomen. IMPRESSION: 1. Borderline cardiomegaly. 2. Nasogastric tube tip in abdomen [facility], , 06/14/2024 8:20 AM
--- NOTE | 2024-06-14 08:33 | P.PN ---
Subjective Progress Note Date: 06/13/24 Principal diagnosis: Reason for follow-up is fever Patient is a 54-year female with a past medical history significant for heart failure hypertension psoriasis dementia patient has been brought into the hospital for evaluation of speech problem and initially investigated for a stroke subsequently has developed a fever worsening respiratory status prompted this consultation. On today's evaluation that is 06/13/2024, Patient is afebrile patient is currently on high flow-nasal cannula oxygen seem to breathing comfortably patient is slightly more awake and to answer yes and no to the simple question by shaking her head no vomiting or diarrhea has been reported by the nursing staff. Patient white count normalized to 9.7, creatinine 0.79 MRSA nasal swab negative blood culture negative sputum not collected Objective - Vital Signs Vital signs: Vital Signs Temp 98.8 F 06/13/24 08:00 Pulse 70 06/13/24 09:00 Resp 25 H 06/13/24 09:00 BP 135/72 06/13/24 09:00 Pulse Ox 97 06/13/24 09:00 FiO2 6 06/13/24 09:00 Intake & Output 06/12/24 06/13/24 06/13/24 18:59 06:59 18:59 Intake Total 2140 1840 390 Output Total 645 760 120 Balance 1495 1080 270 Weight 147.4 kg Intake: Intake, IV Titration 1500 1600 250 Amount Dextrose 5% in Water 1, 1500 1500 250 000 ml @ 125 mls/hr IV . Q8H ABHAY Rx#:[id number] Piperacillin-Tazobactam 3 100 .375 gm In Sodium Chloride 0.9% 100 ml @ 25 mls/hr IVPB Q8H [facility] Rx#: [id number] Tube Feeding 240 240 40 Other 400 100 Output: Urine 645 760 120 Other: Voiding Method Indwelling Catheter Indwelling Catheter # Bowel Movements 1 1 - Exam GENERAL DESCRIPTION: Middle-age female lying in bed in no distress RESPIRATORY SYSTEM: Unlabored breathing , decreased intensity breath sounds at bases HEART: S1 S2 regular rate and rhythm , ABDOMEN: Soft , no tenderness EXTREMITIES: Swelling to the leg no significant redness - Labs CBC & Chem 7: 06/14/24 06:01 06/14/24 06:01 Labs: Abnormal Lab Results - Last 24 Hours (Table) 06/12/24 06/12/24 06/13/24 Range/Units 18:05 23:38 00:35 Lymphocytes # (1.0-4.8) k/uL Carbon Dioxide (22-30) mmol/L BUN (7-17) mg/dL Glucose (74-99) mg/dL POC Glucose (mg/dL) 157 H 152 H 152 H (70-110) mg/dL Hemoglobin A1c (<=6.0) % 06/13/24 06/13/24 06/13/24 Range/Units 05:23 05:23 05:23 Lymphocytes # 0.9 L (1.0-4.8) k/uL Carbon Dioxide 40 H (22-30) mmol/L BUN 25 H (7-17) mg/dL Glucose 191 H (74-99) mg/dL POC Glucose (mg/dL) (70-110) mg/dL Hemoglobin A1c 7.0 H (<=6.0) % 06/13/24 Range/Units 05:23 Lymphocytes # (1.0-4.8) k/uL Carbon Dioxide (22-30) mmol/L BUN (7-17) mg/dL Glucose (74-99) mg/dL POC Glucose (mg/dL) 184 H (70-110) mg/dL Hemoglobin A1c (<=6.0) % Microbiology - Last 24 Hours (Table) 06/09/24 20:11 CSF Gram Stain - Preliminary Cerebral Spinal Fluid CSF Culture - Preliminary 06/07/24 21:10 Blood Culture - Final Blood Assessment and Plan (1) Fever Current Visit: Yes Status: Acute Code(s): R50.9 - FEVER, UNSPECIFIED SNOMED Code(s): 906343117 (2) Aspiration pneumonia Current Visit: Yes Status: Acute Code(s): J69.0 - PNEUMONITIS DUE TO INHALATION OF FOOD AND VOMIT SNOMED Code(s): 988887276 (3) Allergy to sulfa drugs Current Visit: Yes Status: Acute Code(s): Z88.2 - ALLERGY STATUS TO SULFONAMIDES SNOMED Code(s): 84965324 (4) Leukocytosis Current Visit: Yes Status: Acute Code(s): D72.829 - ELEVATED WHITE BLOOD CELL COUNT, UNSPECIFIED SNOMED Code(s): 362026038 Plan: 1patient with a fever in this patient currently in the hospital for 5 days before admission this initial evaluation with initial presentation for follow-up with the speech and responsiveness and has been worked up for CVA with the last CT of the brain has been negative MRI could not be done because the patient could not stay still etiology of the fever could be multifactorial questionable central versus pulmonary question of aspiration initial workup has been negative with negative nasopharyngeal swab for COVID RSV and influenza UA is not significantly positive patient did have LP that was normal 2-patient noted to have worsening right lower lobe pneumonia likely aspiration etiology 3-patient did have resolution of her fever and white count has normalized 4patient will be treated with Zosyn and aspiration precautions Dictation was produced using [employer] dictation software. please excuse any grammatical, word or spelling errors. Time with Patient: Less than 30
[2024-06-14 12:04] LABS: Glucose,Whole Blood 188 mg/dL (70-110)
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
[2024-06-14 18:02] LABS: Glucose,Whole Blood 139 mg/dL (70-110)
--- NOTE | 2024-06-14 19:38 | P.PN ---
Progress Note - Text Progress Note Date: 06/14/24 This is a visit 54 years old female with past medical history of hypertension She brought because of generalized weakness and she was found on the floor with slurred speech. Patient could not get up and noticed that she is old and peed on herself more than once. On presentation patient looks awake and understands but she mumbles only and she cannot talk. Patient is morbidly obese which limits her ability to move around. Patient is poor historian because of her aphasia however she can shake her head as yes or no Patient denies any pain When asking about shortness of breath she denies, no vomiting or diarrhea, she denies urinary complaint, she denies headache dizziness to me Patient also denies weakness or tingling Her labs looks normal like CBC, BMP and LFT and INR. Urinalysis negative proBNP is 250 Chest x-ray cardiomegaly with mild pulmonary vascular congestion CT of the brain showing no acute intracranial process EKG showing sinus rhythm at [address]-T changes 06/04 Patient still difficulty articulating her words, I discussed the case with the neurologist, there is low suspicion for stroke, however we are going to repeat CAT scan of the brain. MRI cannot for the patient as she is morbidly obese. Patient morbidly obese and have difficulty moving. Currently she is on 3 L oxygen via nasal cannula. Her legs like 1+ leg edema. Breath sounds are distant given her body habitus She has extensive rash noted to extremities and trunk related to her psoriasis. Swallow evaluation is ordered. 06/05 Patient was on BiPAP for respiratory difficulty. It was placed overnight, in the morning she continued to use the BiPAP. pH is normal, unlikely CO2 retent ion to close acidosis. Pulmonary team recommending BiPAP overnight Stroke is unlikely. Neurologist does not think this is a stroke. As patient does not have focal neurological deficit. Neurologist thinks her speech difficulty is due to show shortness of breath. ABG shows pCO2 but no acidosis which is unlikely to cause this degree of shortness of breath. However she has [address] of the brain after duplex negative. Neurologist will see the patient intermittently. Therefore we are going to lowered the dose from aspirin 325 mg down to 81 mg for prophylactic purposes. Will start trazodone. Tomorrow morning we will try to discontinue the BiPAP. Also will ask for PT/OT evaluation June 07, 2024: I resumed care of the patient today. Laying in bed. Awake. Only mumbles answers. Face is flushed. Scattered psoriatic rash. Patient did undergo videofluoroscopic swallow test.: Not a very good quality. Followed by speech therapist. Was NPO. I ordered the EEG. Neurology has ordered an MRI of the brain. Initial CT scan has been unremarkable. At this point as per pulmonary does not feel that is contributing to her presentation. Also consulted psychiatry for psychogenic/conversion disorder. Patient getting IV Lasix. Negative fluid balance. Dr. 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 Even jokes. Patient sister was recently in the hospital for about 20 days and actually the patient herself had been helping her sister. Even she would take her sister came t to her appointments, with driving. She was slowly get around the house. Because she has weakness in the legs she has to sit down quite often. Patient offered I will not take her Lasix in the systolic to keep reminding her. Specially in the last 2 months. Few months ago patient was admitted to [facility] was put on a Lasix drip for congestive heart failure. 2 days prior to getting admitted patient's became less active. Finding it difficult to get up. No fevers reported. Patient does snore quite a bit. Patient also got chronic low back pain and takes medications for the same. Patient is a full code and sister would like patient to be transferred to [facility] where they have a larger MRI and was seen there before. I did inform sister came that patient's have been ordered an MRI here and EEG was ordered today. Patient does have a cat at home. I spoke earlier to the nurse. Total time spent today about 1 hour with over 35 minutes of discussion June 08, 2024: Patient remains lethargic. Was started on IV fluid yesterday evening. I spoke to radiology department today. A weight limit for our MRI is 400 pounds. But because of patient's respiratory status on the BiPAP she cannot have an MRI currently. I did speak to ID. Lumbar puncture has been ordered. Empirically has been put on IV Zosyn. EEG did not show any seizure activity. I did speak to patient's sister this morning. Did inform her about the further workup. As patient is becoming a bit alkalotic. Will DC IV Lasix. Continue with LR 75 cc an hour. June 09, 2024: Because of altered mentation patient was moved to the ICU. Worsening of renal function creatinine to 1.6. Will DC Lodine. DC Cozaar. Catapres patch was added for blood pressure. Antibiotics switched to IV cefepime. Patient remains lethargic. Discussed with neurology Dr. SENIOR. Given no seizure activity on the EEG will DC Keppra. Increase IV fluids to 125 cc an hour given hypernatremia. Lasix was discontinued yesterday. On BiPAP. Later this afternoon patient was intubated June 10: ICU. Patient remains on BiPAP. Creatinine remains at 1.6. D5W at 125 cc an hour. Remains empirically on cefepime. CSF has been negative. Question has been about viral encephalitis. Which will take his own course. Discussed with ID. I spoke to patient's family Dr. Manuel Cardona given update. I also called patient's Sister Carolynn on the phone given update. Patient also has delirium/encephalopathy from a clinical presentation of sepsis. CORRECTION: Patient was not intubated. On BiPAP yesterday. June 11: ICU. Patient seen this morning the ICU. Was on BiPAP. Interval send service will try high flow oxygen. Depending on oxygen status may consider MRI this afternoon. Slightly more responsive. No gross lethargic. Getting vital HP tube feeding through the NG tube. Ordered by long filler cigar roller machine and dietitian. Also getting water through the NG tube. Also getting D5W. Chest x- ray showing right basilar infiltrate. Possible aspiration. Per ID antibiotic changed to IV Zosyn. Patient CSF was negative. June 12: ICU. Was on nasal cannula for about 4 hours yesterday. 1 of patient's sisters at bedside. NG tube remains in place. Following commands. Hypophonic. Patient unable to fit into our MRI. Per neurology patient to be transferred to [facility] where the family wants her to go where she has had previous treatment. powder worker informed June 13: ICU. Poor oral hygiene. Spoke to nurse Andrea. Use ICU kit to clean out the mouth. Communicating slowly. Nurse Andrea informed that couple of hospitals could not confirm with patient if it is no the MRI. Awaiting to hear the same. Need for patient's transfer to be both MRI can fit the patient for higher level of care as we do not have a clear-cut diagnosis. No fever. IV Zosyn to continue. Patient on 6 L nasal cannula. Try to taper down oxygen. Decrease D5W to 50 cc an hour. Increase vital high-protein to 30 cc an hour. Via G-tube June 14: ICU. More awake. Oxygen requirement down to about 4 L. Saw the patient this afternoon. Still hypophonic. Spoke to nurse Hogan for further oral hygiene. Spoke to [facility] neurointensivist Dr. Haley. They did not feel the patient would have any benefit getting transferred there. In the meantime patient is being stepdown as later the oxygen requirement keep down to 3 L. Patient remains on IV Zosyn. Active Medications Acetaminophen (Acetaminophen Tab 325 Mg Tab) 650 mg PO Q6HR PRN PRN Reason: Fever and/ or Pain Last Admin: 06/14/24 00:15 Dose: 650 mg Hydrocodone Bitart/Acetaminophen (Hydrocodone/Apap 5-325mg 1 Each Tab) 1 each PO Q6HR PRN PRN Reason: Moderate Pain (Scale 4 to 6) Last Admin: 06/14/24 14:00 Dose: 1 each Albuterol/Ipratropium (Ipratropium-Albuterol 3 Ml Neb) 3 ml INHALATION RT-QID PRN PRN Reason: Shortness Of Breath Or Wheezing Last Admin: 06/04/24 13:22 Dose: 3 ml Aspirin (Aspirin 81 Mg) 81 mg PO DAILY [facility] Last Admin: 06/14/24 08:40 Dose: 81 mg Atorvastatin Calcium (Atorvastatin 20 Mg Tab) 20 mg PO HS [facility] Last Admin: 06/13/24 21:15 Dose: 20 mg Betamethasone Dipropionate (Betamethasone Dipropionate 0.05% Cream 15 Gm Tube) 1 applic TOPICAL BID [facility]; Protocol Last Admin: 06/14/24 08:41 Dose: 1 applic Carvedilol (Carvedilol 12.5 Mg Tab) 25 mg PO AC-BID [facility] Last Admin: 06/14/24 19:21 Dose: 25 mg Clonidine HCl (Clonidine 0.1 Mg/24hr Patch) 1 patch TRANSDERM Q7D [facility] Last Admin: 06/09/24 00:09 Dose: 1 patch Dapagliflozin (Dapagliflozin Propanediol 5 Mg Tablet) 5 mg PO DAILY [facility] Last Admin: 06/14/24 08:40 Dose: 5 mg Dextrose/Water (Dextrose 50% Syringe 50 Ml) 25 ml IVP PER PROTOCOL PRN; Protoc ol PRN Reason: Hypoglycemia Dextrose/Water (Dextrose 50% Syringe 50 Ml) 50 ml IVP PER PROTOCOL PRN; Protocol PRN Reason: Hypoglycemia Enoxaparin Sodium (Enoxaparin 40 Mg/0.4 Ml Syringe) 40 mg SQ DAILY [facility] Last Admin: 06/14/24 08:40 Dose: 40 mg Famotidine (Famotidine 20 Mg/2 Ml Vial) 20 mg IV DAILY [facility] Last Admin: 06/14/24 08:40 Dose: 20 mg Hydralazine HCl (Hydralazine Hcl 20 Mg/Ml 1 Ml Vial) 10 mg IVP Q4HR PRN PRN Reason: Blood Pressure - High Last Admin: 06/04/24 19:47 Dose: 10 mg Dextrose/Water (Dextrose 5%-Water Iv Soln) 1,000 mls @ 50 mls/hr IV .Q20H [facility] Last Admin: 06/14/24 05:09 Dose: 50 mls/hr Piperacillin Sod/Tazobactam (Sod 3.375 gm/ Sodium Chloride) 100 mls @ 25 mls/hr IVPB Q8H [facility]; Protocol Last Admin: 06/14/24 14:01 Dose: 25 mls/hr Insulin Aspart (Insulin Aspart (Novolog) 100 Unit/Ml Vial) 0 unit SQ Q6HR [facility]; Protocol Last Admin: 06/14/24 18:10 Dose: Not Given Metoprolol Tartrate (Metoprolol Tartrate 50 Mg Tab) 50 mg PO BID [facility] Last Admin: 06/14/24 08:40 Dose: 50 mg Miscellaneous Information (Potassium Replacement Protocol 1 Each Misc) 1 each MISCELLANE DAILY PRN; Protocol PRN Reason: Per Protocol Nystatin (Nystatin 100,000 Unit/Gm Powd 15 Gm) 1 applic TOPICAL TID [facility]; Protocol Last Admin: 06/14/24 16:27 Dose: 1 applic Thiamine HCl (Thiamine 100 Mg/Ml 2 Ml Vial) 100 mg IVP BID [facility] Last Admin: 06/14/24 08:41 Dose: 100 mg Trazodone HCl (Trazodone Hcl 100 Mg Tab) 100 mg PO HS [facility] Last Admin: 06/13/24 21:15 Dose: 100 mg On examination: VITAL SIGNS: 98.2, 89, 18, 142 x 79, 97% on 3 L GENERAL APPEARANCE: BMI 60.6, more awake, hypophonic rosacea HEENT: Normal external appearance of nose and ear. Oral cavity dried with very thick secretions EYES: Pupils equal. Conjunctiva normal. NECK: JVD not raised. Mass not palpable. RESPIRATORY: Respiratory effort increased l. Decreased breath sound CARDIOVASCULAR: First and second sounds normal. No edema. ABDOMEN: Soft. Liver and spleen not palpable. No tenderness. No mass palpable. PSYCHIATRY: Hypophonic speaks very slowly. Some improvement in limb movements. Dermatological: Scattered psoriatic rash. INVESTIGATIONS, reviewed in the clinical context: June 14: White count 8.8 hemoglobin 12.8 potassium 3.8 creatinine 0.83 June 13: White count 9.7 hemoglobin 13.2 potassium 3.6 creatinine 0.79. Sodium 139 June 12: White count 12.1 hemoglobin 13.6 platelets 201 sodium 144 potassium 3.7 creatinine 0.91 June 11: White count 15.6 hemoglobin 14.5 platelets 214 sodium 150 potassium 3.5 bicarb 42 BUN 54 creatinine 1.12 June 10: White count 15.7 hemoglobin 15.9 platelets 191 increased neutrophils. Decreased lymphocytes. Sodium 153 potassium 3.3 BUN 63 creatinine 1.6 CSF: RBC 13 nucleated cells 1 glucose 103 total protein 55 Doppler ultrasound lower extremity: Limited exam. Appears to be negative June 09: White count 16.9 hemoglobin 15.7 platelets 229 sodium 151 potassium 3.5 BUN 60 creatinine 1.61 Procalcitonin 0.08. Lactic acid 1.8. EKG: Metabolic abnormality. No seizure activity June 08: White count 9.4 hemoglobin 16.1 platelets 298 sodium 146 potassium 4.1 BUN 47 creatinine 1.25 bicarb 35 Modified barium swallow: Limited exam. Somewhat limited visualization. Symptoms of cough and negative response after swallow of thin liquids. Suspicion was some aspiration. Carotid Doppler: No significant stenosis CT brain without contrast: Unremarkable Chest x-ray film: Some venous prominence 2D echocardiogram: EF 55 to 60% Assessment and plan: -Patient 2 days prior to presentation became increasingly weak. Not able to get around the house. Speech became slow. Sister did report some weakness on the right side. Patient is only mumbling words.: Slow improvement Presentation is not compatible with CO2 retention. Differential: , metabolic encephalopathy/delirium from infection. Possibility of viral encephalitis. Stroke unlikely given that patient been having fevers. Though brainstem stroke to be a consideration. EEG-no seizure activity. MRI currently cannot be done because of respiratory status and patient's body habitus ID following. IV Zosyn -Right basal aspiration pneumonia Antibiotic changed to IV Zosyn from cefepime -Acute metabolic encephalopathy/delirium from sepsis: Not improving -NG tube feeding Vital HP. Free water. Dietitian following -Hypernatremia from diuresis: Resolved Lasix discontinued D5W IV fluids cut back to 50 cc an hour -Acute kidney injury likely ATN from sepsis and some fluid deficit: Resolved IV fluids. Follow renal function Lodine and Cozaar discontinued I's and O's -Feeding: High vital tube feed increased to 30 cc an hour -Psoriasis with widespread rash -Obstructive sleep apnea with elevated CO2 but not retention or acidosis BiPAP was used here -Essential hypertension, uncontrolled Catapres patch -Sepsis, source unclear: IV cefepime. CSF unremarkable -Morbid obesity, with a BMI of 59.6 -Acute hypoxic respiratory failure could be related to her obesity hypoventilation and CHF: Improvement Had been on BiPAP. Now down to 3 L. -Acute on chronic congestive heart failure exacerbation. Patient was admitted to [facility] sometime ago and had required IV Lasix drip. Received IV Lasix. Will put the patient back on Lasix 40 twice daily starting today -Chronic lumbar arthritis for which patient takes Lodine at home Lodine held because of renal function -Full code. -Patient's sister Carolynn Moon LOGAN Neurointensivist at [facility] declined the transfer stating patient not benefit any further. Even if stroke showed up on the MRI it will not change any treatment plan. I did call patient's sister came at home and give her an update.
[2024-06-14 23:55] LABS: Glucose,Whole Blood 123 mg/dL (70-110)
--- NOTE | 2024-06-15 01:10 | CONS ---
CONSULTATION REASON FOR CONSULTATION: Hypophonia-indirect laryngoscope. HISTORY: This is a 54-year-old white female who was admitted on 06/03 with acute aphasia. She has had various states of respiratory difficulty and mental status issues. She has also had fevers with fever of unknown origin. She has had a CT of the head, which apparently was unremarkable as well as neurologic examination otherwise, but MRI has been recommended. She will not fit in the MRI here locally and apparently they are looking at a transfer in order to be able to obtain MRI at other outside institution. She does follow commands, but has not been able to verbalize very well at all, other than some minimal slurred speech intermittently. She has had no stridor. Respiratory status has improved on only nasal cannula oxygen presently. PAST MEDICAL HISTORY: Heart failure, hypertension, obesity. PAST SURGICAL HISTORY: None reported. SOCIAL HISTORY: Smoking history is negative. Past alcohol history is negative. Drug abuse history is negative. MEDICATIONS: At home were: 1. Lipitor. 2. Farxiga. 3. Lodine. 4. Lasix. 5. Cozaar. 6. Toprol. 7. Aldactone. 8. Coreg. Current medications will not be reviewed as they are in the chart already. ALLERGIES: To sulfa. REVIEW OF SYSTEMS: Positive pertinents are as above, otherwise negative, although the patient cannot verbalize, but only shake her head yes or no to the questions of review of systems. PHYSICAL EXAMINATION: VITAL SIGNS: As reported in the chart already. GENERAL: This is a well-developed, although obese white female in her hospital bed, in no acute distress. She does appear to understand questioning and does verbalize minimally with some mumbling and slurring, but no significant intelligible speech. There is no stridor. She does have a good cough. HEENT: Head, normocephalic and atraumatic. Ears bilaterally, canals are clear. Tympanic membranes, unremarkable and mobile. The nose shows nasogastric tube in the right nostril and nasal cannula oxygen in place. Oral cavity shows some mild to moderate dryness of the tongue, but no lesions or masses are noted intraorally. Hypopharynx and larynx exam with flexible laryngoscopy which was - PROCEDURE NOTE: Flexible laryngoscopy was performed with a flexible laryngoscope through the left nasal cavity with systematic evaluation of the left nasal cavity, nasopharynx, oropharynx, hypopharynx, and larynx with limited visualization due to the NG tube, although it did appear that there was grossly normal vocal cord mobility, including a good cough and including when she tried to vocalize. No focal lesions were seen, but again due to some secretions as well as the NG tube in place, visualization was somewhat limited. Neck is obese, but no masses were palpated. ASSESSMENT: Expressive aphasia/dysphonia. PLAN: Certainly her workup has been focused on a neurologic etiology for her inability to speak well and I agree that the focus should continue in this direction including with MRI and further neurologic evaluation. This does not appear to be a focussed vocal cord issue. If there are further questions or concerns, please free to contact me. MMODL / IJN: [id number] /
[2024-06-15 06:14] LABS: Glucose,Whole Blood 155 mg/dL (70-110)
[2024-06-15 08:14] LABS: African American GFR (CKD) >90 (>60 ml/min/1.73 sqM); Anion Gap 4 mmol/L; Blood Urea Nitrogen 18 mg/dL (7-17); Calcium 9.3 mg/dL (8.4-10.2); Carbon Dioxide 38 mmol/L (22-30); Chloride 97 mmol/L (98-107); Glucose 167 mg/dL (74-99); Non-African American GFR(CKD) >90 (>60 ml/min/1.73 sqM); Potassium 3.6 mmol/L (3.5-5.1); Sodium 139 mmol/L (137-145)
--- NOTE | 2024-06-15 08:58 | P.PN ---
Subjective Progress Note Date: 06/14/24 Principal diagnosis: Reason for follow-up is fever Patient is a 54-year female with a past medical history significant for heart failure hypertension psoriasis dementia patient has been brought into the hospital for evaluation of speech problem and initially investigated for a stroke subsequently has developed a fever worsening respiratory status prompted this consultation. On today's evaluation that is 06/14/2024, patient has been afebrile, patient is breathing comfortably however still requiring high flow nasal cannula oxygen patient is slightly more awake and responds some question of an elevated good historian no vomiting or diarrhea has been reported. Patient white count is 9.8 creatinine 0.83 chest x-ray from this morning borderline cardiomegaly Objective - Vital Signs Vital signs: Vital Signs Temp 98.7 F 06/14/24 08:00 Pulse 81 06/14/24 11:20 Resp 44 H 06/14/24 11:20 BP 137/75 06/14/24 11:20 Pulse Ox 94 L 06/14/24 11:20 FiO2 70 06/14/24 08:00 Intake & Output 06/13/24 06/14/24 06/14/24 18:59 06:59 18:59 Intake Total 1895 1150 350 Output Total 1290 568 175 Balance 605 582 175 Weight 157.6 kg Intake: IV 100 200 Dextrose 5% in Water 1, 200 000 ml @ 50 mls/hr IV . Q20H [facility] Rx#:[id number] Piperacillin-Tazobactam 3 100 .375 gm In Sodium Chloride 0.9% 100 ml @ 25 mls/hr IVPB Q8H [facility] Rx#: [id number] Intake, IV Titration 1275 600 Amount Dextrose 5% in Water 1, 1175 600 000 ml @ 50 mls/hr IV . Q20H [facility] Rx#:[id number] Piperacillin-Tazobactam 3 100 .375 gm In Sodium Chloride 0.9% 100 ml @ 25 mls/hr IVPB Q8H [facility] Rx#: [id number] Tube Feeding 320 360 120 Other 300 90 30 Output: Urine 1290 568 175 Other: Voiding Method Indwelling Catheter Indwelling Catheter Indwelling Catheter # Bowel Movements 2 - Exam GENERAL DESCRIPTION: Middle-age female lying in bed in no distress RESPIRATORY SYSTEM: Unlabored breathing , decreased intensity breath sounds at bases HEART: S1 S2 regular rate and rhythm , ABDOMEN: Soft , no tenderness EXTREMITIES: Swelling to the leg no significant redness - Labs CBC & Chem 7: 06/14/24 06:01 06/15/24 06:50 Labs: Abnormal Lab Results - Last 24 Hours (Table) 06/13/24 06/13/24 06/13/24 Range/Units 12:49 17:33 23:51 Carbon Dioxide (22-30) mmol/L BUN (7-17) mg/dL Glucose (74-99) mg/dL POC Glucose (mg/dL) 171 H 133 H 144 H (70-110) mg/dL Homocysteine (4.00-14.00) UMOL/L 06/14/24 06/14/24 06/14/24 Range/Units 05:37 06:01 06:01 Carbon Dioxide 35 H (22-30) mmol/L BUN 19 H (7-17) mg/dL Glucose 168 H (74-99) mg/dL POC Glucose (mg/dL) 168 H (70-110) mg/dL Homocysteine 17.80 H (4.00-14.00) UMOL/L 06/14/24 Range/Units 12:03 Carbon Dioxide (22-30) mmol/L BUN (7-17) mg/dL Glucose (74-99) mg/dL POC Glucose (mg/dL) 188 H (70-110) mg/dL Homocysteine (4.00-14.00) UMOL/L Microbiology - Last 24 Hours (Table) 06/12/24 11:38 Nasal Screen MRSA/MSSA - Final Nasal Swab 06/09/24 20:11 CSF Gram Stain - Final Cerebral Spinal Fluid CSF Culture - Final Assessment and Plan (1) Fever Current Visit: Yes Status: Acute Code(s): R50.9 - FEVER, UNSPECIFIED SN OMED Code(s): 648557981 (2) Aspiration pneumonia Current Visit: Yes Status: Acute Code(s): J69.0 - PNEUMONITIS DUE TO INHALATION OF FOOD AND VOMIT SNOMED Code(s): 171225259 (3) Allergy to sulfa drugs Current Visit: Yes Status: Acute Code(s): Z88.2 - ALLERGY STATUS TO SULFONAMIDES SNOMED Code(s): 49953691 (4) Leukocytosis Current Visit: Yes Status: Acute Code(s): D72.829 - ELEVATED WHITE BLOOD CELL COUNT, UNSPECIFIED SNOMED Code(s): 380239469 Plan: 1patient with a fever in this patient currently in the hospital for 5 days before admission this initial evaluation with initial presentation for follow-up with the speech and responsiveness and has been worked up for CVA with the last CT of the brain has been negative MRI could not be done because the patient could not stay still etiology of the fever could be multifactorial questionable central versus pulmonary question of aspiration initial workup has been negative with negative nasopharyngeal swab for COVID RSV and influenza UA is not significantly positive patient did have LP that was normal 2-patient noted to have worsening right lower lobe pneumonia likely aspiration etiology 3-patient did have resolution of her fever and white count has normalized we will continue patient on Zosyn to finish a 10-day course of therapy along with aspiration precaution Dictation was produced using [employer] dictation software. please excuse any grammatical, word or spelling errors. Time with Patient: Less than 30
[2024-06-15] MEDS: FUROSEMIDE 40 MG TAB PO SCH (09:52)
[2024-06-15 12:11] LABS: Glucose,Whole Blood 188 mg/dL (70-110)
--- NOTE | 2024-06-15 14:29 | P.PN ---
Subjective Progress Note Date: 06/15/24 Principal diagnosis: Reason for follow-up is fever Patient is a 54-year female with a past medical history significant for heart failure hypertension psoriasis dementia patient has been brought into the hospital for evaluation of speech problem and initially investigated for a stroke subsequently has developed a fever worsening respiratory status prompted this consultation. On today's evaluation that is 06/15/2024, Patient is afebrile this morning patient has been moved all of the ICU patient has been off and on the BiPAP currently on 3 L nasal cannula oxygen she is slightly more awake but not a very good historian no vomiting or diarrhea has been reported. Patient creatinine 0.67 Objective - Vital Signs Vital signs: Vital Signs Temp 99.4 F 06/15/24 08:00 Pulse 76 06/15/24 08:00 Resp 20 06/15/24 08:00 BP 159/73 06/15/24 08:00 Pulse Ox 99 06/15/24 08:00 FiO2 45 06/15/24 08:00 Intake & Output 06/14/24 06/15/24 06/15/24 18:59 06:59 18:59 Intake Total 910 80 Output Total 665 440 Balance 245 -360 Weight 157.6 kg 146.4 kg Intake: IV 550 50 Dextrose 5% in Water 1, 550 50 000 ml @ 50 mls/hr IV . Q20H [facility] Rx#:[id number] Tube Feeding 300 30 Other 60 Output: Urine 665 440 Other: Voiding Method Indwelling Catheter Indwelling Catheter Indwelling Catheter # Bowel Movements 1 - Exam GENERAL DESCRIPTION: Middle-age female lying in bed in no distress RESPIRATORY SYSTEM: Unlabored breathing , decreased intensity breath sounds at bases HEART: S1 S2 regular rate and rhythm , ABDOMEN: Soft , no tenderness EXTREMITIES: Swelling to the leg no significant redness - Labs CBC & Chem 7: 06/14/24 06:01 06/15/24 06:50 Labs: Abnormal Lab Results - Last 24 Hours (Table) 06/14/24 06/14/24 06/15/24 Range/Units 18:00 23:53 06:13 Chloride (98-107) mmol/L Carbon Dioxide (22-30) mmol/L BUN (7-17) mg/dL Glucose (74-99) mg/dL POC Glucose (mg/dL) 139 H 123 H 155 H (70-110) mg/dL 06/15/24 06/15/24 Range/Units 06:50 12:09 Chloride 97 L (98-107) mmol/L Carbon Dioxide 38 H (22-30) mmol/L BUN 18 H (7-17) mg/dL Glucose 167 H (74-99) mg/dL POC Glucose (mg/dL) 188 H (70-110) mg/dL Microbiology - Last 24 Hours (Table) 06/12/24 11:38 Nasal Screen MRSA/MSSA - Final Nasal Swab 06/09/24 20:11 CSF Gram Stain - Final Cerebral Spinal Fluid CSF Culture - Final Assessment and Plan (1) Fever Current Visit: Yes Status: Acute Code(s): R50.9 - FEVER, UNSPECIFIED SNOMED Code(s): 528662280 (2) Aspiration pneumonia Current Visit: Yes Status: Acute Code(s): J69.0 - PNEUMONITIS DUE TO INHALATION OF FOOD AND VOMIT SNOMED Code(s): 371227227 (3) Allergy to sulfa drugs Current Visit: Yes Status: Acute Code(s): Z88.2 - ALLERGY STATUS TO SULFONAMIDES SNOMED Code(s): 20273998 (4) Leukocytosis Current Visit: Yes Status: Acute Code(s): D72.829 - ELEVATED WHITE BLOOD CELL COUNT, UNSPECIFIED SNOMED Code(s): 360629697 Plan: 1patient with a fever in this patient currently in the hospital for 5 days before admission this initial evaluation with initial presentation for follow-up with the speech and responsiveness and has been worked up for CVA with the last CT of the brain has been negative MRI could not be done because the patient cou ld not stay still etiology of the fever could be multifactorial questionable central versus pulmonary question of aspiration initial workup has been negative with negative nasopharyngeal swab for COVID RSV and influenza UA is not significantly positive patient did have LP that was normal 2-patient did have a chest x-ray worsening right lower lobe pneumonia likely aspiration etiology with subsequent chest x-ray shows improvement patient will be continued on Zosyn to finish a 10-day course of therapy discussed with admitting physician Dictation was produced using [employer] dictation software. please excuse any grammatical, word or spelling errors. Time with Patient: Less than 30
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
--- NOTE | 2024-06-15 17:09 | P.PN ---
Progress Note - Text Progress Note Date: 06/15/24 This is a visit 54 years old female with past medical history of hypertension She brought because of generalized weakness and she was found on the floor with slurred speech. Patient could not get up and noticed that she is old and peed on herself more than once. On presentation patient looks awake and understands but she mumbles only and she cannot talk. Patient is morbidly obese which limits her ability to move around. Patient is poor historian because of her aphasia however she can shake her head as yes or no Patient denies any pain When asking about shortness of breath she denies, no vomiting or diarrhea, she denies urinary complaint, she denies headache dizziness to me Patient also denies weakness or tingling Her labs looks normal like CBC, BMP and LFT and INR. Urinalysis negative proBNP is 250 Chest x-ray cardiomegaly with mild pulmonary vascular congestion CT of the brain showing no acute intracranial process EKG showing sinus rhythm at [address]-T changes 06/04 Patient still difficulty articulating her words, I discussed the case with the neurologist, there is low suspicion for stroke, however we are going to repeat CAT scan of the brain. MRI cannot for the patient as she is morbidly obese. Patient morbidly obese and have difficulty moving. Currently she is on 3 L oxygen via nasal cannula. Her legs like 1+ leg edema. Breath sounds are distant given her body habitus She has extensive rash noted to extremities and trunk related to her psoriasis. Swallow evaluation is ordered. 06/05 Patient was on BiPAP for respiratory difficulty. It was placed overnight, in the morning she continued to use the BiPAP. pH is normal, unlikely CO2 retent ion to close acidosis. Pulmonary team recommending BiPAP overnight Stroke is unlikely. Neurologist does not think this is a stroke. As patient does not have focal neurological deficit. Neurologist thinks her speech difficulty is due to show shortness of breath. ABG shows pCO2 but no acidosis which is unlikely to cause this degree of shortness of breath. However she has [address] of the brain after duplex negative. Neurologist will see the patient intermittently. Therefore we are going to lowered the dose from aspirin 325 mg down to 81 mg for prophylactic purposes. Will start trazodone. Tomorrow morning we will try to discontinue the BiPAP. Also will ask for PT/OT evaluation June 07, 2024: I resumed care of the patient today. Laying in bed. Awake. Only mumbles answers. Face is flushed. Scattered psoriatic rash. Patient did undergo videofluoroscopic swallow test.: Not a very good quality. Followed by speech therapist. Was NPO. I ordered the EEG. Neurology has ordered an MRI of the brain. Initial CT scan has been unremarkable. At this point as per pulmonary does not feel that is contributing to her presentation. Also consulted psychiatry for psychogenic/conversion disorder. Patient getting IV Lasix. Negative fluid balance. Dr. 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 Even jokes. Patient sister was recently in the hospital for about 20 days and actually the patient herself had been helping her sister. Even she would take her sister came t to her appointments, with driving. She was slowly get around the house. Because she has weakness in the legs she has to sit down quite often. Patient offered I will not take her Lasix in the systolic to keep reminding her. Specially in the last 2 months. Few months ago patient was admitted to [facility] was put on a Lasix drip for congestive heart failure. 2 days prior to getting admitted patient's became less active. Finding it difficult to get up. No fevers reported. Patient does snore quite a bit. Patient also got chronic low back pain and takes medications for the same. Patient is a full code and sister would like patient to be transferred to [facility] where they have a larger MRI and was seen there before. I did inform sister came that patient's have been ordered an MRI here and EEG was ordered today. Patient does have a cat at home. I spoke earlier to the nurse. Total time spent today about 1 hour with over 35 minutes of discussion June 08, 2024: Patient remains lethargic. Was started on IV fluid yesterday evening. I spoke to radiology department today. A weight limit for our MRI is 400 pounds. But because of patient's respiratory status on the BiPAP she cannot have an MRI currently. I did speak to ID. Lumbar puncture has been ordered. Empirically has been put on IV Zosyn. EEG did not show any seizure activity. I did speak to patient's sister this morning. Did inform her about the further workup. As patient is becoming a bit alkalotic. Will DC IV Lasix. Continue with LR 75 cc an hour. June 09, 2024: Because of altered mentation patient was moved to the ICU. Worsening of renal function creatinine to 1.6. Will DC Lodine. DC Cozaar. Catapres patch was added for blood pressure. Antibiotics switched to IV cefepime. Patient remains lethargic. Discussed with neurology Dr. SENIOR. Given no seizure activity on the EEG will DC Keppra. Increase IV fluids to 125 cc an hour given hypernatremia. Lasix was discontinued yesterday. On BiPAP. Later this afternoon patient was intubated June 10: ICU. Patient remains on BiPAP. Creatinine remains at 1.6. D5W at 125 cc an hour. Remains empirically on cefepime. CSF has been negative. Question has been about viral encephalitis. Which will take his own course. Discussed with ID. I spoke to patient's family Dr. Manuel Cardona given update. I also called patient's Sister Carolynn on the phone given update. Patient also has delirium/encephalopathy from a clinical presentation of sepsis. CORRECTION: Patient was not intubated. On BiPAP yesterday. June 11: ICU. Patient seen this morning the ICU. Was on BiPAP. Interval send service will try high flow oxygen. Depending on oxygen status may consider MRI this afternoon. Slightly more responsive. No gross lethargic. Getting vital HP tube feeding through the NG tube. Ordered by freelance interpreter/translator and dietitian. Also getting water through the NG tube. Also getting D5W. Chest x- ray showing right basilar infiltrate. Possible aspiration. Per ID antibiotic changed to IV Zosyn. Patient CSF was negative. June 12: ICU. Was on nasal cannula for about 4 hours yesterday. 1 of patient's sisters at bedside. NG tube remains in place. Following commands. Hypophonic. Patient unable to fit into our MRI. Per neurology patient to be transferred to [facility] where the family wants her to go where she has had previous treatment. oven worker informed June 13: ICU. Poor oral hygiene. Spoke to nurse Andrea. Use ICU kit to clean out the mouth. Communicating slowly. Nurse Andrea informed that couple of hospitals could not confirm with patient if it is no the MRI. Awaiting to hear the same. Need for patient's transfer to be both MRI can fit the patient for higher level of care as we do not have a clear-cut diagnosis. No fever. IV Zosyn to continue. Patient on 6 L nasal cannula. Try to taper down oxygen. Decrease D5W to 50 cc an hour. Increase vital high-protein to 30 cc an hour. Via G-tube June 14: ICU. More awake. Oxygen requirement down to about 4 L. Saw the patient this afternoon. Still hypophonic. Spoke to nurse Hogan for further oral hygiene. Spoke to [facility] neurointensivist Dr. Haley. They did not feel the patient would have any benefit getting transferred there. In the meantime patient is being stepdown as later the oxygen requirement keep down to 3 L. Patient remains on IV Zosyn. June 15: Patient moved to the medical floor. On 3 L nasal cannula. Patient underwent flexible laryngoscopy by Dr. Busby from ENT. Except for secretions another cause locally and the vocal cord was found for the hypophonia. Patient had oral hygiene carried out. Seen by speech therapy. Failed swallow again. NG tube to continue for medications and feeding. We do not have vascular cause for the hypophonia. Also patient been rather weak. According to PT OT. Patient seen by PT OT. Spoke to nurse Rodriguez. Try to give update to [facility] received try to get the patient there to get a diagnosis and probably MRI that can be done. On examination: VITAL SIGNS: 98.2, 89, 18, 142 x 79, 97% on 3 L GENERAL APPEARANCE: BMI 60.6, more awake, hypophonic rosacea HEENT: Normal external appearance of nose and ear. Oral cavity dried with very thick secretions EYES: Pupils equal. Conjunctiva normal. NECK: JVD not raised. Mass not palpable. RESPIRATORY: Respiratory effort increased l. Decreased breath sound CARDIOVASCULAR: First and second sounds normal. No edema. ABDOMEN: Soft. Liver and spleen not palpable. No tenderness. No mass palpable. PSYCHIATRY: Hypophonic speaks very slowly. Some improvement in limb movements. Dermatological: Scattered psoriatic rash. INVESTIGATIONS, reviewed in the clinical context: June 15: Sodium 139 potassium 3.6 BUN 18 creatinine 0.67 June 14: White count 8.8 hemoglobin 12.8 potassium 3.8 creatinine 0.83 June 13: White count 9.7 hemoglobin 13.2 potassium 3.6 creatinine 0.79. Sodium 139 June 12: White count 12.1 hemoglobin 13.6 platelets 201 sodium 144 potassium 3.7 creatinine 0.91 June 11: White count 15.6 hemoglobin 14.5 platelets 214 sodium 150 potassium 3.5 bicarb 42 BUN 54 creatinine 1.12 June 10: White count 15.7 hemoglobin 15.9 platelets 191 increased neutrophils. Decreased lymphocytes. Sodium 153 potassium 3.3 BUN 63 creatinine 1.6 CSF: RBC 13 nucleated cells 1 glucose 103 total protein 55 Doppler ultrasound lower extremity: Limited exam. Appears to be negative June 09: White count 16.9 hemoglobin 15.7 platelets 229 sodium 151 potassium 3.5 BUN 60 creatinine 1.61 Procalcitonin 0.08. Lactic acid 1.8. EKG: Metabolic abnormality. No seizure activity June 08: White count 9.4 hemoglobin 16.1 platelets 298 sodium 146 potassium 4.1 BUN 47 creatinine 1.25 bicarb 35 Modified barium swallow: Limited exam. Somewhat limited visualization. Symptoms of cough and negative response after swallow of thin liquids. Suspicion was some aspiration. Carotid Doppler: No significant stenosis CT brain without contrast: Unremarkable Chest x-ray film: Some venous prominence 2D echocardiogram: EF 55 to 60% Assessment and plan: -Patient 2 days prior to presentation became increasingly weak. Not able to get around the house. Speech became slow. Sister did report some weakness on the right side. Patient is only mumbling words.: Slow improvement Presentation is not compatible with CO2 retention. Differential: , metabolic encephalopathy/delirium from infection. Possibility of viral encephalitis. Stroke unlikely given that patient been having fevers. Though brainstem stroke to be a consideration. EEG-no seizure activity. MRI currently cannot be done because of respiratory status and patient's body habitus ID following. IV Zosyn -Right basal aspiration pneumonia IV Zosyn -Acute metabolic encephalopathy/delirium from sepsis: Slow improvement -NG tube feeding Vital HP. Free water. Dietitian following -Hypernatremia from diuresis: Resolved -Acute kidney injury likely ATN from sepsis and some fluid deficit: Resolved IV fluids. Follow renal function Lodine and Cozaar discontinued I's and O's -Feeding: High vital tube feed with free water -Psoriasis with widespread rash -Obstructive sleep apnea with elevated CO2 but not retention or acidosis BiPAP was used here -Essential hypertension, Coreg -Sepsis, source unclear: Fevers resolved IV cefepime then Zosyn. CSF unremarkable -Morbid obesity, with a BMI of 59.6 -Acute hypoxic respiratory failure could be related to her obesity hypoventilation and CHF and probable pneumonia: Improvement Had been on BiPAP. Now down to 3 L. -Acute on chronic congestive heart failure exacerbation. Patient was admitted to [facility] sometime ago and had required IV Lasix drip. Received IV Lasix. Now oral Lasix 40 mg twice daily -Chronic lumbar arthritis for which patient takes Lodine at home Lodine held because of renal function -Full code. -Patient's sister Carolynn FORD Patient failed swallow evaluation by speech. NG tube feeding to continue. On oral Lasix. NG tube feeding. Spoke to nurse to reach out to [facility] again to see if they might accept the patient. I will await call from them.
[2024-06-15] MEDS: METOPROLOL TARTRATE 50 MG TAB PO SCH (17:44)
--- NOTE | 2024-06-15 18:31 | P.PN ---
Subjective Progress Note Date: 06/15/24 I am following up with the patient and according to the nurse patient was rejected for transfer to a tertiary center. Objective - Vital Signs Vital signs: Vital Signs Temp 98.4 F 06/15/24 12:00 Pulse 74 06/15/24 14:00 Resp 20 06/15/24 14:00 BP 138/72 06/15/24 12:00 Pulse Ox 96 06/15/24 12:00 FiO2 45 06/15/24 08:00 Intake & Output 06/14/24 06/15/24 06/15/24 18:59 06:59 18:59 Intake Total 910 80 Output Total 665 440 Balance 245 -360 Weight 157.6 kg 146.4 kg Intake: IV 550 50 Dextrose 5% in Water 1, 550 50 000 ml @ 50 mls/hr IV . Q20H [facility] Rx#:[id number] Tube Feeding 300 30 Other 60 Output: Urine 665 440 Other: Voiding Method Indwelling Catheter Indwelling Catheter Indwelling Catheter # Bowel Movements 1 - Exam General: Lying in bed and does not appear in acute distress. HENT: Supple neck. Has NG tube Lung: Is on nasal canuli. Neuro: Limited. Patient is moderately drowsy and is awake able to voice. She is oriented to self place and time with option. She is following simple commands. She continues to be severely hypophonic. Motor the strength is hard to assess individual muscle strength because of her weakness but is able to have some antigravity movement upper extremity. - Labs CBC & Chem 7: 06/14/24 06:01 06/15/24 06:50 Labs: Abnormal Lab Results - Last 24 Hours (Table) 06/14/24 06/15/24 06/15/24 Range/Units 23:53 06:13 06:50 Chloride 97 L (98-107) mmol/L Carbon Dioxide 38 H (22-30) mmol/L BUN 18 H (7-17) mg/dL Glucose 167 H (74-99) mg/dL POC Glucose (mg/dL) 123 H 155 H (70-110) mg/dL 06/15/24 Range/Units 12:09 Chloride (98-107) mmol/L Carbon Dioxide (22-30) mmol/L BUN (7-17) mg/dL Glucose (74-99) mg/dL POC Glucose (mg/dL) 188 H (70-110) mg/dL Assessment and Plan Assessment: Ms. Moon is a 54-year-old female who is morbidly obese. She has a history of congestive heart failure and may have been left in her bed for period of time. She was found to have urine and fecal incontinence. She has limited speech capability at this time; however, this may be due to her respiratory condition as she is straining to breathe and breathing very rapidly. She is able to mouth words and name as well as comprehend both simple and complex commands. Acute speech condition unknown exact etiology. Had three CT head which are negative for stroke. Unsure if more respiratory. CSF study is negative for bacterial meningoencephalitis. Altered mental status with fever and leukocytosis: Unknown source of infection. Has component of metabolic encephalopathy. Patient presented on 06/03/2024 and had no fever until 06/06/2024. No leukocytosis until yesterday. CSF study is negative for meningoencephalitis. CSF nucleated cells are 1. Also component of pneumonia Chronic hypoxic respiratory failure on oxygen Chronic compensated hyper Respiratory failure Hypertension Psoriasis Chronic diastolic heart failure. Edema Diabetes mellitus Morbid obesity Plan: CSF viral panel: so far negative. Cannot have MRI since per tech cannot fit. Patient was rejected for transfer to a tertiary center according to the nurse. Ordered acetylcholine receptor antibody as well as musk antibody to rule out any other causes for her severe hypophonia such as ?Myasthenia Gravis. Patient does not have any ptosis or complaints of diplopia. Ordered CK level. I.D. team. is on board. Patient is on aspirin 81 mg daily Psychiatry team is consulted Pulmonary team is consulted PT OT and DIGITAL LIBRARIAN are consulted Will defer the rest of the medical med to primary and other specialist Plan is discussed with patient's nurse. Time with Patient: Less than 30
[2024-06-15 18:39] LABS: Glucose,Whole Blood 124 mg/dL (70-110)
[2024-06-15] MEDS ORDERED: BENZOCAINE SPRAY 1 CAN MUCOUS MEM PRN (22:35)
[2024-06-16] LABS: Glucose,Whole Blood 115 mg/dL (70-110)
[2024-06-16 06:16] LABS: Glucose,Whole Blood 129 mg/dL (70-110)
[2024-06-16 07:29] LABS: Methylmalonic Acid 0.24 umol/L (<0.40)
[2024-06-16 12:13] LABS: Glucose,Whole Blood 140 mg/dL (70-110)
--- NOTE | 2024-06-16 13:48 | P.CONS ---
History of Present Illness - Reason for Consult Consult date: 06/16/24 Peg tube placement Requesting physician: Eduar Mallory - Chief Complaint Altered mental status changes and speech difficulties - History of Present Illness This is a 54-year-old female who was seen in the emergency department on 06/03/2024 with concerns of speech difficulties and some altered mental status changes. She has been admitted since that time and worked up by multiple consultants. She has a past medical history including heart failure, morbid obesity, and hypertension. Patient was admitted with suspected sepsis, pneumonia, and aphasia. She was in the ICU for quite some time and recently was transferred to the cardiac stepdown unit. Apparently patient has continued with difficulty swallowing as has failed her swallow eval. She has had a NG tube in place getting tube feedings. Gastroenterology was consulted for PEG tube placement. Review of Systems REVIEW OF SYSTEMS: CARDIOPULMONARY: No chest pain or shortness of breath. Gastrointestinal: No abdominal pain. No nausea or vomiting. No hematemesis, coffee-ground emesis. No rectal bleeding, or melena. GENITOURINARY: No dysuria or hematuria. MUSCULOSKELETAL: Reports normal range of motion., Joint pain. SKIN: No rashes. No jaundice. ENDOCRINE: No chills, fevers. No excessive weight gain or loss. No polydipsia or polyuria. PSYCHIATRIC: Unremarkable. NEUROLOGY: No change in mental status. Denies dizziness, headache. ENT: Vision unremarkable. CONSTITUTIONAL: No recent weight loss. No fever, chills, night sweats. ROS unobtainable: due to mental status Past Medical History Past Medical History: Heart Failure, Dementia, Hypertension Additional Past Medical History / Comment(s): psoriasis History of Any Multi-Drug Resistant Organisms: None Reported Past Surgical History: No Surgical Hx Reported Past Psychological History: No Psychological Hx Reported Smoking Status: Never smoker Past Alcohol Use History: None Reported Past Drug Use History: None Reported Medications and Allergies Home Medications Medication Instructions Recorded Confirmed Type Atorvastatin [Lipitor] 20 mg PO HS 06/03/24 06/03/24 History Dapagliflozin Propanediol [Farxiga] 5 mg PO DAILY 06/03/24 06/03/24 History Ergocalciferol (Vitamin D2) 1,250 mcg PO Q7D 06/03/24 06/03/24 History [Drisdol (50,000 Iu)] Etodolac [Lodine] 400 mg PO BID 06/03/24 06/03/24 History Furosemide [Lasix] 40 mg PO DAILY 06/03/24 06/03/24 History Losartan Potassium [Cozaar] 100 mg PO DAILY 06/03/24 06/03/24 History Metoprolol Succinate (ER) [Toprol 100 mg PO DAILY 06/03/24 06/03/24 History Xl] Spironolactone [Aldactone] 25 mg PO DAILY 06/03/24 06/03/24 History carvediloL [Coreg] 25 mg PO BID 06/03/24 06/03/24 History Allergies Allergy/AdvReac Type Severity Reaction Status Date / Time Sulfa (Sulfonamide Allergy Rash/Hives Verified 06/03/24 15:22 Antibiotics) Physical Exam Vitals: Vital Signs Temp Pulse Resp BP Pulse Ox FiO2 06/16/24 08:19 96 06/16/24 08:00 98.5 F 80 18 149/76 95 06/16/24 04:35 97.9 F 86 21 124/76 95 45 06/16/24 04:25 45 06/16/24 01:09 45 06/16/24 00:05 97.4 F L 86 24 143/77 98 06/15/24 19:45 98.2 F 72 20 144/87 98 06/15/24 16:00 98.0 F 80 22 146/87 95 06/15/24 14:00 74 20 Intake and Output 06/15/24 06/16/24 06/16/24 22:59 06:59 14:59 Output Total 2690 630 0309 Balance -1200 -300 -1500 Output: Urine 7640 201 8982 Other: Voiding Method Indwelling Catheter Indwelling Catheter Indwelling Catheter # Bowel Movements 1 Weight 152.492 kg 152.492 kg General appearance: The patient is alert, oriented, appears in no acute distress. HET: Head is normocephalic and atraumatic. Conjunctiva pink. Sclera anicteric. Neck: Supple without lymphadenopathy. Trachea midline. Heart: Regular. Lungs: Equal expansion, normal respiratory effort. Abdomen: Soft, morbidly obese, nontender, nondistended. Skin: No rashes. No jaundice. Extremities: Normal skin color and turgor. No pedal edema. Neurological: Slow to respond. Alert and oriented. Results CBC & Chem 7: 06/14/24 06:01 06/15/24 06:50 Labs: Abnormal Lab Results - Last 24 Hours (Table) 06/14/24 06/15/24 06/15/24 Range/Units 06:01 18:37 23:59 POC Glucose (mg/dL) 124 H 115 H (70-110) mg/dL Vitamin B6 3 L (5-50) ug/L 06/16/24 06/16/24 Range/Units 06:15 12:12 POC Glucose (mg/dL) 129 H 140 H (70-110) mg/dL Vitamin B6 (5-50) ug/L Assessment and Plan (1) Dysphagia Narrative/Plan: 54-year-old female who had presented with speech difficulties and suspected CVA however brain CTs have been normal and patient is unable to fit in the MRI machine. She also had multiple other issues including pneumonia, leukocytosis, fever, and some altered mental status changes. Patient was seen by speech pathologist and has failed her swallow exam. Currently with NG tube for nutritional support. Patient is requiring PEG tube placement for nutrition. Will plan for EGD with PEG tube. Current Visit: Yes Status: Acute Code(s): R13.10 - DYSPHAGIA, UNSPECIFIED SNOMED Code(s): 01349450 (2) Aphasia Current Visit: Yes Status: Acute Code(s): R47.01 - APHASIA SNOMED Code(s): 31879870 (3) Pneumonia Current Visit: Yes Status: Acute Code(s): J18.9 - PNEUMONIA, UNSPECIFIED ORGANISM SNOMED Code(s): 552758882 (4) Morbid obesity Current Visit: Yes Status: Acute Code(s): E66.01 - MORBID (SEVERE) OBESITY DUE TO EXCESS CALORIES SNOMED Code(s): 510358482 Plan: 1. Continue symptomatic and supportive care 2. Keep n.p.o. 3. Hold tube feedings after midnight 4. CBC, INR, BMP ordered for tomorrow morning 5. Will plan for EGD and PEG tube placement tomorrow 6. Hold Lovenox 06/17/2024 Thank you for this consultation, we will continue to follow. Dr. Garry Joyner I agree with the dictator's note, documented as a scribe by Natalie Rai.
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
[2024-06-16 16:59] LABS: Glucose,Whole Blood 125 mg/dL (70-110)
--- NOTE | 2024-06-16 17:05 | P.PN ---
Progress Note - Text Progress Note Date: 06/16/24 This is a visit 54 years old female with past medical history of hypertension She brought because of generalized weakness and she was found on the floor with slurred speech. Patient could not get up and noticed that she is old and peed on herself more than once. On presentation patient looks awake and understands but she mumbles only and she cannot talk. Patient is morbidly obese which limits her ability to move around. Patient is poor historian because of her aphasia however she can shake her head as yes or no Patient denies any pain When asking about shortness of breath she denies, no vomiting or diarrhea, she denies urinary complaint, she denies headache dizziness to me Patient also denies weakness or tingling Her labs looks normal like CBC, BMP and LFT and INR. Urinalysis negative proBNP is 250 Chest x-ray cardiomegaly with mild pulmonary vascular congestion CT of the brain showing no acute intracranial process EKG showing sinus rhythm at [address]-T changes 06/04 Patient still difficulty articulating her words, I discussed the case with the neurologist, there is low suspicion for stroke, however we are going to repeat CAT scan of the brain. MRI cannot for the patient as she is morbidly obese. Patient morbidly obese and have difficulty moving. Currently she is on 3 L oxygen via nasal cannula. Her legs like 1+ leg edema. Breath sounds are distant given her body habitus She has extensive rash noted to extremities and trunk related to her psoriasis. Swallow evaluation is ordered. 06/05 Patient was on BiPAP for respiratory difficulty. It was placed overnight, in the morning she continued to use the BiPAP. pH is normal, unlikely CO2 retent ion to close acidosis. Pulmonary team recommending BiPAP overnight Stroke is unlikely. Neurologist does not think this is a stroke. As patient does not have focal neurological deficit. Neurologist thinks her speech difficulty is due to show shortness of breath. ABG shows pCO2 but no acidosis which is unlikely to cause this degree of shortness of breath. However she has [address] of the brain after duplex negative. Neurologist will see the patient intermittently. Therefore we are going to lowered the dose from aspirin 325 mg down to 81 mg for prophylactic purposes. Will start trazodone. Tomorrow morning we will try to discontinue the BiPAP. Also will ask for PT/OT evaluation June 07, 2024: I resumed care of the patient today. Laying in bed. Awake. Only mumbles answers. Face is flushed. Scattered psoriatic rash. Patient did undergo videofluoroscopic swallow test.: Not a very good quality. Followed by speech therapist. Was NPO. I ordered the EEG. Neurology has ordered an MRI of the brain. Initial CT scan has been unremarkable. At this point as per pulmonary does not feel that is contributing to her presentation. Also consulted psychiatry for psychogenic/conversion disorder. Patient getting IV Lasix. Negative fluid balance. Dr. 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 Even jokes. Patient sister was recently in the hospital for about 20 days and actually the patient herself had been helping her sister. Even she would take her sister came t to her appointments, with driving. She was slowly get around the house. Because she has weakness in the legs she has to sit down quite often. Patient offered I will not take her Lasix in the systolic to keep reminding her. Specially in the last 2 months. Few months ago patient was admitted to [facility] was put on a Lasix drip for congestive heart failure. 2 days prior to getting admitted patient's became less active. Finding it difficult to get up. No fevers reported. Patient does snore quite a bit. Patient also got chronic low back pain and takes medications for the same. Patient is a full code and sister would like patient to be transferred to [facility] where they have a larger MRI and was seen there before. I did inform sister came that patient's have been ordered an MRI here and EEG was ordered today. Patient does have a cat at home. I spoke earlier to the nurse. Total time spent today about 1 hour with over 35 minutes of discussion June 08, 2024: Patient remains lethargic. Was started on IV fluid yesterday evening. I spoke to radiology department today. A weight limit for our MRI is 400 pounds. But because of patient's respiratory status on the BiPAP she cannot have an MRI currently. I did speak to ID. Lumbar puncture has been ordered. Empirically has been put on IV Zosyn. EEG did not show any seizure activity. I did speak to patient's sister this morning. Did inform her about the further workup. As patient is becoming a bit alkalotic. Will DC IV Lasix. Continue with LR 75 cc an hour. June 09, 2024: Because of altered mentation patient was moved to the ICU. Worsening of renal function creatinine to 1.6. Will DC Lodine. DC Cozaar. Catapres patch was added for blood pressure. Antibiotics switched to IV cefepime. Patient remains lethargic. Discussed with neurology Dr. SENIOR. Given no seizure activity on the EEG will DC Keppra. Increase IV fluids to 125 cc an hour given hypernatremia. Lasix was discontinued yesterday. On BiPAP. Later this afternoon patient was intubated June 10: ICU. Patient remains on BiPAP. Creatinine remains at 1.6. D5W at 125 cc an hour. Remains empirically on cefepime. CSF has been negative. Question has been about viral encephalitis. Which will take his own course. Discussed with ID. I spoke to patient's family Dr. Manuel Cardona given update. I also called patient's Sister Carolynn on the phone given update. Patient also has delirium/encephalopathy from a clinical presentation of sepsis. CORRECTION: Patient was not intubated. On BiPAP yesterday. June 11: ICU. Patient seen this morning the ICU. Was on BiPAP. Interval send service will try high flow oxygen. Depending on oxygen status may consider MRI this afternoon. Slightly more responsive. No gross lethargic. Getting vital HP tube feeding through the NG tube. Ordered by aviation medicine specialist and dietitian. Also getting water through the NG tube. Also getting D5W. Chest x- ray showing right basilar infiltrate. Possible aspiration. Per ID antibiotic changed to IV Zosyn. Patient CSF was negative. June 12: ICU. Was on nasal cannula for about 4 hours yesterday. 1 of patient's sisters at bedside. NG tube remains in place. Following commands. Hypophonic. Patient unable to fit into our MRI. Per neurology patient to be transferred to [facility] where the family wants her to go where she has had previous treatment. grounds maintenance worker informed June 13: ICU. Poor oral hygiene. Spoke to nurse Andrea. Use ICU kit to clean out the mouth. Communicating slowly. Nurse Andrea informed that couple of hospitals could not confirm with patient if it is no the MRI. Awaiting to hear the same. Need for patient's transfer to be both MRI can fit the patient for higher level of care as we do not have a clear-cut diagnosis. No fever. IV Zosyn to continue. Patient on 6 L nasal cannula. Try to taper down oxygen. Decrease D5W to 50 cc an hour. Increase vital high-protein to 30 cc an hour. Via G-tube June 14: ICU. More awake. Oxygen requirement down to about 4 L. Saw the patient this afternoon. Still hypophonic. Spoke to nurse Hogan for further oral hygiene. Spoke to [facility] neurointensivist Dr. Haley. They did not feel the patient would have any benefit getting transferred there. In the meantime patient is being stepdown as later the oxygen requirement keep down to 3 L. Patient remains on IV Zosyn. June 15: Patient moved to the medical floor. On 3 L nasal cannula. Patient underwent flexible laryngoscopy by Dr. Busby from ENT. Except for secretions another cause locally and the vocal cord was found for the hypophonia. Patient had oral hygiene carried out. Seen by speech therapy. Failed swallow again. NG tube to continue for medications and feeding. We do not have vascular cause for the hypophonia. Also patient been rather weak. According to PT OT. Patient seen by PT OT. Spoke to nurse Rodriguez. Try to give update to [facility] received try to get the patient there to get a diagnosis and probably MRI that can be done. June 16: She remains to be hypophonic. A bit more awake. Still weak in the limbs. As patient not able to swallow I did talk to the patient and she is agreeable with the PEG tube. GI consulted. I also spoke to patient's sister came over the phone. I also spoke to Evie the leather case finisher this morning. Attempts to transfer to any hospital have all been exhausted. Nobody excepting the patient. I did inform the patient and sister came that down the road if patient speech improves maybe she can go back to oral feeding down the road. GI is planning for PEG tube tomorrow Active Medications Acetaminophen (Acetaminophen Tab 325 Mg Tab) 650 mg PO Q6HR PRN PRN Reason: Fever and/ or Pain Last Admin: 06/14/24 00:15 Dose: 650 mg Hydrocodone Bitart/Acetaminophen (Hydrocodone/Apap 5-325mg 1 Each Tab) 1 each PO Q6HR PRN PRN Reason: Moderate Pain (Scale 4 to 6) Last Admin: 06/16/24 06:35 Dose: 1 each Albuterol/Ipratropium (Ipratropium-Albuterol 3 Ml Neb) 3 ml INHALATION RT-QID PRN PRN Reason: Shortness Of Breath Or Wheezing Last Admin: 06/04/24 13:22 Dose: 3 ml Aspirin (Aspirin 81 Mg) 81 mg PO DAILY [facility] Last Admin: 06/16/24 09:19 Dose: 81 mg Atorvastatin Calcium (Atorvastatin 20 Mg Tab) 20 mg PO HS [facility] Last Admin: 06/15/24 21:22 Dose: 20 mg Benzocaine (Benzocaine [place] 1 Can) 1 spray MUCOUS MEM QID PRN; Protocol PRN Reason: Mouth Irritation Betamethasone Dipropionate (Betamethasone Dipropionate 0.05% Cream 15 Gm Tube) 1 applic TOPICAL BID [facility]; Protocol Last Admin: 06/16/24 09:23 Dose: 1 applic Carvedilol (Carvedilol 12.5 Mg Tab) 25 mg PO AC-BID [facility] Last Admin: 06/16/24 06:35 Dose: 25 mg Dapagliflozin (Dapagliflozin Propanediol 5 Mg Tablet) 5 mg PO DAILY [facility] Last Admin: 06/16/24 09:19 Dose: 5 mg Dextrose/Water (Dextrose 50% Syringe 50 Ml) 25 ml IVP PER PROTOCOL PRN; Protocol PRN Reason: Hypoglycemia Dextrose/Water (Dextrose 50% Syringe 50 Ml) 50 ml IVP PER PROTOCOL PRN; Protocol PRN Reason: Hypoglycemia Enoxaparin Sodium (Enoxaparin 40 Mg/0.4 Ml Syringe) 40 mg SQ DAILY [facility] Last Admin: 06/16/24 09:19 Dose: 40 mg Famotidine (Famotidine 20 Mg/2 Ml Vial) 20 mg IV DAILY [facility] Last Admin: 06/16/24 09:19 Dose: 20 mg Furosemide (Furosemide 40 Mg Tab) 40 mg PO BID@0900,1600 [facility] Last Admin: 06/16/24 09:19 Dose: 40 mg Hydralazine HCl (Hydralazine Hcl 20 Mg/Ml 1 Ml Vial) 10 mg IVP Q4HR PRN PRN Reason: Blood Pressure - High Last Admin: 06/04/24 19:47 Dose: 10 mg Dextrose/Water (Dextrose 5%-Water Iv Soln) 1,000 mls @ 50 mls/hr IV .Q20H [facility] Last Admin: 06/15/24 18:31 Dose: 50 mls/hr Piperacillin Sod/Tazobactam (Sod 3.375 gm/ Sodium Chloride) 100 mls @ 25 mls/hr IVPB Q8H [facility]; Protocol Last Admin: 06/16/24 13:22 Dose: 25 mls/hr Insulin Aspart (Insulin Aspart (Novolog) 100 Unit/Ml Vial) 0 unit SQ Q6HR [facility]; Protocol Last Admin: 06/16/24 13:22 Dose: Not Given Metoprolol Tartrate (Metoprolol Tartrate 50 Mg Tab) 50 mg PO Q8H [facility] Last Admin: 06/16/24 09:19 Dose: 50 mg Miscellaneous Information (Potassium Replacement Protocol 1 Each Misc) 1 each MISCELLANE DAILY PRN; Protocol PRN Reason: Per Protocol Nystatin (Nystatin 100,000 Unit/Gm Powd 15 Gm) 1 applic TOPICAL TID [facility]; Protocol Last Admin: 06/16/24 09:23 Dose: 1 applic Thiamine HCl (Thiamine 100 Mg/Ml 2 Ml Vial) 100 mg IVP BID [facility] Last Admin: 06/16/24 09:19 Dose: 100 mg On examination: VITAL SIGNS: 98.5, 80, 18, 149 x 76, 95% on 3 L GENERAL APPEARANCE: BMI 60.6, diet hypophonic rosacea HEENT: Normal external appearance of nose and ear. Oral cavity dried with very thick secretions EYES: Pupils equal. Conjunctiva normal. NECK: JVD not raised. Mass not palpable. RESPIRATORY: Respiratory effort increased l. Decreased breath sound CARDIOVASCULAR: First and second sounds normal. No edema. ABDOMEN: Soft. Liver and spleen not palpable. No tenderness. No mass palpable. PSYCHIATRY: Hypophonic speaks very slowly. Some improvement in limb movements. Dermatological: Scattered psoriatic rash. INVESTIGATIONS, reviewed in the clinical context: June 15: Sodium 139 potassium 3.6 BUN 18 creatinine 0.67 June 14: White count 8.8 hemoglobin 12.8 potassium 3.8 creatinine 0.83 June 13: White count 9.7 hemoglobin 13.2 potassium 3.6 creatinine 0.79. Sodium 139 June 12: White count 12.1 hemoglobin 13.6 platelets 201 sodium 144 potassium 3.7 creatinine 0.91 June 11: White count 15.6 hemoglobin 14.5 platelets 214 sodium 150 potassium 3.5 bicarb 42 BUN 54 creatinine 1.12 June 10: White count 15.7 hemoglobin 15.9 platelets 191 increased neutrophils. Decreased lymphocytes. Sodium 153 potassium 3.3 BUN 63 creatinine 1.6 CSF: RBC 13 nucleated cells 1 glucose 103 total protein 55 Doppler ultrasound lower extremity: Limited exam. Appears to be negative June 09: White count 16.9 hemoglobin 15.7 platelets 229 sodium 151 potassium 3.5 BUN 60 creatinine 1.61 Procalcitonin 0.08. Lactic acid 1.8. EKG: Metabolic abnormality. No seizure activity June 08: White count 9.4 hemoglobin 16.1 platelets 298 sodium 146 potassium 4.1 BUN 47 creatinine 1.25 bicarb 35 Modified barium swallow: Limited exam. Somewhat limited visualization. Symptoms of cough and negative response after swallow of thin liquids. Suspicion was some aspiration. Carotid Doppler: No significant stenosis CT brain without contrast: Unremarkable Chest x-ray film: Some venous prominence 2D echocardiogram: EF 55 to 60% Assessment and plan: -Patient 2 days prior to presentation became increasingly weak. Not able to get around the house. Speech became slow. Sister did report some weakness on the right side. Patient is only mumbling words.: Slow improvement Presentation is not compatible with CO2 retention. Differential: , metabolic encephalopathy/delirium from infection. Possibility of viral encephalitis. Stroke unlikely given that patient been having fevers. Though brainstem stroke to be a consideration. EEG-no seizure activity. MRI currently cannot be done because of respiratory status and patient's body habitus ID following. IV Zosyn -Right basal aspiration pneumonia IV Zosyn -Acute metabolic encephalopathy/delirium from sepsis: Slow improvement -NG tube feeding Vital HP. Free water. Dietitian following After discussion with the patient and patient's sister Carolynn. PEG tube ordered -Hypernatremia from diuresis: Resolved -Acute kidney injury likely ATN from sepsis and some fluid deficit: Resolved IV fluids. Follow renal function Lodine and Cozaar discontinued I's and O's -Feeding: High vital tube feed with free water -Psoriasis with widespread rash -Obstructive sleep apnea with elevated CO2 but not retention or acidosis BiPAP was used here -Essential hypertension, Coreg -Sepsis, source unclear: Fevers resolved IV cefepime changed over to Zosyn. CSF unremarkable -Morbid obesity, with a BMI of 59.6 -Acute hypoxic respiratory failure could be related to her obesity hypoventilation and CHF and probable pneumonia: Improvement Had been on BiPAP. Now down to 3 L. -Acute on chronic congestive heart failure exacerbation. Patient was admitted to [facility] sometime ago and had required IV Lasix drip. Received IV Lasix. Now oral Lasix 40 mg twice daily -Chronic lumbar arthritis for which patient takes Lodine at home Lodine held because of renal function -Full code. -Patient's sister Carolynn Moon POA PEG tube ordered. N.p.o. after midnight. Discussed with patient and patient's sister Carolynn. Other medication treatment plan to continue.
[2024-06-16 20:12] LABS: Glucose,Whole Blood 142 mg/dL (70-110)
[2024-06-16 23:29] LABS: Glucose,Whole Blood 126 mg/dL (70-110)
[2024-06-17 06:14] LABS: Glucose,Whole Blood 135 mg/dL (70-110)
[2024-06-17] MEDS: INSULIN ASPART (NovoLOG) 100 UNIT/ML VIAL SQ SCH (08:06)
[2024-06-17 08:38] LABS: HCT 44.8 % (37.2-46.3); MCH 28.2 pg (27.0-32.0); MCHC 31.3 g/dL (32.0-37.0); MCV 90.3 FL (80.0-97.0); NRBC Per 100 WBC 0 X 10*3/uL (0.00-0.01); Platelet Count 239 X 10*3/uL (140-440); RBC 4.96 X 10*6/uL (4.10-5.20); RDW 14.6 % (11.5-14.5)
[2024-06-17 09:06] LABS: Blood Urea Nitrogen 16.1 mg/dL (9.0-27.0); Carbon Dioxide 36.3 mmol/L (21.6-31.8); Chloride 93 mmol/L (96-109); Glucose 134 mg/dL (70-110); Potassium 3.3 mmol/L (3.5-5.5); Sodium 142 mmol/L (135-145)
[2024-06-17 09:07] LABS: Calcium 9.4 mg/dL (8.7-10.3)
[2024-06-17 09:54] LABS: INR 1.08 sec (0.93-1.11)
[2024-06-17 11:37] LABS: Glucose,Whole Blood 163 mg/dL (70-110)
--- NOTE | 2024-06-17 13:24 | P.PN ---
Subjective Progress Note Date: 06/17/24 Principal diagnosis: Reason for follow-up is fever Patient is a 54-year female with a past medical history significant for heart failure hypertension psoriasis dementia patient has been brought into the hospital for evaluation of speech problem and initially investigated for a stroke subsequently has developed a fever worsening respiratory status prompted this consultation. On today's evaluation that is 06/17/2024,the patient remains to be afebrile, patient is on 3 L nasal cannula supplemental oxygen and denies any shortness of breath no chest pain or any worsening cough.Patient denies having any nausea or vomiting, no abdominal pain and no diarrhea has been reported. Patient white count is 8.80, creatinine 0.7 Objective - Vital Signs Vital signs: Vital Signs Temp 98.5 F 06/17/24 07:27 Pulse 82 06/17/24 07:27 Resp 18 06/17/24 11:43 BP 153/76 06/17/24 07:27 Pulse Ox 95 06/17/24 07:27 FiO2 45 06/17/24 04:18 Intake & Output 06/16/24 06/17/24 06/17/24 18:59 06:59 18:59 Intake Total 360 0 Output Total 1500 2100 Balance -1140 -2100 Weight 152.492 kg Intake: Oral 0 Tube Feeding 360 Output: Urine 1500 2100 Other: Voiding Method Indwelling Catheter Indwelling Catheter Indwelling Catheter # Bowel Movements 3 - Exam GENERAL DESCRIPTION: Middle-age female lying in bed in no distress RESPIRATORY SYSTEM: Unlabored breathing , decreased intensity breath sounds at bases HEART: S1 S2 regular rate and rhythm , ABDOMEN: Soft , no tenderness EXTREMITIES: Swelling to the leg no significant redness - Labs CBC & Chem 7: 06/17/24 04:01 06/17/24 04:01 Labs: Abnormal Lab Results - Last 24 Hours (Table) 06/16/24 06/16/24 06/16/24 Range/Units 16:58 20:11 23:28 MCHC (32.0-37.0) g/dL RDW (11.5-14.5) % MPV (9.5-12.2) FL PT (9.9-11.9) sec Potassium (3.5-5.5) mmol/L Chloride (96-109) mmol/L Carbon Dioxide (21.6-31.8) mmol/L Anion Gap (4.00-12.00) mmol/L BUN/Creatinine Ratio (12.00-20.00) Ratio Glucose (70-110) mg/dL POC Glucose (mg/dL) 125 H 142 H 126 H (70-110) mg/dL 06/17/24 06/17/24 06/17/24 Range/Units 04:01 04:01 04:01 MCHC 31.3 L (32.0-37.0) g/dL RDW 14.6 H (11.5-14.5) % MPV 13.0 H (9.5-12.2) FL PT 12.0 H (9.9-11.9) sec Potassium 3.3 L (3.5-5.5) mmol/L Chloride 93 L (96-109) mmol/L Carbon Dioxide 36.3 H (21.6-31.8) mmol/L Anion Gap 12.70 H (4.00-12.00) mmol/L BUN/Creatinine Ratio 23.00 H (12.00-20.00) Ratio Glucose 134 H (70-110) mg/dL POC Glucose (mg/dL) (70-110) mg/dL 06/17/24 06/17/24 Range/Units 06:12 11:36 MCHC (32.0-37.0) g/dL RDW (11.5-14.5) % MPV (9.5-12.2) FL PT (9.9-11.9) sec Potassium (3.5-5.5) mmol/L Chloride (96-109) mmol/L Carbon Dioxide (21.6-31.8) mmol/L Anion Gap (4.00-12.00) mmol/L BUN/Creatinine Ratio (12.00-20.00) Ratio Glucose (70-110) mg/dL POC Glucose (mg/dL) 135 H 163 H (70-110) mg/dL Assessment and Plan (1) Fever Current Visit: Yes Status: Acute Code(s): R50.9 - FEVER, UNSPECIFIED SNOMED Code(s): 474077513 (2) Aspiration pneumonia Current Visit: Yes Status: Acute Code(s): J69.0 - PNEUMONITIS DUE TO INHALATION OF FOOD AND VOMIT SNOMED Code(s): 343865434 (3) Allergy to sulfa drugs Current Visit: Yes Status: Acute Code(s): Z88.2 - ALLERGY STATUS TO SULFONAMIDES SNOMED Code(s): 76612942 (4) Leukocytosis Current Visit: Yes Status: Acute Code(s): D72.829 - ELEVATED WHITE BLOOD CELL COUNT, UNSPECIFIED SNOMED Code(s): 207277100 Plan: 1patient with a fever in this patient currently in the hospital for 5 days before admission this initial evaluation with initial presentation for follow-up with the speech and responsiveness and has been worked up for CVA with the last CT of the brain has been negative MRI could not be done because the patient could not stay still etiology of the fever could be multifactorial questionable central versus pulmonary question of aspiration initial workup has been negative with negative nasopharyngeal swab for COVID RSV and influenza UA is not significantly positive patient did have LP that was normal 2-patient is afebrile white count normalized, chest x-ray shows improvement patient to continue with Zosyn , patient possibly getting a PEG tube placement today and may be able to transition to oral antibiotics to finish therapy Dictation was produced using [employer] dictation software. please excuse any grammatical, word or spelling errors. Time with Patient: Less than 30
--- NOTE | 2024-06-17 13:24 | P.PN ---
Subjective Progress Note Date: 06/16/24 Principal diagnosis: Reason for follow-up is fever Patient is a 54-year female with a past medical history significant for heart failure hypertension psoriasis dementia patient has been brought into the hospital for evaluation of speech problem and initially investigated for a stroke subsequently has developed a fever worsening respiratory status prompted this consultation. On today's evaluation that is 06/16/2024,the patient continues to be afebrile patient is breathing comfortably on the 2 L current oxygen denies any chest pain no worsening cough or diarrhea has been reported. Patient did not have a lab draw today Objective - Vital Signs Vital signs: Vital Signs Temp 98.5 F 06/16/24 08:00 Pulse 80 06/16/24 08:00 Resp 18 06/16/24 08:00 BP 149/76 06/16/24 08:00 Pulse Ox 96 06/16/24 08:19 FiO2 45 06/16/24 04:35 Intake & Output 06/15/24 06/16/24 06/16/24 18:59 06:59 18:59 Output Total 1500 Balance -1500 Weight 152.492 kg Output: Urine 1500 Other: Voiding Method Indwelling Catheter Indwelling Catheter Indwelling Catheter # Bowel Movements 1 - Exam GENERAL DESCRIPTION: Middle-age female lying in bed in no distress RESPIRATORY SYSTEM: Unlabored breathing , decreased intensity breath sounds at bases HEART: S1 S2 regular rate and rhythm , ABDOMEN: Soft , no tenderness EXTREMITIES: Swelling to the leg no significant redness - Labs CBC & Chem 7: 06/17/24 04:01 06/17/24 04:01 Labs: Abnormal Lab Results - Last 24 Hours (Table) 06/14/24 06/15/24 06/15/24 Range/Units 06:01 18:37 23:59 POC Glucose (mg/dL) 124 H 115 H (70-110) mg/dL Vitamin B6 3 L (5-50) ug/L 06/16/24 Range/Units 06:15 POC Glucose (mg/dL) 129 H (70-110) mg/dL Vitamin B6 (5-50) ug/L Assessment and Plan (1) Fever Current Visit: Yes Status: Acute Code(s): R50.9 - FEVER, UNSPECIFIED SNOMED Code(s): 478465740 (2) Aspiration pneumonia Current Visit: Yes Status: Acute Code(s): J69.0 - PNEUMONITIS DUE TO INHALATION OF FOOD AND VOMIT SNOMED Code(s): 779614662 (3) Allergy to sulfa drugs Current Visit: Yes Status: Acute Code(s): Z88.2 - ALLERGY STATUS TO SULFONAMIDES SNOMED Code(s): 56346571 (4) Leukocytosis Current Visit: Yes Status: Acute Code(s): D72.829 - ELEVATED WHITE BLOOD CELL COUNT, UNSPECIFIED SNOMED Code(s): 594669779 Plan: 1patient with a fever in this patient currently in the hospital for 5 days before admission this initial evaluation with initial presentation for follow-up with the speech and responsiveness and has been worked up for CVA with the last CT of the brain has been negative MRI could not be done because the patient could not stay still etiology of the fever could be multifactorial questionable central versus pulmonary question of aspiration initial workup has been negative with negative nasopharyngeal swab for COVID RSV and influenza UA is not significantly positive patient did have LP that was normal 2-patient is afebrile white count normalized, chest x-ray shows improvement patient currently being treated with Zosyn to finish a 10-day course of therapy Dictation was produced using [employer] dictation software. please excuse any grammatical, word or spelling errors. Time with Patient: Less than 30
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
--- NOTE | 2024-06-17 13:48 | P.PN ---
Progress Note - Text Progress Note Date: 06/17/24 Patient is scheduled for PEG tube placement today. Consent is signed per her sister who is her POA and in chart. INR 1.08. Potassium 3.[address] protocol[address] Dr[address] Garry Joyner I agree with the dictator's note, documented as a scribe by Natalie Rai.
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
[2024-06-17] MEDS: PYRIDOXINE 100 MG/ML 1 ML VIAL IVP STA (16:13)
[2024-06-17] MEDS: Lacosamide IV (ages 17+ yrs) 200 MG/20 ML ML IVP STA (16:14)
[2024-06-17 16:19] LABS: Glucose,Whole Blood 129 mg/dL (70-110)
[2024-06-17] MEDS: levETIRAcetam IV 500 MG/5 ML VIAL IVP STA (16:24)
[2024-06-17] MEDS ORDERED: LIDOCAINE 1% INJ 10MG/ML (20 ML MDV) ONE (17:16)
[2024-06-17] MEDS ORDERED: ROCURONIUM 10 MG/ML (5 ML VIAL) IV ONE (17:16)
[2024-06-17] MEDS ORDERED: PROPOFOL 10 MG/ML 20 ML VIAL IV ONE (17:16)
[2024-06-17] MEDS ORDERED: SUGAMMADEX SODIUM 100 MG/ML SYR IV ONE (17:16)
--- NOTE | 2024-06-17 17:17 | P.PN ---
Progress Note - Text Progress Note Date: 06/17/24 This is a visit 54 years old female with past medical history of hypertension She brought because of generalized weakness and she was found on the floor with slurred speech. Patient could not get up and noticed that she is old and peed on herself more than once. On presentation patient looks awake and understands but she mumbles only and she cannot talk. Patient is morbidly obese which limits her ability to move around. Patient is poor historian because of her aphasia however she can shake her head as yes or no Patient denies any pain When asking about shortness of breath she denies, no vomiting or diarrhea, she denies urinary complaint, she denies headache dizziness to me Patient also denies weakness or tingling Her labs looks normal like CBC, BMP and LFT and INR. Urinalysis negative proBNP is 250 Chest x-ray cardiomegaly with mild pulmonary vascular congestion CT of the brain showing no acute intracranial process EKG showing sinus rhythm at [address]-T changes 06/04 Patient still difficulty articulating her words, I discussed the case with the neurologist, there is low suspicion for stroke, however we are going to repeat CAT scan of the brain. MRI cannot for the patient as she is morbidly obese. Patient morbidly obese and have difficulty moving. Currently she is on 3 L oxygen via nasal cannula. Her legs like 1+ leg edema. Breath sounds are distant given her body habitus She has extensive rash noted to extremities and trunk related to her psoriasis. Swallow evaluation is ordered. 06/05 Patient was on BiPAP for respiratory difficulty. It was placed overnight, in the morning she continued to use the BiPAP. pH is normal, unlikely CO2 retent ion to close acidosis. Pulmonary team recommending BiPAP overnight Stroke is unlikely. Neurologist does not think this is a stroke. As patient does not have focal neurological deficit. Neurologist thinks her speech difficulty is due to show shortness of breath. ABG shows pCO2 but no acidosis which is unlikely to cause this degree of shortness of breath. However she has [address] of the brain after duplex negative. Neurologist will see the patient intermittently. Therefore we are going to lowered the dose from aspirin 325 mg down to 81 mg for prophylactic purposes. Will start trazodone. Tomorrow morning we will try to discontinue the BiPAP. Also will ask for PT/OT evaluation June 07, 2024: I resumed care of the patient today. Laying in bed. Awake. Only mumbles answers. Face is flushed. Scattered psoriatic rash. Patient did undergo videofluoroscopic swallow test.: Not a very good quality. Followed by speech therapist. Was NPO. I ordered the EEG. Neurology has ordered an MRI of the brain. Initial CT scan has been unremarkable. At this point as per pulmonary does not feel that is contributing to her presentation. Also consulted psychiatry for psychogenic/conversion disorder. Patient getting IV Lasix. Negative fluid balance. Dr. 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 Even jokes. Patient sister was recently in the hospital for about 20 days and actually the patient herself had been helping her sister. Even she would take her sister came t to her appointments, with driving. She was slowly get around the house. Because she has weakness in the legs she has to sit down quite often. Patient offered I will not take her Lasix in the systolic to keep reminding her. Specially in the last 2 months. Few months ago patient was admitted to [facility] was put on a Lasix drip for congestive heart failure. 2 days prior to getting admitted patient's became less active. Finding it difficult to get up. No fevers reported. Patient does snore quite a bit. Patient also got chronic low back pain and takes medications for the same. Patient is a full code and sister would like patient to be transferred to [facility] where they have a larger MRI and was seen there before. I did inform sister came that patient's have been ordered an MRI here and EEG was ordered today. Patient does have a cat at home. I spoke earlier to the nurse. Total time spent today about 1 hour with over 35 minutes of discussion June 08, 2024: Patient remains lethargic. Was started on IV fluid yesterday evening. I spoke to radiology department today. A weight limit for our MRI is 400 pounds. But because of patient's respiratory status on the BiPAP she cannot have an MRI currently. I did speak to ID. Lumbar puncture has been ordered. Empirically has been put on IV Zosyn. EEG did not show any seizure activity. I did speak to patient's sister this morning. Did inform her about the further workup. As patient is becoming a bit alkalotic. Will DC IV Lasix. Continue with LR 75 cc an hour. June 09, 2024: Because of altered mentation patient was moved to the ICU. Worsening of renal function creatinine to 1.6. Will DC Lodine. DC Cozaar. Catapres patch was added for blood pressure. Antibiotics switched to IV cefepime. Patient remains lethargic. Discussed with neurology Dr. SENIOR. Given no seizure activity on the EEG will DC Keppra. Increase IV fluids to 125 cc an hour given hypernatremia. Lasix was discontinued yesterday. On BiPAP. Later this afternoon patient was intubated June 10: ICU. Patient remains on BiPAP. Creatinine remains at 1.6. D5W at 125 cc an hour. Remains empirically on cefepime. CSF has been negative. Question has been about viral encephalitis. Which will take his own course. Discussed with ID. I spoke to patient's family Dr. Manuel Cardona given update. I also called patient's Sister Carolynn on the phone given update. Patient also has delirium/encephalopathy from a clinical presentation of sepsis. CORRECTION: Patient was not intubated. On BiPAP yesterday. June 11: ICU. Patient seen this morning the ICU. Was on BiPAP. Interval send service will try high flow oxygen. Depending on oxygen status may consider MRI this afternoon. Slightly more responsive. No gross lethargic. Getting vital HP tube feeding through the NG tube. Ordered by mounter and dietitian. Also getting water through the NG tube. Also getting D5W. Chest x- ray showing right basilar infiltrate. Possible aspiration. Per ID antibiotic changed to IV Zosyn. Patient CSF was negative. June 12: ICU. Was on nasal cannula for about 4 hours yesterday. 1 of patient's sisters at bedside. NG tube remains in place. Following commands. Hypophonic. Patient unable to fit into our MRI. Per neurology patient to be transferred to [facility] where the family wants her to go where she has had previous treatment. unit control worker informed June 13: ICU. Poor oral hygiene. Spoke to nurse Andrea. Use ICU kit to clean out the mouth. Communicating slowly. Nurse Andrea informed that couple of hospitals could not confirm with patient if it is no the MRI. Awaiting to hear the same. Need for patient's transfer to be both MRI can fit the patient for higher level of care as we do not have a clear-cut diagnosis. No fever. IV Zosyn to continue. Patient on 6 L nasal cannula. Try to taper down oxygen. Decrease D5W to 50 cc an hour. Increase vital high-protein to 30 cc an hour. Via G-tube June 14: ICU. More awake. Oxygen requirement down to about 4 L. Saw the patient this afternoon. Still hypophonic. Spoke to nurse Hogan for further oral hygiene. Spoke to [facility] neurointensivist Dr. Haley. They did not feel the patient would have any benefit getting transferred there. In the meantime patient is being stepdown as later the oxygen requirement keep down to 3 L. Patient remains on IV Zosyn. June 15: Patient moved to the medical floor. On 3 L nasal cannula. Patient underwent flexible laryngoscopy by Dr. Busby from ENT. Except for secretions another cause locally and the vocal cord was found for the hypophonia. Patient had oral hygiene carried out. Seen by speech therapy. Failed swallow again. NG tube to continue for medications and feeding. We do not have vascular cause for the hypophonia. Also patient been rather weak. According to PT OT. Patient seen by PT OT. Spoke to nurse Rodriguez. Try to give update to [facility] received try to get the patient there to get a diagnosis and probably MRI that can be done. June 16: She remains to be hypophonic. A bit more awake. Still weak in the limbs. As patient not able to swallow I did talk to the patient and she is agreeable with the PEG tube. GI consulted. I also spoke to patient's sister came over the phone. I also spoke to Evie the manager of case this morning. Attempts to transfer to any hospital have all been exhausted. Nobody excepting the patient. I did inform the patient and sister came that down the road if patient speech improves maybe she can go back to oral feeding down the road. GI is planning for PEG tube tomorrow June 17: Saw the patient this morning. On nasal cannula. Later today patient due for a PEG tube. Still hypophonic. Active Medications Acetaminophen (Acetaminophen Tab 325 Mg Tab) 650 mg PO Q6HR PRN PRN Reason: Fever and/ or Pain Last Admin: 06/14/24 00:15 Dose: 650 mg Hydrocodone Bitart/Acetaminophen (Hydrocodone/Apap 5-325mg 1 Each Tab) 1 each PO Q6HR PRN PRN Reason: Moderate Pain (Scale 4 to 6) Last Admin: 06/16/24 20:36 Dose: 1 each Albuterol/Ipratropium (Ipratropium-Albuterol 3 Ml Neb) 3 ml INHALATION RT-QID PRN PRN Reason: Shortness Of Breath Or Wheezing Last Admin: 06/04/24 13:22 Dose: 3 ml Aspirin (Aspirin 81 Mg) 81 mg PO DAILY [facility] Last Admin: 06/17/24 10:11 Dose: Not Given Atorvastatin Calcium (Atorvastatin 20 Mg Tab) 20 mg PO HS [facility] Last Admin: 06/16/24 20:36 Dose: 20 mg Benzocaine (Benzocaine [place] 1 Can) 1 spray MUCOUS MEM QID PRN; Protocol PRN Reason: Mouth Irritation Betamethasone Dipropionate (Betamethasone Dipropionate 0.05% Cream 15 Gm Tube) 1 applic TOPICAL BID [facility]; Protocol Last Admin: 06/17/24 10:03 Dose: 1 applic Carvedilol (Carvedilol 12.5 Mg Tab) 25 mg PO AC-BID [facility] Last Admin: 06/17/24 16:24 Dose: Not Given Dapagliflozin (Dapagliflozin Propanediol 5 Mg Tablet) 5 mg PO DAILY [facility] Last Admin: 06/17/24 10:11 Dose: Not Given Dextrose/Water (Dextrose 50% Syringe 50 Ml) 25 ml IVP PER PROTOCOL PRN; Protocol PRN Reason: Hypoglycemia Dextrose/Water (Dextrose 50% Syringe 50 Ml) 50 ml IVP PER PROTOCOL PRN; Protocol PRN Reason: Hypoglycemia Enoxaparin Sodium (Enoxaparin 40 Mg/0.4 Ml Syringe) 40 mg SQ DAILY [facility] Last Admin: 06/16/24 17:53 Dose: Not Given Furosemide (Furosemide 40 Mg Tab) 40 mg PO BID@0900,1600 [facility] Last Admin: 06/17/24 16:07 Dose: Not Given Hydralazine HCl (Hydralazine Hcl 20 Mg/Ml 1 Ml Vial) 10 mg IVP Q4HR PRN PRN Reason: Blood Pressure - High Last Admin: 06/04/24 19:47 Dose: 10 mg Dextrose/Water (Dextrose 5%-Water Iv Soln) 1,000 mls @ 50 mls/hr IV .Q20H [facility] Last Admin: 06/17/24 10:19 Dose: 50 mls/hr Piperacillin Sod/Tazobactam (Sod 3.375 gm/ Sodium Chloride) 100 mls @ 25 mls/hr IVPB Q8H [facility]; Protocol Last Admin: 06/17/24 12:38 Dose: 25 mls/hr Insulin Aspart (Insulin Aspart (Novolog) 100 Unit/Ml Vial) 0 unit SQ Q6HR [facility]; Protocol Last Admin: 06/17/24 16:24 Dose: Not Given Lacosamide (Lacosamide Iv (Ages 17+ Yrs) 200 Mg/20 Ml Ml) 100 mg IVP BID [facility] Metoprolol Tartrate (Metoprolol Tartrate 50 Mg Tab) 50 mg PO Q8H [facility] Last Admin: 06/17/24 16:08 Dose: Not Given Miscellaneous Information (Potassium Replacement Protocol 1 Each Misc) 1 each MISCELLANE DAILY PRN; Protocol PRN Reason: Per Protocol Nystatin (Nystatin 100,000 Unit/Gm Powd 15 Gm) 1 applic TOPICAL TID [facility]; Protocol Last Admin: 06/17/24 16:14 Dose: 1 applic Pantoprazole Sodium (Pantoprazole 40 Mg Tablet) 40 mg PO -BRKT [facility] Pyridoxine HCl (Pyridoxine 50 Mg Tab) 50 mg PO DAILY [facility] Thiamine HCl (Thiamine 100 Mg/Ml 2 Ml Vial) 100 mg IVP BID [facility] Last Admin: 06/17/24 10:03 Dose: Not Given On examination: VITAL SIGNS: 98.7, 69, 17, 150 send 84, 96% on 3 L GENERAL APPEARANCE: BMI 60.6,, tired appearing hypophonic rosacea HEENT: Normal external appearance of nose and ear. Oral cavity dried with very thick secretions EYES: Pupils equal. Conjunctiva normal. NECK: JVD not raised. Mass not palpable. RESPIRATORY: Respiratory effort increased l. Decreased breath sound CARDIOVASCULAR: First and second sounds normal. No edema. ABDOMEN: Soft. Liver and spleen not palpable. No tenderness. No mass palpable. PSYCHIATRY: Hypophonic barely able to speak a word. Some improvement in limb movements. Dermatological: Scattered psoriatic rash. INVESTIGATIONS, reviewed in the clinical context: Angelito 12: White count 8.8 hemoglobin 14 sodium 142 creatinine 0.7 June 15: Sodium 139 potassium 3.6 BUN 18 creatinine 0.67 June 14: White count 8.8 hemoglobin 12.8 potassium 3.8 creatinine 0.83 June 13: White count 9.7 hemoglobin 13.2 potassium 3.6 creatinine 0.79. Sodium 139 June 12: White count 12.1 hemoglobin 13.6 platelets 201 sodium 144 potassium 3.7 creatinine 0.91 June 11: White count 15.6 hemoglobin 14.5 platelets 214 sodium 150 potassium 3.5 bicarb 42 BUN 54 creatinine 1.12 June 10: White count 15.7 hemoglobin 15.9 platelets 191 increased neutrophils. Decreased lymphocytes. Sodium 153 potassium 3.3 BUN 63 creatinine 1.6 CSF: RBC 13 nucleated cells 1 glucose 103 total protein 55 Doppler ultrasound lower extremity: Limited exam. Appears to be negative June 09: White count 16.9 hemoglobin 15.7 platelets 229 sodium 151 potassium 3.5 BUN 60 creatinine 1.61 Procalcitonin 0.08. Lactic acid 1.8. EKG: Metabolic abnormality. No seizure activity June 08: White count 9.4 hemoglobin 16.1 platelets 298 sodium 146 potassium 4.1 BUN 47 creatinine 1.25 bicarb 35 Modified barium swallow: Limited exam. Somewhat limited visualization. Symptoms of cough and negative response after swallow of thin liquids. Suspicion was some aspiration. Carotid Doppler: No significant stenosis CT brain without contrast: Unremarkable Chest x-ray film: Some venous prominence 2D echocardiogram: EF 55 to 60% Assessment and plan: -Patient 2 days prior to presentation became increasingly weak. Not able to get around the house. Speech became slow. Sister did report some weakness on the right side. Patient is only mumbling words.: Slow improvement Presentation is not compatible with CO2 retention. Differential: , metabolic encephalopathy/delirium from infection. Possibility of viral encephalitis. Stroke unlikely given that patient been having fevers. Though brainstem stroke to be a consideration. EEG-no seizure activity. MRI currently cannot be done because of respiratory status and patient's body habitus ID following. IV Zosyn -Right basal aspiration pneumonia IV Zosyn -Acute metabolic encephalopathy/delirium from sepsis: Slow improvement -NG tube feeding Vital HP. Free water. Dietitian following After discussion with the patient and patient's sister Carolynn. PEG tube ordered -Hypernatremia from diuresis: Resolved -Acute kidney injury likely ATN from sepsis and some fluid deficit: Resolved IV fluids. Follow renal function Lodine and Cozaar discontinued I's and O's -Feeding: High vital tube feed with free water For PEG tube placement today -Psoriasis with widespread rash -Obstructive sleep apnea with elevated CO2 but not retention or acidosis BiPAP was used here -Essential hypertension, Coreg -Sepsis, source unclear: Fevers resolved IV cefepime changed over to Zosyn. CSF unremarkable -Morbid obesity, with a BMI of 59.6 -Acute hypoxic respiratory failure could be related to her obesity hypoventilation and CHF and probable pneumonia: Improvement Had been on BiPAP. Now down to 3 L. -Acute on chronic congestive heart failure exacerbation. Patient was admitted to [facility] sometime ago and had required IV Lasix drip. Received IV Lasix. Now oral Lasix 40 mg twice daily -Chronic lumbar arthritis for which patient takes Lodine at home Lodine held because of renal function -Full code. -Patient's sister Carolynn Moon LOGAN Patient pending PEG tube placement today. Other medication she is a plan to continue. IV Zosyn per ID
[2024-06-17] MEDS: IV FLUID CONTINUATION 1,000 ML IV ONE (17:28)
--- NOTE | 2024-06-17 17:38 | P.PN ---
Progress Note - Text Progress Note Date: 06/17/24 Upon second look of the EEG she has highly suspicious of rare left central/parietal discharges but no seizure. I updated Carolynn (sister) and updated that will give her Vimpat and EEG will be performed tomorrow. Sister stated that in past her speech was slurred a few times but not to this presentation. Also in past one year she would stare off.
--- NOTE | 2024-06-17 17:47 | P.PCN ---
Date of Procedure: 06/17/24 Procedure(s) Performed: Brief history: Patient is a -54-year-old pleasant white female with speech abnormality and oropharyngeal dysphagia who for failed swallow evaluation is scheduled for an EGD with PEG tube placement today. Procedure performed: EGD with PEG tube placement Preoperative diagnosis: )ropharyngeal dysphagia Anesthesia General Procedure: After informed consent was obtained with the patient as well as the family the patient was brought into the endoscopy unit. IV conscious sedation was administered by anesthesia under continuous monitoring. The Olympus GF 160 video endoscope was inserted into the mouth and esophagus intubated without any difficulty and was gradually advanced to the stomach and duodenum. The bulb and second part of the duodenum was visualized which appeared normal. The scope at this time was withdrawn to the stomach adequately insufflated with air. Adequate transillumination was achieved onto the anterior abdominal wall. At the site of adequate transillumination and maximal finger indentation, on the anterior abdominal wall, this area was sterilely prepped and draped. One percent Xylocaine was infiltrated into the skin and a small incision was made. Trocar and cannula was passed through the incision into the stomach cavity. The trocar was removed. Guidewire was passed through the cannula into the stomach cavity which was held by the snare that was passed through the scope. The guidewire along with the scope was gently withdrawn from the stomach esophagus out of the mouth. A 20-[employer] PEG tube was passed over the guidewire and was gently advanced into the mouth and esophagus and stomach. With gentle traction the guidewire along with the PEG tube was pulled from the anterior abdominal wall until the internal bumper appeared to be in secure position. Repeat EGD was performed and the esophagus intubated without any difficulty and was advanced into the stomach. The internal bumper appeared to be in secure position. The visualized portions of the antrum body cardia and fundus of the stomach appeared normal. The esophagus was carefully examined as the scope was gradually being withdrawn which appeared normal. At this time external bumper was placed on the PEG tube closer to the anterior abdominal wall at 5 cm sampson. The patient tolerated the procedure well. Impression: Successful 20-[employer] PEG tube placement as described above. 1 cm small superficial antral ulcer Recommendations: Findings of this examination were discussed with the patient's family. The patient will be started on tube feeds tomorrow. Post-PEG tube orders were written.
[2024-06-17 19:02] LABS: Glucose,Whole Blood 127 mg/dL (70-110)
[2024-06-17] MEDS ORDERED: levETIRAcetam IV 500 MG/5 ML VIAL IVP SCH (21:00)
[2024-06-17] MEDS: Lacosamide IV (ages 17+ yrs) 200 MG/20 ML ML IVP SCH (22:34)
[2024-06-17 23:45] LABS: Glucose,Whole Blood 147 mg/dL (70-110)
[2024-06-18 06:14] LABS: Glucose,Whole Blood 127 mg/dL (70-110)
[2024-06-18] MEDS: PANTOPRAZOLE 40 MG TABLET PO SCH (06:44)
[2024-06-18] MEDS: PYRIDOXINE 50 MG TAB PO SCH (11:14)
[2024-06-18 11:36] LABS: Glucose,Whole Blood 147 mg/dL (70-110)
--- NOTE | 2024-06-18 12:12 | P.PN ---
Subjective Progress Note Date: 06/18/24 Principal diagnosis: PEG tube placement This is a 54-year-old female who was seen in the emergency department on 06/03/2024 with concerns of speech difficulties and some altered mental status changes. She has been admitted since that time and worked up by multiple consultants. She has a past medical history including heart failure, morbid obesity, and hypertension. Patient was admitted with suspected sepsis, pneumonia, and aphasia. She was in the ICU for quite some time and recently was transferred to the cardiac stepdown unit. Apparently patient has continued with difficulty swallowing as has failed her swallow eval. She has had a NG tube in place getting tube feedings. Gastroenterology was consulted for PEG tube placement. 06/18/2024 Patient was seen and examined today as a follow-up. She is status post EGD and PEG tube placement. She denies abdominal pain. She has had no nausea or vomiting. Objective - Vital Signs Vital signs: Vital Signs Temp 99 F 06/18/24 01:25 Pulse 77 06/18/24 01:25 Resp 20 06/18/24 01:25 BP 138/71 06/18/24 01:25 Pulse Ox 95 06/18/24 01:25 FiO2 40 06/17/24 18:35 Intake & Output 06/17/24 06/17/24 06/18/24 06:59 18:59 06:59 Intake Total 0 100 75 Output Total 2100 900 475 Balance -2100 -800 -400 Weight 152.492 kg 152.492 kg Intake: IV 100 75 Oral 0 Output: Urine 2100 900 475 Other: Voiding Method Indwelling Catheter Indwelling Catheter Indwelling Catheter # Bowel Movements 3 1 - Exam General appearance: The patient is alert, oriented, appears in no acute distress. HET: Head is normocephalic and atraumatic. Conjunctiva pink. Sclera anicteric. Neck: Supple without lymphadenopathy. Abdomen: Morbidly obese. Soft, nontender, nondistended. PEG tube in place. PEG tube loosened. Extremities: Normal skin color and turgor. No pedal edema Skin: No rashes, no jaundice Neurological: No focal deficits. Alert and oriented. - Labs CBC & Chem 7: 06/17/24 04:01 06/17/24 04:01 Labs: Abnormal Lab Results - Last 24 Hours (Table) 06/17/24 06/17/24 06/17/24 Range/Units 04:01 04:01 04:01 MCHC 31.3 L (32.0-37.0) g/dL RDW 14.6 H (11.5-14.5) % MPV 13.0 H (9.5-12.2) FL PT 12.0 H (9.9-11.9) sec Potassium 3.3 L (3.5-5.5) mmol/L Chloride 93 L (96-109) mmol/L Carbon Dioxide 36.3 H (21.6-31.8) mmol/L Anion Gap 12.70 H (4.00-12.00) mmol/L BUN/Creatinine Ratio 23.00 H (12.00-20.00) Ratio Glucose 134 H (70-110) mg/dL POC Glucose (mg/dL) (70-110) mg/dL 06/17/24 06/17/24 06/17/24 Range/Units 11:36 16:17 19:00 MCHC (32.0-37.0) g/dL RDW (11.5-14.5) % MPV (9.5-12.2) FL PT (9.9-11.9) sec Potassium (3.5-5.5) mmol/L Chloride (96-109) mmol/L Carbon Dioxide (21.6-31.8) mmol/L Anion Gap (4.00-12.00) mmol/L BUN/Creatinine Ratio (12.00-20.00) Ratio Glucose (70-110) mg/dL POC Glucose (mg/dL) 163 H 129 H 127 H (70-110) mg/dL 06/17/24 06/18/24 Range/Units 23:43 06:12 MCHC (32.0-37.0) g/dL RDW (11.5-14.5) % MPV (9.5-12.2) FL PT (9.9-11.9) sec Potassium (3.5-5.5) mmol/L Chloride (96-109) mmol/L Carbon Dioxide (21.6-31.8) mmol/L Anion Gap (4.00-12.00) mmol/L BUN/Creatinine Ratio (12.00-20.00) Ratio Glucose (70-110) mg/dL POC Glucose (mg/dL) 147 H 127 H (70-110) mg/dL Assessment and Plan (1) Dysphagia Narrative/Plan: 54-year-old female who had presented with speech difficulties and suspected CVA however brain CTs have been normal and patient is unable to fit in the MRI machine. She also had multiple other issues including pneumonia, leukocytosis, fever, and some altered mental status changes. Patient was seen by speech pathologist and has failed her swallow exam. Currently with NG tube for nutritional support. Patient is requiring PEG tube placement for nutrition. PEG tube placed for nutrition. PEG tube bumper loosened. May restart tube feedings. Current Visit: Yes Status: Acute Code(s): R13.10 - DYSPHAGIA, UNSPECIFIED SNOMED Code(s): 30382187 (2) Aphasia Current Visit: Yes Status: Acute Code(s): R47.01 - APHASIA SNOMED Code(s): 56754542 (3) Pneumonia Current Visit: Yes Status: Acute Code(s): J18.9 - PNEUMONIA, UNSPECIFIED ORGANISM SNOMED Code(s): 215764298 (4) Morbid obesity Current Visit: Yes Status: Acute Code(s): E66.01 - MORBID (SEVERE) OBESITY DUE TO EXCESS CALORIES SNOMED Code(s): 803779867 Plan: 1. Continue symptomatic and supportive care 2. May resume tube feedings per recommendations from dietitian 3. Keep peg tube site clean and dry 4. May resume Lovenox Thank you for this consultation, gastroenterology will sign off at this time. Dr. Garry Joyner I agree with the dictator's note, documented as a scribe by Natalie Rai.
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
--- NOTE | 2024-06-18 15:11 | P.PN ---
Subjective Progress Note Date: 06/18/24 Principal diagnosis: Reason for follow-up is fever Patient is a 54-year female with a past medical history significant for heart failure hypertension psoriasis dementia patient has been brought into the hospital for evaluation of speech problem and initially investigated for a stroke subsequently has developed a fever worsening respiratory status prompted this consultation. On today's evaluation that is 06/18/2024, the patient continues to be afebrile, the patient is on 3 L nasal oxygen and breathing comfortably, the Pt sleepy though arousable not a very good historian tube feeds have been started no vomiting or diarrhea reported. No new lab has been repeated today Objective - Vital Signs Vital signs: Vital Signs Temp 97.8 F 06/18/24 07:40 Pulse 86 06/18/24 07:40 Resp 18 06/18/24 07:40 BP 145/71 06/18/24 07:40 Pulse Ox 93 L 06/18/24 07:40 FiO2 40 06/17/24 18:35 Intake & Output 06/17/24 06/18/24 06/18/24 18:59 06:59 18:59 Intake Total 100 75 Output Total 900 475 Balance -800 -400 Weight 152.492 kg 152.492 kg 152.492 kg Intake: IV 100 75 Output: Urine 900 475 Other: Voiding Method Indwelling Catheter Indwelling Catheter Indwelling Catheter # Bowel Movements 1 - Exam GENERAL DESCRIPTION: Middle-age female lying in bed in no distress RESPIRATORY SYSTEM: Unlabored breathing , decreased intensity breath sounds at bases HEART: S1 S2 regular rate and rhythm , ABDOMEN: Soft , no tenderness EXTREMITIES: Swelling to the leg no significant redness - Labs CBC & Chem 7: 06/17/24 04:01 06/17/24 04:01 Labs: Abnormal Lab Results - Last 24 Hours (Table) 06/14/24 06/17/24 06/17/24 Range/Units 06:01 16:17 19:00 POC Glucose (mg/dL) 129 H 127 H (70-110) mg/dL Vitamin B1 142 H (38-122) ug/L 06/17/24 06/18/24 06/18/24 Range/Units 23:43 06:12 11:34 POC Glucose (mg/dL) 147 H 127 H 147 H (70-110) mg/dL Vitamin B1 (38-122) ug/L Assessment and Plan (1) Fever Current Visit: Yes Status: Acute Code(s): R50.9 - FEVER, UNSPECIFIED SNOMED Code(s): 759820406 (2) Aspiration pneumonia Current Visit: Yes Status: Acute Code(s): J69.0 - PNEUMONITIS DUE TO INHALATION OF FOOD AND VOMIT SNOMED Code(s): 058351066 (3) Allergy to sulfa drugs Current Visit: Yes Status: Acute Code(s): Z88.2 - ALLERGY STATUS TO S[place] AMIDES SNOMED Code(s): 60662676 (4) Leukocytosis Current Visit: Yes Status: Acute Code(s): D72.829 - ELEVATED WHITE BLOOD CELL COUNT, UNSPECIFIED SNOMED Code(s): 265913103 Plan: 1patient with a fever in this patient currently in the hospital for 5 days before admission this initial evaluation with initial presentation for follow-up with the speech and responsiveness and has been worked up for CVA with the last CT of the brain has been negative MRI could not be done because the patient could not stay still etiology of the fever could be multifactorial questionable central versus pulmonary question of aspiration initial workup has been negative with negative nasopharyngeal swab for COVID RSV and influenza UA is not significantly positive patient did have LP that was normal 2-patient is afebrile white count normalized, chest x-ray shows improvement did have a procalcitonin repeat of 0.13, discontinue Zosyn and will monitor the patient closely off antibiotic Dictation was produced using [employer] dictation software. please excuse any grammatical, word or spelling errors. Time with Patient: Less than 30
--- NOTE | 2024-06-18 16:42 | P.PN ---
Progress Note - Text Progress Note Date: 06/18/24 This is a visit 54 years old female with past medical history of hypertension She brought because of generalized weakness and she was found on the floor with slurred speech. Patient could not get up and noticed that she is old and peed on herself more than once. On presentation patient looks awake and understands but she mumbles only and she cannot talk. Patient is morbidly obese which limits her ability to move around. Patient is poor historian because of her aphasia however she can shake her head as yes or no Patient denies any pain When asking about shortness of breath she denies, no vomiting or diarrhea, she denies urinary complaint, she denies headache dizziness to me Patient also denies weakness or tingling Her labs looks normal like CBC, BMP and LFT and INR. Urinalysis negative proBNP is 250 Chest x-ray cardiomegaly with mild pulmonary vascular congestion CT of the brain showing no acute intracranial process EKG showing sinus rhythm at [address]-T changes 06/04 Patient still difficulty articulating her words, I discussed the case with the neurologist, there is low suspicion for stroke, however we are going to repeat CAT scan of the brain. MRI cannot for the patient as she is morbidly obese. Patient morbidly obese and have difficulty moving. Currently she is on 3 L oxygen via nasal cannula. Her legs like 1+ leg edema. Breath sounds are distant given her body habitus She has extensive rash noted to extremities and trunk related to her psoriasis. Swallow evaluation is ordered. 06/05 Patient was on BiPAP for respiratory difficulty. It was placed overnight, in the morning she continued to use the BiPAP. pH is normal, unlikely CO2 retent ion to close acidosis. Pulmonary team recommending BiPAP overnight Stroke is unlikely. Neurologist does not think this is a stroke. As patient does not have focal neurological deficit. Neurologist thinks her speech difficulty is due to show shortness of breath. ABG shows pCO2 but no acidosis which is unlikely to cause this degree of shortness of breath. However she has [address] of the brain after duplex negative. Neurologist will see the patient intermittently. Therefore we are going to lowered the dose from aspirin 325 mg down to 81 mg for prophylactic purposes. Will start trazodone. Tomorrow morning we will try to discontinue the BiPAP. Also will ask for PT/OT evaluation June 07, 2024: I resumed care of the patient today. Laying in bed. Awake. Only mumbles answers. Face is flushed. Scattered psoriatic rash. Patient did undergo videofluoroscopic swallow test.: Not a very good quality. Followed by speech therapist. Was NPO. I ordered the EEG. Neurology has ordered an MRI of the brain. Initial CT scan has been unremarkable. At this point as per pulmonary does not feel that is contributing to her presentation. Also consulted psychiatry for psychogenic/conversion disorder. Patient getting IV Lasix. Negative fluid balance. Dr. Senior from neurology started the patient on Keppra I spoke to patient's Sister Carolynn Moon on the phone: [phone].: Patient normally is rewriter chatterbox and speaks a lot. Even jokes. Patient sister was recently in the hospital for about 20 days and actually the patient herself had been helping her sister. Even she would take her sister came t to her appointments, with driving. She was slowly get around the house. Because she has weakness in the legs she has to sit down quite often. Patient offered I will not take her Lasix in the systolic to keep reminding her. Specially in the last 2 months. Few months ago patient was admitted to [facility] was put on a Lasix drip for congestive heart failure. 2 days prior to getting admitted patient's became less active. Finding it difficult to get up. No fevers reported. Patient does snore quite a bit. Patient also got chronic low back pain and takes medications for the same. Patient is a full code and sister would like patient to be transferred to [facility] where they have a larger MRI and was seen there before. I did inform sister came that patient's have been ordered an MRI here and EEG was ordered today. Patient does have a cat at home. I spoke earlier to the nurse. Total time spent today about 1 hour with over 35 minutes of discussion June 08, 2024: Patient remains lethargic. Was started on IV fluid yesterday evening. I spoke to radiology department today. A weight limit for our MRI is 400 pounds. But because of patient's respiratory status on the BiPAP she cannot have an MRI currently. I did speak to ID. Lumbar puncture has been ordered. Empirically has been put on IV Zosyn. EEG did not show any seizure activity. I did speak to patient's sister this morning. Did inform her about the further workup. As patient is becoming a bit alkalotic. Will DC IV Lasix. Continue with LR 75 cc an hour. June 09, 2024: Because of altered mentation patient was moved to the ICU. Worsening of renal function creatinine to 1.6. Will DC Lodine. DC Cozaar. Catapres patch was added for blood pressure. Antibiotics switched to IV cefepime. Patient remains lethargic. Discussed with neurology Dr. SENIOR. Given no seizure activity on the EEG will DC Keppra. Increase IV fluids to 125 cc an hour given hypernatremia. Lasix was discontinued yesterday. On BiPAP. Later this afternoon patient was intubated June 10: ICU. Patient remains on BiPAP. Creatinine remains at 1.6. D5W at 125 cc an hour. Remains empirically on cefepime. CSF has been negative. Question has been about viral encephalitis. Which will take his own course. Discussed with ID. I spoke to patient's family Dr. Manuel Cardona given update. I also called patient's Sister Carolynn on the phone given update. Patient also has delirium/encephalopathy from a clinical presentation of sepsis. CORRECTION: Patient was not intubated. On BiPAP yesterday. June 11: ICU. Patient seen this morning the ICU. Was on BiPAP. Interval send service will try high flow oxygen. Depending on oxygen status may consider MRI this afternoon. Slightly more responsive. No gross lethargic. Getting vital HP tube feeding through the NG tube. Ordered by lawn care technician and dietitian. Also getting water through the NG tube. Also getting D5W. Chest x- ray showing right basilar infiltrate. Possible aspiration. Per ID antibiotic changed to IV Zosyn. Patient CSF was negative. June 12: ICU. Was on nasal cannula for about 4 hours yesterday. 1 of patient's sisters at bedside. NG tube remains in place. Following commands. Hypophonic. Patient unable to fit into our MRI. Per neurology patient to be transferred to [facility] where the family wants her to go where she has had previous treatment. food preparation worker informed June 13: ICU. Poor oral hygiene. Spoke to nurse Andrea. Use ICU kit to clean out the mouth. Communicating slowly. Nurse Andrea informed that couple of hospitals could not confirm with patient if it is no the MRI. Awaiting to hear the same. Need for patient's transfer to be both MRI can fit the patient for higher level of care as we do not have a clear-cut diagnosis. No fever. IV Zosyn to continue. Patient on 6 L nasal cannula. Try to taper down oxygen. Decrease D5W to 50 cc an hour. Increase vital high-protein to 30 cc an hour. Via G-tube June 14: ICU. More awake. Oxygen requirement down to about 4 L. Saw the patient this afternoon. Still hypophonic. Spoke to nurse Hogan for further oral hygiene. Spoke to [facility] neurointensivist Dr. Haley. They did not feel the patient would have any benefit getting transferred there. In the meantime patient is being stepdown as later the oxygen requirement keep down to 3 L. Patient remains on IV Zosyn. June 15: Patient moved to the medical floor. On 3 L nasal cannula. Patient underwent flexible laryngoscopy by Dr. Busby from ENT. Except for secretions another cause locally and the vocal cord was found for the hypophonia. Patient had oral hygiene carried out. Seen by speech therapy. Failed swallow again. NG tube to continue for medications and feeding. We do not have vascular cause for the hypophonia. Also patient been rather weak. According to PT OT. Patient seen by PT OT. Spoke to nurse Rodriguez. Try to give update to [facility] received try to get the patient there to get a diagnosis and probably MRI that can be done. June 16: She remains to be hypophonic. A bit more awake. Still weak in the limbs. As patient not able to swallow I did talk to the patient and she is agreeable with the PEG tube. GI consulted. I also spoke to patient's sister came over the phone. I also spoke to Evie the high risk case manager this morning. Attempts to transfer to any hospital have all been exhausted. Nobody excepting the patient. I did inform the patient and sister came that down the road if patient speech improves maybe she can go back to oral feeding down the road. GI is planning for PEG tube tomorrow June 17: Saw the patient this morning. On nasal cannula. Later today patient due for a PEG tube. Still hypophonic. June 18: Remains on 3 L of nasal cannula. Just about able to move her limbs. Not really able to speak. The EEG was done by neurology. Dr. Senior inform me that she is putting her on Vimpat. Per high risk case manager patient may be going to [facility] [place]. Looking to get that tomorrow. Also spoke to dietitian regarding tube feeding. On examination: VITAL SIGNS: 98.7, 69, 17, 150 send 84, 96% on 3 L GENERAL APPEARANCE: BMI 60.6,, tired appearing hypophonic rosacea HEENT: Normal external appearance of nose and ear. Oral cavity dried with very thick secretions EYES: Pupils equal. Conjunctiva normal. NECK: JVD not raised. Mass not palpable. RESPIRATORY: Respiratory effort increased l. Decreased breath sound CARDIOVASCULAR: First and second sounds normal. No edema. ABDOMEN: Soft. Liver and spleen not palpable. No tenderness. No mass palpable. PSYCHIATRY: Hypophonic barely able to speak a word. Some improvement in limb movements. Dermatological: Scattered psoriatic rash. INVESTIGATIONS, reviewed in the clinical context: June 17: White count 8.8 hemoglobin 14 sodium 142 creatinine 0.7 June 15: Sodium 139 potassium 3.6 BUN 18 creatinine 0.67 June 14: White count 8.8 hemoglobin 12.8 potassium 3.8 creatinine 0.83 June 13: White count 9.7 hemoglobin 13.2 potassium 3.6 creatinine 0.79. Sodium 139 June 12: White count 12.1 hemoglobin 13.6 platelets 201 sodium 144 potassium 3.7 creatinine 0.91 June 11: White count 15.6 hemoglobin 14.5 platelets 214 sodium 150 potassium 3.5 bicarb 42 BUN 54 creatinine 1.12 June 10: White count 15.7 hemoglobin 15.9 platelets 191 increased neutrophils. Decreased lymphocytes. Sodium 153 potassium 3.3 BUN 63 creatinine 1.6 CSF: RBC 13 nucleated cells 1 glucose 103 total protein 55 Doppler ultrasound lower extremity: Limited exam. Appears to be negative June 09: White count 16.9 hemoglobin 15.7 platelets 229 sodium 151 potassium 3.5 BUN 60 creatinine 1.61 Procalcitonin 0.08. Lactic acid 1.8. EKG: Metabolic abnormality. No seizure activity June 08: White count 9.4 hemoglobin 16.1 platelets 298 sodium 146 potassium 4.1 BUN 47 creatinine 1.25 bicarb 35 Modified barium swallow: Limited exam. Somewhat limited visualization. Symptoms of cough and negative response after swallow of thin liquids. Suspicion was some aspiration. Carotid Doppler: No significant stenosis CT brain without contrast: Unremarkable Chest x-ray film: Some venous prominence 2D echocardiogram: EF 55 to 60% Assessment and plan: -Patient 2 days prior to presentation became increasingly weak. Not able to get around the house. Speech became slow. Sister did report some weakness on the right side. Patient is only mumbling words.: Slow improvement Presentation is not compatible with CO2 retention. Differential: , metabolic encephalopathy/delirium from infection. Possibility of viral encephalitis. Stroke unlikely given that patient been having fevers. Though brainstem stroke to be a consideration. EEG-no seizure activity. MRI currently cannot be done because of respiratory status and patient's body habitus ID following. IV Zosyn -Right basal aspiration pneumonia IV Zosyn -Acute metabolic encephalopathy/delirium from sepsis: Slow improvement -PEG tube feeding: Per dietitian started on vital AF 1.2 at 20 cc an hour. Increase at 10 cc an hour every 8 hours. Goal at 43 cc an hour. 50 mL of free water flush every 4 hours. -Hypernatremia from diuresis: Resolved -Possible seizure activity as per neurology. IV Vimpat started today -Acute kidney injury likely ATN from sepsis and some fluid deficit: Resolved IV fluids. Follow renal function Lodine and Cozaar discontinued I's and O's -Feeding: High vital tube feed with free water For PEG tube placement today -Psoriasis with widespread rash -Obstructive sleep apnea with elevated CO2 but not retention or acidosis BiPAP was used here -Essential hypertension, Coreg -Sepsis, source unclear: Fevers resolved IV cefepime changed over to Zosyn. CSF unremarkable -Morbid obesity, with a BMI of 59.6 -Acute hypoxic respiratory failure could be related to her obesity hypoventilation and CHF and probable pneumonia: Improvement Had been on BiPAP. Now down to 3 L. -Acute on chronic congestive heart failure exacerbation. Patient was admitted to [facility] sometime ago and had required IV Lasix drip. Received IV Lasix. Now oral Lasix 40 mg twice daily -Chronic lumbar arthritis for which patient takes Lodine at home Lodine held because of renal function -Full code. Discussed with sister Carolynn -Patient's sister Carolynn Simsregina FORD Tube feeding started per dietitian. Vital AF. Follow their instructions. IV Vimpat added by neurology. Looking at possible discharge tomorrow. Discussed with Sister Carolynn on the phone. Patient to be full code.
--- NOTE | 2024-06-18 18:03 | P.PN ---
Subjective Progress Note Date: 06/18/24 I am following-up with patient and she is about the same. No improvement in patient's condition. Objective - Vital Signs Vital signs: Vital Signs Temp 97.8 F 06/18/24 07:40 Pulse 86 06/18/24 07:40 Resp 18 06/18/24 07:40 BP 145/71 06/18/24 07:40 Pulse Ox 93 L 06/18/24 07:40 FiO2 40 06/17/24 18:35 Intake & Output 06/17/24 06/18/24 06/18/24 18:59 06:59 18:59 Intake Total 100 75 Output Total 900 475 940 Balance -800 -400 -940 Weight 152.492 kg 152.492 kg 152.492 kg Intake: IV 100 75 Output: Urine 900 475 940 2-way Urethral 940 Other: Voiding Method Indwelling Catheter Indwelling Catheter Indwelling Catheter # Bowel Movements 1 - Exam General: Lying in bed and does not appear in acute distress. HENT: Supple neck. Has NG tube Lung: Is on nasal canuli. Neuro: Limited. Patient is mildly drowsy and is awake able to voice. She is oriented to self place and time with option. She is following simple commands appropriately. She continues to be severely hypophonic. Motor the strength is hard to assess individual muscle strength because of her weakness but is able to have some antigravity movement upper extremity. - Labs CBC & Chem 7: 06/17/24 04:01 06/17/24 04:01 Labs: Abnormal Lab Results - Last 24 Hours (Table) 06/14/24 06/17/24 06/17/24 Range/Units 06:01 19:00 23:43 POC Glucose (mg/dL) 127 H 147 H (70-110) mg/dL Vitamin B1 142 H (38-122) ug/L 06/18/24 06/18/24 Range/Units 06:12 11:34 POC Glucose (mg/dL) 127 H 147 H (70-110) mg/dL Vitamin B1 (38-122) ug/L Assessment and Plan Assessment: Ms. Moon is a 54-year-old female who is morbidly obese. She has a history of congestive heart failure and may have been left in her bed for period of time. She was found to have urine and fecal incontinence. She has limited speech capability at this time; however, this may be due to her respiratory condition as she is straining to breathe and breathing very rapidly. She is able to mouth words and name as well as comprehend both simple and complex commands. Acute severe speech difficulty with confusion unknown exact etiology. Had three CT head which are negative for stroke but felt she had lacunar stroke over the thalamus/basal ganglia/external capsule which would not explain symptoms. Unsure if has small stroke not seen on MRI. CSF study is negative for bacterial meningoencephalitis. Had EEG and showed highly suspicious for rare left central/parietal discharges but no seizure and patient was placed on Keppra during this admission without improvement and yesterday placed on Vimpat without improvement. History of Two prior episodes of speech difficulty (prior to this hospital visit) per sister that would last 1-2 days with staring off episodes: Unsure exact etiology but could possible seizure Altered mental status with fever and leukocytosis: Unknown source of infection. Has component of metabolic encephalopathy. Patient presented on 06/03/2024 and had no fever until 06/06/2024. EEG: Is negative for seizure. CSF study is negative for meningoencephalitis. CSF nucleated cells are 1. Also component of pneumonia Vitamin B6 deficiency (level is 3 and normal is 5-50) Chronic hypoxic respiratory failure on oxygen Chronic compensated hyper Respiratory failure Hypertension Psoriasis Chronic diastolic heart failure. Edema Diabetes mellitus Morbid obesity History of heavy alcohol use. Plan: CSF viral panel: so far negative. Cannot have MRI since per tech cannot fit. Patient was rejected for transfer to a tertiary center according to the nurse. Pending acetylcholine receptor antibody as well as musk antibody to rule out any other causes for her severe hypophonia such as ?Myasthenia Gravis which I feel unlikely. Patient does not have any ptosis or complaints of diplopia. Initial EEG: Mild encephalopathy but no seizure or discharges. But on second review I felt she had highly suspicious rare left central/parietal discharges but no seizure. Preliminary repeat EEG today: Is abnormal. Mild to moderate encephalopathy. Has sharply contoured activity over bilateral central and diffuse that can cause cortical irritability but no seizure or clear epileptiform discharges. Yesterday patient was given Vimpat 200mg once then started on 100mg bid (high dose because of body weight). And no improvement in her condition. She was tried on Keppra during this admission but was confused so discontinued For her Vitamin B6 deficiency, I started her on Vitamin B6 50mg daily. Recommend within 4 weeks to get repeat level and will defer modification of medication to primary team I.D. team. is on board. Patient is on aspirin 81 mg daily and Lipitor. Psychiatry team is consulted Pulmonary team is consulted PT OT and GUIDANCE ADVISER are consulted Will defer the rest of the medical med to primary and other specialist Plan is discussed with patient's sister (Carolynn) in detailed and primary attending. Dr. Dunlap will resume neurology service tomorrow A.M. and Dr. Khan will resume this Friday A.M. Time with Patient: Less than 30
[2024-06-18 18:14] LABS: Glucose,Whole Blood 112 mg/dL (70-110)
[2024-06-18 20:15] LABS: Glucose,Whole Blood 129 mg/dL (70-110)
[2024-06-18] MEDS: LACOSAMIDE 50 MG TABLET PO SCH (21:55)
[2024-06-19 00:36] LABS: Glucose,Whole Blood 116 mg/dL (70-110)
--- NOTE | 2024-06-19 03:08 | EEG ---
ELECTROENCEPHALOGRAM REPORT CLINICAL HISTORY: This is a 54-year-old woman who continues to have altered mental status. The video EEG is obtained to evaluate for seizure epileptiform activity. RELEVANT MEDICATION: Vimpat. EEG TYPE: This is a routine 21-channel EEG with video using the 10/20 electrode placement system. DESCRIPTION: Wakefulness is only obtained. During awake state, the background consists of low-to- moderate voltage of 8 to 8.5 hertz activity that seems well modulated and well sustained. At times, the background consists of 5 to 6 hertz activity intermixed with delta activity. There was no physiological stage 2 sleep architecture. There is no focal slowing. INTERICTAL AND ICTAL: There is questionable sharply contoured activity followed by slow waves over the left and right central parietal region. At times, it seems generalized sharp. There is no clear epileptiform discharge or seizure on the EEG. ACTIVATION PROCEDURE: Photic stimulation did not evoke a posterior driving response. There is no abnormality during the photic stimulation. Hyperventilation is not performed. CLINICAL INTERPRETATION: This is not abnormal routine EEG. The background slowing is suggestive of mild to moderate encephalopathy. There is questionable sharply contoured activity over the bilateral central region and sometimes it seems generalized, but no clear epileptiform discharge or seizure on this EEG. Clinical correlation is recommended. MMODL / IJN: [id number] /
[2024-06-19 06:05] LABS: Glucose,Whole Blood 163 mg/dL (70-110)
[2024-06-19 09:28] LABS: Albumin 3.8 g/dL (3.8-4.9); BUN/Creat Ratio 22.86 Ratio (12.00-20.00); Calcium 9.8 mg/dL (8.7-10.3); Carbon Dioxide 33.2 mmol/L (21.6-31.8); Chloride 94 mmol/L (96-109); Glucose 168 mg/dL (70-110); Potassium 3.3 mmol/L (3.5-5.5); Sodium 142 mmol/L (135-145); Total Protein 6.6 g/dL (6.2-8.2)
[2024-06-19 09:29] LABS: ALT 61 U/L (8-44); AST 41 U/L (13-35); Albumin/Globulin Ratio 1.36 Ratio (1.60-3.17); Alkaline Phosphatase 64 U/L (41-126); Globulin 2.8 g/dL (1.6-3.3); Total Bilirubin 0.3 mg/dL (0.3-1.2)
[2024-06-19 09:41] LABS: Basophils # (A) 0.09 X 10*3/uL (0.00-0.10); Basophils % (A) 0.7 %; Eosinophils # (A) 0.49 X 10*3/uL (0.04-0.35); HCT 47.8 % (37.2-46.3); HGB 14.4 g/dL (12.0-15.0); Lymphocytes % (A) 8.9 %; MCH 27.5 pg (27.0-32.0); MCHC 30.1 g/dL (32.0-37.0); MCV 91.4 FL (80.0-97.0); Mean Platelet Volume 12.9 FL (9.5-12.2); Monocytes # (A) 0.78 X 10*3/uL (0.20-1.00); Monocytes % (A) 6.3 %; NRBC Per 100 WBC 0 X 10*3/uL (0.00-0.01); Neutrophils # (A) 9.74 X 10*3/uL (1.80-7.70); Platelet Count 257 X 10*3/uL (140-440); RBC 5.23 X 10*6/uL (4.10-5.20); RDW 14.7 % (11.5-14.5); WBC 12.33 X 10*3/uL (4.50-10.00)
[2024-06-19 12:07] LABS: Glucose,Whole Blood 143 mg/dL (70-110)
[2024-06-19] MEDS ORDERED: POTASSIUM CITRATE 5 MEQ TABLET.ER PO SCH (12:15)
--- NOTE | 2024-06-19 12:54 | P.PN ---
Subjective Progress Note Date: 06/19/24 The patient is a 54-year-old female who is seen in neurologic follow-up on June 19, 2024, in collaboration with Lynda Baron, via teleneurology. The patient's chart has been reviewed. The patient is unable to provide any further history at this time. Objective - Vital Signs Vital signs: Vital Signs Temp 98.5 F 06/19/24 07:21 Pulse 96 06/19/24 07:21 Resp 18 06/19/24 07:21 BP 168/81 06/19/24 07:21 Pulse Ox 92 L 06/19/24 07:21 FiO2 40 06/17/24 18:35 Intake & Output 06/18/24 06/19/24 06/19/24 18:59 06:59 18:59 Output Total 2140 750 Balance -2140 -750 Weight 152.492 kg Output: Urine 2140 750 2-way Urethral 940 Other: Voiding Method Indwelling Catheter Indwelling Catheter Indwelling Catheter - Exam General: Patient is reclining in the bed. She is in no acute distress. She is morbidly obese. The pillow behind the patient's head is stained with green. HEENT: Head is atraumatic, normocephalic. Fundus not visualized. There is no scleral icterus. Mucous membranes are moist. Neck: Posterior aspect of the patient's neck is erythematous and there is a wound, draining green liquid/pus Neurological examination Mental status: The patient is unable to speak. She attempts to say words however, only puffs of air come out. The patient is able to follow simple commands. She understands what is being said to her. Cranial nerves: Pupils are equal at 3 mm and reactive. Visual edwards are full to confrontation. Extraocular movements are intact. Facial sensation is intact. Smile is symmetric. The patient is able to raise her eyebrows. Eyelid closure is strong. Shoulder shrug is symmetric. The patient has difficulty protruding her tongue. Motor: The patient has markedly diminished strength throughout. Deep tendon reflexes: 3+/4+ in the bilateral upper extremities. Lower extremity reflexes are absent. Plantar responses flexor bilaterally. Sensation: Grossly intact to noxious stimulation. The patient does withdraw lower extremities from noxious stimulation. - Labs CBC & Chem 7: 06/19/24 03:10 06/19/24 03:10 Labs: Abnormal Lab Results - Last 24 Hours (Table) 06/18/24 06/18/24 06/18/24 Range/Units 11:34 18:12 20:13 WBC (4.50-10.00) X 10*3/uL RBC (4.10-5.20) X 10*6/uL Hct (37.2-46.3) % MCHC (32.0-37.0) g/dL RDW (11.5-14.5) % MPV (9.5-12.2) FL Immature Gran # (0.00-0.04) X 10*3/uL Neutrophils # (1.80-7.70) X 10*3/uL Eosinophils # (0.04-0.35) X 10*3/uL Potassium (3.5-5.5) mmol/L Chloride (96-109) mmol/L Carbon Dioxide (21.6-31.8) mmol/L Anion Gap (4.00-12.00) mmol/L BUN/Creatinine Ratio (12.00-20.00) Ratio Glucose (70-110) mg/dL POC Glucose (mg/dL) 147 H 112 H 129 H (70-110) mg/dL AST (13-35) U/L ALT (8-44) U/L C-Reactive Protein (0.00-0.80) mg/dL Albumin/Globulin Ratio (1.60-3.17) Ratio 06/19/24 06/19/24 06/19/24 Range/Units 00:29 03:10 03:10 WBC 12.33 H (4.50-10.00) X 10*3/uL RBC 5.23 H (4.10-5.20) X 10*6/uL Hct 47.8 H (37.2-46.3) % MCHC 30.1 L (32.0-37.0) g/dL RDW 14.7 H (11.5-14.5) % MPV 12.9 H (9.5-12.2) FL Immature Gran # 0.13 H (0.00-0.04) X 10*3/uL Neutrophils # 9.74 H (1.80-7.70) X 10*3/uL Eosinophils # 0.49 H (0.04-0.35) X 10*3/uL Potassium 3.3 L (3.5-5.5) mmol/L Chloride 94 L (96-109) mmol/L Carbon Dioxide 33.2 H (21.6-31.8) mmol/L Anion Gap 14.80 H (4.00-12.00) mmol/L BUN/Creatinine Ratio 22.86 H (12.00-20.00) Ratio Glucose 168 H (70-110) mg/dL POC Glucose (mg/dL) 116 H (70-110) mg/dL AST 41 H (13-35) U/L ALT 61 H (8-44) U/L C-Reactive Protein 2.50 H (0.00-0.80) mg/dL Albumin/Globulin Ratio 1.36 L (1.60-3.17) Ratio 06/19/24 Range/Units 06:03 WBC (4.50-10.00) X 10*3/uL RBC (4.10-5.20) X 10*6/uL Hct (37.2-46.3) % MCHC (32.0-37.0) g/dL RDW (11.5-14.5) % MPV (9.5-12.2) FL Immature Gran # (0.00-0.04) X 10*3/uL Neutrophils # (1.80-7.70) X 10*3/uL Eosinophils # (0.04-0.35) X 10*3/uL Potassium (3.5-5.5) mmol/L Chloride (96-109) mmol/L Carbon Dioxide (21.6-31.8) mmol/L Anion Gap (4.00-12.00) mmol/L BUN/Creatinine Ratio (12.00-20.00) Ratio Glucose (70-110) mg/dL POC Glucose (mg/dL) 163 H (70-110) mg/dL AST (13-35) U/L ALT (8-44) U/L C-Reactive Protein (0.00-0.80) mg/dL Albumin/Globulin Ratio (1.60-3.17) Ratio Assessment and Plan Assessment: 1. Acute severe speech difficulty with confusion unknown exact etiology. Had three CT head which are negative for stroke but felt she had lacunar stroke over the thalamus/basal ganglia/external capsule which would not explain symptoms. Unsure if has small stroke not seen on MRI. CSF study is negative for bacterial meningoencephalitis. Had EEG and showed highly suspicious for rare left central/parietal discharges but no seizure and patient was placed on Keppra during this admission without improvement and yesterday placed on Vimpat without improvement. 2. History of Two prior episodes of speech difficulty (prior to this hospital visit) per sister that would last 1-2 days with staring off episodes: Unsure exact etiology but could possible seizure 3. Altered mental status with fever and leukocytosis: Unknown source of infection. Has component of metabolic encephalopathy. Patient presented on 06/03/2024 and had no fever until 06/06/2024. EEG: Is negative for seizure. CSF study is negative for meningoencephalitis. CSF nucleated cells are 1. Also component of pneumonia 4. Vitamin B6 deficiency (level is 3 and normal is 5-50) 5. Chronic hypoxic respiratory failure on oxygen 6. Chronic compensated hyper Respiratory failure 7. Hypertension 8. Psoriasis 9. Chronic diastolic heart failure. Edema 10. Diabetes mellitus 11. Morbid obesity 12. History of heavy alcohol use Plan: 1. Pending acetylcholine receptor antibody as well as musk antibody to rule out any other causes for her severe hypophonia such as ?Myasthenia Gravis which I feel unlikely. Patient does not have any ptosis or complaints of diplopia. 2. Initial EEG: Mild encephalopathy but no seizure or discharges. But on second review I felt she had highly suspicious rare left central/parietal discharges but no seizure. 3. Preliminary repeat EEG today: Is abnormal. Mild to moderate encephalopathy. Has sharply contoured activity over bilateral central and diffuse that can cause cortical irritability but no seizure or clear epileptiform discharges. 4. Yesterday patient was given Vimpat 200mg once then started on 100mg bid (high dose because of body weight). And no improvement in her condition. 5. For her Vitamin B6 deficiency, I started her on Vitamin B6 50mg daily. Recommend within 4 weeks to get repeat level and will defer modification of medication to primary team 6. Patient is on aspirin 81 mg daily and Lipitor. 7. Psychiatry team is consulted 8. Pulmonary team is consulted 9. PT OT and [employer] are consulted 10. Will defer the rest of the medical med to primary and other specialist 11. ID or wound care to assess the patient's posterior neck Time with Patient: Greater than 30 (35 minutes were spent caring for this patient today including, obtaining history, examining the patient, reviewing imaging, chart documentation, labs, placing orders and creating this note)
--- NOTE | 2024-06-19 14:44 | P.PN ---
Subjective Progress Note Date: 06/19/24 Principal diagnosis: Reason for follow-up is fever Patient is a 54-year female with a past medical history significant for heart failure hypertension psoriasis dementia patient has been brought into the hospital for evaluation of speech problem and initially investigated for a stroke subsequently has developed a fever worsening respiratory status prompted this consultation. On today's evaluation that is 06/19/2024, patient did have a fever of 100.7 F at midnight afebrile this morning patient is currently on 2 L nasal cannula oxygen patient is awake but not a very good historian no vomiting or diarrhea has been reported. The patient white count is up to 12.33 creatinine 0.7 Objective - Vital Signs Vital signs: Vital Signs Temp 98.5 F 06/19/24 07:21 Pulse 96 06/19/24 07:21 Resp 18 06/19/24 07:21 BP 168/81 06/19/24 07:21 Pulse Ox 92 L 06/19/24 07:21 FiO2 40 06/17/24 18:35 Intake & Output 06/18/24 06/19/24 06/19/24 18:59 06:59 18:59 Output Total 2140 750 Balance -2140 -750 Weight 152.492 kg Output: Urine 2140 750 2-way Urethral 940 Other: Voiding Method Indwelling Catheter Indwelling Catheter Indwelling Catheter - Exam GENERAL DESCRIPTION: Middle-age female lying in bed in no distress RESPIRATORY SYSTEM: Unlabored breathing , decreased intensity breath sounds at bases HEART: S1 S2 regular rate and rhythm , ABDOMEN: Soft , no tenderness EXTREMITIES: Swelling to the leg no significant redness - Labs CBC & Chem 7: 06/19/24 03:10 06/19/24 03:10 Labs: Abnormal Lab Results - Last 24 Hours (Table) 06/18/24 06/18/24 06/19/24 Range/Units 18:12 20:13 00:29 WBC (4.50-10.00) X 10*3/uL RBC (4.10-5.20) X 10*6/uL Hct (37.2-46.3) % MCHC (32.0-37.0) g/dL RDW (11.5-14.5) % MPV (9.5-12.2) FL Immature Gran # (0.00-0.04) X 10*3/uL Neutrophils # (1.80-7.70) X 10*3/uL Eosinophils # (0.04-0.35) X 10*3/uL Potassium (3.5-5.5) mmol/L Chloride (96-109) mmol/L Carbon Dioxide (21.6-31.8) mmol/L Anion Gap (4.00-12.00) mmol/L BUN/Creatinine Ratio (12.00-20.00) Ratio Glucose (70-110) mg/dL POC Glucose (mg/dL) 112 H 129 H 116 H (70-110) mg/dL AST (13-35) U/L ALT (8-44) U/L C-Reactive Protein (0.00-0.80) mg/dL Albumin/Globulin Ratio (1.60-3.17) Ratio 06/19/24 06/19/24 06/19/24 Range/Units 03:10 03:10 06:03 WBC 12.33 H (4.50-10.00) X 10*3/uL RBC 5.23 H (4.10-5.20) X 10*6/uL Hct 47.8 H (37.2-46.3) % MCHC 30.1 L (32.0-37.0) g/dL RDW 14.7 H (11.5-14.5) % MPV 12.9 H (9.5-12.2) FL Immature Gran # 0.13 H (0.00-0.04) X 10*3/uL Neutrophils # 9.74 H (1.80-7.70) X 10*3/uL Eosinophils # 0.49 H (0.04-0.35) X 10*3/uL Potassium 3.3 L (3.5-5.5) mmol/L Chloride 94 L (96-109) mmol/L Carbon Dioxide 33.2 H (21.6-31.8) mmol/L Anion Gap 14.80 H (4.00-12.00) mmol/L BUN/Creatinine Ratio 22.86 H (12.00-20.00) Ratio Glucose 168 H (70-110) mg/dL POC Glucose (mg/dL) 163 H (70-110) mg/dL AST 41 H (13-35) U/L ALT 61 H (8-44) U/L C-Reactive Protein 2.50 H (0.00-0.80) mg/dL Albumin/Globulin Ratio 1.36 L (1.60-3.17) Ratio 06/19/24 Range/Units 12:06 WBC (4.50-10.00) X 10*3/uL RBC (4.10-5.20) X 10*6/uL Hct (37.2-46.3) % MCHC (32.0-37.0) g/dL RDW (11.5-14.5) % MPV (9.5-12.2) FL Immature Gran # (0.00-0.04) X 10*3/uL Neutrophils # (1.80-7.70) X 10*3/uL Eosinophils # (0.04-0.35) X 10*3/uL Potassium (3.5-5.5) mmol/L Chloride (96-109) mmol/L Carbon Dioxide (21.6-31.8) mmol/L Anion Gap (4.00-12.00) mmol/L BUN/Creatinine Ratio (12.00-20.00) Ratio Glucose (70-110) mg/dL POC Glucose (mg/dL) 143 H (70-110) mg/dL AST (13-35) U/L ALT (8-44) U/L C-Reactive Protein (0.00-0.80) mg/dL Albumin/Globulin Ratio (1.60-3.17) Ratio Assessment and Plan (1) Fever Current Visit: Yes Status: Acute Code(s): R50.9 - FEVER, UNSPECIFIED SNOMED Code(s): 457509697 (2) Aspiration pneumonia Current Visit: Yes Status: Acute Code(s): J69.0 - PNEUMONITIS DUE TO INHALATION OF FOOD AND VOMIT SNOMED Code(s): 474239552 (3) Allergy to sulfa drugs Current Visit: Yes Status: Acute Code(s): Z88.2 - ALLERGY STATUS TO SULFONAMIDES SNOMED Code(s): 29925292 (4) Leukocytosis Current Visit: Yes Status: Acute Code(s): D72.829 - ELEVATED WHITE BLOOD CELL COUNT, UNSPECIFIED SNOMED Code(s): 778196068 Plan: 1patient with a fever in this patient currently in the hospital for 5 days before admission this initial evaluation with initial presentation for follow-up with the speech and responsiveness and has been worked up for CVA with the last CT of the brain has been negative MRI could not be done because the patient could not stay still etiology of the fever could be multifactorial questionable central versus pulmonary question of aspiration initial workup has been negative with negative nasopharyngeal swab for COVID RSV and influenza UA is not significantly positive patient did have LP that was normal 2-did have a new fever and also white count is up to 12.3 after discontinuation of antibiotic we will start Augmentin down the PEG tube and watch her clinical course closely Dictation was produced using [employer] dictation software. please excuse any grammatical, word or spelling errors. Time with Patient: Less than 30
--- NOTE | 2024-06-19 15:09 | P.PN ---
Progress Note - Text Progress Note Date: 06/19/24 This is a visit 54 years old female with past medical history of hypertension She brought because of generalized weakness and she was found on the floor with slurred speech. Patient could not get up and noticed that she is old and peed on herself more than once. On presentation patient looks awake and understands but she mumbles only and she cannot talk. Patient is morbidly obese which limits her ability to move around. Patient is poor historian because of her aphasia however she can shake her head as yes or no Patient denies any pain When asking about shortness of breath she denies, no vomiting or diarrhea, she denies urinary complaint, she denies headache dizziness to me Patient also denies weakness or tingling Her labs looks normal like CBC, BMP and LFT and INR. Urinalysis negative proBNP is 250 Chest x-ray cardiomegaly with mild pulmonary vascular congestion CT of the brain showing no acute intracranial process EKG showing sinus rhythm at [address]-T changes 06/04 Patient still difficulty articulating her words, I discussed the case with the neurologist, there is low suspicion for stroke, however we are going to repeat CAT scan of the brain. MRI cannot for the patient as she is morbidly obese. Patient morbidly obese and have difficulty moving. Currently she is on 3 L oxygen via nasal cannula. Her legs like 1+ leg edema. Breath sounds are distant given her body habitus She has extensive rash noted to extremities and trunk related to her psoriasis. Swallow evaluation is ordered. 06/05 Patient was on BiPAP for respiratory difficulty. It was placed overnight, in the morning she continued to use the BiPAP. pH is normal, unlikely CO2 retent ion to close acidosis. Pulmonary team recommending BiPAP overnight Stroke is unlikely. Neurologist does not think this is a stroke. As patient does not have focal neurological deficit. Neurologist thinks her speech difficulty is due to show shortness of breath. ABG shows pCO2 but no acidosis which is unlikely to cause this degree of shortness of breath. However she has [address] of the brain after duplex negative. Neurologist will see the patient intermittently. Therefore we are going to lowered the dose from aspirin 325 mg down to 81 mg for prophylactic purposes. Will start trazodone. Tomorrow morning we will try to discontinue the BiPAP. Also will ask for PT/OT evaluation June 07, 2024: I resumed care of the patient today. Laying in bed. Awake. Only mumbles answers. Face is flushed. Scattered psoriatic rash. Patient did undergo videofluoroscopic swallow test.: Not a very good quality. Followed by speech therapist. Was NPO. I ordered the EEG. Neurology has ordered an MRI of the brain. Initial CT scan has been unremarkable. At this point as per pulmonary does not feel that is contributing to her presentation. Also consulted psychiatry for psychogenic/conversion disorder. Patient getting IV Lasix. Negative fluid balance. Dr. 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 Even jokes. Patient sister was recently in the hospital for about 20 days and actually the patient herself had been helping her sister. Even she would take her sister came t to her appointments, with driving. She was slowly get around the house. Because she has weakness in the legs she has to sit down quite often. Patient offered I will not take her Lasix in the systolic to keep reminding her. Specially in the last 2 months. Few months ago patient was admitted to [facility] was put on a Lasix drip for congestive heart failure. 2 days prior to getting admitted patient's became less active. Finding it difficult to get up. No fevers reported. Patient does snore quite a bit. Patient also got chronic low back pain and takes medications for the same. Patient is a full code and sister would like patient to be transferred to [facility] where they have a larger MRI and was seen there before. I did inform sister came that patient's have been ordered an MRI here and EEG was ordered today. Patient does have a cat at home. I spoke earlier to the nurse. Total time spent today about 1 hour with over 35 minutes of discussion June 08, 2024: Patient remains lethargic. Was started on IV fluid yesterday evening. I spoke to radiology department today. A weight limit for our MRI is 400 pounds. But because of patient's respiratory status on the BiPAP she cannot have an MRI currently. I did speak to ID. Lumbar puncture has been ordered. Empirically has been put on IV Zosyn. EEG did not show any seizure activity. I did speak to patient's sister this morning. Did inform her about the further workup. As patient is becoming a bit alkalotic. Will DC IV Lasix. Continue with LR 75 cc an hour. June 09, 2024: Because of altered mentation patient was moved to the ICU. Worsening of renal function creatinine to 1.6. Will DC Lodine. DC Cozaar. Catapres patch was added for blood pressure. Antibiotics switched to IV cefepime. Patient remains lethargic. Discussed with neurology Dr. SENIOR. Given no seizure activity on the EEG will DC Keppra. Increase IV fluids to 125 cc an hour given hypernatremia. Lasix was discontinued yesterday. On BiPAP. Later this afternoon patient was intubated June 10: ICU. Patient remains on BiPAP. Creatinine remains at 1.6. D5W at 125 cc an hour. Remains empirically on cefepime. CSF has been negative. Question has been about viral encephalitis. Which will take his own course. Discussed with ID. I spoke to patient's family Dr. Manuel Cardona given update. I also called patient's Sister Carolynn on the phone given update. Patient also has delirium/encephalopathy from a clinical presentation of sepsis. CORRECTION: Patient was not intubated. On BiPAP yesterday. June 11: ICU. Patient seen this morning the ICU. Was on BiPAP. Interval send service will try high flow oxygen. Depending on oxygen status may consider MRI this afternoon. Slightly more responsive. No gross lethargic. Getting vital HP tube feeding through the NG tube. Ordered by guide delegate and dietitian. Also getting water through the NG tube. Also getting D5W. Chest x- ray showing right basilar infiltrate. Possible aspiration. Per ID antibiotic changed to IV Zosyn. Patient CSF was negative. June 12: ICU. Was on nasal cannula for about 4 hours yesterday. 1 of patient's sisters at bedside. NG tube remains in place. Following commands. Hypophonic. Patient unable to fit into our MRI. Per neurology patient to be transferred to [facility] where the family wants her to go where she has had previous treatment. drug abuse social worker informed June 13: ICU. Poor oral hygiene. Spoke to nurse Andrea. Use ICU kit to clean out the mouth. Communicating slowly. Nurse Andrea informed that couple of hospitals could not confirm with patient if it is no the MRI. Awaiting to hear the same. Need for patient's transfer to be both MRI can fit the patient for higher level of care as we do not have a clear-cut diagnosis. No fever. IV Zosyn to continue. Patient on 6 L nasal cannula. Try to taper down oxygen. Decrease D5W to 50 cc an hour. Increase vital high-protein to 30 cc an hour. Via G-tube June 14: ICU. More awake. Oxygen requirement down to about 4 L. Saw the patient this afternoon. Still hypophonic. Spoke to nurse Hogan for further oral hygiene. Spoke to [facility] neurointensivist Dr. Haley. They did not feel the patient would have any benefit getting transferred there. In the meantime patient is being stepdown as later the oxygen requirement keep down to 3 L. Patient remains on IV Zosyn. June 15: Patient moved to the medical floor. On 3 L nasal cannula. Patient underwent flexible laryngoscopy by Dr. Busby from ENT. Except for secretions another cause locally and the vocal cord was found for the hypophonia. Patient had oral hygiene carried out. Seen by speech therapy. Failed swallow again. NG tube to continue for medications and feeding. We do not have vascular cause for the hypophonia. Also patient been rather weak. According to PT OT. Patient seen by PT OT. Spoke to nurse Rodriguez. Try to give update to [facility] received try to get the patient there to get a diagnosis and probably MRI that can be done. June 16: She remains to be hypophonic. A bit more awake. Still weak in the limbs. As patient not able to swallow I did talk to the patient and she is agreeable with the PEG tube. GI consulted. I also spoke to patient's sister came over the phone. I also spoke to Evie the watch case polisher this morning. Attempts to transfer to any hospital have all been exhausted. Nobody excepting the patient. I did inform the patient and sister came that down the road if patient speech improves maybe she can go back to oral feeding down the road. GI is planning for PEG tube tomorrow June 17: Saw the patient this morning. On nasal cannula. Later today patient due for a PEG tube. Still hypophonic. June 18: Remains on 3 L of nasal cannula. Just about able to move her limbs. Not really able to speak. The EEG was done by neurology. Dr. Senior inform me that she is putting her on Vimpat. Per watch case polisher patient may be going to [facility] [place]. Looking to get that tomorrow. Also spoke to dietitian regarding tube feeding. June 19: Patient is getting her tube feeding. No change in clinical status. Remains on Vimpat per neurology. Spoke to the nurse who spoke to rn social work. Patient not received authorization for rehab. Continue current treatment plan. Patient still not able to speak. Per ID switched over to Augmentin Active Medications Acetaminophen (Acetaminophen Tab 325 Mg Tab) 650 mg PO Q6HR PRN PRN Reason: Fever and/ or Pain Last Admin: 06/19/24 01:05 Dose: 650 mg Hydrocodone Bitart/Acetaminophen (Hydrocodone/Apap 5-325mg 1 Each Tab) 1 each PO Q6HR PRN PRN Reason: Moderate Pain (Scale 4 to 6) Last Admin: 06/18/24 21:54 Dose: 1 each Albuterol/Ipratropium (Ipratropium-Albuterol 3 Ml Neb) 3 ml INHALATION RT-QID PRN PRN Reason: Shortness Of Breath Or Wheezing Last Admin: 06/17/24 18:28 Dose: 3 ml Amoxicillin/Clavulanate Potassium (Amoxic-Pot Clav 875-125mg 1 Each Tab) 1 each PEG/G-TUBE Q12HR ABHAY; Protocol Aspirin (Aspirin 81 Mg) 81 mg PO DAILY ABHAY Last Admin: 06/19/24 08:29 Dose: 81 mg Atorvastatin Calcium (Atorvastatin 20 Mg Tab) 20 mg PO HS ABHAY Last Admin: 06/18/24 21:54 Dose: 20 mg Benzocaine (Benzocaine Nezperce 1 Can) 1 spray MUCOUS MEM QID PRN; Protocol PRN Reason: Mouth Irritation Betamethasone Dipropionate (Betamethasone Dipropionate 0.05% Cream 15 Gm Tube) 1 applic TOPICAL BID ABHAY; Protocol Last Admin: 06/19/24 08:47 Dose: 1 applic Carvedilol (Carvedilol 12.5 Mg Tab) 25 mg PO AC-BID ABHAY Last Admin: 06/19/24 08:29 Dose: 25 mg Dapagliflozin (Dapagliflozin Propanediol 5 Mg Tablet) 5 mg PO DAILY ABHAY Last Admin: 06/19/24 08:29 Dose: 5 mg Dextrose/Water (Dextrose 50% Syringe 50 Ml) 25 ml IVP PER PROTOCOL PRN; Protocol PRN Reason: Hypoglycemia Dextrose/Water (Dextrose 50% Syringe 50 Ml) 50 ml IVP PER PROTOCOL PRN; Protocol PRN Reason: Hypoglycemia Enoxaparin Sodium (Enoxaparin 40 Mg/0.4 Ml Syringe) 40 mg SQ DAILY [facility] Last Admin: 06/19/24 08:30 Dose: 40 mg Furosemide (Furosemide 40 Mg Tab) 40 mg PO BID@0900,1600 [facility] Last Admin: 06/19/24 08:30 Dose: 40 mg Hydralazine HCl (Hydralazine Hcl 20 Mg/Ml 1 Ml Vial) 10 mg IVP Q4HR PRN PRN Reason: Blood Pressure - High Last Admin: 06/04/24 19:47 Dose: 10 mg Dextrose/Water (Dextrose 5%-Water Iv Soln) 1,000 mls @ 50 mls/hr IV .Q20H [facility] Last Admin: 06/19/24 05:05 Dose: 50 mls/hr Insulin Aspart (Insulin Aspart (Novolog) 100 Unit/Ml Vial) 0 unit SQ Q6HR [facility]; Protocol Last Admin: 06/19/24 12:17 Dose: Not Given Lacosamide (Lacosamide 50 Mg Tablet) 100 mg PO BID [facility] Last Admin: 06/19/24 08:29 Dose: 100 mg Metoprolol Tartrate (Metoprolol Tartrate 50 Mg Tab) 50 mg PO Q8H [facility] Last Admin: 06/19/24 08:30 Dose: 50 mg Miscellaneous Information (Potassium Replacement Protocol 1 Each Misc) 1 each MISCELLANE DAILY PRN; Protocol PRN Reason: Per Protocol Nystatin (Nystatin 100,000 Unit/Gm Powd 15 Gm) 1 applic TOPICAL TID [facility]; Protocol Last Admin: 06/19/24 08:35 Dose: 1 applic Pantoprazole Sodium (Pantoprazole 40 Mg Tablet) 40 mg PO AC-BRKFST [facility] Last Admin: 06/19/24 08:30 Dose: 40 mg Pyridoxine HCl (Pyridoxine 50 Mg Tab) 50 mg PO DAILY [facility] Last Admin: 06/19/24 08:30 Dose: 50 mg Thiamine HCl (Thiamine 100 Mg/Ml 2 Ml Vial) 100 mg IVP BID [facility] Last Admin: 12/14/24 08:30 Dose: 100 mg On examination: VITAL SIGNS: 98.5, 96, 18, 1 68-81, 92% on room air GENERAL APPEARANCE: BMI 60.6,, tired appearing hypophonic rosacea HEENT: Normal external appearance of nose and ear. Oral cavity dried with very thick secretions EYES: Pupils equal. Conjunctiva normal. NECK: JVD not raised. Mass not palpable. RESPIRATORY: Respiratory effort increased l. Decreased breath sound CARDIOVASCULAR: First and second sounds normal. No edema. ABDOMEN: Soft. Liver and spleen not palpable. No tenderness. No mass palpable. PSYCHIATRY: Hypophonic not really able to speak any words. Dermatological: Scattered psoriatic rash. INVESTIGATIONS, reviewed in the clinical context: June 19: White count 12.3 hemoglobin 14.4 platelets 257 sodium 142 potassium 3.3 creatinine 0.7 June 17: White count 8.8 hemoglobin 14 sodium 142 creatinine 0.7 June 15: Sodium 139 potassium 3.6 BUN 18 creatinine 0.67 June 14: White count 8.8 hemoglobin 12.8 potassium 3.8 creatinine 0.83 June 13: White count 9.7 hemoglobin 13.2 potassium 3.6 creatinine 0.79. Sodium 139 June 12: White count 12.1 hemoglobin 13.6 platelets 201 sodium 144 potassium 3.7 creatinine 0.91 June 11: White count 15.6 hemoglobin 14.5 platelets 214 sodium 150 potassium 3.5 bicarb 42 BUN 54 creatinine 1.12 June 10: White count 15.7 hemoglobin 15.9 platelets 191 increased neutrophils. Decreased lymphocytes. Sodium 153 potassium 3.3 BUN 63 creatinine 1.6 CSF: RBC 13 nucleated cells 1 glucose 103 total protein 55 Doppler ultrasound lower extremity: Limited exam. Appears to be negative June 09: White count 16.9 hemoglobin 15.7 platelets 229 sodium 151 potassium 3.5 BUN 60 creatinine 1.61 Procalcitonin 0.08. Lactic acid 1.8. EKG: Metabolic abnormality. No seizure activity June 08: White count 9.4 hemoglobin 16.1 platelets 298 sodium 146 potassium 4.1 BUN 47 creatinine 1.25 bicarb 35 Modified barium swallow: Limited exam. Somewhat limited visualization. Symptoms of cough and negative response after swallow of thin liquids. Suspicion was some aspiration. Carotid Doppler: No significant stenosis CT brain without contrast: Unremarkable Chest x-ray film: Some venous prominence 2D echocardiogram: EF 55 to 60% Assessment and plan: -Patient 2 days prior to presentation became increasingly weak. Not able to get around the house. Speech became slow. Sister did report some weakness on the right side. Patient is only mumbling words.: Slow improvement Presentation is not compatible with CO2 retention. Differential: , metabolic encephalopathy/delirium from infection. Possibility of viral encephalitis. Stroke unlikely given that patient been having fevers. Though brainstem stroke to be a consideration. EEG-no seizure activity. MRI currently cannot be done because of respiratory status and patient's body habitus ID following. IV Zosyn-switch to Augmentin -Right basal aspiration pneumonia IV Zosyn-switched over to Augmentin -Acute metabolic encephalopathy/delirium from sepsis: Slow improvement -PEG tube feeding: Per dietitian started on vital AF 1.2 at 20 cc an hour. Increase at 10 cc an hour every 8 hours. Goal at 43 cc an hour. 50 mL of free water flush every 4 hours. -Hypernatremia from diuresis: Resolved -Possible seizure activity as per neurology. IV Vimpat started today -Acute kidney injury likely ATN from sepsis and some fluid deficit: Resolved IV fluids. Follow renal function Lodine and Cozaar discontinued I's and O's -Feeding: High vital tube feed with free water For PEG tube placement today -Psoriasis with widespread rash -Obstructive sleep apnea with elevated CO2 but not retention or acidosis BiPAP was used here -Essential hypertension, Coreg -Sepsis, source unclear: Fevers resolved IV cefepime changed over to Zosyn. CSF unremarkable -Morbid obesity, with a BMI of 59.6 -Acute hypoxic respiratory failure could be related to her obesity hypoventilation and CHF and probable pneumonia: Improvement Had been on BiPAP. Now down to 3 L. -Acute on chronic congestive heart failure exacerbation. Patient was admitted to [facility] sometime ago and had required IV Lasix drip. Received IV Lasix. Now oral Lasix 40 mg twice daily -Chronic lumbar arthritis for which patient takes Lodine at home Lodine held because of renal function -Full code. Discussed with sister Carolynn -Patient's sister Carolynn Moon POA Tube feeds as per dietitian. No transfer to ECF today. No authorization. Has been switched over to Augmentin.
[2024-06-19] MEDS: AMOXIC-POT CLAV 875-125MG 1 EACH TAB PEG/G-TUBE SCH (16:54)
[2024-06-19] MEDS: POTASSIUM BICARBONATE/CIT AC 20 MEQ TABLET.EFF PO ONE (16:54)
[2024-06-19 18:03] LABS: Glucose,Whole Blood 153 mg/dL (70-110)
[2024-06-19 21:06] LABS: Glucose,Whole Blood 169 mg/dL (70-110)
[2024-06-20 00:07] LABS: Glucose,Whole Blood 156 mg/dL (70-110)
[2024-06-20 06:46] LABS: Glucose,Whole Blood 172 mg/dL (70-110)
--- NOTE | 2024-06-20 10:36 | P.PN ---
Subjective Progress Note Date: 06/20/24 The patient is a 54-year-old female who is seen in neurologic follow-up on June 19, 2024, in collaboration with Lynda Baron, via teleneurology. The patient's chart has been reviewed. The patient is unable to provide any further history at this time. The patient is seen in neurologic follow-up on June 20, 2024, in collaboration with Lynda Baron, via teleneurology. I spoke at length with Dr. Mallory regarding patient's status. He has made multiple attempts to transfer the patient to a tertiary care facility, without success. Various diagnoses were discussed. The patient has had multiple tests, all of which have been negative. There is no indication of encephalitis. Seizure has been essentially ruled out. CT scan of the brain has shown no signs of infarct or hemorrhage. Objective - Vital Signs Vital signs: Vital Signs Temp 98.2 F 06/20/24 07:50 Pulse 83 06/20/24 07:50 Resp 15 06/20/24 07:50 BP 161/90 06/20/24 07:50 Pulse Ox 96 06/20/24 07:50 FiO2 40 06/17/24 18:35 Intake & Output 06/19/24 06/20/24 06/20/24 18:59 06:59 18:59 Other: Voiding Method Indwelling Catheter Indwelling Catheter # Bowel Movements 2 1 - Exam General: Patient is reclining in the bed. She is in no acute distress. She is morbidly obese. The pillow behind the patient's head is stained with green. HEENT: Head is atraumatic, normocephalic. Fundus not visualized. There is no scleral icterus. Mucous membranes are moist. Neurological examination Mental status: The patient is unable to speak, more than 1 or 2 words. She is able to state her name. She correctly nods or shakes her head no in response to questions. The patient is able to follow simple commands. She understands what is being said to her. Cranial nerves: Pupils are equal at 3 mm and reactive. Visual edwards are full to confrontation. Extraocular movements are intact. Facial sensation is intact. Smile is symmetric. The patient is able to raise her eyebrows. Eyelid closure is strong. Shoulder shrug is diminished on the left. The patient has difficulty protruding her tongue. Motor: The patient has markedly diminished strength throughout. Bilateral steel tester strength 3/5. The patient is able to raise her arms over her head briefly and lift her legs from the bed. - Labs CBC & Chem 7: 06/19/24 03:10 06/19/24 03:10 Labs: Abnormal Lab Results - Last 24 Hours (Table) 06/19/24 06/19/24 06/19/24 Range/Units 12:06 18:01 21:05 POC Glucose (mg/dL) 143 H 153 H 169 H (70-110) mg/dL 06/20/24 06/20/24 Range/Units 00:06 06:44 POC Glucose (mg/dL) 156 H 172 H (70-110) mg/dL Assessment and Plan Assessment: 1. Acute severe speech difficulty with confusion unknown exact etiology. Had three CT head which are negative for stroke but felt she had lacunar stroke over the thalamus/basal ganglia/external capsule which would not explain symptoms. Unsure if has small stroke not seen on head CT. CSF study is negative for bacterial meningoencephalitis. Had EEG and showed highly suspicious for rare left central/parietal discharges but no seizure and patient was placed on Keppra during this admission without improvement and yesterday placed on Vimpat without improvement. 2. History of Two prior episodes of speech difficulty (prior to this hospital visit) per sister that would last 1-2 days with staring off episodes: Unsure exact etiology but could possible seizure 3. Altered mental status with fever and leukocytosis: Unknown source of infection. Has component of metabolic encephalopathy. Patient presented on 06/03/2024 and had no fever until 06/06/2024. EEG: Is negative for seizure. CSF study is negative for meningoencephalitis. CSF nucleated cells are 1. Also component of pneumonia 4. Vitamin B6 deficiency (level is 3 and normal is 5-50) 5. Chronic hypoxic respiratory failure on oxygen 6. Chronic compensated hyper Respiratory failure 7. Hypertension 8. Psoriasis 9. Chronic diastolic heart failure. Edema 10. Diabetes mellitus 11. Morbid obesity 12. History of heavy alcohol use Plan: 1. Pending acetylcholine receptor antibody as well as musk antibody to rule out any other causes for her severe hypophonia such as ?Myasthenia Gravis which I feel unlikely. Patient does not have any ptosis or complaints of diplopia. 2. Initial EEG: Mild encephalopathy but no seizure or discharges. But on second review I felt she had highly suspicious rare left central/parietal discharges but no seizure. 3. Preliminary repeat EEG today: Is abnormal. Mild to moderate encephalopathy. Has sharply contoured activity over bilateral central and diffuse that can cause cortical irritability but no seizure or clear epileptiform discharges. 4. Yesterday patient was given Vimpat 200mg once then started on 100mg bid (high dose because of body weight). And no improvement in her condition. 5. For her Vitamin B6 deficiency, I started her on Vitamin B6 50mg daily. Recommend within 4 weeks to get repeat level and will defer modification of medication to primary team 6. Patient is on aspirin 81 mg daily and Lipitor. 7. PT OT and BASKET TURNER are consulted 8. Discussed transfer of patient, with Dr. Mallory to tertiary care facility, he has made multiple attempts already. The patient has been turned down by these hospitals. MRI is unable to be done at our facility because the patient is too large for the machine. Time with Patient: Greater than 30 (40 minutes were spent caring for this patient today including, obtaining a history, examining the patient, reviewing imaging, chart documentation, labs, placing orders and creating this note)
[2024-06-20 13:26] LABS: Glucose,Whole Blood 174 mg/dL (70-110)
--- NOTE | 2024-06-20 14:48 | P.PN ---
Subjective Progress Note Date: 06/20/24 Principal diagnosis: Reason for follow-up is fever Patient is a 54-year female with a past medical history significant for heart failure hypertension psoriasis dementia patient has been brought into the hospital for evaluation of speech problem and initially investigated for a stroke subsequently has developed a fever worsening respiratory status prompted this consultation. On today's evaluation that is 06/20/2024, Patient is afebrile today patient is currently on 2 L nasal cannula oxygen patient is more awake alert denies any chest pain or cough no vomiting diarrhea has been reported, No lab draw today Objective - Vital Signs Vital signs: Vital Signs Temp 98.2 F 06/20/24 07:50 Pulse 83 06/20/24 07:50 Resp 15 06/20/24 07:50 BP 161/90 06/20/24 07:50 Pulse Ox 96 06/20/24 07:50 FiO2 40 06/17/24 18:35 Intake & Output 06/19/24 06/20/24 06/20/24 18:59 06:59 18:59 Other: Voiding Method Indwelling Catheter Indwelling Catheter Indwelling Catheter # Bowel Movements 2 1 - Exam GENERAL DESCRIPTION: Middle-age female lying in bed in no distress RESPIRATORY SYSTEM: Unlabored breathing , decreased intensity breath sounds at bases HEART: S1 S2 regular rate and rhythm , ABDOMEN: Soft , no tenderness EXTREMITIES: Swelling to the leg no significant redness - Labs CBC & Chem 7: 06/19/24 03:10 06/19/24 03:10 Labs: Abnormal Lab Results - Last 24 Hours (Table) 06/19/24 06/19/24 06/20/24 Range/Units 18:01 21:05 00:06 POC Glucose (mg/dL) 153 H 169 H 156 H (70-110) mg/dL 06/20/24 06/20/24 Range/Units 06:44 13:24 POC Glucose (mg/dL) 172 H 174 H (70-110) mg/dL Assessment and Plan (1) Fever Current Visit: Yes Status: Acute Code(s): R50.9 - FEVER, UNSPECIFIED SNOMED Code(s): 458015277 (2) Aspiration pneumonia Current Visit: Yes Status: Acute Code(s): J69.0 - PNEUMONITIS DUE TO INHALATION OF FOOD AND VOMIT SNOMED Code(s): 986832002 (3) Allergy to sulfa drugs Current Visit: Yes Status: Acute Code(s): Z88.2 - ALLERGY STATUS TO SULFONAMIDES SNOMED Code(s): 60065247 (4) Leukocytosis Current Visit: Yes Status: Acute Code(s): D72.829 - ELEVATED WHITE BLOOD CELL COUNT, UNSPECIFIED SNOMED Code(s): 488378125 Plan: 1patient with a fever in this patient currently in the hospital for 5 days before admission this initial evaluation with initial presentation for follow-up with the speech and responsiveness and has been worked up for CVA with the last CT of the brain has been negative MRI could not be done because the patient could not stay still etiology of the fever could be multifactorial questionable central versus pulmonary question of aspiration initial workup has been negative with negative nasopharyngeal swab for COVID RSV and influenza UA is not significantly positive patient did have LP that was normal 2-did have a new fever and also white count is up to 12.3 as of yesterday the patient did have resolution of the fever no CBC was done today we will continue Augmentin down the PEG tube and monitor clinical course closely Dictation was produced using [employer] dictation software. please excuse any grammatical, word or spelling errors. Time with Patient: Less than 30
[2024-06-20 17:20] LABS: Glucose,Whole Blood 144 mg/dL (70-110)
--- NOTE | 2024-06-20 17:58 | P.PN ---
Progress Note - Text Progress Note Date: 06/20/24 This is a visit 54 years old female with past medical history of hypertension She brought because of generalized weakness and she was found on the floor with slurred speech. Patient could not get up and noticed that she is old and peed on herself more than once. On presentation patient looks awake and understands but she mumbles only and she cannot talk. Patient is morbidly obese which limits her ability to move around. Patient is poor historian because of her aphasia however she can shake her head as yes or no Patient denies any pain When asking about shortness of breath she denies, no vomiting or diarrhea, she denies urinary complaint, she denies headache dizziness to me Patient also denies weakness or tingling Her labs looks normal like CBC, BMP and LFT and INR. Urinalysis negative proBNP is 250 Chest x-ray cardiomegaly with mild pulmonary vascular congestion CT of the brain showing no acute intracranial process EKG showing sinus rhythm at [address]-T changes 06/04 Patient still difficulty articulating her words, I discussed the case with the neurologist, there is low suspicion for stroke, however we are going to repeat CAT scan of the brain. MRI cannot for the patient as she is morbidly obese. Patient morbidly obese and have difficulty moving. Currently she is on 3 L oxygen via nasal cannula. Her legs like 1+ leg edema. Breath sounds are distant given her body habitus She has extensive rash noted to extremities and trunk related to her psoriasis. Swallow evaluation is ordered. 06/05 Patient was on BiPAP for respiratory difficulty. It was placed overnight, in the morning she continued to use the BiPAP. pH is normal, unlikely CO2 retent ion to close acidosis. Pulmonary team recommending BiPAP overnight Stroke is unlikely. Neurologist does not think this is a stroke. As patient does not have focal neurological deficit. Neurologist thinks her speech difficulty is due to show shortness of breath. ABG shows pCO2 but no acidosis which is unlikely to cause this degree of shortness of breath. However she has [address] of the brain after duplex negative. Neurologist will see the patient intermittently. Therefore we are going to lowered the dose from aspirin 325 mg down to 81 mg for prophylactic purposes. Will start trazodone. Tomorrow morning we will try to discontinue the BiPAP. Also will ask for PT/OT evaluation June 07, 2024: I resumed care of the patient today. Laying in bed. Awake. Only mumbles answers. Face is flushed. Scattered psoriatic rash. Patient did undergo videofluoroscopic swallow test.: Not a very good quality. Followed by speech therapist. Was NPO. I ordered the EEG. Neurology has ordered an MRI of the brain. Initial CT scan has been unremarkable. At this point as per pulmonary does not feel that is contributing to her presentation. Also consulted psychiatry for psychogenic/conversion disorder. Patient getting IV Lasix. Negative fluid balance. Dr. 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 Even jokes. Patient sister was recently in the hospital for about 20 days and actually the patient herself had been helping her sister. Even she would take her sister came t to her appointments, with driving. She was slowly get around the house. Because she has weakness in the legs she has to sit down quite often. Patient offered I will not take her Lasix in the systolic to keep reminding her. Specially in the last 2 months. Few months ago patient was admitted to [facility] was put on a Lasix drip for congestive heart failure. 2 days prior to getting admitted patient's became less active. Finding it difficult to get up. No fevers reported. Patient does snore quite a bit. Patient also got chronic low back pain and takes medications for the same. Patient is a full code and sister would like patient to be transferred to [facility] where they have a larger MRI and was seen there before. I did inform sister came that patient's have been ordered an MRI here and EEG was ordered today. Patient does have a cat at home. I spoke earlier to the nurse. Total time spent today about 1 hour with over 35 minutes of discussion June 08, 2024: Patient remains lethargic. Was started on IV fluid yesterday evening. I spoke to radiology department today. A weight limit for our MRI is 400 pounds. But because of patient's respiratory status on the BiPAP she cannot have an MRI currently. I did speak to ID. Lumbar puncture has been ordered. Empirically has been put on IV Zosyn. EEG did not show any seizure activity. I did speak to patient's sister this morning. Did inform her about the further workup. As patient is becoming a bit alkalotic. Will DC IV Lasix. Continue with LR 75 cc an hour. June 09, 2024: Because of altered mentation patient was moved to the ICU. Worsening of renal function creatinine to 1.6. Will DC Lodine. DC Cozaar. Catapres patch was added for blood pressure. Antibiotics switched to IV cefepime. Patient remains lethargic. Discussed with neurology Dr. SENIOR. Given no seizure activity on the EEG will DC Keppra. Increase IV fluids to 125 cc an hour given hypernatremia. Lasix was discontinued yesterday. On BiPAP. Later this afternoon patient was intubated June 10: ICU. Patient remains on BiPAP. Creatinine remains at 1.6. D5W at 125 cc an hour. Remains empirically on cefepime. CSF has been negative. Question has been about viral encephalitis. Which will take his own course. Discussed with ID. I spoke to patient's family Dr. Manuel Cardona given update. I also called patient's Sister Carolynn on the phone given update. Patient also has delirium/encephalopathy from a clinical presentation of sepsis. CORRECTION: Patient was not intubated. On BiPAP yesterday. June 11: ICU. Patient seen this morning the ICU. Was on BiPAP. Interval send service will try high flow oxygen. Depending on oxygen status may consider MRI this afternoon. Slightly more responsive. No gross lethargic. Getting vital HP tube feeding through the NG tube. Ordered by editor school photograph and dietitian. Also getting water through the NG tube. Also getting D5W. Chest x- ray showing right basilar infiltrate. Possible aspiration. Per ID antibiotic changed to IV Zosyn. Patient CSF was negative. June 12: ICU. Was on nasal cannula for about 4 hours yesterday. 1 of patient's sisters at bedside. NG tube remains in place. Following commands. Hypophonic. Patient unable to fit into our MRI. Per neurology patient to be transferred to [facility] where the family wants her to go where she has had previous treatment. group worker informed June 13: ICU. Poor oral hygiene. Spoke to nurse Andrea. Use ICU kit to clean out the mouth. Communicating slowly. Nurse Andrea informed that couple of hospitals could not confirm with patient if it is no the MRI. Awaiting to hear the same. Need for patient's transfer to be both MRI can fit the patient for higher level of care as we do not have a clear-cut diagnosis. No fever. IV Zosyn to continue. Patient on 6 L nasal cannula. Try to taper down oxygen. Decrease D5W to 50 cc an hour. Increase vital high-protein to 30 cc an hour. Via G-tube June 14: ICU. More awake. Oxygen requirement down to about 4 L. Saw the patient this afternoon. Still hypophonic. Spoke to nurse Hogan for further oral hygiene. Spoke to [facility] neurointensivist Dr. Haley. They did not feel the patient would have any benefit getting transferred there. In the meantime patient is being stepdown as later the oxygen requirement keep down to 3 L. Patient remains on IV Zosyn. June 15: Patient moved to the medical floor. On 3 L nasal cannula. Patient underwent flexible laryngoscopy by Dr. Busby from ENT. Except for secretions another cause locally and the vocal cord was found for the hypophonia. Patient had oral hygiene carried out. Seen by speech therapy. Failed swallow again. NG tube to continue for medications and feeding. We do not have vascular cause for the hypophonia. Also patient been rather weak. According to PT OT. Patient seen by PT OT. Spoke to nurse Rodriguez. Try to give update to [facility] received try to get the patient there to get a diagnosis and probably MRI that can be done. June 16: She remains to be hypophonic. A bit more awake. Still weak in the limbs. As patient not able to swallow I did talk to the patient and she is agreeable with the PEG tube. GI consulted. I also spoke to patient's sister came over the phone. I also spoke to Evie the case technician this morning. Attempts to transfer to any hospital have all been exhausted. Nobody excepting the patient. I did inform the patient and sister came that down the road if patient speech improves maybe she can go back to oral feeding down the road. GI is planning for PEG tube tomorrow June 17: Saw the patient this morning. On nasal cannula. Later today patient due for a PEG tube. Still hypophonic. June 18: Remains on 3 L of nasal cannula. Just about able to move her limbs. Not really able to speak. The EEG was done by neurology. Dr. Senior inform me that she is putting her on Vimpat. Per case technician patient may be going to [facility] [place]. Looking to get that tomorrow. Also spoke to dietitian regarding tube feeding. June 19: Patient is getting her tube feeding. No change in clinical status. Remains on Vimpat per neurology. Spoke to the nurse who spoke to social sciences department chair. Patient not received authorization for rehab. Continue current treatment plan. Patient still not able to speak. Per ID switched over to Augmentin June 20: Dr. Zachery Dunlap the weekend neurologist called me this morning. Case was discussed at length. I did inform her that per social sciences department chair there was no place excepting her. Hoping for transfer to rehab tomorrow. Dr. Urbano did review patient's EEG again. Sharply contoured activity over bilateral central and diffuse that can cause cortical irritability but no seizure or clear OptiForm discharges. Patient did receive Vimpat. This been no improvement in her condition. We did discuss about possibly discontinuing the same. Will discuss further with neurology tomorrow. Tube feedings in place. Active Medications Acetaminophen (Acetaminophen Tab 325 Mg Tab) 650 mg PO Q6HR PRN PRN Reason: Fever and/ or Pain Last Admin: 06/19/24 01:05 Dose: 650 mg Hydrocodone Bitart/Acetaminophen (Hydrocodone/Apap 5-325mg 1 Each Tab) 1 each PO Q6HR PRN PRN Reason: Moderate Pain (Scale 4 to 6) Last Admin: 06/20/24 00:49 Dose: 1 each Albuterol/Ipratropium (Ipratropium-Albuterol 3 Ml Neb) 3 ml INHALATION RT-QID PRN PRN Reason: Shortness Of Breath Or Wheezing Last Admin: 06/17/24 18:28 Dose: 3 ml Amoxicillin/Clavulanate Potassium (Amoxic-Pot Clav 875-125mg 1 Each Tab) 1 each PEG/G-TUBE Q12HR [facility]; Protocol Last Admin: 06/20/24 08:26 Dose: 1 each Aspirin (Aspirin 81 Mg) 81 mg PO DAILY [facility] Last Admin: 06/20/24 08:26 Dose: 81 mg Atorvastatin Calcium (Atorvastatin 20 Mg Tab) 20 mg PO HS [facility]AY Last Admin: 12/14/24 22:11 Dose: 20 mg Benzocaine (Benzocaine [place] 1 Can) 1 spray MUCOUS MEM QID PRN; Protocol PRN Reason: Mouth Irritation Betamethasone Dipropionate (Betamethasone Dipropionate 0.05% Cream 15 Gm Tube) 1 applic TOPICAL BID [facility]; Protocol Last Admin: 06/20/24 08:32 Dose: 1 applic Carvedilol (Carvedilol 12.5 Mg Tab) 25 mg PO AC-BID [facility] Last Admin: 06/20/24 17:33 Dose: 25 mg Dapagliflozin (Dapagliflozin Propanediol 5 Mg Tablet) 5 mg PO DAILY [facility] Last Admin: 06/20/24 08:27 Dose: 5 mg Dextrose/Water (Dextrose 50% Syringe 50 Ml) 25 ml IVP PER PROTOCOL PRN; Protocol PRN Reason: Hypoglycemia Dextrose/Water (Dextrose 50% Syringe 50 Ml) 50 ml IVP PER PROTOCOL PRN; Protocol PRN Reason: Hypoglycemia Enoxaparin Sodium (Enoxaparin 40 Mg/0.4 Ml Syringe) 40 mg SQ DAILY [facility] Last Admin: 06/20/24 08:26 Dose: 40 mg Furosemide (Furosemide 40 Mg Tab) 40 mg PO BID@0900,1600 [facility] Last Admin: 06/20/24 17:33 Dose: 40 mg Hydralazine HCl (Hydralazine Hcl 20 Mg/Ml 1 Ml Vial) 10 mg IVP Q4HR PRN PRN Reason: Blood Pressure - High Last Admin: 06/04/24 19:47 Dose: 10 mg Dextrose/Water (Dextrose 5%-Water Iv Soln) 1,000 mls @ 50 mls/hr IV .Q20H [facility] Last Admin: 06/20/24 17:34 Dose: 50 mls/hr Insulin Aspart (Insulin Aspart (Novolog) 100 Unit/Ml Vial) 0 unit SQ Q6HR [facility]; Protocol Last Admin: 06/20/24 17:34 Dose: Not Given Lacosamide (Lacosamide 50 Mg Tablet) 100 mg PO BID [facility] Last Admin: 06/20/24 08:26 Dose: 100 mg Metoprolol Tartrate (Metoprolol Tartrate 50 Mg Tab) 50 mg PO Q8H [facility] Last Admin: 06/20/24 17:33 Dose: 50 mg Miscellaneous Information (Potassium Replacement Protocol 1 Each Misc) 1 each MISCELLANE DAILY PRN; Protocol PRN Reason: Per Protocol Nystatin (Nystatin 100,000 Unit/Gm Powd 15 Gm) 1 applic TOPICAL TID [facility]; Protocol Last Admin: 06/20/24 17:33 Dose: 1 applic Pantoprazole Sodium (Pantoprazole 40 Mg Tablet) 40 mg PO AC-BRKFST [facility] Last Admin: 06/20/24 08:26 Dose: 40 mg Pyridoxine HCl (Pyridoxine 50 Mg Tab) 50 mg PO DAILY [facility] Last Admin: 06/20/24 08:26 Dose: 50 mg Thiamine HCl (Thiamine 100 Mg/Ml 2 Ml Vial) 100 mg IVP BID [facility] Last Admin: 06/20/24 08:26 Dose: 100 mg On examination: VITAL SIGNS: 98, 81, 17, 143 x 89, 92% on 2 L GENERAL APPEARANCE: BMI 60.6,, tired rosacea HEENT: Normal external appearance of nose and ear. Oral cavity dried with very thick secretions EYES: Pupils equal. Conjunctiva normal. NECK: JVD not raised. Mass not palpable. RESPIRATORY: Respiratory effort increased l. Decreased breath sound CARDIOVASCULAR: First and second sounds normal. No edema. ABDOMEN: Soft. Liver and spleen not palpable. No tenderness. No mass palpable. PSYCHIATRY: Hypophonic not really able to speak any words. Dermatological: Scattered psoriatic rash. NEUROLOGICAL: Slight movement in all 4 limbs. Not really able to speak. Only makes little bit of sound INVESTIGATIONS, reviewed in the clinical context: June 19: White count 12.3 hemoglobin 14.4 platelets 257 sodium 142 potassium 3.3 creatinine 0.7 June 10: White count 15.7 hemoglobin 15.9 platelets 191 increased neutrophils. Decreased lymphocytes. Sodium 153 potassium 3.3 BUN 63 creatinine 1.6 CSF: RBC 13 nucleated cells 1 glucose 103 total protein 55 Doppler ultrasound lower extremity: Limited exam. Appears to be negative June 09: White count 16.9 hemoglobin 15.7 platelets 229 sodium 151 potassium 3.5 BUN 60 creatinine 1.61 Procalcitonin 0.08. Lactic acid 1.8. EKG: Metabolic abnormality. No seizure activity June 08: White count 9.4 hemoglobin 16.1 platelets 298 sodium 146 potassium 4.1 BUN 47 creatinine 1.25 bicarb 35 Modified barium swallow: Limited exam. Somewhat limited visualization. Symptoms of cough and negative response after swallow of thin liquids. Suspicion was some aspiration. Carotid Doppler: No significant stenosis CT brain without contrast: Unremarkable Chest x-ray film: Some venous prominence 2D echocardiogram: EF 55 to 60% Assessment and plan: -Patient 2 days prior to presentation became increasingly weak. Not able to get around the house. Speech became slow. Sister did report some weakness on the right side. Patient is only mumbling words.: Slow improvement Presentation is not compatible with CO2 retention. Differential: , metabolic encephalopathy/delirium from infection. Possibility of viral encephalitis. Stroke unlikely given that patient been having fevers. Though brainstem stroke to be a consideration. EEG-no seizure activity. MRI currently cannot be done because of respiratory status and patient's body habitus ID following. IV Zosyn-switch to Augmentin -Right basal aspiration pneumonia IV Zosyn-switched over to Augmentin -Acute metabolic encephalopathy/delirium from sepsis: Slow improvement -PEG tube feeding: Per dietitian started on vital AF 1.2 at 20 cc an hour. Increase at 10 cc an hour every 8 hours. Goal at 43 cc an hour. 50 mL of free water flush every 4 hours. -Hypernatremia from diuresis: Resolved -Questionable seizure activity as per neurology. [Sharply contoured activity over bilateral central and diffuse that can cause cortical irritability but no seizure or clear OptiForm discharges.] Vimpat started on June 19 -Acute kidney injury likely ATN from sepsis and some fluid deficit: Resolved IV fluids. Follow renal function Lodine and Cozaar discontinued I's and O's -Feeding: High vital tube feed with free water For PEG tube placement today -Psoriasis with widespread rash -Obstructive sleep apnea with elevated CO2 but not retention or acidosis BiPAP was used here -Essential hypertension, Coreg -Sepsis, source unclear: Fevers resolved IV cefepime changed over to Zosyn. CSF unremarkable -Morbid obesity, with a BMI of 59.6 -Acute hypoxic respiratory failure could be related to her obesity hypoventilation and CHF and probable pneumonia: Improvement Had been on BiPAP. Now down to 3 L. -Acute on chronic congestive heart failure exacerbation. Patient was admitted to [facility] sometime ago and had required IV Lasix drip. Received IV Lasix. Now oral Lasix 40 mg twice daily -Chronic lumbar arthritis for which patient takes Lodine at home Lodine held because of renal function -Full code. Discussed with sister Carolynn -Patient's sister Carolynn Moon LOGAN Continue current treatment plan. Discussed with Dr. Dunlap from neurology. If no improvement from when in fact should consider stopping the same. Looking for rehab.
[2024-06-20 23:44] LABS: Glucose,Whole Blood 152 mg/dL (70-110)
[2024-06-21 06:54] LABS: Glucose,Whole Blood 160 mg/dL (70-110)
[2024-06-21] MEDS: NYSTATIN 100,000 UNIT/GM POWD 15 GM TOPICAL SCH (06:54)
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
[2024-06-21 11:34] LABS: Glucose,Whole Blood 184 mg/dL (70-110)
--- NOTE | 2024-06-21 16:26 | P.PN ---
Subjective Progress Note Date: 06/21/24 On 06/21/2024, the patient has no major respiratory difficulties. She continues to have generalized weakness and ongoing speech deficit. The patient is working with physical therapy. The patient is currently afebrile with a pulse ox of 99% on 5 L of oxygen by nasal cannula and there is no apparent respiratory distress. The patient remains on DuoNeb nebulized treatments [id number]. The patient is on Lovenox 40 mg subcu for DVT prophylaxis. The patient remains on aspirin 81 mg p.o. daily. Rest of the medications are unchanged. She is on Lasix 40 mg p.o. twice a day. Noted the most recent CAT scan of the brain that was done on 06/11/2024 showed no acute intracranial process and the most recent chest x-ray from 06/14/2024 showed borderline cardiomegaly. Objective - Vital Signs Vital signs: Vital Signs Temp 98.0 F 06/21/24 07:38 Pulse 85 06/21/24 09:15 Resp 18 06/21/24 09:15 BP 155/92 06/21/24 07:38 Pulse Ox 94 L 06/21/24 07:38 FiO2 40 06/17/24 18:35 Intake & Output 06/20/24 06/21/24 06/21/24 18:59 06:59 18:59 Output Total 800 750 Balance -800 -750 Weight 157.6 kg Output: Urine 800 750 Other: Voiding Method Indwelling Catheter Indwelling Catheter Indwelling Catheter # Bowel Movements 1 - Exam The patient appeared well nourished and normally developed. The patient is morbidly obese with a BMI of 68.3. She is off the BiPAP on 5 L O2 nasal cannula.. No signs of any significant respiratory distress. She does have evidence of psoriasis covering the entire body. Head exam is unremarkable. No scleral icterus or corneal arcus noted. Neck is without jugular venous distension, thyromegaly, or carotid bruits. Carotid upstrokes are brisk bilaterally. Crowding of posterior pharynx with a Mallampati class IV Lungs are clear to auscultation and percussion. Cardiac exam reveals the PMI to be normally sized and situated. Rhythm is regular. First and second heart sounds normal. No murmurs, rubs or gallops. Abdominal exam reveals normal bowel sounds, no masses, no organomegaly and no aortic enlargement. Extremities are dematous and both femoral and pedal pulses are normal. Examination of the skin revealed no evidence of significant rashes, suspicious appearing nevi or other concerning lesions. Neurologically, the patient is unable to speak. She mumbles few sounds. She does comprehend and she is following simple commands. The cranial nerves are intact. Pupils are equal reactive to light. Reflexes are +1 in the upper and lower extremities and the plantars are somewhat upgoing. Generalized weakness in all 4 extremities. Neurologic exam is nonfocal. Examination of the skin consistent with extensive psoriatic lesions throughout the body upper and lower extremities. - Labs CBC & Chem 7: 06/19/24 03:10 06/19/24 03:10 Labs: Abnormal Lab Results - Last 24 Hours (Table) 06/20/24 06/20/24 06/20/24 Range/Units 13:24 17:18 23:42 POC Glucose (mg/dL) 174 H 144 H 152 H (70-110) mg/dL 06/21/24 Range/Units 06:52 POC Glucose (mg/dL) 160 H (70-110) mg/dL Assessment and Plan Plan: Aphasia with slurred speech, rule out acute stroke. Patient is status post lumbar puncture mostly because of her mental status change and fever. Cultures revealed no growth. Unable to obtain a MRI of the brain due to the patient's size. Declined at tertiary care facility due to not needing higher level of care. Required PEG tube placement on 06/17/2024 Dysphagia, currently has a PEG tube with enteral feeding and additional support and the patient is on vital high-protein at rate of 43 cc an hour Psoriasis with widespread rash Acute on chronic hypoxic respiratory failure Chronic hypercapnic respiratory failure likely secondary to COPD and possibly component of obesity hypoventilation syndrome Acquired pneumonia or aspiration pneumonia considering her overall clinical condition. Patient is completing a course of Augmentin. Obstructive sleep apnea Hypertension, currently better controlled Morbid obesity Mild pulmonary edema, responded well to diuretics Chronic diastolic heart failure Plan: Stable and on 5L nasal cannula Titrate oxygen flow to maintain saturation above 90% PEG tube placed for nutritional support Continue aspirin BiPAP overnight Plan is for subacute rehab Neurologist on the case.
[2024-06-21 16:44] VITALS: BMI 65.6
[2024-06-21 18:32] LABS: Glucose,Whole Blood 148 mg/dL (70-110)
--- NOTE | 2024-06-21 20:11 | P.PN ---
Progress Note - Text Progress Note Date: 06/21/24 This is a visit 54 years old female with past medical history of hypertension She brought because of generalized weakness and she was found on the floor with slurred speech. Patient could not get up and noticed that she is old and peed on herself more than once. On presentation patient looks awake and understands but she mumbles only and she cannot talk. Patient is morbidly obese which limits her ability to move around. Patient is poor historian because of her aphasia however she can shake her head as yes or no Patient denies any pain When asking about shortness of breath she denies, no vomiting or diarrhea, she denies urinary complaint, she denies headache dizziness to me Patient also denies weakness or tingling Her labs looks normal like CBC, BMP and LFT and INR. Urinalysis negative proBNP is 250 Chest x-ray cardiomegaly with mild pulmonary vascular congestion CT of the brain showing no acute intracranial process EKG showing sinus rhythm at [address]-T changes 06/04 Patient still difficulty articulating her words, I discussed the case with the neurologist, there is low suspicion for stroke, however we are going to repeat CAT scan of the brain. MRI cannot for the patient as she is morbidly obese. Patient morbidly obese and have difficulty moving. Currently she is on 3 L oxygen via nasal cannula. Her legs like 1+ leg edema. Breath sounds are distant given her body habitus She has extensive rash noted to extremities and trunk related to her psoriasis. Swallow evaluation is ordered. 06/05 Patient was on BiPAP for respiratory difficulty. It was placed overnight, in the morning she continued to use the BiPAP. pH is normal, unlikely CO2 retent ion to close acidosis. Pulmonary team recommending BiPAP overnight Stroke is unlikely. Neurologist does not think this is a stroke. As patient does not have focal neurological deficit. Neurologist thinks her speech difficulty is due to show shortness of breath. ABG shows pCO2 but no acidosis which is unlikely to cause this degree of shortness of breath. However she has [address] of the brain after duplex negative. Neurologist will see the patient intermittently. Therefore we are going to lowered the dose from aspirin 325 mg down to 81 mg for prophylactic purposes. Will start trazodone. Tomorrow morning we will try to discontinue the BiPAP. Also will ask for PT/OT evaluation June 07, 2024: I resumed care of the patient today. Laying in bed. Awake. Only mumbles answers. Face is flushed. Scattered psoriatic rash. Patient did undergo videofluoroscopic swallow test.: Not a very good quality. Followed by speech therapist. Was NPO. I ordered the EEG. Neurology has ordered an MRI of the brain. Initial CT scan has been unremarkable. At this point as per pulmonary does not feel that is contributing to her presentation. Also consulted psychiatry for psychogenic/conversion disorder. Patient getting IV Lasix. Negative fluid balance. Dr. 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 Even jokes. Patient sister was recently in the hospital for about 20 days and actually the patient herself had been helping her sister. Even she would take her sister came t to her appointments, with driving. She was slowly get around the house. Because she has weakness in the legs she has to sit down quite often. Patient offered I will not take her Lasix in the systolic to keep reminding her. Specially in the last 2 months. Few months ago patient was admitted to [facility] was put on a Lasix drip for congestive heart failure. 2 days prior to getting admitted patient's became less active. Finding it difficult to get up. No fevers reported. Patient does snore quite a bit. Patient also got chronic low back pain and takes medications for the same. Patient is a full code and sister would like patient to be transferred to [facility] where they have a larger MRI and was seen there before. I did inform sister came that patient's have been ordered an MRI here and EEG was ordered today. Patient does have a cat at home. I spoke earlier to the nurse. Total time spent today about 1 hour with over 35 minutes of discussion June 08, 2024: Patient remains lethargic. Was started on IV fluid yesterday evening. I spoke to radiology department today. A weight limit for our MRI is 400 pounds. But because of patient's respiratory status on the BiPAP she cannot have an MRI currently. I did speak to ID. Lumbar puncture has been ordered. Empirically has been put on IV Zosyn. EEG did not show any seizure activity. I did speak to patient's sister this morning. Did inform her about the further workup. As patient is becoming a bit alkalotic. Will DC IV Lasix. Continue with LR 75 cc an hour. June 09, 2024: Because of altered mentation patient was moved to the ICU. Worsening of renal function creatinine to 1.6. Will DC Lodine. DC Cozaar. Catapres patch was added for blood pressure. Antibiotics switched to IV cefepime. Patient remains lethargic. Discussed with neurology Dr. SENIOR. Given no seizure activity on the EEG will DC Keppra. Increase IV fluids to 125 cc an hour given hypernatremia. Lasix was discontinued yesterday. On BiPAP. Later this afternoon patient was intubated June 10: ICU. Patient remains on BiPAP. Creatinine remains at 1.6. D5W at 125 cc an hour. Remains empirically on cefepime. CSF has been negative. Question has been about viral encephalitis. Which will take his own course. Discussed with ID. I spoke to patient's family Dr. Manuel Cardona given update. I also called patient's Sister Carolynn on the phone given update. Patient also has delirium/encephalopathy from a clinical presentation of sepsis. CORRECTION: Patient was not intubated. On BiPAP yesterday. June 11: ICU. Patient seen this morning the ICU. Was on BiPAP. Interval send service will try high flow oxygen. Depending on oxygen status may consider MRI this afternoon. Slightly more responsive. No gross lethargic. Getting vital HP tube feeding through the NG tube. Ordered by vehicle maintenance supervisor and dietitian. Also getting water through the NG tube. Also getting D5W. Chest x- ray showing right basilar infiltrate. Possible aspiration. Per ID antibiotic changed to IV Zosyn. Patient CSF was negative. June 12: ICU. Was on nasal cannula for about 4 hours yesterday. 1 of patient's sisters at bedside. NG tube remains in place. Following commands. Hypophonic. Patient unable to fit into our MRI. Per neurology patient to be transferred to [facility] where the family wants her to go where she has had previous treatment. shellfish bed worker informed June 13: ICU. Poor oral hygiene. Spoke to nurse Andrea. Use ICU kit to clean out the mouth. Communicating slowly. Nurse Andrea informed that couple of hospitals could not confirm with patient if it is no the MRI. Awaiting to hear the same. Need for patient's transfer to be both MRI can fit the patient for higher level of care as we do not have a clear-cut diagnosis. No fever. IV Zosyn to continue. Patient on 6 L nasal cannula. Try to taper down oxygen. Decrease D5W to 50 cc an hour. Increase vital high-protein to 30 cc an hour. Via G-tube June 14: ICU. More awake. Oxygen requirement down to about 4 L. Saw the patient this afternoon. Still hypophonic. Spoke to nurse Hogan for further oral hygiene. Spoke to [facility] neurointensivist Dr. Haley. They did not feel the patient would have any benefit getting transferred there. In the meantime patient is being stepdown as later the oxygen requirement keep down to 3 L. Patient remains on IV Zosyn. June 15: Patient moved to the medical floor. On 3 L nasal cannula. Patient underwent flexible laryngoscopy by Dr. Busby from ENT. Except for secretions another cause locally and the vocal cord was found for the hypophonia. Patient had oral hygiene carried out. Seen by speech therapy. Failed swallow again. NG tube to continue for medications and feeding. We do not have vascular cause for the hypophonia. Also patient been rather weak. According to PT OT. Patient seen by PT OT. Spoke to nurse Rodriguez. Try to give update to [facility] received try to get the patient there to get a diagnosis and probably MRI that can be done. June 16: She remains to be hypophonic. A bit more awake. Still weak in the limbs. As patient not able to swallow I did talk to the patient and she is agreeable with the PEG tube. GI consulted. I also spoke to patient's sister came over the phone. I also spoke to Evie the patient case manager this morning. Attempts to transfer to any hospital have all been exhausted. Nobody excepting the patient. I did inform the patient and sister came that down the road if patient speech improves maybe she can go back to oral feeding down the road. GI is planning for PEG tube tomorrow June 17: Saw the patient this morning. On nasal cannula. Later today patient due for a PEG tube. Still hypophonic. June 18: Remains on 3 L of nasal cannula. Just about able to move her limbs. Not really able to speak. The EEG was done by neurology. Dr. Senior inform me that she is putting her on Vimpat. Per patient case manager patient may be going to [facility] [place]. Looking to get that tomorrow. Also spoke to dietitian regarding tube feeding. June 19: Patient is getting her tube feeding. No change in clinical status. Remains on Vimpat per neurology. Spoke to the nurse who spoke to medical social worker. Patient not received authorization for rehab. Continue current treatment plan. Patient still not able to speak. Per ID switched over to Augmentin June 20: Dr. Brooklyn Dunlap the weekend neurologist called me this morning. Case was discussed at length. I did inform her that per medical social worker there was no place excepting her. Hoping for transfer to rehab tomorrow. Dr. Urbano did review patient's EEG again. Sharply contoured activity over bilateral central and diffuse that can cause cortical irritability but no seizure or clear OptiForm discharges. Patient did receive Vimpat. This been no improvement in her condition. We did discuss about possibly discontinuing the same. Will discuss further with neurology tomorrow. Tube feedings in place. June 21: Spoke this afternoon with patient case manager Femi. She informed me that administration has to authorize transfer for the patient to go to an open MRI and back. There is significant cost involved. I did ask her to check with administration and get back to me on the same. In the meantime patient continues to get tube feeding. Authorization was submitted today for rehab. Active Medications Acetaminophen (Acetaminophen Tab 325 Mg Tab) 650 mg PO Q6HR PRN PRN Reason: Fever and/ or Pain Last Admin: 06/19/24 01:05 Dose: 650 mg Hydrocodone Bitart/Acetaminophen (Hydrocodone/Apap 5-325mg 1 Each Tab) 1 each PO Q6HR PRN PRN Reason: Moderate Pain (Scale 4 to 6) Last Admin: 06/20/24 21:13 Dose: 1 each Albuterol/Ipratropium (Ipratropium-Albuterol 3 Ml Neb) 3 ml INHALATION RT-QID PRN PRN Reason: Shortness Of Breath Or Wheezing Last Admin: 06/17/24 18:28 Dose: 3 ml Amoxicillin/Clavulanate Potassium (Amoxic-Pot Clav 875-125mg 1 Each Tab) 1 each PEG/G-TUBE Q12HR [facility]; Protocol Last Admin: 06/21/24 09:13 Dose: 1 each Aspirin (Aspirin 81 Mg) 81 mg PO DAILY [facility] Last Admin: 06/21/24 09:14 Dose: 81 mg Atorvastatin Calcium (Atorvastatin 20 Mg Tab) 20 mg PO HS [facility] Last Admin: 06/20/24 21:14 Dose: 20 mg Benzocaine (Benzocaine [place] 1 Can) 1 spray MUCOUS MEM QID PRN; Protocol PRN Reason: Mouth Irritation Betamethasone Dipropionate (Betamethasone Dipropionate 0.05% Cream 15 Gm Tube) 1 applic TOPICAL BID [facility]; Protocol Last Admin: 06/21/24 09:15 Dose: 1 applic Carvedilol (Carvedilol 12.5 Mg Tab) 25 mg PO AC-BID [facility] Last Admin: 06/21/24 16:48 Dose: 25 mg Dapagliflozin (Dapagliflozin Propanediol 5 Mg Tablet) 5 mg PO DAILY [facility] Last Admin: 06/21/24 09:14 Dose: 5 mg Dextrose/Water (Dextrose 50% Syringe 50 Ml) 25 ml IVP PER PROTOCOL PRN; Protocol PRN Reason: Hypoglycemia Dextrose/Water (Dextrose 50% Syringe 50 Ml) 50 ml IVP PER PROTOCOL PRN; Protocol PRN Reason: Hypoglycemia Enoxaparin Sodium (Enoxaparin 40 Mg/0.4 Ml Syringe) 40 mg SQ DAILY [facility] Last Admin: 06/21/24 09:14 Dose: 40 mg Furosemide (Furosemide 40 Mg Tab) 40 mg PO BID@0900,1600 [facility] Last Admin: 06/21/24 16:48 Dose: 40 mg Hydralazine HCl (Hydralazine Hcl 20 Mg/Ml 1 Ml Vial) 10 mg IVP Q4HR PRN PRN Reason: Blood Pressure - High Last Admin: 06/04/24 19:47 Dose: 10 mg Dextrose/Water (Dextrose 5%-Water Iv Soln) 1,000 mls @ 50 mls/hr IV .Q20H [facility] Last Admin: 06/21/24 11:47 Dose: 50 mls/hr Insulin Aspart (Insulin Aspart (Novolog) 100 Unit/Ml Vial) 0 unit SQ Q6HR [facility]; Protocol Last Admin: 06/21/24 18:54 Dose: Not Given Lacosamide (Lacosamide 50 Mg Tablet) 100 mg PO BID [facility] Last Admin: 06/21/24 09:14 Dose: 100 mg Metoprolol Tartrate (Metoprolol Tartrate 50 Mg Tab) 50 mg PO Q8H [facility] Last Admin: 06/21/24 16:48 Dose: 50 mg Miscellaneous Information (Potassium Replacement Protocol 1 Each Misc) 1 each MISCELLANE DAILY PRN; Protocol PRN Reason: Per Protocol Nystatin (Nystatin 100,000 Unit/Gm Powd 15 Gm) 1 applic TOPICAL TID [facility]; Protocol Last Admin: 06/21/24 16:48 Dose: 1 applic Pantoprazole Sodium (Pantoprazole 40 Mg Tablet) 40 mg PO AC-BRKFST [facility] Last Admin: 06/21/24 09:13 Dose: 40 mg Pyridoxine HCl (Pyridoxine 50 Mg Tab) 50 mg PO DAILY [facility] Last Admin: 06/21/24 09:14 Dose: 50 mg Thiamine HCl (Thiamine 100 Mg/Ml 2 Ml Vial) 100 mg IVP BID [facility] Last Admin: 06/21/24 09:14 Dose: 100 mg On examination: VITAL SIGNS: 99.4, 73, 18, 1 3582, 95% on 5 L GENERAL APPEARANCE: BMI 60.6,, tired rosacea HEENT: Normal external appearance of nose and ear. Oral cavity dried with very thick secretions EYES: Pupils equal. Conjunctiva normal. NECK: JVD not raised. Mass not palpable. RESPIRATORY: Respiratory effort increased l. Decreased breath sound CARDIOVASCULAR: First and second sounds normal. No edema. ABDOMEN: Soft. Liver and spleen not palpable. No tenderness. No mass palpable. PSYCHIATRY: Hypophonic not really able to speak any words. Dermatological: Scattered psoriatic rash. NEUROLOGICAL: Slight movement in all 4 limbs. Able to speak very slowly-words can barely be decided. INVESTIGATIONS, reviewed in the clinical context: June 19: White count 12.3 hemoglobin 14.4 platelets 257 sodium 142 potassium 3.3 creatinine 0.7 June 10: White count 15.7 hemoglobin 15.9 platelets 191 increased neutrophils. Decreased lymphocytes. Sodium 153 potassium 3.3 BUN 63 creatinine 1.6 CSF: RBC 13 nucleated cells 1 glucose 103 total protein 55 Doppler ultrasound lower extremity: Limited exam. Appears to be negative June 09: White count 16.9 hemoglobin 15.7 platelets 229 sodium 151 potassium 3.5 BUN 60 creatinine 1.61 Procalcitonin 0.08. Lactic acid 1.8. EKG: Metabolic abnormality. No seizure activity June 08: White count 9.4 hemoglobin 16.1 platelets 298 sodium 146 potassium 4.1 BUN 47 creatinine 1.25 bicarb 35 Modified barium swallow: Limited exam. Somewhat limited visualization. Symptoms of cough and negative response after swallow of thin liquids. Suspicion was some aspiration. Carotid Doppler: No significant stenosis CT brain without contrast: Unremarkable Chest x-ray film: Some venous prominence 2D echocardiogram: EF 55 to 60% Assessment and plan: -Patient 2 days prior to presentation became increasingly weak. Not able to get around the house. Speech became slow. Sister did report some weakness on the right side. Patient is only mumbling words.: Slow improvement Presentation is not compatible with CO2 retention. Differential: , metabolic encephalopathy/delirium from infection. Possibility of viral encephalitis. Stroke unlikely given that patient been having fevers. Though brainstem stroke to be a consideration. EEG-no seizure activity. MRI currently cannot be done because of respiratory status and patient's body habitus ID following. IV Zosyn-switch to Augmentin -Right basal aspiration pneumonia IV Zosyn-switched over to Augmentin -Acute metabolic encephalopathy/delirium from sepsis: Slow improvement -PEG tube feeding: Per dietitian started on vital AF 1.2 at 20 cc an hour. Increase at 10 cc an hour every 8 hours. Goal at 43 cc an hour. 50 mL of free water flush every 4 hours. -Hypernatremia from diuresis: Resolved -Questionable seizure activity as per neurology. [Sharply contoured activity over bilateral central and diffuse that can cause cortical irritability but no seizure or clear OptiForm discharges.] Vimpat started on June 19 -Acute kidney injury likely ATN from sepsis and some fluid deficit: Resolved IV fluids. Follow renal function Lodine and Cozaar discontinued I's and O's -Feeding: High vital tube feed with free water For PEG tube placement today -Psoriasis with widespread rash -Obstructive sleep apnea with elevated CO2 but not retention or acidosis BiPAP was used here -Essential hypertension, Coreg -Sepsis, source unclear: Fevers resolved IV cefepime changed over to Zosyn. CSF unremarkable -Morbid obesity, with a BMI of 59.6 -Acute hypoxic respiratory failure could be related to her obesity hypoventilation and CHF and probable pneumonia: Improvement Had been on BiPAP. Now down to 3 L. -Acute on chronic congestive heart failure exacerbation. Patient was admitted to [facility] sometime ago and had required IV Lasix drip. Received IV Lasix. Now oral Lasix 40 mg twice daily -Chronic lumbar arthritis for which patient takes Lodine at home Lodine held because of renal function -Full code. Discussed with sister Carolynn -Patient's sister Carolynn FORD Spoke to patient case manager Femi about checking with administration about transport to open MRI and back. Authorization has been submitted for rehab.
[2024-06-21 21:11] LABS: Glucose,Whole Blood 171 mg/dL (70-110)
--- NOTE | 2024-06-21 21:49 | P.PN ---
Subjective Progress Note Date: 06/21/24 Principal diagnosis: Reason for follow-up is fever Patient is a 54-year female with a past medical history significant for heart failure hypertension psoriasis dementia patient has been brought into the hospital for evaluation of speech problem and initially investigated for a stroke subsequently has developed a fever worsening respiratory status prompted this consultation. On today's evaluation that is 06/21/2024, patient has been afebrile, patient is breathing comfortably and is currently on 5 L nasal cannula patient is slightly more awake denies any chest pain or cough currently on tube feed no vomiting or diarrhea has been reported. No new lab has been obtained today Objective - Vital Signs Vital signs: Vital Signs Temp 98.0 F 06/21/24 14:00 Pulse 88 06/21/24 14:00 Resp 18 06/21/24 14:00 BP 130/73 06/21/24 14:00 Pulse Ox 100 06/21/24 14:00 FiO2 40 06/17/24 18:35 Intake & Output 06/20/24 06/21/24 06/21/24 18:59 06:59 18:59 Output Total 800 750 Balance -800 -750 Weight 157.6 kg Output: Urine 800 750 Other: Voiding Method Indwelling Catheter Indwelling Catheter Indwelling Catheter # Bowel Movements 1 - Exam GENERAL DESCRIPTION: Middle-age female lying in bed in no distress RESPIRATORY SYSTEM: Unlabored breathing , decreased intensity breath sounds at bases HEART: S1 S2 regular rate and rhythm , ABDOMEN: Soft , no tenderness EXTREMITIES: Swelling to the leg no significant redness - Labs CBC & Chem 7: 06/19/24 03:10 06/19/24 03:10 Labs: Abnormal Lab Results - Last 24 Hours (Table) 06/20/24 06/20/24 06/21/24 Range/Units 17:18 23:42 06:52 POC Glucose (mg/dL) 144 H 152 H 160 H (70-110) mg/dL 06/21/24 Range/Units 11:32 POC Glucose (mg/dL) 184 H (70-110) mg/dL Assessment and Plan (1) Fever Current Visit: Yes Status: Acute Code(s): R50.9 - FEVER, UNSPECIFIED SNOMED Code(s): 392296140 (2) Aspiration pneumonia Current Visit: Yes Status: Acute Code(s): J69.0 - PNEUMONITIS DUE TO INHALATION OF FOOD AND VOMIT SNOMED Code(s): 935421506 (3) Allergy to sulfa drugs Current Visit: Yes Status: Acute Code(s): Z88.2 - ALLERGY STATUS TO SULFONAMIDES SNOMED Code(s): 19547852 (4) Leukocytosis Current Visit: Yes Status: Acute Code(s): D72.829 - ELEVATED WHITE BLOOD CELL COUNT, UNSPECIFIED SNOMED Code(s): 631225144 Plan: 1patient with a fever in this patient currently in the hospital for 5 days before admission this initial evaluation with initial presentation for follow-up with the speech and responsiveness and has been worked up for CVA with the last CT of the brain has been negative MRI could not be done because the patient co uld not stay still etiology of the fever could be multifactorial questionable central versus pulmonary question of aspiration initial workup has been negative with negative nasopharyngeal swab for COVID RSV and influenza UA is not significantly positive patient did have LP that was normal 2-did have a new fever and also white count is up to 12.3 4 the patient has been started on Augmentin down the PEG tube with subsequent resolution of the fever he will continue with the Augmentin and monitor clinical course closely Dictation was produced using scrible dictation software. please excuse any gram matical, word or spelling errors. Time with Patient: Less than 30
[2024-06-21 23:58] LABS: Glucose,Whole Blood 139 mg/dL (70-110)
[2024-06-22 04:41] LABS: Basophils % (A) 0 %; Eosinophils # (A) 0.4 k/uL (0-0.7); Eosinophils % (A) 3 %; HCT 43.5 % (34.0-46.0); Lymphocytes # (A) 1.7 k/uL (1.0-4.8); Lymphocytes % (A) 13 %; MCH 28.1 pg (25.0-35.0); MCHC 32.3 g/dL (31.0-37.0); MCV 87.1 fL (80.0-100.0); Mean Platelet Volume 10.3; Monocytes # (A) 0.4 k/uL (0-1.0); Monocytes % (A) 3 %; Neutrophils # (A) 9.7 k/uL (1.3-7.7); Neutrophils % (A) 78 %; Platelet Count 253 k/uL (150-450); RBC 4.99 m/uL (3.80-5.40); RDW 15.1 % (11.5-15.5); WBC 12.4 k/uL (3.8-10.6)
[2024-06-22 04:59] LABS: African American GFR (CKD) >90 (>60 ml/min/1.73 sqM); Blood Urea Nitrogen 26 mg/dL (7-17); C Reactive Protein 2.4 mg/dL (<1.0); Calcium 9.6 mg/dL (8.4-10.2); Chloride 89 mmol/L (98-107); Glucose 137 mg/dL (74-99); Non-African American GFR(CKD) >90 (>60 ml/min/1.73 sqM); Sodium 134 mmol/L (137-145)
[2024-06-22 05:03] LABS: Anion Gap 10 mmol/L
[2024-06-22 05:05] LABS: Carbon Dioxide 35 mmol/L (22-30)
[2024-06-22 06:29] LABS: Glucose,Whole Blood 174 mg/dL (70-110)
[2024-06-22] MEDS: THIAMINE 100 MG TAB PO SCH (09:54)
[2024-06-22] MEDS: FUROSEMIDE 40 MG TAB PO SCH (09:54)
[2024-06-22] MEDS: POTASSIUM CHLORIDE ER 20 MEQ TAB.ER PO SCH (09:55)
[2024-06-22 11:41] LABS: Glucose,Whole Blood 166 mg/dL (70-110)
[2024-06-22 14:56] VITALS: BP 139/83; PULSE 72; RESP 16; TEMP 97.6
--- NOTE | 2024-06-22 15:07 | P.PN ---
Subjective Progress Note Date: 06/22/24 Principal diagnosis: Reason for follow-up is fever Patient is a 54-year female with a past medical history significant for heart failure hypertension psoriasis dementia patient has been brought into the hospital for evaluation of speech problem and initially investigated for a stroke subsequently has developed a fever worsening respiratory status prompted this consultation. On today's evaluation that is 06/22/2024, Patient is afebrile this morning patient is currently on a 2 L nasal cannula oxygen she seem to be breathing comfortably no distress no vomiting or diarrhea has been reported patient has not evaluated good historian. Patient white count is 12.4, creatinine 0.69 Objective - Vital Signs Vital signs: Vital Signs Temp 98.3 F 06/22/24 08:00 Pulse 74 06/22/24 08:00 Resp 15 06/22/24 08:00 BP 144/83 06/22/24 08:00 Pulse Ox 97 06/22/24 08:00 FiO2 40 06/17/24 18:35 Intake & Output 06/21/24 06/22/24 06/22/24 18:59 06:59 18:59 Output Total 1900 600 Balance -1900 -600 Weight 157.6 kg 146 kg Output: Urine 1900 600 2-way Urethral 800 Other: Voiding Method Indwelling Catheter Indwelling Catheter Indwelling Catheter # Bowel Movements 2 - Exam GENERAL DESCRIPTION: Middle-age female lying in bed in no distress RESPIRATORY SYSTEM: Unlabored breathing , decreased intensity breath sounds at bases HEART: S1 S2 regular rate and rhythm , ABDOMEN: Soft , no tenderness EXTREMITIES: Swelling to the leg no significant redness - Labs CBC & Chem 7: 06/22/24 03:31 06/22/24 03:31 Labs: Abnormal Lab Results - Last 24 Hours (Table) 06/21/24 06/21/24 06/21/24 Range/Units 18:31 21:09 23:56 WBC (3.8-10.6) k/uL Neutrophils # (1.3-7.7) k/uL Sodium (137-145) mmol/L Potassium (3.5-5.1) mmol/L Chloride (98-107) mmol/L Carbon Dioxide (22-30) mmol/L BUN (7-17) mg/dL Glucose (74-99) mg/dL POC Glucose (mg/dL) 148 H 171 H 139 H (70-110) mg/dL C-Reactive Protein (<1.0) mg/dL 06/22/24 06/22/24 06/22/24 Range/Units 03:31 03:31 06:26 WBC 12.4 H (3.8-10.6) k/uL Neutrophils # 9.7 H (1.3-7.7) k/uL Sodium 134 L (137-145) mmol/L Potassium 3.0 L (3.5-5.1) mmol/L Chloride 89 L (98-107) mmol/L Carbon Dioxide 35 H (22-30) mmol/L BUN 26 H (7-17) mg/dL Glucose 137 H (74-99) mg/dL POC Glucose (mg/dL) 174 H (70-110) mg/dL C-Reactive Protein 2.4 H (<1.0) mg/dL 06/22/24 Range/Units 11:39 WBC (3.8-10.6) k/uL Neutrophils # (1.3-7.7) k/uL Sodium (137-145) mmol/L Potassium (3.5-5.1) mmol/L Chloride (98-107) mmol/L Carbon Dioxide (22-30) mmol/L BUN (7-17) mg/dL Glucose (74-99) mg/dL POC Glucose (mg/dL) 166 H (70-110) mg/dL C-Reactive Protein (<1.0) mg/dL Assessment and Plan (1) Fever Current Visit: Yes Status: Acute Code(s): R50.9 - FEVER, UNSPECIFIED SNOMED Code(s): 958529287 (2) Aspiration pneumonia Current Visit: Yes Status: Acute Code(s): J69.0 - PNEUMONITIS DUE TO INH ALATION OF FOOD AND VOMIT SNOMED Code(s): 304378337 (3) Allergy to sulfa drugs Current Visit: Yes Status: Acute Code(s): Z88.2 - ALLERGY STATUS TO SULFONAMIDES SNOMED Code(s): 18273085 (4) Leukocytosis Current Visit: Yes Status: Acute Code(s): D72.829 - ELEVATED WHITE BLOOD CELL COUNT, UNSPECIFIED SNOMED Code(s): 574676349 Plan: 1patient with a fever in this patient currently in the hospital for 5 days before admission this initial evaluation with initial presentation for follow-up with the speech and responsiveness and has been worked up for CVA with the last CT of the brain has been negative MRI could not be done because the patient could not stay still etiology of the fever could be multifactorial questionable central versus pulmonary question of aspiration initial workup has been negative with negative nasopharyngeal swab for COVID RSV and influenza UA is not significantly positive patient did have LP that was normal 2-patient did have resolution of her fever white count is mildly elevated 12.4 the patient will be continued on Augmentin down the PEG tube and monitor clinic al course closely Dictation was produced using Dapt dictation software. please excuse any grammatical, word or spelling errors. Time with Patient: Less than 30
--- NOTE | 2024-06-22 15:55 | P.DS ---
Providers Date of admission: 06/03/24 14:55 Expected date of discharge: 06/22/24 Attending physician: Eduar Mallory Consults: 06/03/24 14:54 Consult Physician Urgent Consulting Provider: Reinaldo Khan Consult Reason/Comments: cva Do you want consulting provider notified?: Yes 06/04/24 08:58 Consult Physician Routine Consulting Provider: Shane Pressley Consult Reason/Comments: sob, breathing dificulty Do you want consulting provider notified?: Yes 06/07/24 11:37 Consult Physician Routine Consulting Provider: Psychiatry - [facility] Consult Reason/Comments: poss conversion disorder Do you want consulting provider notified?: Yes 06/07/24 19:38 Consult Physician Routine Consulting Provider: Marky Villafuerte Consult Reason/Comments: Atypical infection Do you want consulting provider notified?: Yes 06/09/24 16:40 Consult to Anesthesia Routine Consulting Provider: Anesthesia,Services Consult Reason/Comments: lumbar puncture r/o meningoencephalitis 06/14/24 10:53 Consult Physician Routine Consulting Provider: Colin Kennedy Consult Reason/Comments: hypohonia - indirect laryngoscope Do you want consulting provider notified?: Yes Primary care physician: [facility] Course: This is a visit 54 years old female with past medical history of hypertension She brought because of generalized weakness and she was found on the floor with slurred speech. Patient could not get up and noticed that she is old and peed on herself more than once. On presentation patient looks awake and understands but she mumbles only and she cannot talk. Patient is morbidly obese which limits her ability to move around. Patient is poor historian because of her aphasia however she can shake her head as yes or no Patient denies any pain When asking about shortness of breath she denies, no vomiting or diarrhea, she denies urinary complaint, she denies headache dizziness to me Patient also denies weakness or tingling Her labs looks normal like CBC, BMP and LFT and INR. Urinalysis negative proBNP is 250 Chest x-ray cardiomegaly with mild pulmonary vascular congestion CT of the brain showing no acute intracranial process EKG showing sinus rhythm at [address]-T changes 06/04 Patient still difficulty articulating her words, I discussed the case with the neurologist, there is low suspicion for stroke, however we are going to repeat CAT scan of the brain. MRI cannot for the patient as she is morbidly obese. Patient morbidly obese and have difficulty moving. Currently she is on 3 L oxygen via nasal cannula. Her legs like 1+ leg edema. Breath sounds are distant given her body habitus She has extensive rash noted to extremities and trunk related to her psoriasis. Swallow evaluation is ordered. 06/05 Patient was on BiPAP for respiratory difficulty. It was placed overnight, in the morning she continued to use the BiPAP. pH is normal, unlikely CO2 retention to close acidosis. Pulmonary team recommending BiPAP overnight Stroke is unlikely. Neurologist does not think this is a stroke. As patient does not have focal neurological deficit. Neurologist thinks her speech difficulty is due to show shortness of breath. ABG shows pCO2 but no acidosis which is unlikely to cause this degree of shortness of breath. However she has [address] of the brain after duplex negative. Neurologist will see the patient intermittently. Therefore we are going to lowered the dose from aspirin 325 mg down to 81 mg for prophylactic purposes. Will start trazodone. Tomorrow morning we will try to discontinue the BiPAP. Also will ask for PT/OT evaluation June 07, 2024: I resumed care of the patient today. Laying in bed. Awake. Only mumbles answers. Face is flushed. Scattered psoriatic rash. Patient did undergo videofluoroscopic swallow test.: Not a very good quality. Followed by speech therapist. Was NPO. I ordered the EEG. Neurology has ordered an MRI of the brain. Initial CT scan has been unremarkab le. At this point as per pulmonary does not feel that is contributing to her presentation. Also consulted psychiatry for psychogenic/conversion disorder. Patient getting IV Lasix. Negative fluid balance. Dr. 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 Even jokes. Patient sister was recently in the hospital for about 20 days and actually the patient herself had been helping her sister. Even she would take her sister came t to her appointments, with driving. She was slowly get around the house. Because she has weakness in the legs she has to sit down quite often. Patient offered I will not take her Lasix in the systolic to keep reminding her. Specially in the last 2 months. Few months ago patient was admitted to [facility] was put on a Lasix drip for congestive heart failure. 2 days prior to getting admitted patient's became less active. Finding it difficult to get up. No fevers reported. Patient does snore quite a bit. Patient also got chronic low back pain and takes medications for the same. Patient is a full code and sister would like patient to be transferred to [facility] where they have a larger MRI and was seen there before. I did inform sister came that patient's have been ordered an MRI here and EEG was ordered today. Patient does have a cat at home. I spoke earlier to the nurse. Total time spent today about 1 hour with over 35 minutes of discussion June 08, 2024: Patient remains lethargic. Was started on IV fluid yesterday evening. I spoke to radiology department today. A weight limit for our MRI is 400 pounds. But because of patient's respiratory status on the BiPAP she cannot have an MRI currently. I did speak to ID. Lumbar puncture has been ordered. Empirically has been put on IV Zosyn. EEG did not show any seizure activity. I did speak to patient's sister this morning. Did inform her about the further workup. As patient is becoming a bit alkalotic. Will DC IV Lasix. Continue with LR 75 cc an hour. June 09, 2024: Because of altered mentation patient was moved to the ICU. Worsening of renal function creatinine to 1.6. Will DC Lodine. DC Cozaar. Catapres patch was added for blood pressure. Antibiotics switched to IV cefepime. Patient remains lethargic. Discussed with neurology Dr. SENIOR. Given no seizure activity on the EEG will DC Keppra. Increase IV fluids to 125 cc an hour given hypernatremia. Lasix was discontinued yesterday. On BiPAP. Later this afternoon patient was intubated June 10: ICU. Patient remains on BiPAP. Creatinine remains at 1.6. D5W at 125 cc an hour. Remains empirically on cefepime. CSF has been negative. Question has been about viral encephalitis. Which will take his own course. Discussed with ID. I spoke to patient's family Dr. Manuel Cardona given update. I also called patient's Sister Carolynn on the phone given update. Patient also has delirium/encephalopathy from a clinical presentation of sepsis. CORRECTION: Patient was not intubated. On BiPAP yesterday. June 11: ICU. Patient seen this morning the ICU. Was on BiPAP. Interval send service will try high flow oxygen. Depending on oxygen status may consider MRI this afternoon. Slightly more responsive. No gross lethargic. Getting vital HP tube feeding through the NG tube. Ordered by ultrasound manager and dietitian. Also getting water through the NG tube. Also getting D5W. Chest x- ray showing right basilar infiltrate. Possible aspiration. Per ID antibiotic changed to IV Zosyn. Patient CSF was negative. June 12: ICU. Was on nasal cannula for about 4 hours yesterday. 1 of patient's sisters at bedside. NG tube remains in place. Following commands. Hypophonic. Patient unable to fit into our MRI. Per neurology patient to be transferred to [facility] where the family wants her to go where she has had previous treatment. [facility] informed June 13: ICU. Poor oral hygiene. Spoke to nurse Andrea. Use ICU kit to clean out the mouth. Communicating slowly. Nurse Andrea informed that couple of hospitals could not confirm with patient if it is no the MRI. Awaiting to hear the same. Need for patient's transfer to be both MRI can fit the patient for higher level of care as we do not have a clear-cut diagnosis. No fever. IV Zosyn to continue. Patient on 6 L nasal cannula. Try to taper down oxygen. Decrease D5W to 50 cc an hour. Increase vital high-protein to 30 cc an hour. Via G-tube June 14: ICU. More awake. Oxygen requirement down to about 4 L. Saw the patient this afternoon. Still hypophonic. Spoke to nurse Hogan for further oral hygiene. Spoke to [facility] neurointensivist Dr. Haley. They did not feel the patient would have any benefit getting transferred there. In the meantime patient is being stepdown as later the oxygen requirement keep down to 3 L. Patient remains on IV Zosyn. June 15: Patient moved to the medical floor. On 3 L nasal cannula. Patient underwent flexible laryngoscopy by Dr. Busby from ENT. Except for secretio ns another cause locally and the vocal cord was found for the hypophonia. Patient had oral hygiene carried out. Seen by speech therapy. Failed swallow again. NG tube to continue for medications and feeding. We do not have vascular cause for the hypophonia. Also patient been rather weak. According to PT OT. Patient seen by PT OT. Spoke to nurse Rodriguez. Try to give update to [facility] received try to get the patient there to get a diagnosis and probably MRI that can be done. June 16: She remains to be hypophonic. A bit more awake. Still weak in the limbs. As patient not able to swallow I did talk to the patient and she is agreeable with the PEG tube. GI consulted. I also spoke to patient's sister came over the phone. I also spoke to Evie the caser this morning. Attempts to transfer to any hospital have all been exhausted. Nobody excepting the patient. I did inform the patient and sister came that down the road if patient speech improves maybe she can go back to oral feeding down the road. GI is planning for PEG tube tomorrow June 17: Saw the patient this morning. On nasal cannula. Later today patient due for a PEG tube. Still hypophonic. June 18: Remains on 3 L of nasal cannula. Just about able to move her limbs. Not really able to speak. The EEG was done by neurology. Dr. Senior inform me that she is putting her on Vimpat. Per caser patient may be going to [facility]. Looking to get that tomorrow. Also spoke to dietitian regarding tube feeding. June 19: Patient is getting her tube feeding. No change in clinical status. Remains on Vimpat per neurology. Spoke to the nurse who spoke to social work case manager. Patient not received authorization for rehab. Continue current treatment plan. Patient still not able to speak. Per ID switched over to Augmentin June 20: Dr. Brooklyn Dunlap the weekend neurologist called me this morning. Case was discussed at length. I did inform her that per social work case manager there was no place excepting her. Hoping for transfer to rehab tomorrow. Dr. Urbano did review patient's EEG again. Sharply contoured activity over bilateral central and diffuse that can cause cortical irritability but no seizure or clear [employer] discharges. Patient did receive Vimpat. This been no improvement in her condition. We did discuss about possibly discontinuing the same. Will discuss further with neurology tomorrow. Tube feedings in place. June 21: Spoke this afternoon with caser Femi. She informed me that administration has to authorize transfer for the patient to go to an open MRI and back. There is significant cost involved. I did ask her to check with administration and get back to me on the same. In the meantime patient continues to get tube feeding. Authorization was submitted today for rehab. June 22: Patient able to speak some words very slowly. I was informed that the administration did look at patient's transfer for the MRI and back it is too expensive and hence would not be able to pay for the same. Patient been accepted at rehab. Patient to get speech therapy outpatient. Patient to be seen by neurology outpa tient Dr. [facility]ccartney[facility] orders as given. Discussion and discharge planning more than 35 minutes On examination: VITAL SIGNS: 97.6, 72, 16, 139 x 83, 98% on 2 L GENERAL APPEARANCE: BMI 60.6,, tired rosacea HEENT: Normal external appearance of nose and ear. Oral cavity dried with very thick secretions EYES: Pupils equal. Conjunctiva normal. NECK: JVD not raised. Mass not palpable. RESPIRATORY: Respiratory effort increased l. Decreased breath sound CARDIOVASCULAR: First and second sounds normal. No edema. ABDOMEN: Soft. Liver and spleen not palpable. No tenderness. No mass palpable. PSYCHIATRY: Hypophonic not really able to speak any words. Dermatological: Scattered psoriatic rash. NEUROLOGICAL: Slight movement in all 4 limbs. Able to speak very slowly-words can barely be d deciphered INVESTIGATIONS, reviewed in the clinical context: June 22: White count 12.4 hemoglobin 14 platelets 253 creatinine 0.69 potassium 3 June 19: White count 12.3 hemoglobin 14.4 platelets 257 sodium 142 potassium 3.3 creatinine 0.7 June 10: White count 15.7 hemoglobin 15.9 platelets 191 increased neutrophils. Decreased lymphocytes. Sodium 153 potassium 3.3 BUN 63 creatinine 1.6 CSF: RBC 13 nucleated cells 1 glucose 103 total protein 55 Doppler ultrasound lower extremity: Limited exam. Appears to be negative June 09: White count 16.9 hemoglobin 15.7 platelets 229 sodium 151 potassium 3.5 BUN 60 creatinine 1.61 Procalcitonin 0.08. Lactic acid 1.8. EKG: Metabolic abnormality. No seizure activity June 08: White count 9.4 hemoglobin 16.1 platelets 298 sodium 146 potassium 4.1 BUN 47 creatinine 1.25 bicarb 35 Modified barium swallow: Limited exam. Somewhat limited visualization. Symptoms of cough and negative response after swallow of thin liquids. Suspicion was some aspiration. Carotid Doppler: No significant stenosis CT brain without contrast: Unremarkable Chest x-ray film: Some venous prominence 2D echocardiogram: EF 55 to 60% Assessment and plan: -Patient 2 days prior to presentation became increasingly weak. Not able to get around the house. Speech became slow. Sister did report some weakness on the right side. Patient is only mumbling words.: Slow improvement Presentation is not compatible with CO2 retention. Differential: , metabolic encephalopathy/delirium from infection. Possibility of viral encephalitis. Stroke unlikely given that patient been having fevers. Though brainstem stroke to be a consideration. EEG-no seizure activity. MRI currently cannot be done because of respiratory status and patient's body habitus ID following. IV Zosyn-switch to Augmentin, stop after 3 days -Right basal aspiration pneumonia IV Zosyn-switched over to Augmentin, stop after 3 days -Acute metabolic encephalopathy/delirium from sepsis: Slow improvement -PEG tube feeding: vital AF 1.2 . Goal at 43 cc an hour. 50 mL of free water flush every 4 hours. -Hypernatremia from diuresis: Resolved -Questionable seizure activity as per neurology. [Sharply contoured activity over bilateral central and diffuse that can cause cortical irritability but no seizure or clear [employer] discharges.] Vimpat started on June 19 Follow-up with Dr. Walt Mccartney outpatient -Acute kidney injury likely ATN from sepsis and some fluid deficit: Resolved IV fluids. Follow renal function I's and O's -Feeding: High vital tube feed with free water For PEG tube placement today -Psoriasis with widespread rash -Obstructive sleep apnea with elevated CO2 but not retention or acidosis BiPAP was used here, initially -Essential hypertension, Coreg -Sepsis, source unclear: Fevers resolved IV cefepime changed over to Zosyn. CSF unremarkable -Morbid obesity, with a BMI of 59.6 -Acute hypoxic respiratory failure could be related to her obesity hypoventilation and CHF and probable pneumonia: Improvement Had been on BiPAP. Now down to 2 L -Acute on chronic congestive heart failure exacerbation. Patient was admitted to [facility] sometime ago and had required IV Lasix drip. Received IV Lasix. Now oral Lasix 40 mg twice daily -Chronic lumbar arthritis for which patient takes Lodine at home Lodine held because of renal function -Full code. Discussed with sister Carolynn -Patient's sister Carolynn Moon POA Disposition: [facility] Plan - Discharge Summary New Discharge Prescriptions: No Action Spironolactone [Aldactone] 25 mg PO DAILY Metoprolol Succinate (ER) [Toprol Xl] 100 mg PO DAILY Ergocalciferol (Vitamin D2) [Drisdol (50,000 Iu)] 1,250 mcg PO Q7D Atorvastatin [Lipitor] 20 mg PO HS carvediloL [Coreg] 25 mg PO BID Etodolac [Lodine] 400 mg PO BID Dapagliflozin Propanediol [Farxiga] 5 mg PO DAILY Losartan Potassium [Cozaar] 100 mg PO DAILY Furosemide [Lasix] 40 mg PO DAILY Discharge Medication List Atorvastatin [Lipitor] 20 mg PO HS 06/03/24 [History] Dapagliflozin Propanediol [Farxiga] 5 mg PO DAILY 06/03/24 [History] Ergocalciferol (Vitamin D2) [Drisdol (50,000 Iu)] 1,250 mcg PO Q7D 06/03/24 [History] Etodolac [Lodine] 400 mg PO BID 06/03/24 [History] Furosemide [Lasix] 40 mg PO DAILY 06/03/24 [History] Losartan Potassium [Cozaar] 100 mg PO DAILY 06/03/24 [History] Metoprolol Succinate (ER) [Toprol Xl] 100 mg PO DAILY 06/03/24 [History] Spironolactone [Aldactone] 25 mg PO DAILY 06/03/24 [History] carvediloL [Coreg] 25 mg PO BID 06/03/24 [History] Follow up Appointment(s)/Referral(s): Manuel Cardona MD [Primary Care Provider] - 1-2 days Activity/Diet/Wound Care/Special Instructions: pt is receiving enteral nutriton via PEG tube, Vital AF 1.2 on a continuous cycle pump at 43 ml/hr with 50 ml free water flush q 4 hrs. This volume is meeting the pts nutritonal needs. Upon discharge, should she change to bolus feeds, the recommendation would be 5 cans Vital AF 1.2 with 30 ml free water flushes before and after each feeding
[2024-06-22 16:44] LABS: Glucose,Whole Blood 146 mg/dL (70-110)
--- NOTE | 2024-06-22 19:34 | P.PN ---
Subjective Progress Note Date: 06/22/24 On 06/21/2024, the patient has no major respiratory difficulties. She continues to have generalized weakness and ongoing speech deficit. The patient is working with physical therapy. The patient is currently afebrile with a pulse ox of 99% on 5 L of oxygen by nasal cannula and there is no apparent respiratory distress. The patient remains on DuoNeb nebulized treatments [id number]. The patient is on Lovenox 40 mg subcu for DVT prophylaxis. The patient remains on aspirin 81 mg p.o. daily. Rest of the medications are unchanged. She is on Lasix 40 mg p.o. twice a day. Noted the most recent CAT scan of the brain that was done on 06/11/2024 showed no acute intracranial process and the most recent chest x-ray from 06/14/2024 showed borderline cardiomegaly. On 06/22/2024, patient is being seen for a follow-up. Condition is unchanged. The patient continues to have expressive aphasia. She is able to speak some words. She is not well comprehendible. MRI of the brain is not possible as the patient's body habitus is large, unable to fit our MRI machine. Respiratory status is stable. The patient remains on oxygen 2 L with a pulse ox of 98%. Remains on DuoNeb nebulized treatments [id number]. Remains on Lasix 40 mg p.o. daily. Remains on aspirin. Objective - Vital Signs Vital signs: Vital Signs Temp 98.3 F 06/22/24 08:00 Pulse 74 06/22/24 08:00 Resp 15 06/22/24 08:00 BP 144/83 06/22/24 08:00 Pulse Ox 97 06/22/24 08:00 FiO2 40 06/17/24 18:35 Intake & Output 06/21/24 06/22/24 06/22/24 18:59 06:59 18:59 Output Total 1900 600 Balance -1900 -600 Weight 157.6 kg 146 kg Output: Urine 1900 600 2-way Urethral 800 Other: Voiding Method Indwelling Catheter Indwelling Catheter Indwelling Catheter # Bowel Movements 2 - Exam The patient appeared well nourished and normally developed. The patient is morbidly obese with a BMI of 68.3. She is off the BiPAP on 5 L O2 nasal cannula.. No signs of any significant respiratory distress. She does have evidence of psoriasis covering the entire body. Head exam is unremarkable. No scleral icterus or corneal arcus noted. Neck is without jugular venous distension, thyromegaly, or carotid bruits. Carotid upstrokes are brisk bilaterally. Crowding of posterior pharynx with a Mallampati class IV Lungs are clear to auscultation and percussion. Cardiac exam reveals the PMI to be normally sized and situated. Rhythm is regular. First and second heart sounds normal. No murmurs, rubs or gallops. Abdominal exam reveals normal bowel sounds, no masses, no organomegaly and no aortic enlargement. Extremities are dematous and both femoral and pedal pulses are normal. Examination of the skin revealed no evidence of significant rashes, suspicious appearing nevi or other concerning lesions. Neurologically, the patient is unable to speak. She mumbles few sounds. She does comprehend and she is following simple commands. The cranial nerves are int act. Pupils are equal reactive to light. Reflexes are +1 in the upper and lower extremities and the plantars are somewhat upgoing. Generalized weakness in all 4 extremities. Neurologic exam is nonfocal. Examination of the skin consistent with extensive psoriatic lesions throughout the body upper and lower extremities. - Labs CBC & Chem 7: 06/22/24 03:31 06/22/24 03:31 Labs: Abnormal Lab Results - Last 24 Hours (Table) 06/21/24 06/21/24 06/21/24 Range/Units 18:31 21:09 23:56 WBC (3.8-10.6) k/uL Neutrophils # (1.3-7.7) k/uL Sodium (137-145) mmol/L Potassium (3.5-5.1) mmol/L Chloride (98-107) mmol/L Carbon Dioxide (22-30) mmol/L BUN (7-17) mg/dL Glucose (74-99) mg/dL POC Glucose (mg/dL) 148 H 171 H 139 H (70-110) mg/dL C-Reactive Protein (<1.0) mg/dL 06/22/24 06/22/24 06/22/24 Range/Units 03:31 03:31 06:26 WBC 12.4 H (3.8-10.6) k/uL Neutrophils # 9.7 H (1.3-7.7) k/uL Sodium 134 L (137-145) mmol/L Potassium 3.0 L (3.5-5.1) mmol/L Chloride 89 L (98-107) mmol/L Carbon Dioxide 35 H (22-30) mmol/L BUN 26 H (7-17) mg/dL Glucose 137 H (74-99) mg/dL POC Glucose (mg/dL) 174 H (70-110) mg/dL C-Reactive Protein 2.4 H (<1.0) mg/dL 06/22/24 Range/Units 11:39 WBC (3.8-10.6) k/uL Neutrophils # (1.3-7.7) k/uL Sodium (137-145) mmol/L Potassium (3.5-5.1) mmol/L Chloride (98-107) mmol/L Carbon Dioxide (22-30) mmol/L BUN (7-17) mg/dL Glucose (74-99) mg/dL POC Glucose (mg/dL) 166 H (70-110) mg/dL C-Reactive Protein (<1.0) mg/dL Assessment and Plan Plan: Aphasia with slurred speech, rule out acute stroke. Patient is status post lumbar puncture mostly because of her mental status change and fever. Cultures revealed no growth. Unable to obtain a MRI of the brain due to the patient's size. Declined at tertiary care facility due to not needing higher level of care. Required PEG tube placement on 06/17/2024 Dysphagia, currently has a PEG tube with enteral feeding and additional support and the patient is on vital high-protein at rate of 43 cc an hour Psoriasis with widespread rash Acute on chronic hypoxic respiratory failure Chronic hypercapnic respiratory failure likely secondary to COPD and possibly component of obesity hypoventilation syndrome Acquired pneumonia or aspiration pneumonia considering her overall clinical condition. Patient is completing a course of Augmentin. Obstructive sleep apnea Hypertension, currently better controlled Morbid obesity Mild pulmonary edema, responded well to diuretics Chronic diastolic heart failure Plan: Stable and on 2 L of oxygen by nasal cannula Titrate oxygen flow to maintain saturation above 90% PEG tube placed for nutritional support Continue aspirin BiPAP overnight Plan is for subacute rehab Neurologist on the case.
== END 2024-06-22 18:55 | DRG 133 ==
LOC: EC 12:46 → 3SCARD 14:55 → 2SICU 06-09 11:13 → 3SCARD 06-14 20:45 → 4SSUR 06-16 18:22
PROVIDERS: ADMIT Hospitalist; ATTEND Hospitalist
PROC: 5A09557 Assistance with Respiratory Ventilation, Greater than 96 Consecutive Hours, Continuous Positive Airway Pressure (ICD-10-PCS; principal; 2024-06-05)
PROC: 0D9670Z Drainage of Stomach with Drainage Device, Via Natural or Artificial Opening (ICD-10-PCS; 2024-06-07)
PROC: 3E0G76Z Introduction of Nutritional Substance into Upper GI, Via Natural or Artificial Opening (ICD-10-PCS; 2024-06-07)
PROC: 009U3ZX Drainage of Spinal Canal, Percutaneous Approach, Diagnostic (ICD-10-PCS; 2024-06-09)
PROC: 0CJS8ZZ Inspection of Larynx, Via Natural or Artificial Opening Endoscopic (ICD-10-PCS; 2024-06-14)
PROC: 3E0G76Z Introduction of Nutritional Substance into Upper GI, Via Natural or Artificial Opening (ICD-10-PCS; 2024-06-17)
PROC: 0DH63UZ Insertion of Feeding Device into Stomach, Percutaneous Approach (ICD-10-PCS; 2024-06-17)
DX: J96.21 Acute and chronic respiratory failure with hypoxia (principal); E66.2 Morbid (severe) obesity with alveolar hypoventilation; I11.0 Hypertensive heart disease with heart failure; N17.0 Acute kidney failure with tubular necrosis; R65.20 Severe sepsis without septic shock; J69.0 Pneumonitis due to inhalation of food and vomit; I50.33 Acute on chronic diastolic (congestive) heart failure; A41.9 Sepsis, unspecified organism; G93.41 Metabolic encephalopathy; J96.12 Chronic respiratory failure with hypercapnia; F05 Delirium due to known physiological condition; J18.9 Pneumonia, unspecified organism; Z68.44 Body mass index [BMI] 60.0-69.9, adult; E11.9 Type 2 diabetes mellitus without complications; F03.94 Unspecified dementia, unspecified severity, with anxiety; K25.9 Gastric ulcer, unspecified as acute or chronic, without hemorrhage or perforation; F10.11 Alcohol abuse, in remission; E87.0 Hyperosmolality and hypernatremia; E87.4 Mixed disorder of acid-base balance; R47.01 Aphasia; R13.12 Dysphagia, oropharyngeal phase; Z20.822 Contact with and (suspected) exposure to COVID-19; R47.02 Dysphasia; E53.1 Pyridoxine deficiency; R15.9 Full incontinence of feces; R49.0 Dysphonia; R32 Unspecified urinary incontinence; G89.29 Other chronic pain; M47.816 Spondylosis without myelopathy or radiculopathy, lumbar region; J98.11 Atelectasis; L40.9 Psoriasis, unspecified; Z79.84 Long term (current) use of oral hypoglycemic drugs; Z79.899 Other long term (current) drug therapy; Z88.2 Allergy status to sulfonamides; Z71.3 Dietary counseling and surveillance
CPT/HCPCS: 36415; 36600; 43246; 70450; 71045; 71046; 74230; 80048; 80053; 80061; 81001; 81003; 82550; 82607; 82746; 82805; 82945; 83036; 83090; 83605; 83735; 83880; 83921; 84132; 84145; 84157; 84207; 84425; 84443; 85025; 85027; 85610; 85730; 86041; 86140; 86255; 87040; 87070; 87205; 87324; 87496; 87498; 87529; 87636; 87798; 88108; 89050; 93005; 93306; 93880; 93970; 94640; 94660; 94760; 95816; 96372; 96374; 96375; 96376; 99285